=== PATIENT | male | born 1950 | race Caucasian/White ===

== ENCOUNTER 2023-06-13 09:32 | Outpatient (OUT) | payer MEDICARE, SELFPAY ==
[2023-06-13 10:07] LABS: Basophils Absolute Auto 0.1 10^3/uL (0.0-0.1); Basophils Percent Auto 0.8 % (0.2-2.0); Eosinophils Absolute Auto 0.3 10^3/uL (0.0-0.7); Eosinophils Percent Auto 5.4 % (0.9-7.0); Hematocrit 37.6 % (42.0-54.0); Hemoglobin 13.1 g/dL (14.0-18.0); Immature Granulocytes Abs Auto 0.05 10^3/uL (0.00-0.03); Immature Granulocytes Pct Auto 0.8 % (0.0-0.5); Lymphocytes Absolute Auto 1.6 10^3/uL (1.2-3.8); Lymphocytes Percent Auto 25.8 % (20.5-60.0); Mean Corpuscular HGB Conc 34.8 g/dL (29.9-35.2); Mean Corpuscular Volume 91.9 fL (80.0-94.0); Monocytes Absolute Auto 0.5 10^3/uL (0.3-0.8); Neutrophils Absolute Auto 3.7 10^3/uL (1.4-6.5); Neutrophils Percent Auto 59.2 % (43.0-75.0); Platelet Count 174 10^3/uL (150-450); Red Blood Count 4.09 10^6/uL (4.70-6.10); Red Cell Distribution Width 13.3 % (11.0-15.0); White Blood Count 6.3 10^3/uL (4.0-11.0)
[2023-06-13 10:17] LABS: Creatinine Urine Random 185.93 mg/dL (20.00-300.00); Microalbumin Urine Random <1.3 mg/dL (<=30.0)
[2023-06-13 12:00] LABS: Alanine Aminotransferase 17 U/L (16-63); Albumin Globulin Ratio 0.9; Albumin Level 3.5 g/dL (3.4-5.0); Alkaline Phosphatase 58 U/L (46-116); Anion Gap 14.2; Aspartate Amino Transferase 12 U/L (15-37); BUN Creatinine Ratio 19.3; Bilirubin Total 0.7 mg/dL (0.2-1.0); Calcium 9.1 mg/dL (8.5-10.1); Carbon Dioxide 26.9 mmol/L (21.0-32.0); Chloride 102 mmol/L (98-107); Estimated GFR (African America >60 (>=60); Estimated GFR (Non-African Ame >60 (>=60); Globulin 3.7 g/dL; Glucose 132 mg/dL (74-106); Potassium 4.1 mmol/L (3.5-5.1); Sodium 139 mmol/L (136-145); Thyroid Stimulating Hormone 2.354 uIU/mL (0.358-3.740); Total Protein 7.2 g/dL (6.4-8.2)
[2023-06-13 12:08] LABS: Estimated Average Glucose 117 mg/dL; Glycohemoglobin A1C 5.7 % (4.5-6.2)
== END 2023-06-13 09:33 | disposition home or self-care (01) ==
LOC: LAB 09:35
PROVIDERS: PCP Internal Medicine; Visit Provider Internal Medicine
DX: E11.9 Type 2 diabetes mellitus without complications (principal); R53.83 Other fatigue; G62.9 Polyneuropathy, unspecified; N40.0 Benign prostatic hyperplasia without lower urinary tract symptoms; Z12.5 Encounter for screening for malignant neoplasm of prostate
CPT/HCPCS: 36415; 80053; 82043; 82570; 82607; 83036; 84443; 85025; G0103

== ENCOUNTER 2023-07-04 10:37 | Outpatient (OUT) | payer MEDICARE, SELFPAY ==
[2023-07-04 12:03] LABS: Estimated Average Glucose 128 mg/dL; Glycohemoglobin A1C 6.1 % (4.5-6.2)
== END 2023-07-04 10:38 | disposition home or self-care (01) ==
LOC: LAB 10:37
PROVIDERS: PCP Internal Medicine; Visit Provider Internal Medicine
DX: E11.9 Type 2 diabetes mellitus without complications (principal)
CPT/HCPCS: 36415; 83036

== ENCOUNTER 2023-08-30 13:26 | Outpatient (OUT) | payer MEDICARE, SELFPAY | END 2023-08-30 13:27 | disposition home or self-care (01) | LOC: LAB 13:28 | PROVIDERS: PCP Internal Medicine; Visit Provider Nurse Practitioner Family | DX: H53.2 Diplopia (principal) | CPT/HCPCS: 36415; 83519 ==

== ENCOUNTER 2023-10-31 11:19 | Outpatient (OUT) | payer MEDICARE, SELFPAY ==
--- OUTSIDE RECORDS SUMMARY | 2023-10-31 11:24 | XMS_ITS | CCD ---
Author Name Unknown Address [address] [place] [address] Organization [facility] Care Team Providers Care Senior Accountant Cpa Name Role Phone CHAVEZ CELINE JONES Unavailable Unavaila ble CHODISETTY, SUBRAHMANYAM Unavailable Unavail able VIRGINIA, ANGUS Unavailable Unavailable VIRGINIA, ANGUS Unavailable Unavailable VIRGINIA, ANGUS Unavailable Unavailable Fawwad, Lala Unavailable Unavailable Unavailable Alcides Nowak Unavailable Kathie CRAWFORD, Dr. Keyon Bennett Referring Unavailable Kathie II, Dr. Keyon Bennett Attending Unavailable Lynnetteuinsally II, Dr. Keyon Bennett Attending Unavailable Debbien II, Dr. Keyon Bennett Referring Unavailable Vazquez Shaw Unavailable FAWWAD, LALA H Admitting Unavailable FAWWAD, LALA H Attending Unavailable FAWWAD, LALA H Consulting Unavailable FAWWAD, LALA H Primary Care Unavailable JUSTIN ., DR RAYMUNDO Chavez Consulting Unavailable JUSTIN ., DR RAYMUNDO Chavez Admitting Unavailable FAWWAD, LALA H Primary Care Unavailable JUSTIN ., DR RAYMUNDO Chavez Attending Unavailable CUMMINGS, CECILE Consulting Unavailable JUSTIN ., DR RAYMUNDO Chavez Admitting Unavailable FREDERICK DIAZ Consulting Unavailable FAWWAD, LALA H Primary Care Unavailable JUSTIN ., DR RAYMUNDO Chavez Attending Unavailable FAWWAD, LALA H Admitting Unavailable FAWWAD, LALA H Attending Unavailable FAWWAD, LALA H Consulting Unavailable FAWWAD, LALA H Primary Care Unavailable FAWWAD, LALA H Admitting Unavailable FAWWAD, LALA H Attending Unavailable FAWWAD, LALA H Consulting Unavailable SHAIKH Charlie HERNANDEZ Primary Care Unavailable DANIEL Schultz-FAIRING MAN-C Tonya Villanueva Attending Provider MD Dai Hernandez Primary Care Provider [phone] Shaikh Hernandez Primary Care Unavailable Tonya Schultz Attending Unavailable Tonya Schultz Admitting Unavailable Shaikh Hernandez MD Primary Care Provider [phone] ANA RAMOS Attending Unavailable SHAIKH HERNANDEZ Primary Care Unavailable Allergies Allergy Classification Reported Allergen(s) Allergy Type Date of Onset Reaction(s) Facility (7 sources) Iodinated Contrast Media; Translations: [Iodinated Contrast Media] Allergy to drug (finding) 1 Unknown Reaction [facility] (1 source) house dust allergenic extract Drug Allergy [facility] (3 sources) Latex; Translations: [LATEX] Drug allergy (disorder) 1 Unknown Reaction [facility] (1 source) Shellfish Drug allergy (disorder) [facility] (1 source) Latex Drug allergy (disorder) 1 [facility] (1 source) Iodinated Contrast Media Drug allergy (disorder) 1 [facility] (1 source) Latex Propensity to adverse reactions 3 [facility] Work Phone: (2 sources) Shellfish; Translations: [SHELLFISH DERIVED] Propensity to adverse reactions 3 [facility] Work Phone: (2 sources) Adhesive Tape-Silicones; Translations: [ADHESIVE TAPE-SILICONES] Propensity to adverse reactions 3 [facility] (1 source) Iodinated Contrast Media Drug Allergy 3 [facility] Medications Current Medications Medication Drug Class(es) Dates Sig (Normalized) Sig (Original) apixaban 5 mg oral tablet (6 sources) Factor Xa Inhibitor Start: 12-04-2021 take 1 tablet by mouth twice daily apixaban (Eliquis) 5 mg tablet Take 1 tablet (5 mg) by mouth 2 times a day. 0 12/04/2021 Active aspirin 81 mg delayed release oral tablet (6 sources) Platelet Aggregation Inhibitor, Nonsteroidal Anti-inflammatory Drug Start: 12-04-2021 take 1 tablet by mouth every week aspirin 81 mg EC tablet Take 1 tablet (81 mg) by mouth 1 (one) time per week. 0 12/04/2021 Active atorvastatin 20 mg oral tablet (7 sources) HMG-CoA Reductase Inhibitor Start: 12-01-2021 take 1 tablet by mouth once daily atorvastatin (Lipitor) 20 mg tablet Take 1 tablet (20 mg) by mouth once daily. 0 12/01/2021 Active Start: 09-25-2021 take 10 mg by mouth once daily Atorvastatin Active 10 MG PO Daily September 25, 2021 1:00am biotin 5 mg oral capsule (3 sources) take 1 capsule by mo [facility] once daily biotin 5 mg capsule Take 1 capsule (5 mg) by mouth once daily. 0 Active Biotin CAPS TAKE 1 CAPSULE Daily Quantity: 0 Refills: 0 Ordered: 14-Apr-2022 DO Active carbidopa 25 mg / levodopa 100 mg oral tablet (10 sources) Aromatic Amino Acid Decarboxylation Inhibitor, Aromatic Amino Acid take 1 tablet by mouth three times daily carbidopa-levodopa (Sinemet) 25-100 mg tablet Take 1 tablet by mouth 3 times a day. 0 Active take 1 tablet by gabriela three times daily Carbidopa-Levodopa 25-100 MG TAKE 1 TABL ET BY MOUTH THREE TIMES DAILY Oral for 30 Days Active carvedilol 25 mg oral tablet (15 sources) alpha-Adrenergic Stephanie, beta-Adrenergic Stephanie Start: 09-25-2021 take 25 mg by mouth once daily Carvedilol Active 25 MG PO Daily September 25, 2021 1:00am Start: 09-02-2021 take 1 tablet by gabriela twice daily carvedilol (Coreg) 25 mg tablet Take 1 tablet (25 mg) by mouth 2 times a day. 0 09/02/2021 Active Carvedilol Activ e cetirizine hydrochloride 10 mg oral tablet (3 sources) Histamine-1 Receptor Antagonist take 1 tablet by mouth every twenty-four hours as needed cetirizine (ZyrTEC) 10 mg tablet Take 1 tablet (10 mg) by mouth once daily as needed. 0 Active cholecalciferol 1.25 mg oral capsule (3 sources) Vitamin D take 1 capsule by mouth once daily cholecalciferol (Vitamin D-3) 50,000 unit capsule Take 1 capsule (50,000 Units) by mouth once daily. 0 Active 0.5 ml dulaglutide 1.5 mg/ml auto-injector (8 sources) GLP-1 Receptor Agonist Start: 022 dulaglutide (Trulicity) 0.75 mg/0.5 mL pen injector Inject under the skin. 0 01/07/2022 Active Start: 01-07-2022 Trulicity 0.75 MG/0.5ML Subcutaneous Solution Pen-injector INJECT 1 pen NEEDED SUBCUTANEOUSLY ONCE A WEEK Quantity: 2 Refills: 0 Ordered: 02-Feb-2022 DO Start : 07-Jan-2022 Active Trulicity Not-Calvin chicas Trulicity Active esomeprazole 40 mg delayed release oral capsule (6 sources) Proton Pump Inhibitor Start: 01-12-2023 take 1 capsule by mouth every twenty-four hours Esomeprazole Magnesium 40 MG 1 capsule Orally Once a day for 30 days Dec, Active Start: 05-12-2022 take 1 capsule by mo [facility] twice daily Esomeprazole Magnesium 40 MG 1 capsule Orally twice daily for 90 days Apr, Active finasteride 5 mg oral tablet (1 source) 5-alpha Reductase Inhibitor take 1 tablet by mouth once daily finasteride (Proscar) 5 mg tablet Take 1 tablet (5 mg) by mouth once daily. Do not crush, chew, or split. 0 Active glimepiride 4 mg oral tablet (14 sources) Sulfonylurea Start: take 0.5 tablet by mouth once daily before mealtime glimepiride (Amaryl) 4 mg tablet Take 0.5 tablets (2 mg) by mouth once daily in the morning. Take before meals. 0 12/01/2021 Active Start: 12-01-2021 take 1 tablet by gabriela once daily 30 minutes before mealtime Glimepiride 4 MG Oral Tablet TAKE 1 TABLET BY MOUTH DAILY 30 MINUTES before a meal Quantity: 30 Refills: 0 Ordered: 01-Dec-2021 DO Start : 01-Dec-2021 Active take 1 tablet by gabriela every twenty-four hours Glimepiride 2 MG 1 tab(s) Orally Once a day Active losartan potassium 50 mg oral tablet (14 sources) Angiotensin 2 Receptor Stephanie Start: 09-25-2021 take 1 tablet by mouth once daily losartan (Cozaar) 50 mg tablet Take 1 tablet (50 mg) by mouth once daily. 0 10/27/2021 Active magnesium oxide 400 mg oral tablet (3 sources) Start: 11-17-2021 take 1 tablet by mouth once daily at bedtime magnesium oxide (Mag-Ox) 400 mg (241.3 mg magnesium) tablet Take 1 tablet (400 mg) by mouth once daily at bedtime. 0 11/17/2021 Active Start: 11-17-2021 take 1 tablet by gabriela th at bedtime Magnesium Oxide 400 (240 Mg) MG Oral Tablet TAKE 1 TABLET BY MOUTH AT BEDTIME Quantity: 30 Refills: 0 Ordered: 17-Nov-2021 DO Start : 17-Nov-2021 Active meclizine hydrochloride 25 mg oral tablet (7 sources) Antiemetic Start: 11-17-2021 take 1 tablet by mouth twice daily as needed meclizine (Antivert) 25 mg tablet Take 1 tablet (25 mg) by mouth 2 times a day as needed. 0 11/17/2021 Active Start: 09-25-2021 take 25 mg by mouth once daily Meclizine Active 25 MG PO Daily September 25, 2021 1:00am metFORMIN hydrochloride 500 mg oral tablet (11 sources) Biguanide Start: 12-01-2021 take 1 tablet by mouth every twelve hours metFORMIN (Glucophage) 500 mg tablet Take 1 tablet (500 mg) by mouth every 12 hours. 0 12/01/2021 Active primidone 50 mg oral tablet (2 sources) Anti-epileptic Agent take 1 tablet by mouth once daily at bedtime primidone (Mysoline) 50 mg tablet Take 1 tablet (50 mg) by mouth once daily at bedtime. 0 Active SITagliptin 100 mg oral tablet (15 sources) Dipeptidyl Peptidase 4 Inhibitor Start: 09-25-2021 take 1 tablet by mouth once daily sitaGLIPtin phosphate (Januvia) 100 mg tablet Take 1 tablet (100 mg) by mouth once daily. 0 11/10/2021 Active Januvia Active tamsulosin hydrochloride 0.4 mg oral capsule (7 sources) alpha-Adrenergic Stephanie Start: 09-25-2021 take 1 capsule by mouth once daily tamsulosin (Flomax) 0.4 mg 24 hr capsule Take 1 capsule (0.4 mg) by mouth once daily. 0 11/30/2021 Active traZODone hydrochloride 50 mg oral tablet (1 source) Serotonin Reuptake Inhibitor take 1 tablet by mouth once daily at bedtime traZODone (Desyrel) 50 mg tablet Take 1 tablet (50 mg) by mouth once daily at bedtime. 0 Active Completed/Discontinued Medications Medication Drug Class(es) Dates Sig (Normalized) Sig (Original) baclofen 10 mg oral tablet (9 sources) gamma-Aminobuty alexia Acid-ergic Agonist Start: 11-17-2021 take 1 tablet by mouth at bedtime Baclofen 10 MG Oral Tablet TAKE 1 TABLET BY MOUTH AT BEDTIME Quantity: 30 Refills: 0 Ordered: 17-Nov-2021 DO Start : 17-Nov-2021 Active dexlansoprazole 30 mg delayed release oral capsule (7 sources) Proton Pump Inhibitor Start: 11-23-2021 End: 09-28-2023 take 1 capsule by mouth twice daily dexlansoprazole (Dexilant) [address] capsule Take 1 capsule (30 mg) by mouth 2 times a day. 0 11/23/2021 09/28/2023 Discontinued (Therapy completed) gabapentin 300 mg oral capsule (15 sources) Anti-epileptic Agent Start: 10-27-2021 take 1 capsule by mouth three times daily Gabapentin 300 MG Oral Capsule TAKE 1 CAPSULE BY MOUTH THREE TIMES DAILY Quantity: 90 Refills: 0 Ordered: 27-Oct-2021 DO Start : 27-Oct-2021 Active Start: 09-25-2021 take 300 mg by mouth once chris y Gabapentin Active 300 MG PO Daily September 25, 2021 1:00am take 1 capsule by mo [facility] twice daily gabapentin (Neurontin) 300 mg capsule Take 1 capsule (300 mg) by mouth 2 times a day. 0 Active Gabapentin Activ e lansoprazole 30 mg delayed release oral capsule (4 sources) Proton Pump Inhibitor Start: 05-14-2022 take 1 capsule by mouth every twelve hours Lansoprazole 30 MG 1 capsule before a meal Orally twice a day for 90 days Apr, Not-Taking Multi Vitamin Daily Oral Tablet (2 sources) take 1 tablet by mouth once daily Multi Vitamin Daily Oral Tablet TAKE 1 TABLET DAILY. Quantity: 0 Refills: 0 Ordered: 14-Apr-2022 DO Active multivitamin (Daily Multi-Vitamin) tablet (1 source) End: 09-28-2023 take 1 tablet by mouth once daily multivitamin (Daily Multi-Vitamin) tablet Take 1 tablet by mouth once daily. 0 09/28/2023 Discontinued (Therapy completed) omeprazole 40 mg delayed release oral capsule (10 sources) Proton Pump Inhibitor Start: 12-11-2021 End: 09-28-2023 omeprazole (PriLOSEC) [address] capsule Take by mouth. 0 12/11/2021 09/28/2023 Discontinued (Therapy completed) Start: 09-25-2021 take 40 mg by mouth once daily Omeprazole Active 40 MG PO Daily 84 84 September 25, 2021 1:00am Start: 09-25-2021 End: 09-25-2021 take 20 mg by mouth once daily Omeprazole Discontinued 20 MG PO Daily September 25, 2021 1:00am September 25, 2021 10:34am Prostate Control Oral Capsule (2 sources) take 1 capsule by mouth once daily Prostate Control Oral Capsule TAKE 1 CAPSULE Daily Quantity: 0 Refills: 0 Ordered: 14-Apr-2022 DO Active ron-Lc-yak-pumpk-beta- ly-Zn-Cu (Prostate Control) 27-79-09-100 mg capsule (1 source) End: 09-28-2023 take 1 capsule by mouth once daily muk-Lk-suk-ugiqv-jqky-jk-Z n-Cu (Prostate Control) 29-53-22-100 mg capsule Take 1 capsule by mouth once daily. 0 09/28/2023 Discontinued (Therapy completed) Problems Active Problems Problem Classification Problem Date Documented Date Episodic/Chronic Cardiac dysrhythmias (9 sources) Paroxysmal atrial fibrillation; Translations: [Atrial fibrillation] Onset: 09-27-2023 09-28-2023 Chronic Diabetes mellitus without complication (14 sources) Diabetes mellitus without complication; Translations: [Diabetes mellitus without mention of complication, type II or unspecified type, not stated as uncontrolled] Onset: 04-21-2022 Chronic Disorders of lipid metabolism (10 sources) Hyperlipidemia; Translations: [Other and unspecified hyperlipidemia] Onset: 11-17-2022 09-28-2023 Chronic Esophageal disorders (20 sources) Gastroesophageal reflux disease; Translations: [Gastro-esophageal reflux disease without esophagitis] Onset: 11-23-2021 Resolved: 05-12-2022 Chronic Essential hypertension (9 sources) Benign essential hypertension; Translations: [Benign essential hypertension] Onset: 09-27-2023 09-28-2023 Chronic Other aftercare (2 sources) Long-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 of 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; Translations: [penitentiary (current) use of 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s] Onset: 09-28-2023 09-28-2023 Episodic Other aftercare (2 sources) 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; Translations: [penitentiary (current) use of 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s] Onset: 09-28-2023 Episodic Other disorders of stomach and duodenum (8 sources) Indigestion; Translations: [Functional dyspepsia] Episodic Other disorders of stomach and duodenum (2 sources) Functional dyspepsia Onset: 11-23-2021 Resolved: 11-23-2021 Episodic Other nervous system disorders (1 source) Other chronic pain; Translations: [OTHER CHRONIC PAIN] Onset: 05-26-2022 Chronic Other nervous system disorders (1 source) Tremor, unspecified; Translations: [Tremor, unspecified] Onset: 07-22-2023 Episodic Other nutritional; endocrine; and metabolic disorders (2 sources) Obesity; Translations: [Obesity, unspecified] Chronic Other nutritional; endocrine; and metabolic disorders (5 sources) Overweight in adulthood with body mass index of 25 or more but less than 30; Translations: [Overweight] Onset: 09-28-2023 09-28-2023 Episodic Other nutritional; endocrine; and metabolic disorders (2 sources) Body mass index (BMI) 28.0-28.9, adult; Translations: [Body mass index (BMI) 28.0-28.9, adult] Onset: 09-28-2023 Episodic Parkinson`s disease (4 sources) Parkinson's disease; Translations: [Paralysis agitans] Onset: 05-26-2022 09-27-2023 Chronic Spondylosis; intervertebral disc disorders; other back problems (5 sources) Spondylosis without myelopathy or radiculopathy, lumbar region; Translations: [Other intervertebral disc degeneration, lumbar region] Onset: 05-20-2022 Chronic Unclassified (1 source) LOW BACK PAIN, UNSPECIFIED; Translations: [LOW BACK PAIN, UNSPECIFIED] Onset: 05-26-2022 Past or Other Problems Problem Classification Problem Date Documented Da te Episodic/Chronic Other connective tissue disease (2 sources) Unspecified symptoms and signs involving the nervous system; Translations: [Pain in unspecified limb] Onset: 04-25-2017 Episodic Other nervous system disorders (1 source) Paresthesia of skin; Translations: [Paresthesia of skin] Onset: 04-25-2017 Episodic Unclassified (5 sources) Never smoked tobacco; Translations: [Never a smoker] Unclassified (1 source) Onset: 09-28-2023 09-28-2023 Results Test Name Value Interpretation Reference Range Facility MR head/brain wo conon 07-22 MR head/brain wo con [facility] [place] [address] [place] [address] MRI Report Signed Patient: Jay Aguero MR#: [id number] 3 : 1950 Acct:[id number] Age/Sex: 73 / M ADM Date: 07/22/23 Loc: MR Room: Type: [facility] Attending Dr: Tonya MCGOWAN Copies to: JUAN M Gonzalez Ordering Provider: JUAN M Gonzalez Date of Service: 07/22/23 MR/MR head/brain wo con: R25.1 MR head/brain wo con 07/22/2023 6:38 AM SIGN AND SYMPTOMS: Diplopia, history of Parkinson's PROTOCOL: Multiplanar multisequence MR images of the brain were obtained without IV contrast COMPARISON: None. FINDINGS: Extra axial spaces: Age appropriate. Hemorrhage: None. Ventricular system: Within normal limits. Basal cisterns: Within normal limits and not effaced. Cerebral parenchyma: Periventricular and subcortical white matter T2 and FLAIR hyperintense signal is noted consistent with mild chronic microvascular ischemic change. Midline shift: None.. Cerebellum: Within normal limits. Brainstem: Within normal limits. OTHER: Calvarium: Normal marrow signal. Vascular system: Satisfactory flow voids within the anterior and posterior circulation. Visualized Paranasal sinuses: Mucosal thickening is noted in the ethmoid air cells. Visualized Orbits: Within normal limits. Visualized upper cervical spine: Within normal limits. Sella and skull base: Within normal limits. MR/MR head/brain wo con IMPRESSION: No acute intracranial pathology. Chronic age-related degenerative changes are noted, as above. Impression dictated by: Duc Wheeler M.D.07/22/2023 11:32 AM Dictation Location: [place] [address] Transcribed By: CLARISSA 07/22/23 113 Dictated By: Duc Wheeler II, MD 07/22/23 112 Signed By: 07/22/23 113 [facility] GLYCOHEMOGLOBIN A1Con 2022 ADA RECOMMENDATION SEE BELOW Normal [facility] Comment on above: Result Comment: ADA RECOMMENDED LIMIT 4.0 - 6.0 ADA THERAPEUTIC TARGET < 7.0 ACTION SUGGESTED > 7.0 Performed By: #### A 1C #### [facility] [address] [place] [address] Dr. Gallo Wade Glucose [Mass/Vol] 128 mg/dL Normal [facility] Comment on above: Performed By: #### A 1C #### [facility] [address] [place] [address] [address] Gallo Wade HbA1c (Bld) [Mass fraction] 6.1 % Normal 4.5-6.2 [facility] Comment on above: Performed By: #### A 1C #### [facility] [address] [place] [address] [address] Gallo Wade Office Visit (Cardiology)on 12-29-2022 Follow-up visit Diagnoses/Problems Assessed Class 1 obesity with body mass index (BMI) of 30.0 to 30.9 in adult (278.00,V85.30) (E66.9,Z68.30) Hyperlipidemia (272.4) (E78.5) Paroxysmal atrial fibrillation (427.31) (I48.0) Essential hypertension, benign (401.1) (I10) Diabetes mellitus with no complication (250.00) (E11.9) Parkinsons disease (332.0) (G20) Never a smoker Orders Class 1 obesity with body mass index (BMI) of 30.0 to 30.9 in adult Healthy Weight Tips; Status:Complete; Done: 29Dec2022 Some eating tips that can help you lose weight.; Status:Complete; Done: 29Dec2022 Essential hypertension, benign Renew: Losartan Potassium 50 MG Oral Tablet; TAKE 1 TABLET BY MOUTH DAILY Hyperlipidemia Renew: Atorvastatin Calcium 20 MG Oral Tablet; TAKE 1 TABLET BY MOUTH DAILY Paroxysmal atrial fibrillation Renew: Aspirin 81 MG Oral Tablet Delayed Release; TAKE 1 TABLET Weekly SocHx: Never a smoker Tobacco Use Screening; Status:Complete; Done: 29Dec2022 Patient Instructions Please bring all medicines, vitamins, and herbal supplements with you when you come to the office. Prescriptions will not be filled unless you are compliant with your follow up appointments or have a follow up appointment scheduled as per instruction of your physician. Refills should be requested at the time of your visit. Follow up in 9 months Chief Complaint JAY AGUERO is being seen for a 9 month follow-up of. History of Present Illness Patient returns in follow-up of problems as noted. In the interim he is done well. Control of his lipids and hypertension is reviewed and found to be adequate and appropriate. He has had no symptomatic paroxysms of atrial fibrillation based upon her review. He is not on antiarrhythmics but he is anticoagulated and hence the risk of stroke appears to be mitigated. His Parkinson's disease is nonproblematic and he denies any falling or other coordination issues. Increased body mass index is noted in the merits of diet exercise and weight loss and its favorable impact on lipids blood pressure and in particular his diabetes was emphasized and he understands our recommendation. Surgical History Problems History of Back surgery History of Carpal tunnel surgery History of Cholecystectomy History of Colonoscopy History of Lithotripsy History of Nasal septoplasty History of Neck surgery History of Tonsillectomy with adenoidectomy Current Meds Medication NameInstruction Allergy (Cetirizine) 10 MG Oral TabletTAKE 1 TABLET DAILY NEEDED. Aspirin 81 MG Oral Tablet Delayed ReleaseTAKE 1 TABLET Weekly Atorvastatin Calcium 20 MG Oral TabletTAKE 1 TABLET BY MOUTH DAILY Biotin CAPSTAKE 1 CAPSULE Daily Carbidopa-Levodopa 25-100 MG Oral TabletTAKE 1 TABLET 3 TIMES DAILY. Carvedilol 25 MG Oral TabletTAKE 1 TABLET BY MOUTH TWICE DAILY Dexilant 30 MG Oral Capsule Delayed ReleaseTAKE 1 CAPSULE BY MOUTH TWICE DAILY Eliquis 5 MG Oral TabletTake 1 tablet twice daily Gabapentin 300 MG Oral CapsuleTAKE 1 CAPSULE TWICE DAILY. Glimepiride 2 MG Oral TabletTAKE 1 TABLET DAILY WITH BREAKFAST. Januvia 100 MG Oral TabletTAKE 1 TABLET BY MOUTH DAILY Losartan Potassium 50 MG Oral TabletTAKE 1 TABLET BY MOUTH DAILY Magnesium Oxide 400 (240 Mg) MG Oral TabletTAKE 1 TABLET BY MOUTH AT BEDTIME Meclizine HCl - 25 MG Oral TabletTAKE 1 TABLET BY MOUTH TWICE DAILY NEEDED metFORMIN HCl - 500 MG Oral TabletTAKE 1 TABLET BY MOUTH EVERY 12 HOURS Multi Vitamin Daily Oral TabletTAKE 1 TABLET DAILY. Omeprazole 40 MG Oral Capsule Delayed ReleaseTAKE 1 CAPSULE BY MOUTH TWICE DAILY (30 MINUTES before morning meal AND 30 MINUTES before evening meal) Primidone 50 MG Oral TabletTAKE 1 TABLET AT BEDTIME. Prostate Control Oral CapsuleTAKE 1 CAPSULE Daily Tamsulosin HCl - 0.4 MG Oral CapsuleTAKE 1 CAPSULE BY MOUTH ONCE DAILY Trulicity 0.75 MG/0.5ML Subcutaneous Solution Pen-injectorINJECT 1 pen NEEDED SUBCUTANEOUSLY ONCE A WEEK Vitamin D3 1.25 MG (60753 UT) Oral CapsuleTAKE 1 CAPSULE Daily Allergies Medication Iodinated Contrast Media Recorded By: Shoaib Goff; 12/04/2021 2:37:37 PM Social History Problems Never a smoker No alcohol use No caffeine use No illicit drug use Review of Systems Constitutional: not feeling tired. Eyes: no eyesight problems. ENT: no hearing loss and no nosebleeds. Cardiovascular: no intermittent leg claudication and as noted in HPI. Respiratory: no chronic cough and no shortness of breath. Gastrointestinal: no change in bowel habits and no blood in stools. Genitourinary: no urinary frequency and no hematuria. Skin: no skin rashes. Neurological: no seizures and no frequent falls. Psychiatric: no depression and not suicidal. All other systems have been reviewed and are negative for complaint. Vitals Vital Signs Recorded: 29Dec2022 01:35PM Heart Rate74, R Radial [id number], LUE, Sitting [id number], LUE, Sitting Height5 ft 10 in [id number] lb BMI Rvirmzmzik15.28 (more content not included)... Normal [place] Tobacco Screening.on 023 Adult depression screening assessment No [facility] [facility] 250 DO Work Phone: Fall risk assessment a) No falls within the last year [facility] [facility] DO Work Phone: Tobacco use status CP b) No [facility] [facility] 250 DO Work Phone: CBC AUTO DIFFon 11-15-2022 BASO # 0.0 103/ul Normal 0.0-0.1 [facility] Comment on above: Performed By: #### C BC #### [facility] [address] [place] [address] Dr. Gallo Wade Basophils/100 WBC (Bld) 0.5 % Normal 0.2-2.0 [facility] Comment on above: Performed By: #### C BC #### [facility] [address] [place] [address] Dr. Gallo Wade EO # 0.2 103/ul Normal 0.0-0.7 [facility] Comment on above: Performed By: #### C BC #### [facility] Laboratory [address] [place] [address] Dr. Gallo Wade Eosinophils/100 WBC (Bld) 2.7 % Normal 0.9-7.0 [facility] Comment on above: Performed By: #### C BC #### [facility] [address] [place] [address] Dr. Gallo Wade Erythrocyte distribution width (RBC) [Ratio] 13.0 % Normal 11.0-15.0 [facility] Comment on above: Performed By: #### C BC #### [facility] [address] [place] [address] Dr. Gallo Wade Hematocrit (Bld) [Volume fraction] 37.6 % Critically low 42.0-54.0 [facility] Comment on above: Performed By: #### C BC #### [facility] [address] [place] [address] Dr. Gallo Wade Hemoglobin (Bld) [Mass/Vol] 13.7 g/dL Critically low 14.0-18.0 [facility] Comment on above: Performed By: #### C BC #### [facility] [address] [place] [address] Dr. Gallo Wade IG # 0.08 10e3/ul Critically high 0.00-0.03 [facility] Comment on above: Performed By: #### C BC #### [facility] [address] [place] [address] Dr. Galol Wade IG % 1.1 % Critically high 0.0-0.5 [facility] Comment on above: Performed By: #### C BC #### [facility] [address] [place] [address] Dr. Gallo Wade LYMPH # 1.6 103/ul Normal 1.2-3.8 [facility] Comment on above: Performed By: #### C BC #### [facility] [address] [place] [address] Dr. Gallo Wade Lymphocytes/100 WBC (Bld) 21.7 % Normal 20.5-60.0 [facility] Comment on above: Performed By: #### C BC #### [facility] [address] [place] [address] Dr. Gallo Wade MANUAL DIFF REQ NO Normal [facility] Comment on above: Performed By: #### C BC #### [facility] [address] [place] [address] Dr. Gallo Wade MCH (RBC) [Entitic mass] 32.2 pg Normal 25.9-34.0 [facility] Comment on above: Performed By: #### C BC #### [facility] [address] [place] [address] Dr. Gallo Wade MCHC (RBC) [Mass/Vol] 36.4 g/dL Critically high 29.9-35.2 [facility] Comment on above: Performed By: #### C BC #### [facility] [address] [place] [address] Dr. Gallo Wade MCV (RBC) [Entitic vol] 88.5 fL Normal 80.0-94.0 [facility] Comment on above: Performed By: #### C BC #### [facility] [address] [place] [address] Dr. Gallo Wade MONO # 0.5 103/ul Normal 0.3-0.8 [facility] Comment on above: Performed By: #### C BC #### [facility] [address] [place] [address] Dr. Gallo Wade Monocytes/100 WBC (Bld) 6.4 % Normal 1.7-12.0 [facility] Comment on above: Performed By: #### C BC #### [facility] [address] [place] [address] Dr. Gallo Wade NEUT # 5.0 103/ul Normal 1.4-6.5 [facility] Comment on above: Performed By: #### C BC #### [facility] [address] [place] [address] Dr. Gallo Wade Neutrophils/100 WBC (Bld) 67.6 % Normal 43.0-75.0 [facility] Comment on above: Performed By: #### C BC #### [facility] [address] [place] [address] Dr. Gallo Wade Platelet mean volume (Bld) [Entitic vol] 9.9 fL Normal 9.5-13.5 [facility] Comment on above: Performed By: #### C BC #### [facility] [address] [place] [address] Dr. Gallo Wade PLT 174 103/ul Normal 150-450 [facility] Comment on above: Performed By: #### C BC #### [facility] [address] [place] [address] Dr. Gallo Wade RBC 4.25 106/ul Critically low 4.70-6.10 [facility] Comment on above: Performed By: #### C BC #### [facility] [address] [place] [address] Dr. Gallo Wade WBC 7.4 103/ul Normal 4.0-11.0 [facility] Comment on above: Performed By: #### C BC #### [facility] [address] [place] [address] Dr. Gallo Wade GLYCOHEMOGLOBIN A1Con 2022 ADA RECOMMENDATION SEE BELOW Normal [facility] Comment on above: Result Comment: ADA RECOMMENDED LIMIT 4.0 - 6.0 ADA THERAPEUTIC TARGET < 7.0 ACTION SUGGESTED > 7.0 Performed By: #### A 1C #### [facility] [address] [place] [address] Dr. Gallo Wade Glucose [Mass/Vol] 169 mg/dL Normal [facility] Comment on above: Performed By: #### A 1C #### [facility] [address] [address] [address] Gallo Wade HbA1c (Bld) [Mass fraction] 7.5 % Critically high 4.5-6.2 [facility] Comment on above: Performed By: #### A 1C #### [facility] [address] [address] [address] Gallo Wade LIPID PROFILEon 11-15-2022 CHOL-HDL RATIO NORM SEE BELOW Normal [facility] Comment on above: Result Comment: 3.3 - 4.4 LOW RISK 4.4 - 7.1 AVERAGE RISK 7.1 - 11.0 MODERATE RISK >11.0 HIGH RISK Performed By: #### L IPID, CMP #### [facility] [address] [place] [address] Dr. Gallo Wade Cholesterol [Mass/Vol] 150 mg/dL Normal <=200 [facility] Comment on above: Performed By: #### L IPID, CMP #### [facility] [address] [address] [address] Gallo Wade Cholesterol in HDL [Mass/Vol] 45 mg/dL Normal 40-60 [facility] Comment on above: Performed By: #### L IPID, CMP #### [facility] [address] [address] [address] Gallo Wade Cholesterol in LDL [Mass/Vol] 53.6 mg/dL Normal [facility] Comment on above: Performed By: #### L IPID, CMP #### [facility] [address] [address] [address] Gallo Wade Cholesterol.total/Ch olesterol in HDL [Mass ratio] 3.3 {ratio} Normal [facility] Comment on above: Performed By: #### L IPID, CMP #### [facility] [address] [address] [address] Gallo Wade HDL NORMAL > or = 60 mg/dl - LO W CARDIOVASCULAR RISK <40 mg/dl - HIGH CARDIOVASCULAR RISK Normal [facility] Comment on above: Performed By: #### L IPID, CMP #### [facility] [address] [address] [address] Gallo Wade LDL CALC NORMAL SEE BELOW Normal [facility] Comment on above: Result Comment: <100 mg/dl OPTIMAL 100 - 129 mg/dl NEAR OR ABOVE OPTIMAL 130 - 159 mg/dl BORDERLINE HIGH 160 - 189 mg/dl HIGH >190 mg/dl VERY HIGH Performed By: #### L IPID, CMP #### [facility] [address] [address] [address] Gallo Wade Triglyceride [Mass/Vol] 257 mg/dL Critically high <=150 [facility] Comment on above: Performed By: #### L IPID, CMP #### [facility] [address] [address] [address] Gallo Wade VLDL CALC 51.4 mg/dL Normal [facility] Comment on above: Performed By: #### L IPID, CMP #### [facility] [address] [address] [address] Gallo Wade PROF 14(COMP METB)on 023 Albumin [Mass/Vol] 3.7 g/dL Normal 3.4-5.0 [facility] Comment on above: Performed By: #### L IPID, CMP #### [facility] [address] [place] [address] Dr. Gallo Wade Albumin/Globulin [Mass ratio] 1.1 {ratio} Normal [facility] Comment on above: Performed By: #### L IPID, CMP #### [facility] [address] [place] [address] Dr. Gallo Wade ALP [Catalytic activity/Vol] 77 U/L Normal 46-116 [facility] Comment on above: Performed By: #### L IPID, CMP #### [facility] [address] [place] [address] Dr. Gallo Wade ALT [Catalytic activity/Vol] 24 U/L Normal 16-63 [facility] Comment on above: Performed By: #### L IPID, CMP #### [facility] [address] [address] [address] Gallo Wade Anion gap [Moles/Vol] 13.2 mmol/L Normal [facility] Comment on above: Performed By: #### L IPID, CMP #### [facility] [address] [address] [address] Gallo Wade AST [Catalytic activity/Vol] 15 U/L Normal 15-37 [facility] Comment on above: Performed By: #### L IPID, CMP #### [facility] [address] [place] [address] Dr. Gallo Wade Bilirubin [Mass/Vol] 0.9 mg/dL Normal 0.2-1.0 [facility] Comment on above: Performed By: #### L IPID, CMP #### [facility] [address] [place] [address] Dr. Gallo Wade Calcium [Mass/Vol] 9.1 mg/dL Normal 8.5-10.1 [facility] Comment on above: Performed By: #### L IPID, CMP #### [facility] [address] [place] [address] Dr. Gallo Wade Chloride [Moles/Vol] 102 mmol/L Normal 98-107 [facility] Comment on above: Performed By: #### L IPID, CMP #### [facility] [address] [place] [address] Dr. Gallo Wade CO2 [Moles/Vol] 27.9 mmol/L Normal 21.0-32.0 [facility] Comment on above: Performed By: #### L IPID, CMP #### [facility] [address] [place] [address] Dr. Gallo Wade Creatinine [Mass/Vol] 0.82 mg/dL Normal 0.70-1.30 [facility] Comment on above: Performed By: #### L IPID, CMP #### [facility] [address] [place] [address] Dr. Gallo Wade EGFR-AF CITIZEN [place] >60 Normal >=60 [facility] Comment on above: Performed By: #### L IPID, CMP #### [facility] [address] [address] [address] Gallo Wade EGFR-NON AF CITIZEN OF [place] >60 Normal >=60 [facility] Comment on above: Performed By: #### L IPID, CMP #### [facility] [address] [address] [address] Gallo Wade Globulin (S) [Mass/Vol] 3.5 g/dL Normal [facility] Comment on above: Performed By: #### L IPID, CMP #### [facility] [address] [place] [address] Dr. Gallo Wade Glucose [Mass/Vol] 161 mg/dL Critically high 74-106 [facility] Comment on above: Performed By: #### L IPID, CMP #### [facility] [address] [place] [address] Dr. Gallo Wade Potassium [Moles/Vol] 4.1 mmol/L Normal 3.5-5.1 [facility] Comment on above: Performed By: #### L IPID, CMP #### [facility] [address] [place] [address] Dr. Gallo Wade Protein [Mass/Vol] 7.2 g/dL Normal 6.4-8.2 [facility] Comment on above: Performed By: #### L IPID, CMP #### [facility] [address] [place] [address] Dr. Gallo Wade Sodium [Moles/Vol] 139 mmol/L Normal 136-145 [facility] Comment on above: Performed By: #### L IPID, CMP #### [facility] [address] [place] [address] Dr. Gallo Wade Urea nitrogen [Mass/Vol] 14.0 mg/dL Normal 7.0-18.0 [facility] Comment on above: Performed By: #### L IPID, CMP #### [facility] [address] [place] [address] Dr. Gallo Wade Urea nitrogen/Creatinine [Mass ratio] 17.1 mg/mg Normal [facility] Comment on above: Performed By: #### L IPID, CMP #### [facility] [address] [address] [address] Gallo Wade GLYCOHEMOGLOBIN A1Con 2021 ADA RECOMMENDATION SEE BELOW Normal [facility] Comment on above: Result Comment: ADA RECOMMENDED LIMIT 4.0 - 6.0 ADA THERAPEUTIC TARGET < 7.0 ACTION SUGGESTED > 7.0 Performed By: #### A 1C #### [facility] [address] [address] [address] Gallo Wade Glucose [Mass/Vol] 134 mg/dL Normal [facility] Comment on above: Performed By: #### A 1C #### [facility] [address] [place] [address] Dr. Gallo Wade HbA1c (Bld) [Mass fraction] 6.3 % Critically high 4.5-6.2 [facility] Comment on above: Performed By: #### A 1C #### [facility] [address] [place] [address] Dr. Gallo Wade LIPID PROFILEon 05-14-2022 CHOL-HDL RATIO NORM SEE BELOW Normal [facility] Comment on above: Result Comment: 3.3 - 4.4 LOW RISK 4.4 - 7.1 AVERAGE RISK 7.1 - 11.0 MODERATE RISK >11.0 HIGH RISK Performed By: #### L IPID #### [facility] [address] [place] [address] Dr. Gallo Wade Cholesterol [Mass/Vol] 129 mg/dL Normal <=200 [facility] Comment on above: Performed By: #### L IPID #### [facility] [address] [place] [address] Dr. Gallo Wade Cholesterol in HDL [Mass/Vol] 36 mg/dL Critically low 40-60 [facility] Comment on above: Performed By: #### L IPID #### [facility] [address] [place] [address] Dr. Gallo Wade Cholesterol in LDL [Mass/Vol] 46.6 mg/dL Normal [facility] Comment on above: Performed By: #### L IPID #### [facility] [address] [place] [address] Dr. Gallo Wade Cholesterol.total/Ch olesterol in HDL [Mass ratio] 3.6 {ratio} Normal [facility] Comment on above: Performed By: #### L IPID #### [facility] [address] [address] [address] Gallo Wade HDL NORMAL > or = 60 mg/dl - LO W CARDIOVASCULAR RISK <40 mg/dl - HIGH CARDIOVASCULAR RISK Normal [facility] Comment on above: Performed By: #### L IPID #### [facility] [address] [address] [address] Gallo Wade LDL CALC NORMAL SEE BELOW Normal [facility] Comment on above: Result Comment: <100 mg/dl OPTIMAL 100 - 129 mg/dl NEAR OR ABOVE OPTIMAL 130 - 159 mg/dl BORDERLINE HIGH 160 - 189 mg/dl HIGH >190 mg/dl VERY HIGH Performed By: #### L IPID #### [facility] [address] [place] [address] Dr. Gallo Wade Triglyceride [Mass/Vol] 232 mg/dL Critically high <=150 [facility] Comment on above: Performed By: #### L IPID #### [facility] [address] [address] [address] Gallo Wade VLDL CALC 46.4 mg/dL Normal [facility] Comment on above: Performed By: #### L IPID #### [facility] [address] [place] [address] Dr. Gallo Wade POINT OF CARE GLUCOSEon 03-25 Glucose [Mass/Vol] 172 mg/dL Critically high 74-106 [facility] Comment on above: Performed By: #### P OCGLUC #### [facility] [address] [address] [address] Gallo Wade Office Visit (Cardiology)on 04-14-2022 Follow-up visit Diagnoses/Problems Assessed Paroxysmal atrial fibrillation (427.31) (I48.0) Hyperlipidemia (272.4) (E78.5) Essential hypertension, benign (401.1) (I10) Diabetes mellitus with no complication (250.00) (E11.9) Parkinsons disease (332.0) (G20) Class 1 obesity with body mass index (BMI) of 30.0 to 30.9 in adult (278.00,V85.30) (E66.9,Z68.30) Patient Instructions By signing my name below, I, Shoaib Goff RN ,Scribe, attest that this documentation has been prepared under the direction and in the presence of Dr. Keyon Vázquez MD. All medical record entries made by the Scribe were at my direction and personally dictated by me. I have reviewed the chart and agree that the record accurately reflects my personal performance of the history, physical exam, discussion and plan. Please bring all medicines, vitamins, and herbal supplements with you when you come to the office. Prescriptions will not be filled unless you are compliant with your follow up appointments or have a follow up appointment scheduled as per instruction of your physician. Refills should be requested at the time of your visit. Follow up in 9 months patient may hold eliquis for 3 days prior to procedure Chief Complaint JAY AGUERO is being seen for a 4 month follow-up of. History of Present Illness Patient returns in follow-up of problems as noted. He is done well. He cannot tell if or when he is out of rhythm because of this I recommend continued therapy as is with chronic 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 therapy. The reason and rationale for this was explained and he agrees. Management of other risk factors including diabetes hypertension and hyperlipidemia is reviewed and felt to be adequate and appropriate. Patient's biggest problem is Parkinson's disease and he expounded on it in great detail. We did encourage him to attempt a calorically restricted diet to facilitate some weight loss as well as modest exercise. Surgical History Problems History of Back surgery History of Carpal tunnel surgery History of Cholecystectomy History of Colonoscopy History of Lithotripsy History of Nasal septoplasty History of Neck surgery History of Tonsillectomy with adenoidectomy Current Meds Medication NameInstruction Allergy (Cetirizine) 10 MG Oral TabletTAKE 1 TABLET DAILY NEEDED. Aspirin 81 MG Oral Tablet Delayed ReleaseTAKE 1 TABLET Weekly Atorvastatin Calcium 20 MG Oral TabletTAKE 1 TABLET BY MOUTH DAILY Baclofen 10 MG Oral TabletTAKE 1 TABLET BY MOUTH AT BEDTIME Biotin CAPSTAKE 1 CAPSULE Daily Carbidopa-Levodopa 25-100 MG Oral TabletTAKE 1 TABLET 3 TIMES DAILY. Carvedilol 25 MG Oral TabletTAKE 1 TABLET BY MOUTH TWICE DAILY Dexilant 30 MG Oral Capsule Delayed ReleaseTAKE 1 CAPSULE BY MOUTH TWICE DAILY Eliquis 5 MG Oral TabletTake 1 tablet twice daily Gabapentin 300 MG Oral CapsuleTAKE 1 CAPSULE TWICE DAILY. Glimepiride 4 MG Oral TabletTAKE 1 TABLET BY MOUTH DAILY 30 MINUTES before a meal Januvia 100 MG Oral TabletTAKE 1 TABLET BY MOUTH DAILY Losartan Potassium 50 MG Oral TabletTAKE 1 TABLET BY MOUTH DAILY Magnesium Oxide 400 (240 Mg) MG Oral TabletTAKE 1 TABLET BY MOUTH AT BEDTIME Meclizine HCl - 25 MG Oral TabletTAKE 1 TABLET BY MOUTH TWICE DAILY NEEDED metFORMIN HCl - 500 MG Oral TabletTAKE 1 TABLET BY MOUTH EVERY 12 HOURS Multi Vitamin Daily Oral TabletTAKE 1 TABLET DAILY. Omeprazole 40 MG Oral Capsule Delayed ReleaseTAKE 1 CAPSULE BY MOUTH TWICE DAILY (30 MINUTES before morning meal AND 30 MINUTES before evening meal) Prostate Control Oral CapsuleTAKE 1 CAPSULE Daily Tamsulosin HCl - 0.4 MG Oral CapsuleTAKE 1 CAPSULE BY MOUTH ONCE DAILY Trulicity 0.75 MG/0.5ML Subcutaneous Solution Pen-injectorINJECT 1 pen NEEDED SUBCUTANEOUSLY ONCE A WEEK Vitamin D3 1.25 MG (15990 UT) Oral CapsuleTAKE 1 CAPSULE Daily Allergies Medication Iodinated Contrast Media Recorded By: Shoaib Goff; 12/04/2021 2:37:37 PM Social History Problems Never a smoker No alcohol use No caffeine use No illicit drug use Review of Systems Constitutional: not feeling tired. Eyes: no eyesight problems. ENT: no hearing loss and no nosebleeds. Cardiovascular: no intermittent leg claudication and as noted in HPI. Respiratory: no chronic cough and no shortness of breath. Gastrointestinal: no change in bowel habits and no blood in stools. Genitourinary: no urinary frequency and no hematuria. Skin: no skin rashes. Neurological: no seizures and no frequent falls. Psychiatric: no depression and not suicidal. All other systems have been reviewed and are negative for complaint. Vitals Vital Signs Recorded: 14Apr2022 03:51PM Heart Rate80, R Radial Ourybecs589, RUE, Sitting Tkhiodiqg49, RUE, Sitting Height5 ft 10 in Jouumy395 lb BMI Kdcvkprgvy95.28 kg/m2 BSA Calculated2.14 Tobacco Useb) No PHQ-2 #1. Over the last 2 weeks have you felt down, depressed or hopeless? (If yes, answer PHQ-9 below)No PHQ-2 #2. Over the last 2 weeks have (more content not included)... Normal [facility] Tobacco Screening.on 022 Adult depression screening assessment No [facility] jose cruz [facility] y 250 DO Work Phone: Fall risk assessment a) No falls within the last year [facility] Elizabeth y 250 DO Work Phone: Tobacco use status CP b) No [facility] Elizabeth y 250 DO Work Phone: Tobacco Screening.on 022 Adult depression screening assessment No [facility] jose cru[facility] y 250 DO Work Phone: Fall risk assessment a) No falls within the last year [facility] Elizabeth cates 250 DO Work Phone: Tobacco use status CP b) No [facility] Elizabeth cates 250 DO Work Phone: SURGICAL PATHOLOGYon 021 SURGICAL PATHOLOGY Specimen #: [id number] Submitting Physician: VIJI FALCON M.D. FINAL DIAGNOSIS [facility], [place], [place]; [id number] (09/25/2021) Esophagus, biopsy (A1-1, A1-2) - Inflamed gastric cardia-type mucosa with reactive epithelial changes. - Negative for intestinal metaplasia and dysplasia. COMMENT Thank you for allowing us the opportunity to review this case in consultation representing the esophagus biopsy from a 71-year-old man with a history of dyspepsia and gastroesophageal reflux disease. The esophagus demonstrates inflamed gastric cardia type mucosa with background chronic inflammation in the lamina propria. Focally, there are associated epithelial changes characterized by epithelial mucin loss, nuclear elongation and hyperchromasia. But these areas contain cells with preserved nuclear: cytoplasmic ratio, open chromatin and more importantly the cells are arranged predominantly in a single monolayer epithelium. Therefore, these findings fall with the spectrum of reactive changes. Intestinal metaplasia is not identified. Thank you for sending this case in consultation. Please do not hesitate to contact the GI consultation Service at [phone] with questions or if additional follow up information becomes available. This case was reviewed in conjunction with the GI pathology fellow, Tonya Fernández M.D. AEB/SSE 10/07/2021 Leela Parsons M.D. (Electronic Signature) SPECIMEN SUBMITTED A: 2 SLIDES [id number] CLINICAL DATA Dyspepsia, GERD. Date of Report: 10/07/2021 Date of Procedure: 10/06/2021 Date of Receipt: 10/06/2021 Submitted by: VIJI FALCON M.D. Location: Diagnostic interpretation performed at [facility], [address] [place] [address]. CLIA Number: [id number] Normal [facility] Comment on above: Performed By: #### S #### See report for performing lab information. Factor V Activityon 04-29-20 17 Factor V Activity 106 % Normal 50-150 [facility] Comment on above: Result Comment: [facility] [address] [place] [address] Performed By: #### H OCYS, FA5, LUPPRO, PROCAC, PROSAC ####[facility] [id number] [place] [id number] Lupus Anticoagulanton 2016 Dilute Blake Viper Negative Normal [facility] Comment on above: Result Comment: [facility] [address] [place] [address] Performed By: #### H OCYS, FA5, LUPPRO, PROCAC, PROSAC ####[address] [address] Protein C Activityon 017 Protein C Activity 130 % Normal >80 [facility] Comment on above: Result Comment: Tammy ents on oral 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s will have decreased functional protein C/S values. Oral 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 therapy should be discontinued for two weeks for accurate measurement of functional protein C/S levels.Artifactually elevated levels of functional protein C/S may be seen in patients receiving heparin, while decreased functionality may be seen in patients with abnormally elevated levels of Factor VIII.[address] [place] [address] Performed By: #### H OCYS, FA5, LUPPRO, PROCAC, PROSAC ####[facility] CenterUA Tech Dev FoundationBjjlrgviktaf[address] [place] [address] Protein S Activityon 017 Protein S Activity 120 % High 77-116 [facility] Comment on above: Result Comment: Tammy ents on oral 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s will have decreased functional protein C/S values. Oral 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 therapy should be discontinued for two weeks for accurate measurement of functional protein C/S levels.Artifactually elevated levels of functional protein C/S may be seen in patients receiving heparin, while decreased functionality may be seen in patients with abnormally elevated levels of Factor VIII.[address] [place] [address] Performed By: #### H OCYS, FA5, LUPPRO, PROCAC, PROSAC ####[facility] CenterUA Tech Dev FoundationWytwthrencgm[address] [place] [address] Lupus Anticoagulanton 2016 Antiphospholipid IgA 4.0 APU Normal <12 [facility] Comment on above: Result Comment: Refe rence Range:12 - 15 Equivocal>15 Positive Performed By: #### H OCYS, FA5, LUPPRO, PROCAC, PROSAC ####[facility] CenterActive Life Scientific [address]wgltcpj[address] [place] [address] Antiphospholipid IgG 5.3 GPU Normal <20 [facility] Comment on above: Result Comment: Refe rence Range:20.0 - 29.9 Low Dpadqlvp44.0 - 79.9 Moderate Positive >79.9 High Positive Performed By: #### H OCYS, FA5, LUPPRO, PROCAC, PROSAC ####[facility] [address] [place] [address] Antiphospholipid IgM 4.8 MPU Normal <20 [facility] Comment on above: Result Comment: Refe rence Range:20.0 - 29.9 Low Aglavrib88.0 - 79.9 Moderate Positive >79.9 High Positive Performed By: #### H OCYS, FA5, LUPPRO, PROCAC, PROSAC ####[address] [address] Cult,Urineon 04-27-2017 Cult,Urine Specimen Description .URINE Special Requests NOT REPORTED Culture NO GROWTH Report Status FINAL 04/27/2017 Normal [facility] Comment on above: Performed By: #### U RC ####[address] [address] CBCon 04-26-2017 Erythrocyte distribution width Auto Ratio (RBC) 13.6 % Normal 12.5-15.4 [facility] Comment on above: Performed By: #### C BC, LIPR ####[facility] [place] [address] Erythrocytes (RBC) 4.13 10*6/uL Low 4.5-5.9 [facility] Comment on above: Performed By: #### C BC, LIPR ####[facility] [address] [place] [address] Hematocrit (HCT) 37.7 % Low 41-53 [facility] Comment on above: Performed By: #### C BC, LIPR ####[facility] [address] [place] [address] Hemoglobin mass conc (Bld) 13.4 g/dL Low 13.5-17.5 [facility] Comment on above: Performed By: #### C BC, LIPR ####[facility] [place] [address] MCH 32.4 pg Normal 26-34 [facility] Comment on above: Performed By: #### C BC, LIPR ####[address] [address] MCHC mass conc (RBC) 35.5 g/dL Normal 31-37 [facility] Comment on above: Performed By: #### C MELISA, LIPR ####[address] [address] MCV 91.2 fL Normal 80-100 [facility] Comment on above: Performed By: #### C MELISA, LIPR ####[address] [address] Platelet mean volume (PMV) 8.6 fL Normal 6.0-12.0 [facility] Comment on above: Result Comment: [address] [place] [address] Performed By: #### C MELISA, LIPR ####[facility] [place] [address] Platelets 161 10*3/uL Normal 140-450 [facility] Comment on above: Performed By: #### C MELISA, LIPR ####[address] [address] WBC (Leukocytes) 5.0 10*3/uL Normal 3.5-11.0 [facility] Comment on above: Performed By: #### C MELISA, LIPR ####[address] [address] Discharge Summaryon 04-26-20 17 HIM IP Note OR 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0 [facility] Comment on above: Performed By: #### T ANNE, TSHX, GLYHGB ####[address] [address] History and Physicalon 04-26 HIM IP Note OR Police And Fire Dispatcher Normal [facility] Homocysteineon 04-26-2017 Homocysteine 9.5 umol/L Normal <15.0 [facility] Comment on above: Result Comment: [facility] [employer] [address] [place] [address] Performed By: #### H OCYS, FA5, LUPPRO, PROCAC, PROSAC ####[address] [address] Lipid Profileon 04-26-2017 Cholesterol 123 mg/dL Normal <200 [facility] Comment on above: Result Comment: Chol esterol Guidelines: <200 Desirable 200-240 Borderline >240 Undesirable Performed By: #### C BC, LIPR ####[address] [address] Cholesterol to HDL Ratio 2.5 {ratio} Normal <5 [facility] Comment on above: Performed By: #### C BC, LIPR ####[address] [address] HDL Cholesterol 49 mg/dL Normal >40 [facility] Comment on above: Result Comment: HDL Guidelines: <40 Undesirable 40-59 Borderline >59 Desirable Performed By: #### C BC, LIPR ####[address] [place] [address] LDL Cholesterol 45 mg/dL Normal 0-130 [facility] Comment on above: Result Comment: LDL Guidelines: <100 Desirable 100-129 Near to/above Desirable 130-159 Borderline >159 UndesirableDirect (measured) LDL and calculated LDL are not interchangeable tests. Performed By: #### C BC, LIPR ####[facility] CenterUA Tech Dev FoundationCcwxzgcwxach0[address] [place] [address] Triglyceride 143 mg/dL Normal <150 [facility] Comment on above: Result Comment: Trig lyceride Guidelines: <150 Desirable 150- 199 Borderline 200-499 High >499 Very high Based on AHA Guidelines for fasting triglyceride, July 2012.[employer] [facility] [place] [address] Performed By: #### C BC, LIPR ####[facility] CenterUA Tech Dev FoundationVlkgvwiituwx[address] [place] [address] Cholesterol in VLDL mass conc NOT REPORTED Normal 1-30 [facility] Comment on above: Performed By: #### C BC, LIPR ####[address] [place] [address] Lupus Anticoagulanton 2016 aPTT 22.5 s Normal 21.3-31.3 [facility] Comment on above: Performed By: #### H OCYS, FA5, LUPPRO, PROCAC, PROSAC ####[address] [place] [address] INR Coag RelTime (PPP) 1.0 {INR} Normal [facility] Comment on above: Result Comment: Ther apeutic Range: Moderate Anticoagulant Intensity: INR = 2.0-3.0 High Anticoagulant Intensity: INR = 2.5-3.5 Performed By: #### H OCYS, FA5, LUPPRO, PROCAC, PROSAC ####[address] [place], [place] [id number] Prothrombin time (PT) Coag time (PPP) 10.8 s Normal 9.4-12.6 [facility] Comment on above: Performed By: #### H OCYS, FA5, LUPPRO, PROCAC, PROSAC ####[address] [place], [place] [address] Lupus Anticoagulant NOT REPORTED Normal [facility] Comment on above: Performed By: #### H OCYS, FA5, LUPPRO, PROCAC, PROSAC ####Rad[address] [place], [place] [id number] MRA HEAD WO CONTRASTon 04-26 MRA HEAD WO CONTRAST EXAMINATION:MRA OF THE HEAD WITHOUT CONTRAST 04/25/2017 10:18 pmTECHNIQUE:MRA of the head was performed utilizing [id number]-[id number] imaging with [employer]. No intravenous contrast was administered.COMPARISON :CT headHISTORY:ORDERING SYSTEM PROVIDED HISTORY: strokeFINDINGS:ANTERIOR CIRCULATION: The internal carotid arteries are normal in course andcaliber without focal stenosis. The anterior cerebral and middle cerebralarteries demonstrate no focal stenosis.POSTERIOR CIRCULATION: The posterior cerebral arteries demonstrate no focalstenosis. The vertebral and basilar arteries appear unremarkable.ANEURYSM: No intracranial aneurysm is seen.IMPRESSION: No large vessel occlusion or large aneurysmInterpreted by:DELTA Hodgesigned by:Saran Mccauley MD04/25/17Final result Normal [facility] MRI BRAIN WO CONTRASTon MRI BRAIN WO CONTRAST EXAMINATION:MRI OF THE BRAIN WITHOUT CONTRAST 04/25/2017 10:20 pmTECHNIQUE:Multiplanar multisequence MRI of the brain was performed without theadministration of intravenous contrast.COMPARISON:MRA head from today and CT headHISTORY:ORDERING SYSTEM PROVIDED HISTORY: strokeFINDINGS:INTRACRA NIAL STRUCTURES/VENTRICLES: There is no acute infarct. No mass effector midline shift. No abnormal extra-axial fluid collection. The ventriclesand sulci are normal in size and configuration. The sellar/suprasellarregio ns appear unremarkable. The normal signal voids within the majorintracranial vessels appear maintained. There is a small remote lacunarinfarct in the subinsular region on the left.ORBITS: The visualized portion of the orbits demonstrate no acute abnormality.SINUSES: The visualized paranasal sinuses and mastoid air cells are wellaerated.BONES/SOFT TISSUES: The bone marrow signal intensity appears normal. Thecraniocervical junction is normal in appearance.IMPRESSION: No acute infarctInterpreted by:DELTA Hodgesigned by:Saran Mccauley MD04/25/17Final result Normal [facility] MRI CERVICAL SPINE WO CONTRA STon 04-26-2017 MRI CERVICAL SPINE WO CONTRAST EXAMINATION:MRI OF THE CERVICAL SPINE WITHOUT CONTRAST 04/25/2017 10:20 pmTECHNIQUE:Multiplanar multisequence MRI of the cervical spine was performed without theadministration of intravenous contrast.COMPARISON:Non e.HISTORY:ORDERING SYSTEM PROVIDED HISTORY: strokeFINDINGS:BONES/AL IGNMENT: There is normal alignment of the spine. The vertebral bodyheights are maintained. The bone marrow signal appears unremarkable.SPINAL CORD: No abnormal cord signal is seen.SOFT TISSUES: No paraspinal mass identified.C2-C3: There is no significant disc protrusion, spinal canal stenosis orneural foraminal narrowing.C3-C4: There is moderate narrowing of the neural foramina due to uncinatespondylosis bilaterally. The central canal is patent.C4-C5: There is moderate narrowing of the neural foramina due to uncinatespondylosis bilaterally. The central canal is patent.C5-C6: There is bony ankylosis of the vertebral bodies. There is moderatenarrowing of the neural foramina due to uncinate spondylosis bilaterally.The central canal is widely patent.C6-C7: There is moderate narrowing of the neural foramina bilaterally due touncinate spondylosis. 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 Bilateral neural foraminal narrowing as above.Interpreted by:DELTA Hodgesigned by:Saran Mccauley MD04/25/17Final result Normal [facility] Sedimentation Rateon 017 Sedimentation Rate 10 mm Normal 0-10 [facility] Comment on above: Result Comment: [facility] [address] [place] [address] Performed By: #### S ED ####[address] [address] TSH w/reflex to FT4on 2016 Thyroid stimulating hormone (TSH) 0.77 m[IU]/L Normal 0.30-5.00 [facility] Comment on above: Result Comment: [facility] [address] [place] [address] Performed By: #### T ANNE, TSHX, GLYHGB ####[facility] [address] [place] [address] Troponinon 04-26-2017 Troponin I.cardiac mass conc Normal [facility] Comment on above: Result Comment: Refe rence Range: <0.03 Within reference range. 0.03-0.09 Possible myocardial damage.Repeat at appropriate intervals to rule out chronic elevation. >= 0.10 Indicative of myocardial damage.[facility] [employer] [facility] [place] [address] Performed By: #### T ANNE ####[address] [address] Troponin T.cardiac mass conc ug/L Normal <0.03 [facility] Comment on above: Result Comment: Trop onin T results cannot be compared to Troponin-I results. Performed By: #### T ANNE ####[address] [address] Troponin I.cardiac mass conc Normal [facility] Comment on above: Result Comment: Refe rence Range: <0.03 Within reference range. 0.03-0.09 Possible myocardial damage.Repeat at appropriate intervals to rule out chronic elevation. >= 0.10 Indicative of myocardial damage.[address] [place] [address] Performed By: #### T JUSTYNA RODRÍGUEZ, GLYHGB ####[address] [address] Troponin T.cardiac mass conc ug/L Normal <0.03 [facility] Comment on above: Result Comment: Trop onin T results cannot be compared to Troponin-I results. Performed By: #### T JUSTYNA RODRÍGUEZ, GLYHGB ####[address] [address] Urinalysis, Routineon 2016 Acetaminophen mass conc Negative Normal NEG [facility] Comment on above: Performed By: #### U A ####[address] [address] Bilirubin (direct) Negative Normal NEG [facility] Comment on above: Performed By: #### U A ####[address] [address] Comment Microscopic exam not performed based on chemical results unless requested in Normal [facility] Comment on above: Result Comment: orig inal order.[address] [place] [address] Performed By: #### U A ####[address] [address] Hemoglobin mass conc (Bld) Negative Normal NEG [facility] Comment on above: Performed By: #### U A ####[address] [address] Nitrite,Ur Negative Normal NEG [facility] Comment on above: Performed By: #### U A ####[address] [address] Turbidity CLEAR Normal CLEAR [facility] Comment on above: Performed By: #### U A ####[address] [address] Urine, color YELLOW Normal YEL [facility] Comment on above: Performed By: #### U A ####[address] [address] Urine, glucose presence TRACE Abnormal NEG [facility] Comment on above: Performed By: #### U A ####[address] [address] Urine, leukocyte esterase presence Negative Normal NEG [facility] Comment on above: Performed By: #### U A ####[address] [address] Urine, pH 5.5 [pH] Normal 5.0-8.0 [facility] Comment on above: Performed By: #### U A ####[address] [address] Urine, protein presence Negative Normal NEG [facility] Comment on above: Performed By: #### U A ####[address] [address] Urine, specific gravity 1.034 High 1.005-1.030 [facility] Comment on above: Performed By: #### U A ####[address] [address] Urobilinogen,Ur Normal Normal NORM [facility] Comment on above: Performed By: #### U A ####[address] [address] APTTon 04-25-2017 aPTT 22.2 s Normal 21.3-31.3 [facility] Comment on above: Result Comment: [address] [address] Performed By: #### C DP, PT, PTT, BMP ####[address] [address] Basic Metabolic Profon 04-25 (cont.) Normal [facility] Comment on above: Result Comment: Aver age GFR for 60-69 years old: 85 mL/min/1.73sq mChronic Kidney Disease: <60 mL/min/1.73sq mKidney failure: <15 mL/min/1.73sq meGFR calculated using average adult body mass. Additional eGFR calculator available at:http://[email or web address]/multiple_crcl_2012.htm[address] [address] Performed By: #### C DP, PT, PTT, BMP ####[address] [address] Anion gap 16 mmol/L Normal 9-17 [facility] Comment on above: Performed By: #### C DP, PT, PTT, BMP ####[address] [address] Calcium 9.6 mg/dL Normal 8.6-10.4 [facility] Comment on above: Performed By: #### C DP, PT, PTT, BMP ####[address] [address] Chloride 103 mmol/L Normal 98-107 [facility] Comment on above: Performed By: #### C DP, PT, PTT, BMP ####[facility] CenterUA Tech Dev FoundationGojrmshxeqjj2659[address] [place] [address] CO2 19 mmol/L Low 20-31 [facility] Comment on above: Performed By: #### C DP, PT, PTT, BMP ####[facility] [address] [place] [address] Creatinine 0.77 mg/dL Normal 0.70-1.20 [facility] Comment on above: Performed By: #### C DP, PT, PTT, BMP ####[address] [address] eGFR (non-black) mL/min/{1.73_m2} Normal >60 [facility] Comment on above: Performed By: #### C DP, PT, PTT, BMP ####[address] [address] Glucose mass conc 129 mg/dL High 70-99 [facility] Comment on above: Performed By: #### C DP, PT, PTT, BMP ####[address] [address] Potassium molar conc 3.8 mmol/L Normal 3.7-5.3 [facility] Comment on above: Performed By: #### C DP, PT, PTT, BMP ####[address] [address] Sodium 138 mmol/L Normal 135-144 [facility] Comment on above: Performed By: #### C DP, PT, PTT, BMP ####[address] [address] Urea nitrogen 14 mg/dL Normal 8-23 [facility] Comment on above: Performed By: #### C DP, PT, PTT, BMP ####[address] [address] BUN/CRE Ratio NOT REPORTED Normal 9-20 [facility] Comment on above: Performed By: #### C DP, PT, PTT, BMP ####[address] [address] Staging: NOT REPORTED Normal [facility] Comment on above: Performed By: #### C DP, PT, PTT, BMP ####[address] [address] CBC with Diffon 04-25-2017 Abs. Basophil 0.00 k/uL Normal 0.0-0.2 [facility] Comment on above: Result Comment: [address] [address] Performed By: #### C DP, PT, PTT, BMP ####[address] [address] Abs.Neutrophil (Seg) 3.60 k/uL Normal 1.8-7.7 [facility] Comment on above: Performed By: #### C DP, PT, PTT, BMP ####[address] [address] Basophils/100 WBC Auto (Bld) 1 % Normal [facility] Comment on above: Performed By: #### C DP, PT, PTT, BMP ####[address] [address] Eosinophils 0.10 10*3/uL Normal 0.0-0.4 [facility] Comment on above: Performed By: #### C DP, PT, PTT, BMP ####[address] [address] Eosinophils/100 leukocytes 3 % Normal [facility] Comment on above: Performed By: #### C DP, PT, PTT, BMP ####[address] [address] Erythrocyte distribution width Auto Ratio (RBC) 13.5 % Normal 12.5-15.4 [facility] Comment on above: Performed By: #### C DP, PT, PTT, BMP ####[address] [address] Erythrocytes (RBC) 4.47 10*6/uL Low 4.5-5.9 [facility] Comment on above: Performed By: #### C DP, PT, PTT, BMP ####[address] [address] Hematocrit (HCT) 40.6 % Low 41-53 [facility] Comment on above: Performed By: #### C DP, PT, PTT, BMP ####[address] [address] Hemoglobin mass conc (Bld) 14.2 g/dL Normal 13.5-17.5 [facility] Comment on above: Performed By: #### C DP, PT, PTT, BMP ####[address] [address] Lymphocytes 1.50 10*3/uL Normal 1.0-4.8 [facility] Comment on above: Performed By: #### C DP, PT, PTT, BMP ####[address] [address] Lymphocytes/100 leukocytes 26 % Normal [facility] Comment on above: Performed By: #### C DP, PT, PTT, BMP ####[address] [address] MCH 31.8 pg Normal 26-34 [facility] Comment on above: Performed By: #### C DP, PT, PTT, BMP ####[address] [address] MCHC mass conc (RBC) 35.0 g/dL Normal 31-37 [facility] Comment on above: Performed By: #### C DP, PT, PTT, BMP ####[address] [address] MCV 90.9 fL Normal 80-100 [facility] Comment on above: Performed By: #### C DP, PT, PTT, BMP ####[address] [address] Monocytes 0.50 10*3/uL Normal 0.1-1.2 [facility] Comment on above: Performed By: #### C DP, PT, PTT, BMP ####[address] [address] Monocytes/100 leukocytes 8 % Normal [facility] Comment on above: Performed By: #### C DP, PT, PTT, BMP ####[address] [address] Neutrophil (Seg) 62 % Normal [facility] Comment on above: Performed By: #### C DP, PT, PTT, BMP ####[address] [address] Platelet mean volume (PMV) 8.8 fL Normal 6.0-12.0 [facility] Comment on above: Performed By: #### C DP, PT, PTT, BMP ####[address] [address] Platelets 194 10*3/uL Normal 140-450 [facility] Comment on above: Performed By: #### C DP, PT, PTT, BMP ####[address] [address] WBC (Leukocytes) 5.7 10*3/uL Normal 3.5-11.0 [facility] Comment on above: Performed By: #### C DP, PT, PTT, BMP ####[address] [address] Auto Diff Performed NOT REPORTED Normal [facility] Comment on above: Performed By: #### C DP, PT, PTT, BMP ####[address] [address] Erythrocyte morphology NOT REPORTED Normal [facility] Comment on above: Performed By: #### C DP, PT, PTT, BMP ####[address] [address] Platelets NOT REPORTED Normal [facility] Comment on above: Performed By: #### C DP, PT, PTT, BMP ####[address] [place], [place] [address] WBC Morphology NOT REPORTED Normal [facility] Comment on above: Performed By: #### C DP, PT, PTT, BMP ####Radha [address] [place], [place] [address]368[address] CT HEAD WO CONTRASTon 2016 CT HEAD WO CONTRAST EXAMINATION:CT OF TH E HEAD WITHOUT CONTRAST 04/25/2017 8:13 pmTECHNIQUE:CT of the head was performed without the administration of intravenouscontrast. Dose modulation, iterative reconstruction, and/or weight basedadjustment of the mA/kV was utilized to reduce the radiation dose to as lowas reasonably achievable.COMPARISON:N one.HISTORY:ORDERING SYSTEM PROVIDED HISTORY: strokeFINDINGS:BRAIN/VE NTRICLES: There is no acute intracranial hemorrhage, mass effect ormidline shift. No abnormal extra-axial fluid collection. The norton-whitedifferentiati on is maintained without evidence of an acute infarct. There isno evidence of hydrocephalus. There appears to be a small remote thesubinsular lacunar infarct on the left.ORBITS: The visualized portion of the orbits demonstrate no acute abnormality.SINUSES: The visualized paranasal sinuses and mastoid air cells demonstrateno acute abnormality.SOFT TISSUES/SKULL: No acute abnormality of the visualized skull or softtissues.IMPRESSION: No acute intracranial abnormality.Case discussed with Dr. Seals at 8:20 p.m..Interpreted by:DELTA Hodgesigned by:Saran Mccauley MD04/25/17Final result Normal [facility] ED Noteon 04-25-2017 HIM IP Note OR Police And Fire Dispatcher Normal [facility] HIM IP Note OR Police And Fire Dispatcher Normal [facility] HIM IP Note OR Police And Fire Dispatcher Normal [facility] HIM IP Note OR Police And Fire Dispatcher Normal [facility] ED Provider Noteon 7 HIM IP Note OR Police And Fire Dispatcher Normal [facility] PTon 04-25-2017 INR Coag RelTime (PPP) 1.0 {INR} Normal [facility] Comment on above: Result Comment: Ther apeutic Range: Moderate Anticoagulant Intensity: INR = 2.0-3.0 High Anticoagulant Intensity: INR = 2.5-3.5[facility] [address] [place] [address] Performed By: #### C DP, PT, PTT, BMP ####[address] [address] Prothrombin time (PT) Coag time (PPP) 10.6 s Normal 9.4-12.6 [facility] Comment on above: Performed By: #### C DP, PT, PTT, BMP ####[address] [place] [address] XR CHEST PORTABLEon 04-25-20 XR CHEST PORTABLE EXAMINATION:SINGLE V IEW OF THE CHEST04/25/2017 8:36 pmCOMPARISON:None.HISTO RY:ORDERING SYSTEM PROVIDED HISTORY: stroke-alterted mental statusTECHNOLOGIST PROVIDED HISTORY:Reason for exam:->stroke-alterted mental statusFINDINGS:The lungs are without acute focal process. There is no effusion orpneumothorax. The cardiomediastinal silhouette is without acute process. Theosseous structures are without acute process.IMPRESSION: No acute process.Interpreted by:DELTA Grubbsigned by:Ashvin Hanson MD04/25/17Final result Normal [facility] Vital Signs Date Time Vital Sign Value Performing Clinician Facility 09-28-2023 14:050 Body height 177.8 cm Ana Ramos APRN-WIND TURBINE ENGINEER Work Phone: [facility] 09-28-2023 14:050 Body mass index (BMI) [Ratio] 28.73 kg/m2 Ana Ramos APRN-WIND TURBINE ENGINEER Work Phone: [facility] 09-28-2023 14: Body weight 90.81 kg Ana Ramos APRN-WIND TURBINE ENGINEER Work Phone: [facility] 09-28-2023 14:26-0500 Diastolic blood pressure 64 mm[Hg] Ana Ramos FREIGHT ADJUSTER-WIND TURBINE ENGINEER Work Phone: [facility] 09-28-2023 14:26-0500 Heart rate 78 /min Ana Ramos FREIGHT ADJUSTER-WIND TURBINE ENGINEER Work Phone: [facility] 09-28-2023 14:26-0500 Systolic blood pressure 128 mm[Hg] Ana Ramos FREIGHT ADJUSTER-WIND TURBINE ENGINEER Work Phone: [facility] 02-16-2023 14:00-0400 Body height 179.07 cm Vazquez Colin Other [employer] Other 02-16-2023 14:00-0400 Body mass index (BMI) [Ratio] 29.14 kg/m2 Vazquez Scovanner Other [employer] Other 02-16-2023 14:00-0400 Body weight 93.44 kg Vazquez Scovanner Other [employer] Other 02-16-2023 14:00-0400 Diastolic blood pressure 64 mm[Hg] Vazquez Scovanner Other [employer] Other 02-16-2023 14:00-0400 Systolic blood pressure 120 mm[Hg] Vazquez Scovanner Other [employer] Other 12-29-2022 13:35-0500 Body height 177.8 cm Shaikh Mary Work Phone: [facility] 250 DO Work Phone: 12-29-2022 13:35-0500 Body mass index (BMI) [Ratio] 30.28 kg/m2 Shaikh Mary Work Phone: [facility] [place] 250 DO Work Phone: 12-29-2022 13:35-0500 Body surface area Derived from formula 2.14 m2 Shaikh Michaelwad Work Phone: [facility] 250 DO Work Phone: 12-29-2022 13:35-0500 Body weight 95.71 kg Shaikh Michaelwad Work Phone: [facility] [place] 250 DO Work Phone: 12-29-2022 13:35-0500 Diastolic blood pressure 70 mm[Hg] Shaikh Michaelwad Work Phone: [facility] 250 DO Work Phone: 12-29-2022 13:35-0500 Heart rate 74 /min Shaikh Jefferyd Work Phone: [facility] 250 DO Work Phone: 12-29-2022 13:35-0500 Systolic blood pressure 128 mm[Hg] Shaikh Jefferyd Work Phone: [facility] 250 DO Work Phone: 11-11-2022 16:30-0500 Body height 179.07 cm Alcides Nowak Other [employer] [facility] [employer] Other 11-11-2022 16:30-0500 Body mass index (BMI) [Ratio] 28.29 kg/m2 Alcides Nowak Other [employer] Other 11-11-2022 16:30-0500 Body weight 90.72 kg Alcides Nowak Other [employer] Other 11-11-2022 16:30-0500 Diastolic blood pressure 68 mm[Hg] Alcides Nowak Other [employer] Other 11-11-2022 16:30-0500 Systolic blood pressure 117 mm[Hg] Alcides Goodwiny Other [employer] Other 05-12-2022 16:45-0400 Body height 179.07 cm Alcides Goodwiny Other [employer] Other 05-12-2022 16:45-0400 Body mass index (BMI) [Ratio] 30.41 kg/m2 Alcides Victortty Other [employer] Other 05-12-2022 16:45-0400 Body weight 97.52 kg Alcides Goodwiny Other [employer] Other 05-12-2022 16:45-0400 Diastolic blood pressure 80 mm[Hg] Alcides Kayleightty Other [employer] Other 05-12-2022 16:45-0400 Systolic blood pressure 149 mm[Hg] Alcides Ditty Other [employer] Other 04-14-2022 15:51-0400 Body height 177.8 cm Shaikh Michaelradha Work Phone: [facility] [employer] [employer] 250 DO Work Phone: 04-14-2022 15:51-0400 Body mass index (BMI) [Ratio] 30.28 kg/m2 Shaikh Michaelradha Work Phone: [facility] [employer] [place] [employer] 250 DO Work Phone: 04-14-2022 15:51-0400 Body surface area Derived from formula 2.14 m2 Lala Michaelradha Work Phone: [facility] 250 DO Work Phone: 04-14-2022 15:51-0400 Body weight 95.71 kg Shaikh Michaelwad Work Phone: [facility] 250 DO Work Phone: 04-14-2022 15:51-0400 Diastolic blood pressure 68 mm[Hg] Shaikh Annitawwad Work Phone: [facility] 250 DO Work Phone: 04-14-2022 15:51-0400 Heart rate 80 /min Shaikh Michaelwad Work Phone: [facility] 250 DO Work Phone: 04-14-2022 15:51-0400 Systolic blood pressure 118 mm[Hg] Shaikh Michaelwad Work Phone: [facility] 250 DO Work Phone: 12-04-2021 14:45-0500 Diastolic blood pressure 60 mm[Hg] Lala Fawwad Work Phone: [facility] [place] 250 DO Work Phone: 12-04-2021 14:45-0500 Systolic blood pressure 111 mm[Hg] Shaikh Annitawwad Work Phone: [facility] 250 DO Work Phone: 12-04-2021 14:38-0500 Body height 177.8 cm Shaikh Annitawwad Work Phone: [facility] 250 DO Work Phone: 12-04-2021 14:38-0500 Body mass index (BMI) [Ratio] 29.99 kg/m2 Lala Annitawwad Work Phone: [facility] 250 DO Work Phone: 12-04-2021 14:38-0500 Body surface area Derived from formula 2.13 m2 Shaikh Mary Work Phone: [facility] 250 DO Work Phone: 12-04-2021 14:38-0500 Body weight 94.8 kg Shaikh Jefferyd Work Phone: [facility] 250 DO Work Phone: 12-04-2021 14:38-0500 Diastolic blood pressure 67 mm[Hg] Shaikh Mary Work Phone: [facility] 250 DO Work Phone: 12-04-2021 14:38-0500 Heart rate 79 /min Shaikh Mayr Work Phone: [facility] 250 DO Work Phone: 12-04-2021 14:38-0500 Systolic blood pressure 120 mm[Hg] Shaikh Mary Work Phone: [facility] [place] 250 DO Work Phone: 11-23-2021 14:00-0500 Body weight 93.9 kg Alcides Nowak Other [employer] Other Encounters Encounter Date Encounter Type Care Provider Facility Start: 09-28-2023 End: 09-28-2023 ambulatory ANA RAMOS [facility] Ambulatory Start: 09-28-2023 End: 09-28-2023 Office outpatient visit 15 minutes Ana Ramos FREIGHT ADJUSTER-WIND TURBINE ENGINEER Work Phone: [facility] Comment on above: 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 us e of 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 therapy (Primary Dx); Paroxysmal atrial fibrillation (CMS/HCC); Essential hypertension, benign; Mixed hyperlipidemia; Diabetes mellitus with no complication (CMS/HCC); BMI 28.0-28.9,adult Start: 07-22-2023 End: 07-22-2023 ambulatory Shaikh Mary Facility:[facility] Start: 07-22-2023 End: 07-22-2023 ambulatory MD Shaikh Hernandez Work Phone: [facility] Work Phone: Start: 07-22-2023 End: 07-22-2023 Patient encounter procedure MD Shaikh Hernandez Work Phone: [facility] [place] Work Phone: Start: 07-12-2023 End: 07-12-2023 ambulatory Vazquez Shaw Other [employer] Other Start: 07-12-2023 Telephone encounter Vazquez Fuentes [facility] Start: 02-17-2023 End: 02-18-2023 ambulatory LALA Charlie MARY Facility:[facility] Start: 02-16-2023 End: 02-16-2023 ambulatory Vazquez Shaw Other [employer] Other Start: 02-16-2023 Office outpatient vi sit 15 minutes Vazquez Shaw [facility] Start: 12-29-2022 Office outpatient vi sit 25 minutes Shaikh Mary Work Phone: [facility] [place] 250 DO Work Phone: Start: 12-29-[address] Keyon Vázquez II Facility: Start: 11-23-2022 End: 11-23-2022 ambulatory Alcides Nowak Other [employer] Other Start: 11-23-2022 Telephone encounter Alcides REBOLLEDO [facility] Start: 11-15-2022 End: 11-16-2022 ambulatory Charlie MARY Facility:[facility] Start: 11-11-2022 End: 11-11-2022 ambulatory Alcides Nowak Other [employer] Other Start: 11-11-2022 Patient encounter procedure Alcides Kayleighsavannah [facility] Start: 05-20-2022 End: 05-21-[address] RAYMUNDO ANDERSON . Facility:[facility] Start: 05-17-2022 End: 05-17-2022 ambulatory Alcides Disavannah Other [employer] Other Start: 05-17-2022 Telephone encounter Alcides REBOLLEDO [facility] Start: 05-14-2022 End: 05-15-2022 ambulatory Charlie MARY Facility:[facility] Start: 05-13-2022 End: 05-13-2022 ambulatory Alcides Kayleighsavannah Other [employer] Other Start: 05-13-2022 Telephone encounter Alcides REBOLLEDO [facility] Start: 05-12-2022 End: 05-12-2022 ambulatory Alcides Kayleighsavannah Other [employer] Other Start: 05-12-2022 Patient encounter procedure Alcides Kayleighsavannah [facility] Start: 04-20-2022 End: 04-20-[address] RAYMUNDO ANDERSON . Facility:[facility] Start: 04-14-2022 Office outpatient vi sit 25 minutes Lala Fawwad Work Phone: [facility] [place] 250 DO Work Phone: Start: 04-14-[address] Keyon Vázquez II Facility: Start: 12-04-2021 Office outpatient ne w 45 minutes Lala Fawwad Work Phone: [facility] 250 DO Work Phone: Start: 12-04-2021 Patient encounter procedure Lala Fawwad Work Phone: [facility] 250 DO Work Phone: Start: 11-23-2021 End: 11-23-2021 ambulatory Alcides Nowak Other [facility] [employer] Other Start: 11-23-2021 Patient encounter procedure Alcides Nowak [facility] Start: 04-25-2017 End: 04-26-2017 Evaluation and management of inpatient CELINE KAREN BYRNE [facility] Procedures Date Procedure Procedure Detail Performing Clinician Start: 07-22-2023 MRI of head MD Shaikh Hernandez Work Phone: Start: 04-26-2017 PULSE OXIMETRY, CONTINUOUS HUANI CHAVEZ Start: 04-26-2017 DISCHARGE PATIENT MARTHADIGNA BYRNE Start: 04-26-2017 PREVIOUS SPECIMEN HUAN BYRNE Start: 04-26-2017 SEDIMENTATION RATE BRAD BYRNE Start: 04-26-2017 POC GLUCOSE FINGERSTICK CELINE BYRNE Start: 04-26-2017 POCT GLUCOSE CELINE GARCÍA Start: 04-26-2017 PULSE OXIMETRY, CONTINUOUS THURAI KUMARAN Start: 04-26-2017 TELEMETRY MONITORING TH GREG BYRNE Start: 04-26-2017 FACTOR 5 ASSAY CELINE SMITH Start: 04-26-2017 HOMOCYSTEINE, SERUM GERMÁN ERICA BYRNE Start: 04-26-2017 LUPUS ANTICOAGULANT GERMÁN ERICA BYRNE Start: 04-26-2017 PROTEIN C FUNCTIONAL TH URAI CHAVEZ Start: 04-26-2017 PROTEIN S FUNCTIONAL TH URAI CHAVEZ Start: 04-26-2017 Urinalysis CELINE GARCÍA Start: 04-26-2017 URINE CULTURE CELINE ZHENG Start: 04-26-2017 POC GLUCOSE FINGERSTICK CELINE BYRNE Start: 04-26-2017 DIET CARDIAC HUANI MARISSA KINGSLEYN Start: 04-26-2017 POCT GLUCOSE HUANI MARISSA GARCÍA Start: 04-26-2017 OXYGEN THERAPY CELINE SMITH Start: 04-26-2017 PULSE OXIMETRY, CONTINUOUS THURAI KUMARAN Start: 04-26-2017 CBC CELINE GARCÍA Start: 04-26-2017 Lipid panel CELINE GARCÍA Start: 04-26-2017 PULSE OXIMETRY, CONTINUOUS THURAI KUMARAN Start: 04-26-2017 TROPONIN CELINE GARCÍA Start: 04-26-2017 DAILY WEIGHTS CELINE ZHENG Start: 04-26-2017 HEMOGLOBIN A1C CELINE SMITH Start: 04-26-2017 TROPONIN CELINE GARCÍA Start: 04-26-2017 TSH WITH REFLEX CELINE BYRNE Start: 04-26-2017 POC GLUCOSE FINGERSTICK CELINE BYRNE Start: 04-26-2017 Echo tthrc r-t 2d w/ wom-mode compl spec&colr d CELINE BYRNE Start: 04-26-2017 INTAKE AND OUTPUT HUAN BYRNE Start: 04-26-2017 OXYGEN THERAPY CELINE SMITH Start: 04-26-2017 PULSE OXIMETRY, CONTINUOUS CELINE BYRNE Start: 04-26-2017 CARDIAC MONITORING BRAD BYRNE Start: 04-26-2017 Continuous pulse oximetry CELINE BYRNE Start: 04-26-2017 ELEVATE HOB CELINE GARCÍA Start: 04-26-2017 FULL CODE CELINE GARCÍA Start: 04-26-2017 IP CONSULT TO NEUROLOGY CELINE BYRNE Start: 04-26-2017 IP CONSULT TO SOCIAL WORK CELINE BYRNE Start: 04-26-2017 NEURO CHECKS CELINE GARCÍA Start: 04-26-2017 NOTIFY PHYSICIAN (SPECIFY) CELINE BYRNE Start: 04-26-2017 NURSING SWALLOW ASSESSMENT CELINE BYRNE Start: 04-26-2017 OT EVAL AND TREAT HUAN BYRNE Start: 04-26-2017 PROVIDE PATIENT EDUC ATION MATERIALS CELINE BYRNE Start: 04-26-2017 PT EVAL AND TREAT HUAN BYRNE Start: 04-26-2017 REASON FOR NO MECHAN ICAL VTE PROPHYLAXIS CELINE BYRNE Start: 04-26-2017 TOBACCO CESSATION EDUCATION CELINE BYRNE Start: 04-26-2017 VITAL SIGNS CELINE GACRÍA Start: 04-26-2017 VITAL SIGNS - NOTIFY MD CELINE BYRNE Start: 04-26-2017 POCT TROPONIN CELINE ZHENG Start: 04-26-2017 Mri spinal canal cer vical w/o contrast matrl CELINE BYRNE Start: 04-26-2017 Mri brain brain stem w/o contrast material CELINE BYRNE Start: 04-26-2017 Mra head w/o contrst material CELINE BYRNE Start: 04-25-2017 PATIENT STATUS (FROM ED OR OR/PROCEDURAL) CELINE JUSTINBRADY Start: 04-25-2017 Chest x-ray 1 view frontal CELINE JUSTINBRADY Start: 04-25-2017 IP CONSULT TO NUT AND BOLT ASSEMBLER AL MEDICINE CEILNE JUSTINBRADY Start: 04-25-2017 Ct head/brain w/o co ntrast material CELINE JUSTINBRADY Start: 04-25-2017 APTT MARTHAGREG MARISSA RICKY Start: 04-25-2017 BASIC METABOLIC PANEL T JER CHAVEZ Start: 04-25-2017 CBC WITH AUTO DIFFERENTIAL MARTHADIGNARae CHAVEZ Start: 04-25-2017 PROTIME-INR CELINE ANN RICKY Start: 04-25-2017 EKG 12-LEAD HUANRae GARCÍA Start: 04-25-2017 Creatinine other source MARTHADIGNARae JUSTINBRADY Start: 04-25-2017 ANION GAP (CALC) POC MARTHA GARZA JUSTINBRADY Start: 04-25-2017 CALCIUM, IONIC (POC) MARTHA HERMILOJANNETH JUSTINBRADY Start: 04-25-2017 CHLORIDE (POC) CELINE SMITH Start: 04-25-2017 CREATININE W/GFR POI NT OF CARE CELINE JUSTINBRADY Start: 04-25-2017 HGB/HCT CELINE ANN RICKY Start: 04-25-2017 LACTIC ACID,POINT OF CARE MARTHADIGNARae CHAVEZ Start: 04-25-2017 POCT GLUCOSE CELINE ANN RICKY Start: 04-25-2017 POTASSIUM (POC) CELINE JUSTINBRADY Start: 04-25-2017 SODIUM (POC) CELINE ANN RICKY Start: 04-25-2017 VENOUS BLOOD GAS, PO INT OF CARE MARTHADIGNARae CHAVEZ Start: 04-25-2017 Continuous pulse oximetry MARTHADIGNARae JUSTINBRADY Start: 04-25-2017 NURSING COMMUNICATION T JER CHAVEZ Start: 04-25-2017 CARDIAC MONITORING BRAD BYRNE Start: 04-25-2017 ELEVATE HOB CELINE ANN RICKY Start: 04-25-2017 OXYGEN THERAPY CELINE SMITH Start: 04-25-2017 POCT TROPONIN CELINE ZHENG Start: 04-25-2017 IP CONSULT TO STROKE TEAM CELINE BYRNE Cholecystectomy Shaikh Jeffery lewis Work Phone: Colonoscopy Shaikh Mary Work Phone: Decompression of med saida nerve Shaikh Mary Work Phone: Lithotripsy Shaikh Mary Work Phone: Nasal septoplasty Shaikh Michael garcia Work Phone: Procedure on back Shaikh Michael garcia Work Phone: Procedure on neck Shaikh Michael garcia Work Phone: Tonsillectomy and adenoidectomy Shaikh Mary Work Phone: Plan of Treatment Date Care Activity Detail Author Start: 07-11-2024 End: 07-11-2024 Patient encounter procedure 07/11/2024 2:10 PM EDT Office Visit [facility] [address] [id number] Keyon Vázquez MD 703 [facility] [address], [address] [address] [facility] Start: 10-16-2023 COVID-19 Vaccine (5 - Moderna series) COVID-19 Vaccine (5 - Moderna series) [facility] Start: 09-23-2023 FUV, Provider: Keyon Vázquez, Status: Pen, Time: 2:00 PM FUV, Provider: Keyon Vázquez, Status: Pen, Time: 2:00 PM [facility] 250 DO Work Phone: Start: 12-29-2022 FUV, Provider: Keyon Vázquez, Status: Pen, Time: 1:40 PM FUV, Provider: Keyon Vázquez, Status: Pen, Time: 1:40 PM [facility] Work Phone: Start: 04-14-2022 FUV, Provider: Keyon Vázquez, Status: Pen, Time: 3:40 PM FUV, Provider: Keyon Vázquez, Status: Pen, Time: 3:40 PM [facility] 250 DO Work Phone: Start: 08-11-2015 Zoster Vaccines (2 o f 3) Zoster Vaccines (2 of 3) [facility] Start: 1973 DTaP/Tdap/Td Vaccine s (1 - Tdap) DTaP/Tdap/Td Vaccines (1 - Tdap) [facility] Start: 1970 Urine screening for protein Diabetes: Urine Protein Screening [facility] Start: 1969 Hepatitis C screening Hepatitis C Sc reening [facility] Start: 1961 Diabetic foot examination Diabetes: Foot Exam [facility] Start: 1961 Glaucoma screening Diabetes: R etinopathy Screening [facility] Start: 1950 Hemoglobin A1c measurement Diabetes: Hemoglobin A1C [facility] Start: 1950 Lipid panel Lipid Panel [facility] Start: 1950 Medicare Annual Wellness Visit Medicare Annual Wellness Visit (AWV) [facility] Start: 1950 Screening for malign ant neoplasm of colon [facility] Immunizations Immunization Date Immunization Notes Care Provider Fa cili 08-19-2022 Fluzone High-Dose Quadrivalent 0.7 ML Intramuscular Suspension Prefilled Syringe Shaikh Mary Work Phone: [facility] 250 DO Work Phone: 08-19-2022 Prevnar 20 0.5 ML Intramuscular Suspension Prefilled Syringe Shaikh Mary Work Phone: [facility] 250 DO Work Phone: 08-13-2022 Moderna COVID-19 Biv al Booster 50 MCG/0.5ML Intramuscular Suspension Lala [employer]CausePlayradha Work Phone: [facility] DO Work Phone: 02-20-2022 Moderna COVID-19 Vac cine 100 MCG/0.5ML Intramuscular Suspension Shaikh Mary Work Phone: [facility] DO Work Phone: 08-17-2021 Moderna COVID-19 Vac cine 100 MCG/0.5ML Intramuscular Suspension Shaikh Mary Work Phone: [facility] Comment on above: Series: 07-06-2021 Fluzone High-Dose Quadrivalent 0.7 ML Intramuscular Suspension Prefilled Syringe [facility]ikh [facility] Work Phone: 01-31-2021 Moderna COVID-19 Vac cine 100 MCG/0.5ML Intramuscular Suspension Shaikh Mary Work Phone: [facility] Comment on above: Series: 12-31-2020 Moderna COVID-19 Vac cine 100 MCG/0.5ML Intramuscular Suspension Shaikh Mary Work Phone: [facility] Comment on above: Series: 08-12-2016 influenza, seasonal, injectable, preservative free Shaikh [facility] Work Phone: 06-16-2015 zoster vaccine, live Shaikh Mary Work Phone: [facility] DO Work Phone: 09-05-2013 pneumococcal polysaccharide vaccine, 23 valent Shaikh Mary Work Phone: [facility] DO Work Phone: Payers Date Payer Category Payer Self-pay [id number] 2021 Medicare ANTH MEDICARE ANTH MEDICARE ADVANTAGE [id number] 2021-Present [address] [place] [address] [id number] 2014 Medicare [id number] 1958 Medicare [id number] 1951 Unknown [id number] 1951 Unknown [id number] 1951 Unknown [id number] 1951 Unknown [id number] 1951 Unknown [id number] 1951 Unknown [id number] 1951 Unknown [id number] 1951 Unknown [id number] 4 Unknown ANTHEM MEDICARE ADV Unknown [id number] Social History Date Type Detail Facility Start: 09-28-2023 No alcohol use No alcohol use [facility] [employer] Other Start: 09-28-2023 Sex Assigned At N [facility] [employer] Other Start: 09-25-2021 End: 09-27-2023 Tobacco smoking status NHIS Never smoked tobacco (finding) [facility] Start: 1950 Sex Assigned At Male F [facility] Start: 09-27-2023 Tobacco use and exposure Smokeless tobacco non-user [facility] Work Phone: Start: 09-28-2023 Alcohol intake Lifetime non-d kisha (finding) [facility] Work Phone: Start: 1950 Sex Assigned At Not on file [facility] Work Phone: Start: 09-18-2023 End: 09-28-2023 Exposure to SARS-CoV-2 (event) Not sure [facility] Clinical Notes 12-05-2014 to 09-28-2023 Assessment & Plan Note - AVELINO Acosta - 09/28/2023 4:34 PM ESTAssessment & Plan Note - AVELINO Acosta - 09/28/2023 4:34 PM ESTPatient Instructions Note Date & Type Note Facility 09-28-2023 Evaluation + Plan note Associated Problem(s): BMI 28.0-28.9,adult Reviewed the merits of healthy lifestyle choices on overall cardiovascular health. [facility] Work Phone: 09-28-2023 Evaluation + Plan note Associated Problem(s): Diabetes mellitus with no complication (CMS/HCC) Maintained on ARB/statin Reports most recent hemoglobin A1c good [facility] Work Phone: 09-28-2023 Evaluation + Plan note Associated Problem(s): penitentiary current use of 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 therapy CHADS VASc 5 (prior TIA) anticoagulated full dose Eliquis with age 73, weight 200. Denies bleeding diatheses [facility] Work Phone: 09-28-2023 Miscellaneous Notes Associated Problem(s): BMI 28.0-28.9,adult Reviewed the merits of healthy lifestyle choices on overall cardiovascular health. 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 Denies bleeding diatheses Associated Problem(s): Paroxysmal atrial fibrillation (CMS/HCC) Denies any recurrent palpitations No prior antiarrhythmic Ausculatory rate regular on exam Associated Problem(s): Hyperlipidemia Low intensity statin Reports annual wellness labs through PCP Associated Problem(s): Essential hypertension, benign Optimal in office Associated Problem(s): Cardiac and Vasculature November 2021 presented as a self-referral for new patient consult with Dr. Tinoco. Reports in 2019 at PCP office in [place] had initial onset of atrial fibrillation with spontaneous conversion to normal sinus rhythm. Follow-up testing included unremarkable stress test and echocardiogram. He has been maintained on anticoagulation and beta-stephanie since that time. documented in this encounter [facility] Work Phone: 09-28-2023 Evaluation + Plan note Associated Problem(s): Paroxysmal atrial fibrillation (CMS/HCC) Denies any recurrent palpitations No prior antiarrhythmic Ausculatory rate regular on exam [facility] Work Phone: 09-28-2023 Evaluation + Plan note Associated Problem(s): Hyperlipidemia Low intensity statin Reports annual wellness labs through PCP [facility] Work Phone: 09-28-2023 Evaluation + Plan note Associated Problem(s): Essential hypertension, benign Optimal in office [facility] Work Phone: 09-28-2023 Evaluation + Plan note Associated Problem(s): Cardiac and Vasculature November 2021 presented as a self-referral for new patient consult with Dr. Tinoco. Reports in 2019 at PCP office in [place] had initial onset of atrial fibrillation with spontaneous conversion to normal sinus rhythm. Follow-up testing included unremarkable stress test and echocardiogram. He has been maintained on anticoagulation and beta-stephanie since that time. [facility] Work Phone: 09-28-2023 History of Presen t illness Narrative Chief Complaint Not too bad Reason for Visit 9-month follow-up Patialexi in t presents to the office today for outpatient follow-up for PAF, primary prevention. Last evaluated in clinic by Dr. Tinoco December 2022 Presents today ambulatory with steady gait. Accompanied by spouse Patient denies any hospitalizations or significant changes to interval medical history since last office follow-up. History of Present Illness Patient is an extremely pleasant 71-year-old gentleman with Parkinson's disease. He reports his activity level is mostly limited due to Parkinson's, he does have some orthostatic complaints but utilizes compression stockings and verbalizes nonpharmacologic avoidance techniques. He did have 1 fall over the weekend, is really unclear of the events - he had been standing in the kitchen for quite a while and down I went . Reports a prodrome greater than 5 seconds of feeling woozy , no ev syncope. His heard him fall, she helped him get up. She believes he had shaking in his hands and something fell out of hands and may have led to the fall. No sustained injury. Nonetheless, they have been educated to notify the office of any recurrent episodes. No orthostatic complaints in the office today. He continues to deny any type of recurrent palpitations. Tolerating current medical regimen without side effects. Patient reports that overall has no complaint(s) of chest pain, claudication, dyspnea, exertional chest pressure/discomfort, fatigue, irregular heart beat, orthopnea, and palpitations Reports prior negative stress test in 2019. Current daily activity less than 4 METS due to Parkinson's disease without any type of concerning symptoms. Primary prevention appears to be optimal. Overall patient is pleased with current state of cardiovascular health. At this time there are no indications for additional cardiovascular testing or need for medication changes. Review of Systems Cardiovascular: Negative for chest pain, dyspnea on exertion, irregular heartbeat, leg swelling, near-syncope, orthopnea, palpitations, paroxysmal nocturnal dyspnea and syncope. Visit Vitals BP 128/64 (BP Location: Left arm, Patient Position: Sitting) Pulse 78 Ht 1.778 m (5' 10 ) Wt 90.8 kg (200 lb 3.2 oz) BMI 28.73 kg/m Smoking Status Never BSA 2.12 m Physical Exam Vitals and nursing note reviewed. Constitutional: Appearance: Normal appearance. Cardiovascular: Rate and Rhythm: Normal rate and regular rhythm. Heart sounds: Normal heart sounds. Pulmonary: Effort: Pulmonary effort is normal. Breath sounds: Normal breath sounds. Musculoskeletal: Cervical back: Full passive range of motion without pain. Right lower leg: No edema. Left lower leg: No edema. Skin: General: Skin is cool. Neurological: Mental Status: He is alert and oriented to person, place, and time. Psychiatric: Attention and Perception: Attention normal. Mood and Affect: Mood normal. Behavior: Behavior is cooperative. Allergies Allergen Reactions Latex Hives Shellfish Derived Anaphylaxis Iodinated Contrast Media Unknown Adhesive Tape-Silicones Rash Current Outpatient Medications Medication Instructions apixaban (Eliquis) 5 mg tablet 1 tablet, oral, 2 times daily aspirin 81 mg, oral, Weekly atorvastatin (Lipitor) 20 mg tablet 1 tablet, oral, Daily biotin 5 mg capsule 1 capsule, oral, Daily carbidopa-levodopa (Sinemet) 25-100 mg tablet 1 tablet, oral, 3 times daily carvedilol (Coreg) 25 mg tablet 1 tablet, oral, 2 times daily cetirizine (ZyrTEC) 10 mg tablet 1 tablet, oral, Daily PRN cholecalciferol (Vitamin D-3) 50,000 unit capsule 1 capsule, oral, Daily dulaglutide (Trulicity) 0.75 mg/0.5 mL pen injector subcutaneous esomeprazole (NEXIUM) 40 mg, oral, Daily before breakfast, Do not open capsule. finasteride (PROSCAR) 5 mg, oral, Daily, Do not crush, chew, or split. gabapentin (Neurontin) 300 mg capsule 1 capsule, oral, 2 times daily glimepiride (AMARYL) 2 mg, oral, Daily before breakfast losartan (Cozaar) 50 mg tablet 1 tablet, oral, Daily magnesium oxide (Mag-Ox) 400 mg (241.3 mg magnesium) tablet 1 tablet, oral, Nightly meclizine (Antivert) 25 mg tablet 1 tablet, oral, 2 times daily PRN metFORMIN (Glucophage) 500 mg tablet 1 tablet, oral, Every 12 hours primidone (MYSOLINE) 50 mg, oral, Nightly sitaGLIPtin phosphate (Januvia) 100 mg tablet 1 tablet, oral, Daily tamsulosin (Flomax) 0.4 mg 24 hr capsule 1 capsule, oral, Daily traZODone (DESYREL) 50 mg, oral, Nightly Assessment: Cardiac and Vasculature November 2021 presented as a self-referral for new patient consult with Dr. Tinoco. Reports in 2019 at PCP office in [place] had initial onset of atrial fibrillation with spontaneous conversion to normal sinus rhythm. Follow-up testing included unremarkable stress test and echocardiogram. He has been maintained on anticoagulation and beta-stephanie since that time. Essential hypertension, benign Optimal in office Hyperlipidemia Low intensity statin Reports annual wellness labs through PCP Paroxysmal atrial fibrillation (CMS/HCC) Denies any recurrent palpitations No prior antiarrhythmic Ausculatory rate regular on exam penitentiary current use of 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 therapy CHADS VASc 5 (prior TIA) anticoagulated full dose Eliquis with age 73, weight 200. Denies bleeding diatheses Diabetes mellitus with no complication (CMS/HCC) Maintained on ARB/statin Reports most recent hemoglobin A1c good BMI 28.0-28.9,adult Reviewed the merits of healthy lifestyle choices on overall cardiovascular health. Plan: Through informed decision making process incorporating patients unique circumstances, the following treatment plan will be initiated: 1. Prescription drug management of cardiovascular medication for efficacy, adherence to treatment, side effect assessment and polypharmacy. Current treatment clinically warranted and to continue without modifications. 2. Return for follow-up; in the interim, contact the office if new symptoms arise. Dr. Vázquez 9 months Ana Ramos MSN, FREIGHT ADJUSTER-WIND TURBINE ENGINEER, PMHNP-[facility] Please excuse any errors in grammar or translation related to this dictation. Voice recognition software was utilized to prepare this document. documented in this encounter [facility] Work Phone: 09-28-2023 Instructions AVELINO Acosta - 09/28/2023 2:30 PM EST Please bring all medicines, vitamins, and herbal supplements with you when you come to the office. Prescriptions will not be filled unless you are compliant with your follow up appointments or have a follow up appointment scheduled as per instruction of your physician. Refills should be requested at the time of your visit. PLAN: Through informed decision making process incorporating patients unique circumstances, the following treatment plan will be initiated: 1. Prescription drug management of cardiovascular medication for efficacy, adherence to treatment, side effect assessment and polypharmacy. Current treatment clinically warranted and to continue without modifications. 2. Return for follow-up; in the interim, contact the office if new symptoms arise. Dr. Vázquez 9 months documented in this encounter [facility] Work Phone: 02-16-2023 Evaluation note Encounter Date Diagnosis Assessment Notes Jan, Dyspepsia (ICD-10 - K30) Jan, GERD (gastroesoph ageal reflux disease) (ICD-10 - K21.9) Patient currently doing well on current esomeprazole regimen patient denies dyspeptic complaints and is doing well overall from a GI standpoint. Recommendation to continue esomeprazole and return to office in 1 year [facility] Other 01-19-2023 Evaluation note* Encounter Date Diagnosis Assessment Notes Treatment Notes Treatment Clinical Notes Oct, GERD (gastroesophageal reflux disease) (ICD-10 - K21.9) Continue Omeprazole without change Pt to call if symptoms worsen or return Follow up in 1 year [facility] Other 07-28-2022 NoteCONSULTATION CONSULTATION DATE: 05/20/2022 HISTORY OF PRESENT ILLNESS: This is a 72-year-old male, returning to the clinic, status post bilateral lumbar RFA of L2, L3 and L4, L5 which was completed on 04/20/2022 that afforded him 90% relief. The patient does ambulate with a cane, but feels that his posture is more upright. He can go further distances and the pain is greatly mitigated. He does have a history of Parkinson's in his family and was just recently diagnosed by [facility] with Parkinson's. He did have the Parkinsonian bilateral hand tremors that were noticed by his PCP. He has just been placed on carbidopa/levodopa and is doing quite well. Other medications include baclofen 10 mg q.h.s, gabapentin 300 mg t.i.d. and Eliquis. Patient's REVIEW OF SYSTEMS / PAST MEDICAL HISTORY / ALLERGIES and IMAGES have been reviewed and they are noted on the chart. PHYSICAL EXAM: VITAL SIGNS: Blood pressure is 135/76. Heart rate is 56. Temperature is 97.7. He is 5'10 and weighs 95.8 kg. GENERAL APPEARANCE: Pleasant, appropriate, in no acute distress. is present. FOCUSED EXAM - BACK: Range of motion is functional in lateral rotation and flexion/extension. Paravertebral muscles are non-spasmodic. No reproduction of spinal axial pain indicative of successful RFA. Sosa's point non-tender bilaterally. MUSCULOSKELETAL: Motor is intact, 3-4/5 bilaterally. Does ambulate slow but steadily with a cane. Diffuse muscle atrophy noted. NEUROLOGICAL: Bilateral hand weakness secondary to Parkinson's. IMPRESSION: Lumbar spondylosis, lumbar degenerative disc disease and chronic lower back pain and Parkinson's. PLAN: Overall, the patient is doing great. He is to continue with the baclofen, heat rub and exercises as discussed. Vitamin importance was discussed as well. Patient is to follow up in the clinic in six months' time, unless otherwise indicated. Patient is in agreement to this.[id number] Evaluation note* Encounter Date Diagnosis Assessment Notes Treatment Notes Treatment Clinical Notes Apr, GERD (gastroesophageal reflux disease) (ICD-10 - K21.9) Stop Omeprazole Start Esomeprazole 40mg bid [facility] Other 01-31-2022 Evaluation note* Encounter Date Diagnosis Assessment Notes Treatment Notes Treatment Clinical Notes Oct, Gastroesophageal ref lux disease, unspecified whether esophagitis present (ICD-10 - K21.9) Patient is taking the medication twice a day. Patient reassured that he needs to take this 30 mins prior to eating to ensure medication will get absorbed. will stop Omeprazole and start dexilant at this time. Oct, Dyspepsia (ICD-10 - K30) [facility] Other 02-14-2015 History of Present illness Narrative* She has self-referred for atrial fibrillation. He is an individual apparently has had atrial fibrillation for quite some time. He was hospitalized several years ago and found to be in atrial fibrillation and treated with 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 therapy ever since. He is changing doctors and now wishes cardiology management. * He denies any cardiac symptomatology, per se, he has had no neurologic symptoms nor does he have dyspnea orthopnea PND anginal pain syncope or near syncope. * Nonetheless we advised him that antithrombotic therapy is appropriate in view of his CHADS2 score and he agrees. We did also suggest aspirin once a week because of his underlying diabetes mellitus. His blood pressure and cholesterol appear to be adequately managed for the time being because this will make no change in this regard. We did advocate diet and weight loss. -[facility] DO Work Phone: [phone]) 516-279202-12-2015 History of Present illness Narrative* She has self-referred for atrial fibrillation. He is an individual apparently has had atrial fibrillation for quite some time. He was hospitalized several years ago and found to be in atrial fibrillation and treated with 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 therapy ever since. He is changing doctors and now wishes cardiology management. * He denies any cardiac symptomatology, per se, he has had no neurologic symptoms nor does he have dyspnea orthopnea PND anginal pain syncope or near syncope. * Nonetheless we advised him that antithrombotic therapy is appropriate in view of his CHADS2 score and he agrees. We did also suggest aspirin once a week because of his underlying diabetes mellitus. His blood pressure and cholesterol appear to be adequately managed for the time being because this will make no change in this regard. We did advocate diet and weight loss. 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- Primary Paroxysmal atrial fibrillation (CMS/HCC) Atrial fibrillation Essential hypertension, benign Mixed hyperlipidemia Diabetes mellitus with no complication (CMS/HCC) Type II or unspecified type diabetes mellitus without mention of complication, not stated as uncontrolled BMI 28.0-28.9,adult documented in this encounter [facility] Work Phone: Hismngf general Narrative - Reported* Type Description Date Surgical History gallbladder [facility] Other Hisiljc general Narrative - Reported* Type Description Date Medical History parkinsons disease Medical History TYPE 2 DIABETES Surgical History gallbladder Surgical History CARPAL TUNEL Surgical History NECK & BACK SURGERY Surgical History TONSILLECTOMY Hospitalization History NONE IN THE LAST YEAR [facility] Other History of Present illness NarrativePatient returns in follow-up of problems as noted. He is done well. He cannot tell if or when he isout of rhythm because of this I recommend continued therapy as is with chronic 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 therapy. The reason and rationale for this was explained and he agrees. Management of other risk factors including diabetes hypertension and hyperlipidemia is reviewed and felt to be adequate and appropriate. Patient's biggest problem is Parkinson's disease and he expounded on it in great detail. We did encourage him to attempt a calorically restricted diet to facilitate some weight loss as well as modest exercise.-[facility] DO Work Phone: History of Present illness NarrativePatient returns in follow-up of problems as noted. In the interim he is done well. Control of his lipids and hypertension is reviewed and found to be adequate and appropriate. He has had no symptomatic paroxysms of atrial fibrillation based upon her review. He is not on antiarrhythmics but he is anticoagulated and hence the risk of stroke appears to be mitigated. His Parkinson's disease is nonproblematic and he denies any falling or other coordination issues. Increased body mass index is noted in the merits of diet exercise and weight loss and its favorable impact on lipids blood pressure andin particular his diabetes was emphasized and he understands our recommendation.[facility] [employer] DO Work Phone: Reason for referral (narrative)* Consultation (Routine) - Authorized Specialty Diagnoses / Procedures Referred By Augustina t Referred To Contact Cardiology Diagnoses Paroxysmal atrial fibrillation (CMS/HCC) Procedures Follow Up In Cardiology Ana Ramos APRN-CNP [facility] [address] [address] Keyon Vázquez MD [facility] [address], [address] [address] Referral ID Status Reason Start Date Expiration Date V isits Requested Visits Authorized [id number] Authorized 09/28/2023 09/27/2024 1 1 [facility] Work Phone: Summary Purpose Family History No Family History Records FoundUnknown Family Member Name Dates Details No pertinent family history: Mother, Father(V49.89, Z78.9) Status:Active Unknown Family Member Name Dates Details No pertinent family history: Mother, Father(V49.89, Z78.9) Status:Active Unknown Family Member Name Dates Details No pertinent family history: Mother, Father(V49.89, Z78.9) Status:Active Unknown Family Member Name Dates Details No pertinent family history: Mother, Father(V49.89, Z78.9) Status:Active Relationship Condition Age at Onset Recorded Date/T oscar Not Specified Unknown family medical history Unknown Advance Directives No Advanced Directives Records Found Advance Directive Response Recorded Date/ Time Advance Directives No June 10:21am Chief Complaint JAY AGUERO is being seen for a 4 month follow-up of.JAY AGUERO is being seen for a 9 month follow-up of. Chief Complaint and Reason for Visit Chief Complaint r25.1 Additional Source Comments (unrecognized sect ion and content) No Status Records FoundNo Status Records FoundNo Status Records FoundNo Status Records FoundNo Status Records FoundNo Status Records FoundNo Status Records Found INFORMATION SOURCE (unrecogn ized section and content) DATE CREATED AUTHOR 04/19/[address] [facility] DATE CREATED AUTHOR AUTHOR'S ORGANIZ ATION 10/08/2021 [facility] DATE CREATED AUTHOR AUTHOR'S ORGANIZ ATION 12/31/2022 [facility] DATE CREATED AUTHOR AUTHOR'S ORGANIZ ATION 12/31/2022 [employer] DATE CREATED AUTHOR AUTHOR'S ORGANIZ ATION 02/20/2023 [facility] DATE CREATED AUTHOR AUTHOR'S ORGANIZ ATION 07/29/2023 [facility] DATE CREATED AUTHOR AUTHOR'S ORGANIZ ATION 10/02/2023 [facility] REASON FOR VISIT (unrecogniz ed section and content) Reason Comments Follow-up 9 month Care Teams (unrecognized sec tion and content) Team Status: Active Member Role Status Dates Shaikh Mary MD Primary Care Provider Active Team Status: Inactive Member Role Status Dates Tonya Schultz , FREIGHT ADJUSTER-FAIRING MAN-C Attending Provider Active Shaikh Mary MD Primary Care Provider Active Senior Accountant Cpa Relationship Specialty Start Date End Date Shaikh Hernandez MD [address] [place] [address] PCP - General 10/24/19 Goals (unrecognized section and content) Goals may be documented in a n alternate section FOR RECORDS PERTAINING TO PATIENTS WHO ARE OR HAVE BEEN ENROLLED IN A CHEMICAL DEPENDENCY/SUBSTANCEABUSE PROGRAM, SOME INFORMATION MAY BE OMITTED. This clinical summary was aggregated from multiple sources. Caution should be exercised in using it in the provision of clinical care. This summary normalizes information from multiple sources, and as a consequence, information in this document may materially change the coding, format and clinical context of patient data. In addition, data may be omitted in some cases. CLINICAL DECISIONS SHOULD BE BASED ON THE PRIMARY CLINICAL RECORDS. [facility] [employer] [facility]. provides no warranty or guarantee of the accuracy or completeness of information in this document.
[2023-10-31 14:15] LABS: Estimated Average Glucose 163 mg/dL; Glycohemoglobin A1C 7.3 % (4.5-6.2)
== END 2023-10-31 11:20 | disposition home or self-care (01) ==
LOC: LAB 11:21
PROVIDERS: PCP Internal Medicine; Visit Provider Internal Medicine
DX: E11.42 Type 2 diabetes mellitus with diabetic polyneuropathy (principal)
CPT/HCPCS: 36415; 83036

== ENCOUNTER 2023-11-17 13:18 | Outpatient (OUT) | payer MEDICARE, SELFPAY ==
--- OUTSIDE RECORDS SUMMARY | 2023-11-17 13:20 | XMS_ITS | CCD ---
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 Keyon Bennett Referring Unavailable Lynnetteuinsally II, Dr. Keyon Bennett Attending Unavailable Lynnetteuinn II, Dr. Keyon Bennett Attending Unavailable Lynnetteuinn II, Dr. Keyon Bennett Referring Unavailable Vazquez Shaw Unavailable FAWWAD, LALA H Admitting Unavailable FAWWAD, LALA H Attending Unavailable FAWWAD, LALA H Consulting Unavailable FAWWAD, LALA H Primary Care Unavailable JUSTIN ., DR RAYMUNDO Chavez Consulting Unavailable JUSTIN ., DR RAYMUNDO Chavez Admitting Unavailable FAWWAD, LALA H Primary Care Unavailable JUSTIN ., DR RAYMUNDO Chavez Attending Unavailable EMILIANO CECILE Consulting Unavailable JUSTIN ., DR RAYMUNDO [...] SHAIKH Charlie HERNANDEZ Primary Care Unavailable DANIEL Schultz-FINANCIAL INSTITUTION MANAGER-C Tonya Villanueva Attending Provider MD Dai Hernandez Primary Care Provider [phone] Shaikh Hernandez Primary Care Unavailable Tonya Schultz Attending Unavailable Tonya Schultz Admitting Unavailable Shaikh Hernandez MD Primary Care Provider [phone] ANA RAMOS Attending Unavailable SHAIKH HERNANDEZ Primary Care Unavailable ROSAURA JETT Attending Unavailable JOSR ANTOINE Attending Unavailable SHAIKH HERNANDEZ Attending Unavailable SHAIKH HERNANDEZ Attending Unavailable Allergies Allergy Classification Reported Allergen(s) Allergy Type Date of Onset Reaction(s) Facility (7 sources) Iodinated Contrast Media; Translations: [Iodinated Contrast Media] Allergy to drug (finding) 1 Unknown Reaction [facility] (1 source) house dust allergenic extract Drug Allergy [facility] Repository (3 sources) Latex; Translations: [LATEX] Drug allergy (disorder) 1 Unknown Reaction [facility] Repository (1 source) Shellfish Drug allergy (disorder) [facility] (1 source) Latex Drug allergy (disorder) 1 [facility] Repository (1 source) Iodinated Contrast Media Drug allergy (disorder) 1 [facility] Repository (1 source) Latex Propensity to adverse reactions 3 Hives [facility] Work Phone: (2 sources) Shellfish; Translations: [SHELLFISH DERIVED] Propensity to adverse reactions 3 Anaphylaxis [facility] Work Phone: (2 sources) Adhesive Tape-Silicones; Translations: [ADHESIVE TAPE-SILICONES] Propensity to adverse reactions 3 Rash [facility] (1 source) Iodinated Contrast Media Drug Allergy 3 Unknown [facility] Medications Current Medications Medication Drug Class(es) Dates [...] (3 sources) take 1 capsule by mo [facility] once daily biotin 5 mg capsule Take [...] Start: 09-02-2021 take 1 tablet by gabriela th twice daily carvedilol (Coreg) 25 mg tablet [...] 02-Feb-2022 DO Start : 07-Jan-2022 Active Trulicity Veda-Calvin chicas Trulicity Active esomeprazole 40 mg delayed release oral capsule (6 sources) Proton Pump Inhibitor Start: 01-12-2023 take 1 capsule by mouth every twenty-four hours Esomeprazole Magnesium 40 MG 1 capsule Orally Once a day for 30 days Dec, Active Start: 05-12-2022 take 1 capsule by mo [facility] twice daily Esomeprazole Magnesium 40 MG 1 [...] 01-Dec-2021 Active take 1 tablet by gabriela th every twenty-four hours Glimepiride 2 MG 1 [...] 2021 1:00am take 1 capsule by mo ut twice daily gabapentin (Neurontin) 300 mg capsule [...] 0 Refills: 0 Ordered: 14-Apr-2022 DO Active xbc-Op-wnk-pumpk-beta- ly-Zn-Cu (Prostate Control) 89-63-43-100 mg capsule (1 source) End: 09-28-2023 take 1 capsule by mouth once daily wbl-Ej-rec-vndgi-ghzl-yu-Z n-Cu (Prostate Control) 96-09-90-100 mg capsule Take 1 capsule by mouth [...] sources) Long-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 of 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; Translations: [[facility] (current) use of 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s] Onset: 09-28-2023 09-28-2023 Episodic Other aftercare (2 sources) [facility] (current) use of 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s; 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] Onset: 09-28-2023 Episodic [...] wo conon 07-22 MR head/brain wo con [facility] [address] MRI Report Signed Patient: Jay Aguero MR#: [id number] 3 : 1950 Acct:[id number] Age/Sex: 73 / M ADM Date: 07/22/23 Loc: MR Room: Type: [facility] Attending Dr: Tonya MCGOWAN Copies to: JUAN [...] Duc Wheeler M.D.07/22/2023 11:32 AM Dictation Location: [place] [address] Transcribed By: CLARISSA 07/22/23 1132 Dictated By: Duc Wheeler II, MD 07/22/23 1122 Signed By: 07/22/23 1132 Normal [facility] GLYCOHEMOGLOBIN A1Con 2022 ADA RECOMMENDATION SEE BELOW Normal [facility] Comment on above: Result Comment: ADA RECOMMENDED LIMIT 4.0 - 6.0 ADA THERAPEUTIC TARGET < 7.0 ACTION SUGGESTED > 7.0 Performed By: #### A 1C #### [facility] [address] [place] [address] [address] Gallo Wade Glucose [Mass/Vol] 128 mg/dL Normal [facility] Comment on above: Performed By: #### A 1C #### [facility] [address] [place] [address] [address] Gallo Wade HbA1c (Bld) [Mass fraction] 6.1 % Normal 4.5-6.2 [facility] Comment on above: Performed By: #### A 1C #### [facility] [address] [address] [address] Gallo Wade Office Visit (Cardiology)on 12-29-2022 [...] ONCE A WEEK Vitamin D3 1.25 MG (81363 UT) Oral CapsuleTAKE 1 CAPSULE Daily Allergies [...] Recorded: 29Dec2022 01:35PM Heart Rate74, R Radial Hztbovah263, LUE, Sitting Ftdozlytw22, LUE, Sitting Height5 ft 10 in Qwsxeo710 lb BMI Qaqknjwgtp59.28 (more content not included)... Normal [employer] Tobacco Screening.on 023 Adult depression screening assessment No [facility] [facility] [address] DO Work Phone: Fall risk assessment a) No falls within the last year [facility] [facility] 250 DO Work Phone: Tobacco use status [facility] b) No -[facility] [facility] 250 DO Work Phone: CBC AUTO DIFFon 11-15-2022 BASO # 0.0 103/ul Normal 0.0-0.1 [facility] Comment on above: Performed By: #### C BC #### [facility] [address] [address] [address] Gallo Wade Basophils/100 WBC (Bld) 0.5 % Normal 0.2-2.0 [facility] Comment on above: Performed By: #### C BC #### [facility] [address] [address] [address] Gallo Wade EO # 0.2 103/ul Normal 0.0-0.7 [facility] Comment on above: Performed By: #### C BC #### [facility] [address] [address] [address] Gallo Wade Eosinophils/100 WBC (Bld) 2.7 % Normal 0.9-7.0 [facility] Comment on above: Performed By: #### C BC #### [facility] [address] [address] [address] Gallo Wade Erythrocyte distribution width (RBC) [Ratio] 13.0 % Normal 11.0-15.0 [facility] Comment on above: Performed By: #### C BC #### [facility] [address] [place] [address] [address] Gallo Wade Hematocrit (Bld) [Volume fraction] 37.6 % Critically low 42.0-54.0 [facility] Comment on above: Performed By: #### C BC #### [facility] [address] [address] [address] Gallo Wade Hemoglobin (Bld) [Mass/Vol] 13.7 g/dL Critically low 14.0-18.0 [facility] Comment on above: Performed By: #### C BC #### [facility] [address] [address] [address] Gallo Wade IG # 0.08 10e3/ul Critically high 0.00-0.03 [facility] Comment on above: Performed By: #### C BC #### [facility] [address] [place] [address] Dr. Gallo Wade IG % 1.1 % Critically high 0.0-0.5 [facility] Comment on above: Performed By: #### C BC #### [facility] [address] [place] [address] Dr. Gallo Wade LYMPH # 1.6 103/ul Normal 1.2-3.8 [facility] Comment on above: Performed By: #### C BC #### [facility] [address] [place] [address] Dr. Gallo Wade Lymphocytes/100 WBC (Bld) 21.7 % Normal 20.5-60.0 [facility] Comment on above: Performed By: #### C BC #### [facility] [address] [place] [address] Dr. Gallo Wade MANUAL DIFF REQ NO Normal [facility] Comment on above: Performed By: #### C BC #### [facility] [address] [place] [address] Dr. Gallo Wade MCH (RBC) [Entitic mass] 32.2 pg Normal 25.9-34.0 [facility] Comment on above: Performed By: #### C BC #### [facility] [address] [place] [address] Dr. Gallo Wade MCHC (RBC) [Mass/Vol] 36.4 g/dL Critically high 29.9-35.2 [facility] Comment on above: Performed By: #### C BC #### [facility] [address] [place] [address] Dr. Gallo Wade MCV (RBC) [Entitic vol] 88.5 fL Normal 80.0-94.0 [facility] Comment on above: Performed By: #### C BC #### [facility] [address] [place] [address] Dr. Gallo Wade MONO # 0.5 103/ul Normal 0.3-0.8 [facility] Comment on above: Performed By: #### C BC #### [facility] [address] [address] [address] Galol Wade Monocytes/100 WBC (Bld) 6.4 % Normal 1.7-12.0 [facility] Comment on above: Performed By: #### C BC #### [facility] [address] [address] [address] Gallo Wade NEUT # 5.0 103/ul Normal 1.4-6.5 [facility] Comment on above: Performed By: #### C BC #### [facility] [address] [address] [address] Gallo Wade Neutrophils/100 WBC (Bld) 67.6 % Normal 43.0-75.0 [facility] Comment on above: Performed By: #### C BC #### [facility] [address] [place] [address] Dr. Gallo Wade Platelet mean volume (Bld) [Entitic vol] 9.9 fL Normal 9.5-13.5 [facility] Comment on above: Performed By: #### C BC #### [facility] [address] [place] [address] Dr. Gallo Wade PLT 174 103/ul Normal 150-450 [facility] Comment on above: Performed By: #### C BC #### [facility] [address] [place] [address] Dr. Gallo Wade RBC 4.25 106/ul Critically low 4.70-6.10 [facility] Comment on above: Performed By: #### C BC #### [facility] [address] [place] [address] Dr. Gallo Wade WBC 7.4 103/ul Normal 4.0-11.0 [facility] Comment on above: Performed By: #### C BC #### [facility] [address] [place] [address] Dr. Gallo Wade GLYCOHEMOGLOBIN A1Con 2022 ADA RECOMMENDATION SEE BELOW Normal [facility] Comment on above: Result Comment: ADA RECOMMENDED LIMIT 4.0 - 6.0 ADA THERAPEUTIC TARGET < 7.0 ACTION SUGGESTED > 7.0 Performed By: #### A 1C #### [facility] [address] [address] [address] Gallo Wade Glucose [Mass/Vol] 169 mg/dL Normal [facility] Comment on above: Performed By: #### A 1C #### [facility] [address] [address] [address] Gallo Wade HbA1c (Bld) [Mass fraction] 7.5 % Critically high 4.5-6.2 [facility] Comment on above: Performed By: #### A 1C #### [facility] [address] [place] [address] Dr. Gallo Wade LIPID PROFILEon 11-15-2022 CHOL-HDL RATIO NORM SEE BELOW Normal [facility] Comment on above: Result Comment: 3.3 - 4.4 LOW RISK 4.4 - 7.1 AVERAGE RISK 7.1 - 11.0 MODERATE RISK >11.0 HIGH RISK Performed By: #### L IPID, CMP #### [facility] [address] [place] [address] Dr. Gallo Wade Cholesterol [Mass/Vol] 150 mg/dL Normal <=200 [facility] Comment on above: Performed By: #### L IPID, CMP #### [facility] [address] [place] [address] Dr. Gallo Wade Cholesterol in HDL [Mass/Vol] 45 mg/dL Normal 40-60 [facility] Comment on above: Performed By: #### L IPID, CMP #### [facility] [address] [address] [address] Gallo Wade Cholesterol in LDL [Mass/Vol] 53.6 mg/dL Normal [facility] Comment on above: Performed By: #### L IPID, CMP #### [facility] [address] [place] [address] Dr. Gallo Wade Cholesterol.total/Ch olesterol in HDL [Mass ratio] 3.3 {ratio} Normal [facility] Comment on above: Performed By: #### L IPID, CMP #### [facility] [address] [place] [address] Dr. Gallo Wade HDL NORMAL > or = 60 mg/dl - LO W CARDIOVASCULAR RISK <40 mg/dl - HIGH CARDIOVASCULAR RISK Normal [facility] Comment on above: Performed By: #### L IPID, CMP #### [facility] [address] [address] [address] Gallo Wade LDL CALC NORMAL SEE BELOW Normal [facility] Comment on above: Result Comment: <100 mg/dl OPTIMAL 100 - 129 mg/dl NEAR OR ABOVE OPTIMAL 130 - 159 mg/dl BORDERLINE HIGH 160 - 189 mg/dl HIGH >190 mg/dl VERY HIGH Performed By: #### L IPID, CMP #### [facility] [address] [address] [address] Gallo Wade Triglyceride [Mass/Vol] 257 mg/dL Critically high <=150 [facility] Comment on above: Performed By: #### L IPID, CMP #### [facility] [address] [place] [address] Dr. Gallo Wade VLDL CALC 51.4 mg/dL Normal [facility] Comment on above: Performed By: #### L IPID, CMP #### [facility] [address] [address] [address] Gallo Wade PROF 14(COMP METB)on 023 Albumin [Mass/Vol] 3.7 g/dL Normal 3.4-5.0 [facility] Comment on above: Performed By: #### L IPID, CMP #### [facility] [address] [place] [address] Dr. Gallo Wade Albumin/Globulin [Mass ratio] 1.1 {ratio} Normal [facility] Comment on above: Performed By: #### L IPID, CMP #### [facility] [address] [place] [address] Dr. Gallo Wade ALP [Catalytic activity/Vol] 77 U/L Normal 46-116 [facility] Comment on above: Performed By: #### L IPID, CMP #### [facility] [address] [address] [address] Gallo Wade ALT [Catalytic activity/Vol] 24 U/L Normal 16-63 [facility] Comment on above: Performed By: #### L IPID, CMP #### [facility] [address] [place] [address] Dr. Gallo Wade Anion gap [Moles/Vol] 13.2 mmol/L Normal [facility] Comment on above: Performed By: #### L IPID, CMP #### [facility] [address] [place] [address] Dr. Gallo Wade AST [Catalytic activity/Vol] 15 U/L Normal 15-37 [facility] Comment on above: Performed By: #### L IPID, CMP #### [facility] [address] [place] [address] Dr. Gallo Wade Bilirubin [Mass/Vol] 0.9 mg/dL Normal 0.2-1.0 [facility] Comment on above: Performed By: #### L IPID, CMP #### [facility] [address] [place] [address] Dr. Gallo Wade Calcium [Mass/Vol] 9.1 mg/dL Normal 8.5-10.1 [facility] Comment on above: Performed By: #### L IPID, CMP #### [facility] [address] [place] [address] Dr. Gallo Wade Chloride [Moles/Vol] 102 mmol/L Normal 98-107 [facility] Comment on above: Performed By: #### L IPID, CMP #### [facility] [address] [place] [address] Dr. Gallo Wade CO2 [Moles/Vol] 27.9 mmol/L Normal 21.0-32.0 [facility] Comment on above: Performed By: #### L IPID, CMP #### [facility] [address] [place] [address] Dr. Gallo Wade Creatinine [Mass/Vol] 0.82 mg/dL Normal 0.70-1.30 [facility] Comment on above: Performed By: #### L IPID, CMP #### [facility] [address] [place] [address] Dr. Gallo Wade EGFR-AF GIBRALTARIAN >60 Normal >=60 [facility] Comment on above: Performed By: #### L IPID, CMP #### [facility] [address] [place] [address] Dr. Gallo Wade EGFR-NON AF GIBRALTARIAN >60 Normal >=60 [facility] Comment on above: Performed By: #### L IPID, CMP #### [facility] [address] [place] [address] Dr. Gallo Wade Globulin (S) [Mass/Vol] 3.5 g/dL Normal [facility] Comment on above: Performed By: #### L IPID, CMP #### [facility] [address] [place] [address] Dr. Gallo Wade Glucose [Mass/Vol] 161 mg/dL Critically high 74-106 [facility] Comment on above: Performed By: #### L IPID, CMP #### [facility] [address] [place] [address] Dr. Gallo Wade Potassium [Moles/Vol] 4.1 mmol/L Normal 3.5-5.1 [facility] Comment on above: Performed By: #### L IPID, CMP #### [facility] [address] [place] [address] Dr. Gallo Wade Protein [Mass/Vol] 7.2 g/dL Normal 6.4-8.2 [facility] Comment on above: Performed By: #### L IPID, CMP #### [facility] [address] [place] [address] Dr. Gallo Wade Sodium [Moles/Vol] 139 mmol/L Normal 136-145 [facility] Comment on above: Performed By: #### L IPID, CMP #### [facility] [address] [place] [address] Dr. Gallo Wade Urea nitrogen [Mass/Vol] 14.0 mg/dL Normal 7.0-18.0 [facility] Comment on above: Performed By: #### L IPID, CMP #### [facility] [address] [place] [address] Dr. Gallo Wade Urea nitrogen/Creatinine [Mass ratio] 17.1 mg/mg Normal [facility] Comment on above: Performed By: #### L IPID, CMP #### [facility] [address] [address] [address] Gallo Wade GLYCOHEMOGLOBIN A1Con 2021 ADA RECOMMENDATION SEE BELOW Normal [facility] Comment on above: Result Comment: ADA RECOMMENDED LIMIT 4.0 - 6.0 ADA THERAPEUTIC TARGET < 7.0 ACTION SUGGESTED > 7.0 Performed By: #### A 1C #### [facility] [address] [address] [address] Gallo Wade Glucose [Mass/Vol] 134 mg/dL Normal [facility] Comment on above: Performed By: #### A 1C #### [facility] [address] [place] [address] Dr. Gallo Wade HbA1c (Bld) [Mass fraction] 6.3 % Critically high 4.5-6.2 [facility] Comment on above: Performed By: #### A 1C #### [facility] [address] [address] [address] Gallo Wade LIPID PROFILEon 05-14-2022 CHOL-HDL RATIO NORM SEE BELOW Normal [facility] Comment on above: Result Comment: 3.3 - 4.4 LOW RISK 4.4 - 7.1 AVERAGE RISK 7.1 - 11.0 MODERATE RISK >11.0 HIGH RISK Performed By: #### L IPID #### [facility] [address] [address] [address] Gallo Wade Cholesterol [Mass/Vol] 129 mg/dL Normal <=200 [facility] Comment on above: Performed By: #### L IPID #### [facility] [address] [address] [address] Gallo Wade Cholesterol in HDL [Mass/Vol] 36 mg/dL Critically low 40-60 [facility] Comment on above: Performed By: #### L IPID #### [facility] [address] [address] [address] Gallo Wade Cholesterol in LDL [Mass/Vol] 46.6 mg/dL Normal [facility] Comment on above: Performed By: #### L IPID #### [facility] [address] [address] [address] Gallo Wade Cholesterol.total/Ch olesterol in HDL [Mass ratio] 3.6 {ratio} Normal [facility] Comment on above: Performed By: #### L IPID #### [facility] [address] [id number] Gallo Wade HDL NORMAL > or = 60 mg/dl - LO W CARDIOVASCULAR RISK <40 mg/dl - HIGH CARDIOVASCULAR RISK Normal [facility] Comment on above: Performed By: #### L IPID #### [facility] [address] [address] [address] Gallo Wade LDL CALC NORMAL SEE BELOW Normal [facility] Comment on above: Result Comment: <100 mg/dl OPTIMAL 100 - 129 mg/dl NEAR OR ABOVE OPTIMAL 130 - 159 mg/dl BORDERLINE HIGH 160 - 189 mg/dl HIGH >190 mg/dl VERY HIGH Performed By: #### L IPID #### [facility] [address] [place] [address] Dr. Gallo Wade Triglyceride [Mass/Vol] 232 mg/dL Critically high <=150 [facility] Comment on above: Performed By: #### L IPID #### [facility] [address] [address] [address] Gallo Wade VLDL CALC 46.4 mg/dL Normal [facility] Comment on above: Performed By: #### L IPID #### [facility] [address] [address] [address] Gallo Wade POINT OF CARE GLUCOSEon 03-25 Glucose [Mass/Vol] 172 mg/dL Critically high 74-106 T [facility] Comment on above: Performed By: #### P OCGLUC #### [facility] [address] [place] [address] Dr. Gallo Wade Office Visit (Cardiology)on 04-14-2022 [...] ONCE A WEEK Vitamin D3 1.25 MG (81101 UT) Oral CapsuleTAKE 1 CAPSULE Daily Allergies [...] Recorded: 14Apr2022 03:51PM Heart Rate80, R Radial Gschgprr863, RUE, Sitting Svoowlqke62, RUE, Sitting Height5 ft 10 in Zilgdp809 lb BMI Uduwvfuian65.28 kg/m2 BSA Calculated2.14 Tobacco Useb) No PHQ-2 #1. Over the last 2 weeks have you felt down, depressed or hopeless? (If yes, answer PHQ-9 below)No PHQ-2 #2. Over the last 2 weeks have (more content not included)... Normal [facility] Tobacco Screening.on 022 Adult depression screening assessment No [facility] jose cruz [facility] y 250 DO Work Phone: Fall risk assessment a) [facility] the [facility] Work Phone: Tobacco use status CPHS b) No [facility] 250 DO Work Phone: Tobacco Screening.on 022 Adult depression screening assessment No [facility] 250 DO Work Phone: Fall risk assessment a) No falls within the last [facility] 250 DO Work Phone: Tobacco use status CPHS b) No [facility] y 250 DO Work Phone: SURGICAL PATHOLOGYon 021 SURGICAL PATHOLOGY Specimen #: [id number] Submitting Physician: VIJI FALCON M.D. FINAL DIAGNOSIS [facility], [place], [place]; [id number] (09/25/2021) Esophagus, biopsy (A1-1, A1-2) - Inflamed [...] to contact the GI consultation Service at [phone] with questions or if additional follow up information becomes available. This case was reviewed in conjunction with the GI pathology fellow, Tonya Fernández M.D. AEB/SSE 10/07/2021 Leela Parsons M.D. (Electronic Signature) SPECIMEN SUBMITTED A: 2 SLIDES [id number] CLINICAL DATA Dyspepsia, GERD. Date of Report: 10/07/2021 Date of Procedure: 10/06/2021 Date of Receipt: 10/06/2021 Submitted by: VIJI FALCON M.D. Location: Diagnostic interpretation performed at [facility], [address] [place] [address]. CLIA Number: [id number] Normal [facility] Comment on above: Performed By: #### S #### See report for performing lab information. Factor V Activityon 04-29-20 17 Factor V Activity 106 % Normal 50-150 [facility] Comment on above: Result Comment: [facility] [address] [place] [address] Performed By: #### H OCYS, FA5, LUPPRO, PROCAC, PROSAC ####[facility] [address] [place] [address] Lupus Anticoagulanton 2016 Dilute Blake Viper Negative Normal NLUP [facility] Comment on above: Result Comment: [employer] [address] [place] [address] Performed By: #### H OCYS, FA5, LUPPRO, PROCAC, PROSAC ####[facility] [place] [address] Protein C Activityon 017 Protein C Activity 130 % Normal >80 [facility] Comment on above: Result Comment: Tammy ents on oral 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s will have decreased functional protein C/S values. Oral 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 therapy should be discontinued for two weeks for accurate measurement of functional protein C/S levels.Artifactually elevated levels of functional protein C/S may be seen in patients receiving heparin, while decreased functionality may be seen in patients with abnormally elevated levels of Factor VIII.[employer] [facility] [address] [place] [address] Performed By: #### H OCYS, FA5, LUPPRO, PROCAC, PROSAC ####[address] [address] Protein S Activityon 017 Protein S Activity 120 % High 77-116 [facility] Comment on above: Result Comment: Tammy ents on oral 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s will have decreased functional protein C/S values. Oral 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 therapy should be discontinued for two weeks for accurate measurement of functional protein C/S levels.Artifactually elevated levels of functional protein C/S may be seen in patients receiving heparin, while decreased functionality may be seen in patients with abnormally elevated levels of Factor VIII.[facility] [address] [place] [address] Performed By: #### H OCYS, FA5, LUPPRO, PROCAC, PROSAC ####[facility] [address] [place] [address] Lupus Anticoagulanton 2016 Antiphospholipid IgA 4.0 APU Normal <12 [facility] Comment on above: Result Comment: Refe rence Range:12 - 15 Equivocal>15 Positive Performed By: #### H OCYS, FA5, LUPPRO, PROCAC, PROSAC ####[address] [place] [address] Antiphospholipid IgG 5.3 GPU Normal <20 [facility] Comment on above: Result Comment: Refe rence Range:20.0 - 29.9 Low Ygncsinp29.0 - 79.9 Moderate Positive >79.9 High Positive Performed By: #### H OCYS, FA5, LUPPRO, PROCAC, PROSAC ####[address] [address] Antiphospholipid IgM 4.8 MPU Normal <20 [facility] Comment on above: Result Comment: Refe rence Range:20.0 - 29.9 Low Zezpcckt80.0 - 79.9 Moderate Positive >79.9 High Positive Performed By: #### H OCYS, FA5, LUPPRO, PROCAC, PROSAC ####[address] [address] Cult,Urineon 04-27-2017 Cult,Urine Specimen Description .URINE Special Requests NOT REPORTED Culture NO GROWTH Report Status FINAL 04/27/2017 Normal [facility] Comment on above: Performed By: #### U RC ####[address] [address] CBCon 04-26-2017 Erythrocyte distribution width Auto Ratio (RBC) 13.6 % Normal 12.5-15.4 [facility] Comment on above: Performed By: #### C BC, LIPR ####[address] [address] Erythrocytes (RBC) 4.13 10*6/uL Low 4.5-5.9 [facility] Comment on above: Performed By: #### C BC, LIPR ####[address] [address] Hematocrit (HCT) 37.7 % Low 41-53 [facility] Comment on above: Performed By: #### C BC, LIPR ####[address] [address] Hemoglobin mass conc (Bld) 13.4 g/dL Low 13.5-17.5 [facility] Comment on above: Performed By: #### C BC, LIPR ####[address] [address] MCH 32.4 pg Normal 26-34 [facility] Comment on above: Performed By: #### C BC, LIPR ####[address] [address] MCHC mass conc (RBC) 35.5 g/dL Normal 31-37 [facility] Comment on above: Performed By: #### C MELISA, LIPR ####[address] [address] MCV 91.2 fL Normal 80-100 [facility] Comment on above: Performed By: #### C MELISA, LIPR ####[address] [address] Platelet mean volume (PMV) 8.6 fL Normal 6.0-12.0 [facility] Comment on above: Result Comment: [address] [place] [address] Performed By: #### C BC, LIPR ####[address] [address] Platelets 161 10*3/uL Normal 140-450 [facility] Comment on above: Performed By: #### C BC, LIPR ####[address] [address] WBC (Leukocytes) 5.0 10*3/uL Normal 3.5-11.0 [facility] Comment on above: Performed By: #### C BC, LIPR ####[address] [address] Discharge Summaryon 04-26-20 17 HIM IP Note OR Customer Solutions Coordinator Normal [facility] ED Noteon 04-26-2017 HIM IP Note OR Customer Solutions Coordinator Normal [facility] Hemoglobin A1Con 04-26-2017 Glucose mass conc 131 mg/dL Normal [facility] Comment on above: Result Comment: The ADA and AACC recommend providing the estimated average glucose result to permit better patient understanding of their HBA1c result.[facility] [address] [place] [address] Performed By: #### T JUSTYNA RODRÍGUEZ, GLYHGB ####[facility] [address] [place] [address] Hemoglobin A1c/Hemoglobin.total mass fraction (Bld) 6.2 % High 4.0-6.0 [facility] Comment on above: Performed By: #### T JUSTYNA RODRÍGUEZ, GLYHGB ####[address] [address] History and Physicalon 04-26 HIM IP Note OR Customer Solutions Coordinator Normal [facility] Homocysteineon 04-26-2017 Homocysteine 9.5 umol/L Normal <15.0 [facility] Comment on above: Result Comment: [facility] [place] [address] Performed By: #### H OCYS, FA5, LUPPRO, PROCAC, PROSAC ####[address] [address] Lipid Profileon 04-26-2017 Cholesterol 123 mg/dL Normal <200 [facility] Comment on above: Result Comment: Chol esterol Guidelines: <200 Desirable 200-240 Borderline >240 Undesirable Performed By: #### C BC, LIPR ####[address] [address] Cholesterol to HDL Ratio 2.5 {ratio} Normal <5 [facility] Comment on above: Performed By: #### C BC, LIPR ####[address] [place] [address] HDL Cholesterol 49 mg/dL Normal >40 [facility] Comment on above: Result Comment: HDL Guidelines: <40 Undesirable 40-59 Borderline >59 Desirable Performed By: #### C BC, LIPR ####[address] [address] LDL Cholesterol 45 mg/dL Normal 0-130 [facility] Comment on above: Result Comment: LDL Guidelines: <100 Desirable 100-129 Near to/above Desirable 130-159 Borderline >159 UndesirableDirect (measured) LDL and calculated LDL are not interchangeable tests. Performed By: #### C MELISA, LIPR ####[address] [address] Triglyceride 143 mg/dL Normal <150 [facility] Comment on above: Result Comment: Trig lyceride Guidelines: <150 Desirable 150- 199 Borderline 200-499 High >499 Very high Based on AHA Guidelines for fasting triglyceride, July 2012.[address] [address] Performed By: #### C MELISA, LIPR ####[address] [address] Cholesterol in VLDL mass conc NOT REPORTED Normal 1-30 [facility] Comment on above: Performed By: #### Jim VINCENT, LIPR ####[address] [address] Lupus Anticoagulanton 2016 aPTT 22.5 s Normal 21.3-31.3 [facility] Comment on above: Performed By: #### H OCYS, FA5, LUPPRO, PROCAC, PROSAC ####[address] [address] INR Coag RelTime (PPP) 1.0 {INR} Normal [facility] Comment on above: Result Comment: Ther apeutic Range: Moderate Anticoagulant Intensity: INR = 2.0-3.0 High Anticoagulant Intensity: INR = 2.5-3.5 Performed By: #### H OCYS, FA5, LUPPRO, PROCAC, PROSAC ####[facility] [address] [place], [place] [id number] Prothrombin time (PT) Coag time (PPP) 10.8 s Normal 9.4-12.6 [facility] Comment on above: Performed By: #### H OCYS, FA5, LUPPRO, PROCAC, PROSAC ####[employer] [address] [place], [place] [id number] Lupus Anticoagulant NOT REPORTED Normal [facility] Comment on above: Performed By: #### H OCYS, FA5, LUPPRO, PROCAC, PROSAC ####[facility] [address] [place], [place] [id number] MRA HEAD WO CONTRASTon 04-26 MRA HEAD WO CONTRAST EXAMINATION:MRA OF THE HEAD WITHOUT CONTRAST 04/25/2017 10:18 pmTECHNIQUE:MRA of the head was performed utilizing [id number] imaging with [employer]. No intravenous contrast was [...] by:DELTA Hodgesigned by:Saran Mccauley MD04/25/17Final result Normal [facility] MRI BRAIN WO CONTRASTon MRI BRAIN WO [...] by:DELTA Hodgesigned by:Saran Mccauley MD04/25/17Final result Normal [facility] MRI CERVICAL SPINE WO CONTRA STon 04-26-2017 [...] by:DELTA Hodgesigned by:Saran Mccauley MD04/25/17Final result Normal [facility] Sedimentation Rateon 017 Sedimentation Rate 10 mm Normal 0-10 [facility] Comment on above: Result Comment: [facility] [address] [place] [address] Performed By: #### S ED ####[address] [address] TSH w/reflex to FT4on 2016 Thyroid stimulating hormone (TSH) 0.77 m[IU]/L Normal 0.30-5.00 [facility] Comment on above: Result Comment: [facility] [address] [place] [address] Performed By: #### T ANNE, TSHX, GLYHGB ####[address] [address] Troponinon 04-26-2017 Troponin I.cardiac mass conc Normal [facility] Comment on above: Result Comment: Refe rence Range: <0.03 Within reference range. 0.03-0.09 Possible myocardial damage.Repeat at appropriate intervals to rule out chronic elevation. >= 0.10 Indicative of myocardial damage.[address] [address] Performed By: #### T ANNE ####[address] [address] Troponin T.cardiac mass conc ug/L Normal <0.03 [facility] Comment on above: Result Comment: Trop onin T results cannot be compared to Troponin-I results. Performed By: #### T OKSANAI ####[address] [address] Troponin I.cardiac mass conc Normal [facility] Comment on above: Result Comment: Refe rence Range: <0.03 Within reference range. 0.03-0.09 Possible myocardial damage.Repeat at appropriate intervals to rule out chronic elevation. >= 0.10 Indicative of myocardial damage.[facility] [place] [address] Performed By: #### T JUSTYNA RODRÍGUEZ GLYHGB ####[address] [place] [address] Troponin T.cardiac mass conc ug/L Normal <0.03 [facility] Comment on above: Result Comment: Trop onin T results cannot be compared to Troponin-I results. Performed By: #### T JUSTYNA RODRÍGUEZ GLYHGB ####[address] [address] Urinalysis, Routineon 2016 Acetaminophen mass conc Negative Normal NEG [facility] Comment on above: Performed By: #### U A ####[address] [address] Bilirubin (direct) Negative Normal NEG [facility] Comment on above: Performed By: #### U A ####[address] [address] Comment Microscopic exam not performed based on chemical results unless requested in Normal [facility] Comment on above: Result Comment: orig inal order.[facility] [address] [place] [address] Performed By: #### U A ####[address] [address] Hemoglobin mass conc (Bld) Negative Normal NEG [facility] Comment on above: Performed By: #### U A ####[address] [address] Nitrite,Ur Negative Normal NEG [facility] Comment on above: Performed By: #### U A ####[address] [address] Turbidity CLEAR Normal CLEAR [facility] Comment on above: Performed By: #### U A ####[address] [place] [address] Urine, color YELLOW Normal YEL [facility] Comment on above: Performed By: #### U A ####[address] [place] [address] Urine, glucose presence TRACE Abnormal NEG [facility] Comment on above: Performed By: #### U A ####[address] [address] Urine, leukocyte esterase presence Negative Normal NEG [facility] Comment on above: Performed By: #### U A ####[address] [address] Urine, pH 5.5 [pH] Normal 5.0-8.0 [facility] Comment on above: Performed By: #### U A ####[address] [address] Urine, protein presence Negative Normal NEG [facility] Comment on above: Performed By: #### U A ####[address] [address] Urine, specific gravity 1.034 High 1.005-1.030 [facility] Comment on above: Performed By: #### U A ####[address] [place] [address] Urobilinogen,Ur Normal Normal NORM [facility] Comment on above: Performed By: #### U A ####[address] [address] APTTon 04-25-2017 aPTT 22.2 s Normal 21.3-31.3 [facility] Comment on above: Result Comment: [address] [place] [address] Performed By: #### C DP, PT, PTT, BMP ####[address] [address] Basic Metabolic Profon 04-25 (cont.) Normal [facility] Comment on above: Result Comment: Aver age GFR for 60-69 years old: 85 mL/min/1.73sq mChronic Kidney Disease: <60 mL/min/1.73sq mKidney failure: <15 mL/min/1.73sq meGFR calculated using average adult body mass. Additional eGFR calculator available at:http://www.[employer]/multiple_crcl_2011.htm[address] [address] Performed By: #### C DP, PT, PTT, BMP ####[address] [address] Anion gap 16 mmol/L Normal 9-17 [facility] Comment on above: Performed By: #### C DP, PT, PTT, BMP ####[facility] [place] [address] Calcium 9.6 mg/dL Normal 8.6-10.4 [facility] Comment on above: Performed By: #### C DP, PT, PTT, BMP ####[address] [address] Chloride 103 mmol/L Normal 98-107 [facility] Comment on above: Performed By: #### C DP, PT, PTT, BMP ####[facility] [place] [address] CO2 19 mmol/L Low 20-31 [facility] Comment on above: Performed By: #### C DP, PT, PTT, BMP ####[facility] [address] [place] [address] Creatinine 0.77 mg/dL Normal 0.70-1.20 [facility] Comment on above: Performed By: #### C DP, PT, PTT, BMP ####[address] [address] eGFR (non-black) mL/min/{1.73_m2} Normal >60 [facility] Comment on above: Performed By: #### C DP, PT, PTT, BMP ####[address] [address] Glucose mass conc 129 mg/dL High 70-99 [facility] Comment on above: Performed By: #### C DP, PT, PTT, BMP ####[address] [address] Potassium molar conc 3.8 mmol/L Normal 3.7-5.3 [facility] Comment on above: Performed By: #### C DP, PT, PTT, BMP ####[facility] [address] [place] [address] Sodium 138 mmol/L Normal 135-144 [facility] Comment on above: Performed By: #### C DP, PT, PTT, BMP ####[address] [place] [address] Urea nitrogen 14 mg/dL Normal 8-23 [facility] Comment on above: Performed By: #### C DP, PT, PTT, BMP ####[facility] [address] [place] [address] BUN/CRE Ratio NOT REPORTED Normal 9-20 [facility] Comment on above: Performed By: #### C DP, PT, PTT, BMP ####[address] [place] [address] Staging: NOT REPORTED Normal [facility] Comment on above: Performed By: #### C DP, PT, PTT, BMP ####[address] [address] CBC with Diffon 04-25-2017 Abs. Basophil 0.00 k/uL Normal 0.0-0.2 [facility] Comment on above: Result Comment: [address] [address] Performed By: #### C DP, PT, PTT, BMP ####[address] [address] Abs.Neutrophil (Seg) 3.60 k/uL Normal 1.8-7.7 [facility] Comment on above: Performed By: #### C DP, PT, PTT, BMP ####[address] [address] Basophils/100 WBC Auto (Bld) 1 % Normal [facility] Comment on above: Performed By: #### C DP, PT, PTT, BMP ####[address] [address] Eosinophils 0.10 10*3/uL Normal 0.0-0.4 [facility] Comment on above: Performed By: #### C DP, PT, PTT, BMP ####[address] [address] Eosinophils/100 leukocytes 3 % Normal [facility] Comment on above: Performed By: #### C DP, PT, PTT, BMP ####[address] [address] Erythrocyte distribution width Auto Ratio (RBC) 13.5 % Normal 12.5-15.4 [facility] Comment on above: Performed By: #### C DP, PT, PTT, BMP ####[address] [address] Erythrocytes (RBC) 4.47 10*6/uL Low 4.5-5.9 [facility] Comment on above: Performed By: #### C DP, PT, PTT, BMP ####[address] [address] Hematocrit (HCT) 40.6 % Low 41-53 [facility] Comment on above: Performed By: #### C DP, PT, PTT, BMP ####[address] [address] Hemoglobin mass conc (Bld) 14.2 g/dL Normal 13.5-17.5 [facility] Comment on above: Performed By: #### C DP, PT, PTT, BMP ####[address] [address] Lymphocytes 1.50 10*3/uL Normal 1.0-4.8 [facility] Comment on above: Performed By: #### C DP, PT, PTT, BMP ####[address] [address] Lymphocytes/100 leukocytes 26 % Normal [facility] Comment on above: Performed By: #### C DP, PT, PTT, BMP ####[address] [address] MCH 31.8 pg Normal 26-34 [facility] Comment on above: Performed By: #### C DP, PT, PTT, BMP ####[address] [address] MCHC mass conc (RBC) 35.0 g/dL Normal 31-37 [facility] Comment on above: Performed By: #### C DP, PT, PTT, BMP ####[address] [address] MCV 90.9 fL Normal 80-100 [facility] Comment on above: Performed By: #### C DP, PT, PTT, BMP ####[address] [address] Monocytes 0.50 10*3/uL Normal 0.1-1.2 [facility] Comment on above: Performed By: #### C DP, PT, PTT, BMP ####[address] [address] Monocytes/100 leukocytes 8 % Normal [facility] Comment on above: Performed By: #### C DP, PT, PTT, BMP ####[address] [address] Neutrophil (Seg) 62 % Normal [facility] Comment on above: Performed By: #### C DP, PT, PTT, BMP ####[address] [address] Platelet mean volume (PMV) 8.8 fL Normal 6.0-12.0 [facility] Comment on above: Performed By: #### C DP, PT, PTT, BMP ####[address] [address] Platelets 194 10*3/uL Normal 140-450 [facility] Comment on above: Performed By: #### C DP, PT, PTT, BMP ####[address] [address] WBC (Leukocytes) 5.7 10*3/uL Normal 3.5-11.0 [facility] Comment on above: Performed By: #### C DP, PT, PTT, BMP ####[address] [address] Auto Diff Performed NOT REPORTED Normal [facility] Comment on above: Performed By: #### C DP, PT, PTT, BMP ####[address] [address] Erythrocyte morphology NOT REPORTED Normal [facility] Comment on above: Performed By: #### C DP, PT, PTT, BMP ####[facility] [address] [place] [address] Platelets NOT REPORTED Normal [facility] Comment on above: Performed By: #### C DP, PT, PTT, BMP ####[facility] [address] [place] [address] WBC Morphology NOT REPORTED Normal [facility] Comment on above: Performed By: #### C DP, PT, PTT, BMP ####[facility] [address] [place], [place] [id number] CT HEAD WO CONTRASTon 2016 CT HEAD [...] by:DELTA Hodgesigned by:Saran Mccauley MD04/25/17Final result Normal [facility] ED Noteon 04-25-2017 HIM IP Note OR Customer Solutions Coordinator Normal [facility] HIM IP Note OR Customer Solutions Coordinator Normal [facility] HIM IP Note OR Customer Solutions Coordinator Normal [facility] HIM IP Note OR Customer Solutions Coordinator Normal [facility] ED Provider Noteon 7 HIM IP Note OR Customer Solutions Coordinator Normal [facility] PTon 04-25-2017 INR Coag RelTime (PPP) 1.0 {INR} Normal [facility] Comment on above: Result Comment: Ther apeutic Range: Moderate Anticoagulant Intensity: INR = 2.0-3.0 High Anticoagulant Intensity: INR = 2.5-3.5[facility] [address] [place] [address] Performed By: #### C DP, PT, PTT, BMP ####[facility] [address] [place] [address] Prothrombin time (PT) Coag time (PPP) 10.6 s Normal 9.4-12.6 [facility] Comment on above: Performed By: #### C DP, PT, PTT, BMP ####[facility] [address] [place] [address] XR CHEST PORTABLEon 04-25-20 XR CHEST PORTABLE EXAMINATION:SINGLE V IEW OF THE CHEST04/25/2017 8:36 pmCOMPARISON:None.HISTO RY:ORDERING SYSTEM PROVIDED HISTORY: stroke-alterted mental statusTECHNOLOGIST PROVIDED HISTORY:Reason for exam:->stroke-alterted mental statusFINDINGS:The lungs are without acute focal process. There is no effusion orpneumothorax. The cardiomediastinal silhouette is without acute process. Theosseous structures are without acute process.IMPRESSION: No acute process.Interpreted by:DELTA Grubbsigned by:Ashvin Hanson MD04/25/17Final result Normal [facility] Vital Signs Date Time Vital Sign Value Performing Clinician Facility 09-28-2023 14:26-0500 Body height 177.8 cm Ana YOU Work Phone: [facility] 09-28-2023 14:26-0500 Body mass index (BMI) [Ratio] 28.73 kg/m2 Ana YOU Work Phone: [facility] 09-28-2023 14:26-0500 Body weight 90.81 kg Ana Ramos [employer]OURER OFF[employer]OTARY ADJUSTER Work Phone: [facility] 09-28-2023 14:26-0500 Diastolic blood pressure 64 mm[Hg] Ana Ramos POURER OFF[employer]ROTARY ADJUSTER Work Phone: [facility] 09-28-2023 14:26-0500 Heart rate 78 /min Ana Ramos POURER OFF[employer]ROTARY ADJUSTER Work Phone: [facility] 09-28-2023 14:26-0500 Systolic blood pressure 128 mm[Hg] Ana Ramos POURER OFF[employer]ROTARY ADJUSTER Work Phone: [facility] 02-16-2023 14:00-0400 Body height 179.07 cm Vazquez Shaw Other [facility] Other 02-16-2023 14:00-0400 Body mass index (BMI) [Ratio] 29.14 kg/m2 Vazquez Shaw Other [facility] Other 02-16-2023 14:00-0400 Body weight 93.44 kg Vazquez Shaw Other [facility] Other 02-16-2023 14:00-0400 Diastolic blood pressure 64 mm[Hg] Vazquez Shaw Other [facility] Other 02-16-2023 14:00-0400 Systolic blood pressure 120 mm[Hg] Vazquez Shaw Other [facility] Other 12-29-2022 13:35-0500 Body height 177.8 cm Shaikh Mary Work Phone: [facility] 250 DO Work Phone: 12-29-2022 13:35-0500 Body mass index (BMI) [Ratio] 30.28 kg/m2 Shaikh Michaelwad Work Phone: [facility] 250 DO Work Phone: 12-29-2022 13:35-0500 Body surface area Derived from formula 2.14 m2 Shaikh Jefferyd Work Phone: [facility] [place] 250 DO Work Phone: 12-29-2022 13:35-0500 Body weight 95.71 kg Shaikh Jefferyd Work Phone: [facility] 250 DO Work Phone: 12-29-2022 13:35-0500 Diastolic blood pressure 70 mm[Hg] Shaikh Jefferyd Work Phone: [facility] [place] 250 DO Work Phone: 12-29-2022 13:35-0500 Heart rate 74 /min Shaikh Mary Work Phone: [facility] 250 DO Work Phone: 12-29-2022 13:35-0500 Systolic blood pressure 128 mm[Hg] Shaikh Jefferyd Work Phone: [facility] 250 DO Work Phone: 11-11-2022 16:30-0500 Body height 179.07 cm Alcides Nowak Other [facility] Other 11-11-2022 16:30-0500 Body mass index (BMI) [Ratio] 28.29 kg/m2 Alcides Nowak Other [facility] Other 11-11-2022 16:30-0500 Body weight 90.72 kg Alcides Nowak Other [facility] Other 11-11-2022 16:30-0500 Diastolic blood pressure 68 mm[Hg] Alcides Diberenicey Other [facility] Other 11-11-2022 16:30-0500 Systolic blood pressure 117 mm[Hg] Alcides Ditty Other [facility] Other 05-12-2022 16:45-0400 Body height 179.07 cm Alcides Nowak Other [facility] Other 05-12-2022 16:45-0400 Body mass index (BMI) [Ratio] 30.41 kg/m2 Alcides Goodwiny Other [facility] Other 05-12-2022 16:45-0400 Body weight 97.52 kg Alcides Nowak Other [facility] Other 05-12-2022 16:45-0400 Diastolic blood pressure 80 mm[Hg] Alcides Goodwiny Other [facility] Other 05-12-2022 16:45-0400 Systolic blood pressure 149 mm[Hg] Alcides Diberenicey Other [facility] Other 04-14-2022 15:51-0400 Body height 177.8 cm Shaikh Mary Work Phone: [employer] 250 DO Work Phone: 04-14-2022 15:51-0400 Body mass index (BMI) [Ratio] 30.28 kg/m2 Shaikh Mary Work Phone: [facility] 250 DO Work Phone: 04-14-2022 15:51-0400 Body surface area Derived from formula 2.14 m2 Shaikh Annitawwad Work Phone: [facility] 250 DO Work Phone: 04-14-2022 15:51-0400 Body weight 95.71 kg Lala Fawwad Work Phone: [facility] 250 DO Work Phone: 04-14-2022 15:51-0400 Diastolic blood pressure 68 mm[Hg] Lala Fawwad Work Phone: [facility] [place] 250 DO Work Phone: 04-14-2022 15:51-0400 Heart rate 80 /min Shaikh Annitawwad Work Phone: [facility] 250 DO Work Phone: 04-14-2022 15:51-0400 Systolic blood pressure 118 mm[Hg] Shaikh Annitawwad Work Phone: [facility] 250 DO Work Phone: 12-04-2021 14:45-0500 Diastolic blood pressure 60 mm[Hg] Lala Fawwad Work Phone: [facility] 250 DO Work Phone: 12-04-2021 14:45-0500 Systolic blood pressure 111 mm[Hg] Lala Fawwad Work Phone: [facility] 250 DO Work Phone: 12-04-2021 14:38-0500 Body height 177.8 cm Lala Fawwad Work Phone: [facility] 250 DO Work Phone: 12-04-2021 14:38-0500 Body mass index (BMI) [Ratio] 29.99 kg/m2 Shaikh Jefferyd Work Phone: [facility] [place] 250 DO Work Phone: 12-04-2021 14:38-0500 Body surface area Derived from formula 2.13 m2 Shaikh Jefferyd Work Phone: [facility] 250 DO Work Phone: 12-04-2021 14:38-0500 Body weight 94.8 kg Shaikh Michaelwad Work Phone: [facility] 250 DO Work Phone: 12-04-2021 14:38-0500 Diastolic blood pressure 67 mm[Hg] Shaikh Jefferyd Work Phone: [facility] 250 DO Work Phone: 12-04-2021 14:38-0500 Heart rate 79 /min Shaikh Jefferyd Work Phone: [facility] 250 DO Work Phone: 12-04-2021 14:38-0500 Systolic blood pressure 120 mm[Hg] Shaikh Jefferyd Work Phone: [facility] 250 DO Work Phone: 11-23-2021 14:00-0500 Body weight 93.9 kg Alcides Nowak Other [facility] Other Encounters Encounter Date Encounter Type Care Provider Facility Start: 11-14-2023 End: 11-14-2023 ambulatory MARY Not Available Start: 11-09-2023 End: 11-09-2023 ambulatory JOSR ANTOINE Not Available Start: 11-07-2023 End: 11-07-2023 ambulatory ROSAURA JETT Not Available Start: 10-10-2023 End: 10-10-2023 ambulatory SHAIKH MARY Not Available Start: 09-28-2023 End: 09-28-2023 ambulatory ANA Margo [facility] Start: 09-28-2023 End: 09-28-2023 Office outpatient visit 15 minutes Ana Aragon Ramos POURER OFF-ROTARY ADJUSTER Work Phone: [facility] Comment on above: [facility] current us e of 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 therapy (Primary Dx); Paroxysmal atrial fibrillation (CMS/HCC); Essential hypertension, benign; Mixed hyperlipidemia; Diabetes mellitus with no complication (CMS/HCC); BMI 28.0-28.9,adult Start: 07-22-2023 End: 07-22-2023 ambulatory Shaikh Mary Facility:[facility] Start: 07-22-2023 End: 07-22-2023 ambulatory MD Shaikh Hernandez Work Phone: [facility] Work Phone: Start: 07-22-2023 End: 07-22-2023 Patient encounter procedure MD Shaikh Hernandez Work Phone: [facility] [place] Work Phone: Start: 07-12-2023 End: 07-12-2023 ambulatory Vazquez Shaw Other [facility] Other Start: 07-12-2023 Telephone encounter Vazquez Fuentes [facility] Start: 02-17-2023 End: 02-18-2023 ambulatory SHAIKH Charlie HERNANDEZ Facility: Start: 02-16-2023 End: 02-16-2023 ambulatory Vazquez Shaw Other [facility] Other Start: 02-16-2023 Office outpatient vi sit 15 minutes Vazquez Shaw [facility] Start: 12-29-2022 Office outpatient vi sit 25 minutes Shaikh Mary Work Phone: [facility] 250 DO Work Phone: Start: 12-29-[address] [facility] Facility: Start: 11-23-2022 End: 11-23-2022 ambulatory Alcides Kayleighsavannah Other [employer] Other Start: 11-23-2022 Telephone encounter Alcides Kayleighsavannah [facility] Start: 11-15-2022 End: 11-16-2022 ambulatory SHAIKH Charlie HERNANDEZ Facility:[facility] Start: 11-11-2022 End: 11-11-2022 ambulatory Alcides Nowak Other [facility] Other Start: 11-11-2022 Patient encounter procedure Alcides Nowak [facility] Start: 05-20-2022 End: 05-21-[address] RAYMUNDO ANDERSON . Facility:[facility] Start: 05-17-2022 End: 05-17-2022 ambulatory Alcides Nowak Other [facility] Other Start: 05-17-2022 Telephone encounter Alcides Kayleighs[place] [facility] Start: 05-14-2022 End: 05-15-2022 ambulatory SHAIKH Charlie HERNANDEZ Facility:[facility] Start: 05-13-2022 End: 05-13-2022 ambulatory Alcides Kayleighsavannah Other [employer] Other Start: 05-13-2022 Telephone encounter Alcides Kayle[place] [facility] Start: 05-12-2022 End: 05-12-2022 ambulatory Alcides Kayleighsavannah Other [facility] Other Start: 05-12-2022 Patient encounter procedure Alcides Kayleighsavannah [facility] Start: 04-20-2022 End: 04-20-[address] RAYMUNDO ANDERSON . Facility:[facility] Start: 04-14-2022 Office outpatient vi sit 25 minutes Shaikh Mary Work Phone: [facility] 250 DO Work Phone: Start: 04-14-[address] Keyon Vázquez II Facility: Start: 12-04-2021 Office outpatient ne w 45 minutes Shaikh Mary Work Phone: [facility] 250 DO Work Phone: Start: 12-04-2021 Patient encounter procedure Shaikh Mary Work Phone: -[facility] 250 DO Work Phone: Start: 11-23-2021 End: 11-23-2021 ambulatory Alcides Eliu Other [facility] Other Start: 11-23-2021 Patient encounter procedure Alcides Nowak [facility] Start: 04-25-2017 End: 04-26-2017 Evaluation and management of inpatient CELINE BYRNE [facility] Procedures Date Procedure Procedure Detail Performing Clinician Start: 07-22-2023 MRI of head MD Shaikh Hernandez Work Phone: Start: 04-26-2017 PULSE OXIMETRY, CONTINUOUS CELINE BYRNE Start: 04-26-2017 DISCHARGE PATIENT HUAN BYRNE Start: 04-26-2017 PREVIOUS SPECIMEN HUAN BYRNE Start: 04-26-2017 SEDIMENTATION RATE BRAD BYRNE Start: 04-26-2017 POC GLUCOSE FINGERSTICK CELINE BYRNE Start: 04-26-2017 POCT GLUCOSE CELINE GARCÍA Start: 04-26-2017 PULSE OXIMETRY, CONTINUOUS CELINE BYRNE Start: 04-26-2017 TELEMETRY MONITORING MARTHA BYRNE Start: 04-26-2017 FACTOR 5 ASSAY CELINE SMITH Start: 04-26-2017 HOMOCYSTEINE, SERUM GERMÁN ERICA BYRNE Start: 04-26-2017 LUPUS ANTICOAGULANT GERMÁN ERICA BYRNE Start: 04-26-2017 PROTEIN C FUNCTIONAL MARTHA BYRNE Start: 04-26-2017 PROTEIN S FUNCTIONAL MARTHA BYRNE Start: 04-26-2017 Urinalysis CELINE GARCÍA Start: 04-26-2017 URINE CULTURE CELINE ZHENG Start: 04-26-2017 POC GLUCOSE FINGERSTICK MARTHAGREG ANDERSONBRADY Start: 04-26-2017 DIET CARDIAC CELINE GARCÍA Start: 04-26-2017 POCT GLUCOSE CELINE GARCÍA Start: 04-26-2017 OXYGEN THERAPY CELINE SMITH Start: 04-26-2017 PULSE OXIMETRY, CONTINUOUS CELINE BYRNE Start: 04-26-2017 CBC CELINE GARCÍA Start: 04-26-2017 Lipid panel CELINE GARCÍA Start: 04-26-2017 PULSE OXIMETRY, CONTINUOUS CELINE BYRNE Start: 04-26-2017 TROPONIN CELINE GARCÍA Start: 04-26-2017 DAILY WEIGHTS CELINE ZHENG Start: 04-26-2017 HEMOGLOBIN A1C CELINE SMITH Start: 04-26-2017 TROPONIN CELINE GARCÍA Start: 04-26-2017 TSH WITH REFLEX CELINE BYRNE Start: 04-26-2017 POC GLUCOSE FINGERSTICK CELINE BYRNE Start: 04-26-2017 Echo tthrc r-t 2d w/ wom-mode compl spec&colr d CELINE BYRNE Start: 04-26-2017 INTAKE AND OUTPUT HUAN BYRNE Start: 04-26-2017 OXYGEN THERAPY CELINE Aragon WINSTONRICKY Start: 04-26-2017 PULSE OXIMETRY, CONTINUOUS CELINE BYRNE [...] REASON FOR NO MECHAN ICAL VTE PROPHYLAXIS MARTHAGREG BYRNE Start: 04-26-2017 TOBACCO CESSATION EDUCATION MARTHAGREG BYRNE Start: 04-26-2017 VITAL SIGNS CELINE GARCÍA Start: 04-26-2017 VITAL SIGNS - NOTIFY MARTHAGREG BYRNE Start: 04-26-2017 POCT TROPONIN MARTHAGREG ZHENG Start: 04-26-2017 Mri spinal canal cer vical w/o contrast matrl CELINE BYRNE Start: 04-26-2017 Mri brain brain stem w/o contrast material MARTHAGREG BYRNE Start: 04-26-2017 Mra head w/o contrst material CELINE BYRNE Start: 04-25-2017 PATIENT STATUS (FROM ED OR OR/PROCEDURAL) CELINE BYRNE Start: 04-25-2017 Chest x-ray 1 view frontal CELINE BYRNE Start: 04-25-2017 IP CONSULT TO MUSIC JOURNALIST AL MEDICINE CELINE BYRNE Start: 04-25-2017 Ct head/brain w/o co ntrast material CELINE BYRNE Start: 04-25-2017 APTT CELINE GARCÍA Start: 04-25-2017 BASIC METABOLIC PANEL T JER BYRNE Start: 04-25-2017 CBC WITH AUTO DIFFERENTIAL CELINE BYRNE Start: 04-25-2017 PROTIME-INR CELINE GARCÍA Start: 04-25-2017 EKG 12-LEAD CELINE GARCÍA Start: 04-25-2017 Creatinine other source CELINE BYRNE Start: 04-25-2017 ANION GAP (CALC) POC MARTHA BYRNE Start: 04-25-2017 CALCIUM, IONIC (POC) MARTHA BYRNE Start: 04-25-2017 CHLORIDE (POC) CELINE SMITH Start: 04-25-2017 CREATININE W/GFR POI NT OF CARE CELINE BYRNE Start: 04-25-2017 HGB/HCT CELINE GARCÍA Start: 04-25-2017 LACTIC ACID,POINT OF CARE CELINE BYRNE Start: 04-25-2017 POCT GLUCOSE CELINE GARCÍA Start: 04-25-2017 POTASSIUM (POC) CELINE BYRNE Start: 04-25-2017 SODIUM (POC) CELINE GARCÍA Start: 04-25-2017 VENOUS BLOOD GAS, PO INT OF CARE CELINE BYRNE Start: 04-25-2017 Continuous pulse oximetry CELINE BYRNE Start: 04-25-2017 NURSING COMMUNICATION Mesha JER CHAVEZ Start: 04-25-2017 CARDIAC MONITORING BRAD BYRNE Start: 04-25-2017 ELEVATE HOB CELINE GARCÍA Start: 04-25-2017 OXYGEN THERAPY CELINE SMITH Start: 04-25-2017 POCT TROPONIN MARTHADIGNARae ZHENG Start: 04-25-2017 IP CONSULT TO STROKE TEAM CELINE BYRNE Cholecystectomy Lala Fawwa d Work Phone: Colonoscopy Lala Fawwad Work Phone: Decompression of med saida nerve Lala Fawwad Work Phone: Lithotripsy Lala Fawwad Work Phone: Nasal septoplasty [employer] Work Phone: Procedure on back Lala Faw wad Work Phone: Procedure on neck Lala Faw wad Work Phone: Tonsillectomy and adenoidectomy [employer] Work Phone: Plan of Treatment Date Care Activity Detail Author Start: 07-11-2024 End: 07-11-2024 Patient encounter procedure 07/11/2024 2:10 PM EDT Office Visit [facility] [address] [id number] Keyon Vázquez MD [address] [facility] [place] [address] [facility] Start: 10-16-2023 COVID-19 Vaccine (5 - Moderna series) COVID-19 Vaccine (5 - Moderna series) [facility] Start: 09-23-2023 FUV, Provider: Keyon Vázquez, Status: Pen, Time: 2:00 PM FUV, Provider: Keyon Vázquez, Status: Pen, Time: 2:00 PM [place] [address] DO Work Phone: Start: 12-29-2022 FUV, Provider: Keyon Vázquez, Status: Pen, Time: 1:40 PM FUV, Provider: Keyon Vázquez, Status: Pen, Time: 1:40 PM [facility] 250 DO Work Phone: Start: 04-14-2022 FUV, Provider: Keyon Vázquez, Status: Pen, Time: 3:40 PM FUV, Provider: Keyon Vázquez, Status: Pen, Time: 3:40 PM [facility] 250 DO Work Phone: Start: 08-11-2015 Zoster Vaccines (2 o f 3) Zoster Vaccines (2 of 3) [facility] Start: 1973 DTaP/Tdap/Td Vaccine s (1 - Tdap) DTaP/Tdap/Td Vaccines (1 - Tdap) [facility] Start: 1970 Urine screening for protein Diabetes: Urine Protein Screening [facility] Start: 1969 Hepatitis C screening Hepatitis C Sc reening [facility] Start: 1961 Diabetic foot examination Diabetes: Foot Exam [facility] Start: 1961 Glaucoma screening Diabetes: R etinopathy Screening [facility] Start: 1950 Hemoglobin A1c measurement Diabetes: Hemoglobin A1C [facility] Start: 1950 Lipid panel Lipid Panel [facility] Start: 1950 Medicare Annual Wellness Visit Medicare Annual Wellness Visit (AWV) [facility] Start: 1950 Screening for malign ant neoplasm of colon [facility] Immunizations Immunization Date Immunization Notes Care Provider Fa mayela 08-19-2022 Fluzone High-Dose Quadrivalent 0.7 ML Intramuscular Suspension Prefilled Syringe Shaikh Mary Work Phone: [facility] 250 DO Work Phone: 08-19-2022 Prevnar 20 0.5 ML Intramuscular Suspension Prefilled Syringe Shaikh Mary Work Phone: [facility] 250 DO Work Phone: 08-13-2022 Moderna COVID-19 Biv al Booster 50 MCG/0.5ML Intramuscular Suspension Shaikh Michaelwad Work Phone: [facility] 250 DO Work Phone: 02-20-2022 Moderna COVID-19 Vac cine 100 MCG/0.5ML Intramuscular Suspension Shaikh Michaelwad Work Phone: [facility] 250 DO Work Phone: 08-17-2021 Moderna COVID-19 Vac cine 100 MCG/0.5ML Intramuscular Suspension Shaikh Michaelwad Work Phone: [facility] Comment on above: Series: 07-06-2021 Fluzone High-Dose Quadrivalent 0.7 ML Intramuscular Suspension Prefilled Syringe Shaikh Michaelradha Work Phone: [facility] 250 DO Work Phone: 01-31-2021 Moderna COVID-19 Vac cine 100 MCG/0.5ML Intramuscular Suspension Shaikh Michaelwad Work Phone: [facility] Comment on above: Series: 12-31-2020 Moderna COVID-19 Vac cine 100 MCG/0.5ML Intramuscular Suspension Shaikh Michaelwad Work Phone: [facility] Comment on above: Series: 08-12-2016 influenza, seasonal, injectable, preservative free Shaikh Michaelwadebbie Work Phone: [facility] 250 DO Work Phone: 06-16-2015 zoster vaccine, live Mary Work Phone: [facility] 250 DO Work Phone: 09-05-2013 pneumococcal polysaccharide vaccine, 23 valent Lalamarifer Gild Work Phone: -[facility] 250 DO Work Phone: Payers Date Payer Category Payer Self-pay [id number] 2021 Medicare ANTHEM MEDICARE [facility] MEDIC[facility] [id number] 2021-Present [address] [place] [address] [id number] 2014 Medicare [id number] 1959 Medicare [id number] 1951 Unknown [id number] 1951 Unknown [id number] 1951 Unknown [id number] 1951 Unknown [id number] 1951 Unknown [id number] 1951 Unknown [id number] [id number] 1951 Unknown [id number] 1951 Unknown [id number] 4 1951 Unknown [id number] 9 1951 Unknown [id number] 9 1951 Unknown [id number] 9 1951 Unknown [id number] 9 Unknown ANTHEM MEDICARE ADV Unknown [id number] Social History Date Type Detail Facility Start: 09-28-2023 No alcohol use No alcohol use [facility] Other Start: 09-28-2023 Sex Assigned At N [facility] Other Start: 09-25-2021 End: 09-27-2023 Tobacco smoking status NHIS Never smoked tobacco (finding) [facility] Start: 1950 Sex Assigned At Male F [facility] Start: 09-27-2023 Tobacco use and exposure Smokeless tobacco non-user [facility] Work Phone: Start: 09-28-2023 Alcohol intake Lifetime non-d kisha (finding) [facility] Work Phone: Start: 1950 Sex Assigned At Not on file [facility] Work Phone: Start: 09-18-2023 End: 09-28-2023 Exposure to SARS-CoV-2 (event) Not sure [facility] Clinical Notes 12-05-2014 to 09-28-2023 Assessment & Plan Note - AVELINO Acosta - 09/28/2023 4:34 PM ESTAssessment & Plan Note - AVELINO Acosta - 09/28/2023 4:34 PM ESTPatient Instructions Note Date & Type Note Facility 09-28-2023 Evaluation + Plan note Associated Problem(s): BMI 28.0-28.9,adult Reviewed the merits of healthy lifestyle choices on overall cardiovascular health. 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 Denies bleeding diatheses [facility] Work Phone: 09-28-2023 Miscellaneous Notes Associated Problem(s): BMI 28.0-28.9,adult Reviewed the merits of healthy lifestyle choices on overall cardiovascular health. 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 Follow-up testing included unremarkable stress test and echocardiogram. He has been maintained on anticoagulation and beta-stephanie since that time. documented in this encounter [facility] Work Phone: 09-28-2023 Evaluation + Plan note Associated Problem(s): Paroxysmal atrial fibrillation (CMS/HCC) Denies any recurrent palpitations No prior antiarrhythmic Ausculatory rate regular on exam [facility] Work Phone: 09-28-2023 Evaluation + Plan note Associated Problem(s): Hyperlipidemia Low intensity statin Reports annual wellness labs through PCP [facility] Work Phone: 09-28-2023 Evaluation + Plan note Associated Problem(s): Essential hypertension, benign Optimal in office [facility] Work Phone: 09-28-2023 Evaluation + Plan note Associated Problem(s): Cardiac and Vasculature November 2021 presented as a self-referral for new patient consult with Dr. Tinoco. Reports in 2019 at PCP office in [place] had initial onset of atrial fibrillation with spontaneous conversion to normal sinus rhythm. Follow-up testing included unremarkable stress test and echocardiogram. He has been maintained on anticoagulation and beta-stephanie since that time. 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 Vázquez 9 months Ana Ramos MSN, POURER OFF-ROTARY ADJUSTER, PMHNP-[facility] Please excuse any errors in grammar or translation related to this dictation. Voice recognition software was utilized to prepare this document. documented in this encounter [facility] Work Phone: 09-28-2023 Instructions AVELINO Acosta - [...] Vázquez 9 months documented in this encounter [facility] Work Phone: 02-16-2023 Evaluation note Encounter Date Diagnosis Assessment Notes Jan, Dyspepsia (ICD-10 - K30) Jan, GERD (gastroesoph ageal reflux disease) (ICD-10 - K21.9) Patient currently doing well on current esomeprazole regimen patient denies dyspeptic complaints and is doing well overall from a GI standpoint. Recommendation to continue esomeprazole and return to office in 1 year [facility] Other 01-19-2023 Evaluation note* Encounter Date Diagnosis Assessment Notes Treatment Notes Treatment Clinical Notes Oct, GERD (gastroesophageal reflux disease) (ICD-10 - K21.9) Continue Omeprazole without change Pt to call if symptoms worsen or return Follow up in 1 year [facility] Other 07-28-2022 NoteCONSULTATION CONSULTATION DATE: 05/20/2022 HISTORY [...] indicated. Patient is in agreement to this.[facility] Evaluation note* Encounter Date Diagnosis Assessment Notes Treatment Notes Treatment Clinical Notes Apr, GERD (gastroesophageal reflux disease) (ICD-10 - K21.9) Stop Omeprazole Start Esomeprazole 40mg bid [facility] Other 01-31-2022 Evaluation note* Encounter Date Diagnosis [...] this time. Oct, Dyspepsia (ICD-10 - K30) [employer] Other 02-14-2015 History of Present illness Narrative* [...] We did advocate diet and weight loss. [facility] [employer] DO Work Phone: [phone]) 327-987402-12-2015 History of Present illness Narrative* She has [...] We did advocate diet and weight loss. 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- Primary Paroxysmal atrial fibrillation (CMS/HCC) Atrial fibrillation Essential hypertension, benign Mixed hyperlipidemia Diabetes mellitus with no complication (CMS/HCC) Type II or unspecified type diabetes mellitus without mention of complication, not stated as uncontrolled BMI 28.0-28.9,adult documented in this encounter [facility] Work Phone: [facility] general Narrative - Reported* Type Description Date Surgical History gallbladder [facility] Other [facility] general Narrative - Reported* Type Description Date Medical History parkinsons disease Medical History TYPE 2 DIABETES Surgical History gallbladder Surgical History CARPAL TUNEL Surgical History NECK & BACK SURGERY Surgical History TONSILLECTOMY Hospitalization History NONE IN THE LAST YEAR [facility] Other History of Present illness NarrativePatient returns [...] some weight loss as well as modest exercise.-[facility] [employer] Work Phone: History of Present illness NarrativePatient [...] diabetes was emphasized and he understands our recommendation.-[employer] [employer] DO Work Phone: Reason for referral (narrative)* Consultation (Routine) - Authorized Specialty Diagnoses / Procedures Referred By Contac t Referred To Contact Cardiology Diagnoses Paroxysmal atrial fibrillation (CMS/HCC) Procedures Follow Up In Cardiology Ana Ramos APRN-ROTARY ADJUSTER [address] [facility] [address], [address] [address] Keyon Vázquez MD [address] [facility] [address] [place] [address] Referral ID Status Reason Start Date Expiration Date V isits Requested Visits Authorized [id number] Authorized 09/28/2023 09/27/2024 1 1 [facility] Work Phone: Summary Purpose Family History No [...] Directives No June 10:21am Chief Complaint JAY AGUEOR is being seen for a 4 month [...] section and content) DATE CREATED AUTHOR 04/19/2018 [facility] DATE CREATED AUTHOR AUTHOR'S ORGANIZ ATION 10/08/2021 [facility] DATE CREATED AUTHOR AUTHOR'S ORGANIZ ATION 12/31/2022 [facility] DATE CREATED AUTHOR AUTHOR'S ORGANIZ ATION 12/31/2022 [facility] DATE CREATED AUTHOR AUTHOR'S ORGANIZ ATION 02/20/2023 [facility] DATE CREATED AUTHOR AUTHOR'S ORGANIZ ATION 07/29/2023 [facility] DATE CREATED AUTHOR AUTHOR'S ORGANIZ ATION 10/02/2023 [facility] DATE CREATED AUTHOR AUTHOR'S ORGANIZ ATION 11/15/2023 [facility] dical Specialists EPIC REASON FOR VISIT (unrecogniz ed section and content) Reason Comments Follow-up 9 month Care Teams (unrecognized sec tion and content) Team Status: Active Member Role Status Dates Shaikh Mary MD Primary Care Provider Active Team Status: Inactive Member Role Status Dates Tonya Schultz APRN-FINANCIAL INSTITUTION MANAGER-C Attending Provider Active Shaikh Mary MD Primary Care Provider Active 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 [employer] provides no warranty or guarantee of the accuracy or completeness of information in this document.
--- NOTE | 2023-11-17 13:21 | MR_ITS ---
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 FINDINGS: The cerebral sulci as well as ventricular system are appropriate for age. There is no restricted diffusion. There is no intracranial mass, mass effect, midline shift, intra or extra-axial fluid collection or large hemorrhage. No definite lesion within the cochlea vestibular nerve is noted. The semicircular canals are unremarkable. Normal flow-void in the intracranial vessels is noted. The visualized portions of orbits, mastoid air cells as well as paranasal sinuses are unremarkable. There is status post bilateral lens replacement. MR/MR head/brain wo con IMPRESSION: No acute intracranial process is noted. No definite radiological finding to explain patient's symptoms. Electronically authenticated by: MAURIZIO BRASHER Date: 11/17/2023 15:01
== END 2023-11-17 13:19 | disposition home or self-care (01) ==
LOC: MRI 13:18
PROVIDERS: PCP Internal Medicine; Visit Provider Otolaryngology
DX: H90.3 Sensorineural hearing loss, bilateral (principal)
CPT/HCPCS: 70551

== ENCOUNTER 2024-02-09 19:13 | Emergency (ER) | payer MEDICARE, SELFPAY ==
[2024-02-09 19:21] VITALS: BP 141/63; PULSE 80; TEMP 36.8; O2SAT 98; BMI 28.7
--- OUTSIDE RECORDS SUMMARY | 2024-02-09 19:24 | XMS_ITS | CCD ---
Author Organization [facility] Care Team Providers Care Phonograph Needle Tip Maker Name Role Phone JUSTINBRADY CELINE JONES Unavailable Unavaila ble CHODISETTY, SUBRAHMANYAM Unavailable Unavail able VIRGINIA, ANGUS Unavailable Unavailable VIRGINIA, ANGUS Unavailable Unavailable [place]IR[place], ANGUS Unavailable Unavailable Fawwad, Lala Unavailable Unavailable Unavailable Alcides Nowak Unavailable Kathie CRAWFORD, Dr. Keyon Bennett Referring Unavailable Lynnetteuinn II, Dr. Keyon Bennett Attending [...] Unavailable FAWWAD, LALA H Primary Care Unavailable DANIEL Schultz-BINDER CHAINSTITCH-C Tonya Villanueva Attending Provider MD Dai Hernandez Primary Care Provider Shaikh Hernandez Primary Care Unavailable Tonya Schultz Attending Unavailable Tonya Schultz Admitting Unavailable Shaikh Hernandez MD Primary Care Provider Shaikh Hernandez MD Primary Care Provider Shaikh Hernandez MD Primary Care Provider ANA RAMOS Attending Unavailable SHAIKH HERNANDEZ Primary Care Unavailable ROSAURA JETT Attending Unavailable JOSR ANTOINE Attending Unavailable SHAIKH HERNANDEZ Attending Unavailable JOSR ANTOINE Attending Unavailable SHAIKH HERNANDEZ Attending Unavailable Allergies Allergy Classification Reported Allergen(s) Allergy Type Date of Onset Reaction(s) Facility (7 sources) Iodinated Contrast Media; Translations: [Iodinated Contrast Media] Allergy to drug (finding) 1 Unknown Reaction [facility] (1 source) house dust allergenic extract Drug Allergy [facility] (3 sources) Latex; Translations: [LATEX] Drug allergy (disorder) 1 Unknown Reaction [facility] (1 source) Shellfish Drug allergy (disorder) [facility] (1 source) Latex Drug allergy (disorder) 1 [facility] (1 source) Iodinated Contrast Media Drug allergy (disorder) 1 [facility] (1 source) Latex Propensity to adverse reactions 3 Hives [facility] Work Phone: (2 sources) Shellfish; Translations: [SHELLFISH DERIVED] Propensity to adverse reactions 3 [facility] Work Phone: (2 sources) Adhesive Tape-Silicones; Translations: [ADHESIVE TAPE-SILICONES] Propensity to adverse reactions 3 [facility] (1 source) Iodinated Contrast Media Drug Allergy 3 [facility] (3 sources) Iodine Drug Allergy 7 Anaphylaxis [facility] Work Phone: (3 sources) Latex Propensity to adverse reactions 7 Rash [facility] (3 sources) Shellfish-Deriv ed Products Drug Allergy 3 Rash [facility] (3 sources) Wound Dressing Adhesive Drug Intolerance 6 Rash [facility] Medications Current Medications Medication Drug Class(es) Dates Sig (Normalized) Sig (Original) apixaban 5 mg oral tablet (6 sources) Factor Xa Inhibitor Start: 12-04-2021 take 1 tablet by mouth twice daily apixaban (Eliquis) 5 mg tablet Take 1 tablet (5 mg) by mouth 2 times a day. 0 12/04/2021 Active aspirin 81 mg delayed release oral tablet (9 sources) Platelet Aggregation Inhibitor, Nonsteroidal Anti-inflammatory Drug Start: 12-04-2021 take 1 tablet by mouth every week aspirin 81 mg EC tablet Take 1 tablet (81 mg) by mouth 1 (one) time per week. 0 12/04/2021 Active atorvastatin 20 mg oral tablet (10 sources) HMG-CoA Reductase Inhibitor Start: 10-11-2023 End: 04-08-2024 take 1 tablet by mouth in the morning atorvastatin (Lipitor) 20 MG tablet Indications: Hyperlipidemia, unspecified hyperlipidemia type (CMS/HCC) Take 1 tablet (20 mg) by mouth in the morning. 90 tablet 1 10/11/2023 04/08/2024 Active Start: 12-01-2021 take 1 tablet by gabriela th once daily atorvastatin (Lipitor) 20 mg tablet Take 1 tablet (20 mg) by mouth once daily. 0 12/01/2021 Active Start: 09-25-2021 take 10 mg by mouth once daily Atorvastatin Active 10 MG PO Daily September 25, 2021 1:00am biotin 10 mg oral tablet (6 sources) take 1 tablet by gabriela th in the morning biotin 75512 MCG tablet Take 1 tablet by mouth in the morning. 0 Active take 1 capsule by mouth once rocky ly biotin 5 mg capsule Take 1 capsule (5 mg) by mouth once daily. 0 Active Biotin CAPS TAKE 1 CAPSULE Daily Quantity: 0 Refills: 0 Ordered: 14-Apr-2022 DO Active carbidopa 25 mg / levodopa 100 mg oral tablet (13 sources) Aromatic Amino Acid Decarboxylation Inhibitor, Aromatic Amino Acid Start: 03-15-2023 take 1 tablet by mouth in the morning, then take 1 tablet by mouth in the evening, then take 1 tablet by mouth at bedtime carbidopa-levodopa (Sinemet) 25-100 MG tablet Take 1 tablet by mouth in the morning and 1 tablet in the evening and 1 tablet before bedtime. 0 03/15/2023 Active take 1 tablet by gabriela th three times daily carbidopa-levodopa (Sinemet) 25-100 mg t ablet Take 1 tablet by mouth 3 times a day. 0 Active take 1 tablet by gabriela th three times daily Carbidopa-Levodopa 25-100 MG TAKE 1 TABL ET BY MOUTH THREE TIMES DAILY Oral for 30 Days Active carvedilol 25 mg oral tablet (18 sources) alpha-Adrenergic Stephanie, beta-Adrenergic Stephanie Start: 11-14-2023 End: 05-12-2024 take 0.5 tablet by mouth in the morning carvedilol (Coreg) 25 MG tablet Indications: Primary hypertension (CMS/HCC) Take 0.5 tablets (12.5 mg) by mouth in the morning and 0.5 tablets (12.5 mg) before bedtime. 90 tablet 1 11/14/2023 05/12/2024 Active Start: 09-25-2021 take 25 mg by [...] Units) by mouth once daily. 0 Active Continuous Blood Gluc Sensor (SeratisStyle Jocelyne 2 Sensor) [facility] ([facility]) Start: 2022 Continuous Blood Gluc Sensor (FreeStyle Jocelyne 2 Sensor) misc 1 Device by Other route in the morning and 1 Device at noon and 1 Device in the evening and 1 Device before bedtime. 0 07/07/2023 Active 0.5 ml dulaglutide 1.5 mg/ml auto-injector (13 sources) GLP-1 Receptor Agonist Start: 2023 End: 2023 inject 0.75 mg by subcutaneous injection every week dulaglutide (Trulicity) 0.75 MG/0.5ML solution pen-injector Indications: Type 2 diabetes mellitus with diabetic polyneuropathy, without long-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 of insulin ([facility]) Inject 0.75 mg under the skin 1 (one) time per week 4 each 0 11/30/2023 12/30/2023 Active Start: 02-15-2023 End: 11-30-2023 inject 1.5 mg by subcutaneous injection every week Trulicity 1.5 MG/0.5ML solution pen-injector Inject 1.5 mg under the skin 1 (one) time per week. 0 02/15/2023 11/30/2023 Discontinued (Dose adjustment) Start: 01-07-2022 dulaglutide (T rulicity) 0.75 mg/0.5 mL pen injector Inject under the skin. 0 01/07/2022 Active Trulicity Veda-Calvin Martinez Active esomeprazole 40 mg delayed release oral capsule (9 sources) Proton Pump Inhibitor Start: 01-12-2023 take 1 capsule by mouth in the morning esomeprazole (NexIUM) [address] capsule Take 40 mg by mouth in the morning. 0 03/15/2023 Active Start: 05-12-2022 take 1 capsule by [place] twice daily Esomeprazole Magnesium 40 MG 1 capsule Orally twice daily for 90 days Apr, Active finasteride 5 mg oral tablet (4 sources) 5-alpha Reductase Inhibitor Start: 07-18-2023 take 1 tablet by mouth in the morning finasteride (Proscar) 5 MG tablet Take 1 tablet by mouth in the morning. 0 07/18/2023 Active gabapentin 400 mg oral capsule (18 sources) Anti-epileptic Agent Start: 11-21-2023 End: 05-19-2024 take 1 capsule by mouth in the morning, then take 1 capsule by mouth in the evening, then take 1 capsule by mouth at bedtime gabapentin (Neurontin) 400 MG capsule Indications: Polyneuropathy, unspecified Take 1 capsule (400 mg) by mouth in the morning and 1 capsule (400 mg) in the evening and 1 capsule (400 mg) before bedtime. 270 capsule 1 11/21/2023 05/19/2024 Active Start: 10-27-2021 take 1 capsule by mo uth three times daily Gabapentin 300 MG Oral Capsule TAKE 1 CAPSULE BY MOUTH THREE TIMES DAILY Quantity: 90 Refills: 0 Ordered: 27-Oct-2021 DO Start : 27-Oct-2021 Active Start: 09-25-2021 take 300 mg by mouth once chris y Gabapentin Active 300 MG PO Daily September 25, 2021 1:00am take 1 capsule by mo uth twice daily gabapentin (Neurontin) 300 mg capsule Take 1 capsule (300 mg) by mouth 2 times a day. 0 Active Gabapentin Activ e glimepiride 4 mg oral tablet (14 sources) Sulfonylurea Start: 12-01-2021 take 0.5 tablet by mouth once daily before mealtime glimepiride (Amaryl) 4 mg tablet Take 0.5 tablets (2 mg) by mouth once daily in the morning. Take before meals. 0 12/01/2021 Active Start: 12-01-2021 take 1 tablet by gabriela th once daily 30 minutes before mealtime Glimepiride 4 MG Oral Tablet TAKE 1 TABLET BY MOUTH DAILY 30 MINUTES before a meal Quantity: 30 Refills: 0 Ordered: 01-Dec-2021 DO Start : 01-Dec-2021 Active take 1 tablet by gabriela th every twenty-four hours Glimepiride 2 MG 1 tab(s) Orally Once a day Active loratadine 10 mg oral tablet (3 sources) take 1 tablet by mouth in the morning loratadine (Allergy Relief) 10 MG tablet Take 10 mg by mouth in the morning. 0 Active losartan potassium 50 mg oral tablet (14 sources) Angiotensin 2 Receptor Stephanie Start: 1 take 1 tablet by mouth once daily losartan (Cozaar) 50 mg tablet Take 1 tablet (50 mg) by mouth once daily. 0 10/27/2021 Active magnesium oxide 400 mg oral tablet (3 sources) Start: 2 take 1 tablet by mouth once daily [...] Active meclizine hydrochloride 25 mg oral tablet (13 sources) Antiemetic Start: 11-21-2023 take 1 tablet by mouth twice daily as needed meclizine (Antivert) 25 MG tablet Indications: Dizziness and giddiness TAKE 1 TABLET BY MOUTH TWICE DAILY NEEDED 180 tablet 1 11/21/2023 Active Start: 11-17-2021 take 1 tablet by gabriela th twice daily as needed meclizine (Antivert) 25 mg tablet Take 1 tablet (25 mg) by mouth 2 times a day as needed. 0 11/17/2021 Active Start: 09-25-2021 take 25 mg by mouth once daily Meclizine Active 25 MG PO Daily September 25, 2021 1:00am Meclizine HCl 25 MG chewable tablet Chew 25 mg in the morning and 25 mg in the evening. 0 Active metFORMIN hydrochloride 500 mg oral tablet (14 sources) Biguanide Start: 08-10-2023 take 1 tablet by mouth every twelve hours metFORMIN (Glucophage) 500 MG tablet Take 1 tablet by mouth every 12 (twelve) hours 0 08/10/2023 Active Start: 12-01-2021 take 1 tablet by gabriela th every twelve hours metFORMIN (Glucophage) 500 mg tablet Take 1 tablet (500 mg) by mouth every 12 hours. 0 12/01/2021 Active primidone 50 mg oral tablet (5 sources) Anti-epileptic Agent Start: 09-05-2023 take 1 tablet by mouth at bedtime primidone (Mysoline) 50 MG tablet Take 50 mg by mouth at bedtime 0 09/05/2023 Active SITagliptin 100 mg oral tablet (18 sources) Dipeptidyl Peptidase 4 Inhibitor Start: 11-21-2023 End: 05-19-2024 take 1 tablet by mouth in the morning SITagliptin (Januvia) 100 MG tablet Indications: Type 2 diabetes mellitus without complications (CMS/HCC) Take 1 tablet (100 mg) by mouth in the morning. 90 tablet 1 11/21/2023 05/19/2024 Active Start: 09-25-2021 take 1 tablet by gabriela th once daily sitaGLIPtin phosphate (Januvia) 100 mg tablet Take 1 tablet (100 mg) by mouth once daily. 0 11/10/2021 Active Januvia Active tamsulosin hydrochloride 0.4 mg oral capsule (10 sources) alpha-Adrenergic Stephanie Start: 10-24-2023 End: 04-21-2024 take 1 capsule by mouth every twenty-four hours in the morning tamsulosin (Flomax) 0.4 MG 24 hr capsule Indications: Benign prostatic hyperplasia without lower urinary tract symptoms Take 1 capsule (0.4 mg) by mouth in the morning. 90 capsule 1 10/24/2023 04/21/2024 Active Start: 09-25-2021 take 1 capsule by mo uth once daily tamsulosin (Flomax) 0.4 mg 24 hr capsule Take 1 capsule (0.4 mg) by mouth once daily. 0 11/30/2021 Active traZODone hydrochloride 50 mg oral tablet (4 sources) Serotonin Reuptake Inhibitor Start: 07-13-2023 take 1 tablet by mouth at bedtime for sleep traZODone (Desyrel) 50 MG tablet Take 1 tablet by mouth at bedtime For sleep 0 07/13/2023 Active vitamin B12 (3 sources) Vitamin B12 take 2 tablets by mouth in the morning Cyanocobalamin (VITAMIN B12 PO) Take 2 tablets by mouth in the morning. 0 Active Completed/Discontinued Medications Medication Drug Class(es) Dates Sig (Normalized) Sig (Original) baclofen 10 mg oral tablet (9 sources) gamma-Aminobuty alexia Acid-ergic Agonist Start: 11-17-2021 take 1 tablet by mouth at bedtime Baclofen 10 MG Oral Tablet TAKE 1 TABLET BY MOUTH AT BEDTIME Quantity: 30 Refills: 0 Ordered: 17-Nov-2021 DO Start : 17-Nov-2021 Active dexlansoprazole 30 mg delayed release oral capsule (10 sources) Proton Pump Inhibitor Start: 11-23-2021 End: 09-28-2023 take 1 capsule by mouth twice daily dexlansoprazole (Dexilant) [address] capsule Take 1 capsule (30 mg) by mouth 2 times a day. 0 11/23/2021 09/28/2023 Discontinued (Therapy completed) lansoprazole 30 mg delayed release oral capsule [...] 0 Refills: 0 Ordered: 14-Apr-2022 DO Active euj-Vi-jyw-pumpk-beta- ly-Zn-Cu (Prostate Control) 29-90-79-100 mg capsule (1 source) End: 09-28-2023 take 1 capsule by mouth once daily ccy-Pp-rnq-tizvq-fzxa-nz-Z n-Cu (Prostate Control) 12-61-64-100 mg capsule Take 1 capsule by mouth once daily. 0 09/28/2023 Discontinued (Therapy completed) Problems Active Problems Problem Classification Problem Date Documented Date Episodic/Chronic Cardiac dysrhythmias (12 sources) Paroxysmal atrial fibrillation; Translations: [Atrial fibrillation] Onset: 09-27-2023 09-28-2023 Chronic Diabetes mellitus with complications (5 sources) Type 2 diabetes mellitus; Translations: [Type 2 diabetes mellitus with diabetic polyneuropathy] Onset: 10-10-2023 10-11-2023 Chronic Diabetes mellitus without complication (14 sources) Diabetes mellitus without complication; Translations: [Diabetes mellitus without mention of complication, type II or unspecified type, not stated as uncontrolled] Onset: 04-21-2022 Chronic Disorders of lipid metabolism (13 sources) Hyperlipidemia; Translations: [Other and unspecified hyperlipidemia] Onset: 11-17-2022 09-28-2023 Chronic Esophageal disorders (20 sources) Gastroesophageal reflux disease; Translations: [Gastro-esophageal reflux disease without esophagitis] Onset: 11-23-2021 Resolved: 05-12-2022 Chronic Essential hypertension (15 sources) Benign essential hypertension; Translations: [Benign essential hypertension] Onset: 09-27-2023 09-28-2023 Chronic Other aftercare (2 sources) Long-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 of 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; Translations: [detention (current) use of 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s] Onset: 09-28-2023 09-28-2023 Episodic Other disorders of stomach and [...] Translations: [Overweight] Onset: 09-28-2023 09-28-2023 Episodic Other upper respiratory infections (3 sources) Acute upper respiratory infection; Translations: [Acute upper respiratory infection, unspecified] Onset: 10-10-2023 10-10-2023 Episodic Parkinson`s disease (7 sources) Parkinson's disease; Translations: [Paralysis agitans] Onset: 05-26-2022 09-27-2023 Chronic Spondylosis; intervertebral disc disorders; other back problems (5 sources) Spondylosis without myelopathy or radiculopathy, lumbar region; Translations: [Other intervertebral disc degeneration, lumbar region] Onset: 05-20-2022 Chronic Unclassified (1 source) LOW BACK PAIN, UNSPECIFIED; Translations: [LOW BACK PAIN, UNSPECIFIED] Onset: 05-26-2022 Past or Other Problems Problem Classification Problem Date Documented Da te Episodic/Chronic Other aftercare (2 sources) detention (current) use of 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s; Translations: [detention (current) use of 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s] Onset: 09-28-2023 Episodic Other connective tissue disease (2 sources) Unspecified symptoms and signs involving the nervous system; Translations: [Pain in unspecified limb] Onset: 04-25-2017 Episodic Other nervous system disorders (1 source) Paresthesia of skin; Translations: [Paresthesia of skin] Onset: 04-25-2017 Episodic Other nutritional; endocrine; and metabolic disorders (2 sources) Body mass index (BMI) 28.0-28.9, adult; Translations: [Body mass index (BMI) 28.0-28.9, adult] Onset: 09-28-2023 Episodic Unclassified (5 sources) Never smoked tobacco; Translations: [Never a smoker] Unclassified (1 source) Onset: 09-28-2023 09-28-2023 Results Test Name Value Interpretation Reference Range Facility MR head/brain wo [facility] 07-22 MR head/brain wo [facility] [place] [address] MRI Report Signed Patient: Jay Aguero MR#: [id number] 3 : 1950 Acct:[id number] Age/Sex: 73 / M ADM Date: 07/22/23 Loc: MR Room: Type: [facility] Attending Dr: Tonya MCGOWAN Copies to: JUAN [...] Duc Wheeler M.D.07/22/2023 11:32 AM Dictation Location: [place] [address] Transcribed By: [facility] 07/22/23 1132 Dictated By: Duc Wheeler II, MD 07/22/23 1122 Signed By: 07/22/23 1132 [facility] GLYCOHEMOGLOBIN A1Con 2022 ADA RECOMMENDATION SEE BELOW Normal [facility] Comment on above: Result Comment: ADA RECOMMENDED LIMIT 4.0 - 6.0 ADA THERAPEUTIC TARGET < 7.0 ACTION SUGGESTED > 7.0 Performed By: #### A 1C #### [facility] [address] [place] [address] Dr. Gallo Wade Glucose [Mass/Vol] 128 mg/dL Normal [facility] Comment on above: Performed By: #### A 1C #### [facility] [address] [place] [address] [address] Galol Wade HbA1c (Bld) [Mass fraction] 6.1 % Normal 4.5-6.2 [facility] Comment on above: Performed By: #### A 1C #### [facility] [address] [place], [place] [address] Dr. Gallo Wade Office Visit (Cardiology)on 12-29-2022 [...] ONCE A WEEK Vitamin D3 1.25 MG (81281 UT) Oral CapsuleTAKE 1 CAPSULE Daily Allergies [...] Recorded: 29Dec2022 01:35PM Heart Rate74, R Radial Sqapfxfx588, LUE, Sitting Lkctfrxic08, LUE, Sitting Height5 ft 10 in Ouwjgh842 lb BMI [id number] (more content not included)... Normal [facility] Tobacco Screening.on 023 Adult depression screening assessment No [facility] 250 DO Work Phone: Fall risk assessment a) No falls within the last year [facility] 250 DO Work Phone: Tobacco use status [facility] b) No [facility] 250 DO Work Phone: CBC AUTO DIFFon 11-15-2022 BASO # 0.0 103/ul Normal 0.0-0.1 [facility] Comment on above: Performed By: #### C BC #### [facility] [address] [place] [address] Dr. Gallo Wade Basophils/100 WBC (Bld) 0.5 % Normal 0.2-2.0 [facility] Comment on above: Performed By: #### C BC #### [facility] [address] [place] [address] Dr. Gallo Wade EO # 0.2 103/ul Normal 0.0-0.7 [facility] Comment on above: Performed By: #### C BC #### [facility] [address] [place] [address] Dr. Gallo Wade Eosinophils/100 WBC (Bld) 2.7 % Normal 0.9-7.0 [facility] Comment on above: Performed By: #### C BC #### [facility] [address] [place] [address] Dr. Gallo Wade Erythrocyte distribution width (RBC) [Ratio] 13.0 % Normal 11.0-15.0 [facility] Comment on above: Performed By: #### C BC #### [facility] [address] [place] [address] [address] Gallo Wade Hematocrit (Bld) [Volume fraction] 37.6 % Critically low 42.0-54.0 [facility] Comment on above: Performed By: #### C BC #### [facility] [address] [place] [address] Dr. Gallo Wade Hemoglobin (Bld) [Mass/Vol] 13.7 g/dL Critically low 14.0-18.0 [facility] Comment on above: Performed By: #### C BC #### [facility] [address] [place] [address] Dr. Gallo Wade IG # 0.08 10e3/ul Critically high 0.00-0.03 [facility] Comment on above: Performed By: #### C BC #### [facility] [address] [place] [address] Dr. Gallo Waed IG % 1.1 % Critically high 0.0-0.5 [facility] Comment on above: Performed By: #### C BC #### [facility] [address] [place] [address] Dr. Gallo Wade LYMPH # 1.6 103/ul Normal 1.2-3.8 [facility] Comment on above: Performed By: #### C BC #### [facility] [address] [place] [address] Dr. Gallo Wade Lymphocytes/100 WBC (Bld) 21.7 % Normal 20.5-60.0 [facility] Comment on above: Performed By: #### C BC #### [facility] [address] [place] [address] Dr. Gallo Wade MANUAL DIFF REQ NO Normal [facility] Comment on above: Performed By: #### C BC #### [facility] [address] [place] [address] Dr. Gallo Wade MCH (RBC) [Entitic mass] 32.2 pg Normal 25.9-34.0 [facility] Comment on above: Performed By: #### C BC #### [facility] [address] [place] [address] Dr. Gallo Wade MCHC (RBC) [Mass/Vol] 36.4 g/dL Critically high 29.9-35.2 [facility] Comment on above: Performed By: #### C BC #### [facility] [address] [place] [address] Dr. Gallo Wade MCV (RBC) [Entitic vol] 88.5 fL Normal 80.0-94.0 [facility] Comment on above: Performed By: #### C BC #### [facility] [address] [place] [address] Dr. Gallo Wade MONO # 0.5 103/ul Normal 0.3-0.8 [facility] Comment on above: Performed By: #### C BC #### [facility] [address] [place] [address] Dr. Gallo Wade Monocytes/100 WBC (Bld) 6.4 % Normal 1.7-12.0 [facility] Comment on above: Performed By: #### C BC #### [facility] [address] [place] [address] Dr. Gallo Wade NEUT # 5.0 103/ul Normal 1.4-6.5 [facility] Comment on above: Performed By: #### C BC #### [facility] [address] [place] [address] Dr. Gallo Wade Neutrophils/100 WBC (Bld) 67.6 % Normal 43.0-75.0 [facility] Comment on above: Performed By: #### C BC #### [facility] [address] [place] [address] Dr. Gallo Wade Platelet mean volume (Bld) [Entitic vol] 9.9 fL Normal 9.5-13.5 [facility] Comment on above: Performed By: #### C BC #### [facility] [address] [place] [address] Dr. Gallo Wade PLT 174 103/ul Normal 150-450 [facility] Comment on above: Performed By: #### C BC #### [facility] [address] [place] [address] Dr. Gallo Wade RBC 4.25 106/ul Critically low 4.70-6.10 [facility] Comment on above: Performed By: #### C BC #### [facility] [address] [place] [address] Dr. Gallo Wade WBC 7.4 103/ul Normal 4.0-11.0 [facility] Comment on above: Performed By: #### C BC #### [facility] [address] [place] [address] Dr. Gallo Wade GLYCOHEMOGLOBIN A1Con 2022 ADA RECOMMENDATION SEE BELOW Normal [facility] Comment on above: Result Comment: ADA RECOMMENDED LIMIT 4.0 - 6.0 ADA THERAPEUTIC TARGET < 7.0 ACTION SUGGESTED > 7.0 Performed By: #### A 1C #### [facility] [address] [place] [address] Dr. Gallo Wade Glucose [Mass/Vol] 169 mg/dL Normal [facility] Comment on above: Performed By: #### A 1C #### [facility] [address] [place] [address] Dr. Gallo Wade HbA1c (Bld) [Mass fraction] 7.5 % Critically high 4.5-6.2 [facility] Comment on above: Performed By: #### A 1C #### [facility] [address] [place] [address] Dr. Gallo Wade LIPID PROFILEon 11-15-2022 CHOL-HDL RATIO NORM SEE BELOW Normal [facility] Comment on above: Result Comment: 3.3 - 4.4 LOW RISK 4.4 - 7.1 AVERAGE RISK 7.1 - 11.0 MODERATE RISK >11.0 HIGH RISK Performed By: #### L IPID, CMP #### [facility] [facility] [address] [place] [address] Dr. Gallo Wade Cholesterol [Mass/Vol] 150 mg/dL Normal <=200 [facility] Comment on above: Performed By: #### L IPID, CMP #### [facility] [address] [place] [address] Dr. Gallo Wade Cholesterol in HDL [Mass/Vol] 45 mg/dL Normal 40-60 [facility] Comment on above: Performed By: #### L IPID, CMP #### [facility] [address] [address] [address] Gallo Wade Cholesterol in LDL [Mass/Vol] 53.6 mg/dL Normal [facility] Comment on above: Performed By: #### L IPID, CMP #### [facility] [address] [address] [address] Gallo Wade Cholesterol.total/Ch olesterol in HDL [Mass ratio] 3.3 {ratio} Normal [facility] Comment on above: Performed By: #### L IPID, CMP #### [facility] [address] [place] [address] Dr. Gallo Wade HDL NORMAL > or = 60 mg/dl - LO W CARDIOVASCULAR RISK <40 mg/dl - HIGH CARDIOVASCULAR RISK Normal [facility] Comment on above: Performed By: #### L IPID, CMP #### [facility] [address] [address] [address] Gallo Wade LDL CALC NORMAL SEE BELOW Normal [facility] Comment on above: Result Comment: <100 mg/dl OPTIMAL 100 - 129 mg/dl NEAR OR ABOVE OPTIMAL 130 - 159 mg/dl BORDERLINE HIGH 160 - 189 mg/dl HIGH >190 mg/dl VERY HIGH Performed By: #### L IPID, CMP #### [facility] [address] [place] [address] Dr. Gallo Wade Triglyceride [Mass/Vol] 257 mg/dL Critically high <=150 [facility] Comment on above: Performed By: #### L IPID, CMP #### [facility] [address] [place] [address] Dr. Gallo Wade VLDL CALC 51.4 mg/dL Normal [facility] Comment on above: Performed By: #### L IPID, CMP #### [facility] [address] [place] [address] Dr. Gallo Wade PROF 14(COMP METB)on 023 Albumin [Mass/Vol] 3.7 g/dL Normal 3.4-5.0 [facility] Comment on above: Performed By: #### L IPID, CMP #### [facility] [address] [address] [address] Gallo Wade Albumin/Globulin [Mass ratio] 1.1 {ratio} Normal [facility] Comment on above: Performed By: #### L IPID, CMP #### [facility] [address] [address] [address] Gallo Wade ALP [Catalytic activity/Vol] 77 U/L Normal 46-116 [facility] Comment on above: Performed By: #### L IPID, CMP #### [facility] [address] [address] [address] Gallo Wade ALT [Catalytic activity/Vol] 24 U/L Normal 16-63 [facility] Comment on above: Performed By: #### L IPID, CMP #### [facility] [address] [address] [address] Gallo Wade Anion gap [Moles/Vol] 13.2 mmol/L Normal [facility] Comment on above: Performed By: #### L IPID, CMP #### [facility] [address] [address] [address] Gallo Wade AST [Catalytic activity/Vol] 15 U/L Normal 15-37 [facility] Comment on above: Performed By: #### L IPID, CMP #### [facility] [address] [address] [address] Gallo Wade Bilirubin [Mass/Vol] 0.9 mg/dL Normal 0.2-1.0 [facility] Comment on above: Performed By: #### L IPID, CMP #### [facility] [address] [address] [address] Gallo Wade Calcium [Mass/Vol] 9.1 mg/dL Normal 8.5-10.1 [facility] Comment on above: Performed By: #### L IPID, CMP #### [facility] [address] [address] [address] Gallo Wade Chloride [Moles/Vol] 102 mmol/L Normal 98-107 [facility] Comment on above: Performed By: #### L IPID, CMP #### [facility] [address] [address] [address] Gallo Wade CO2 [Moles/Vol] 27.9 mmol/L Normal 21.0-32.0 [facility] Comment on above: Performed By: #### L IPID, CMP #### [facility] [address] [address] [address] Gallo Wade Creatinine [Mass/Vol] 0.82 mg/dL Normal 0.70-1.30 [facility] Comment on above: Performed By: #### L IPID, CMP #### [facility] [address] [address] [address] Gallo Wade EGFR-AF MAURITANIAN >60 Normal >=60 [facility] Comment on above: Performed By: #### L IPID, CMP #### [facility] [address] [address] [address] Gallo Wade EGFR-NON AF MAURITANIAN >60 Normal >=60 [facility] Comment on above: Performed By: #### L IPID, CMP #### [facility] [address] [address] [address] Gallo Wade Globulin (S) [Mass/Vol] 3.5 g/dL Normal [facility] Comment on above: Performed By: #### L IPID, CMP #### [facility] [address] [address] [address] Gallo Wade Glucose [Mass/Vol] 161 mg/dL Critically high 74-106 T [facility] Comment on above: Performed By: #### L IPID, CMP #### [facility] [address] [address] [address] Gallo Wade Potassium [Moles/Vol] 4.1 mmol/L Normal 3.5-5.1 [facility] Comment on above: Performed By: #### L IPID, CMP #### [facility] [address] [address] [address] Gallo Wade Protein [Mass/Vol] 7.2 g/dL Normal 6.4-8.2 [facility] Comment on above: Performed By: #### L IPID, CMP #### [facility] [address] [address] [address] Gallo Wade Sodium [Moles/Vol] 139 mmol/L Normal 136-145 [facility] Comment on above: Performed By: #### L IPID, CMP #### [facility] [address] [address] [address] Gallo Wade Urea nitrogen [Mass/Vol] 14.0 mg/dL Normal 7.0-18.0 [facility] Comment on above: Performed By: #### L IPID, CMP #### [facility] [address] [address] [address] Gallo Wade Urea nitrogen/Creatinine [Mass ratio] 17.1 mg/mg Normal [facility] Comment on above: Performed By: #### L IPID, CMP #### [facility] [address] [place] [address] Dr. Gallo Wade GLYCOHEMOGLOBIN A1Con 2021 ADA RECOMMENDATION SEE BELOW Normal [facility] Comment on above: Result Comment: ADA RECOMMENDED LIMIT 4.0 - 6.0 ADA THERAPEUTIC TARGET < 7.0 ACTION SUGGESTED > 7.0 Performed By: #### A 1C #### [facility] [address] [place] [address] Dr. Gallo Wade Glucose [Mass/Vol] 134 mg/dL Normal [facility] Comment on above: Performed By: #### A 1C #### [facility] [address] [place] [address] Dr. Gallo Wade HbA1c (Bld) [Mass fraction] 6.3 % Critically high 4.5-6.2 [facility] Comment on above: Performed By: #### A 1C #### [facility] [address] [place] [address] Dr. Gallo Wade LIPID PROFILEon 05-14-2022 CHOL-HDL RATIO NORM SEE BELOW Normal [facility] Comment on above: Result Comment: 3.3 - 4.4 LOW RISK 4.4 - 7.1 AVERAGE RISK 7.1 - 11.0 MODERATE RISK >11.0 HIGH RISK Performed By: #### L IPID #### [facility] [address] [address] [address] Gallo Wade Cholesterol [Mass/Vol] 129 mg/dL Normal <=200 [facility] Comment on above: Performed By: #### L IPID #### [facility] [address] [address] [address] Gallo Wade Cholesterol in HDL [Mass/Vol] 36 mg/dL Critically low 40-60 [facility] Comment on above: Performed By: #### L IPID #### [facility] [address] [address] [address] Gallo Wade Cholesterol in LDL [Mass/Vol] 46.6 mg/dL Normal [facility] Comment on above: Performed By: #### L IPID #### [facility] [address] [place] [address] Dr. Gallo Wade Cholesterol.total/Ch olesterol in HDL [Mass ratio] 3.6 {ratio} Normal [facility] Comment on above: Performed By: #### L IPID #### [facility] [address] [address] [address] Gallo Wade HDL NORMAL > or = 60 mg/dl - LO W CARDIOVASCULAR RISK <40 mg/dl - HIGH CARDIOVASCULAR RISK Normal [facility] Comment on above: Performed By: #### L IPID #### [facility] [address] [address] [address] Gallo Wade LDL CALC NORMAL SEE BELOW Normal [facility] Comment on above: Result Comment: <100 mg/dl OPTIMAL 100 - 129 mg/dl NEAR OR ABOVE OPTIMAL 130 - 159 mg/dl BORDERLINE HIGH 160 - 189 mg/dl HIGH >190 mg/dl VERY HIGH Performed By: #### L IPID #### [facility] [address] [address] [address] Gallo Wade Triglyceride [Mass/Vol] 232 mg/dL Critically high <=150 [facility] Comment on above: Performed By: #### L IPID #### [facility] [address] [address] [address] Gallo Wade VLDL CALC 46.4 mg/dL Normal [facility] Comment on above: Performed By: #### L IPID #### [facility] [address] [place], [place] [address] Dr. Gallo Wade POINT OF CARE GLUCOSEon 03-25 Glucose [Mass/Vol] 172 mg/dL Critically high 74-106 T [facility] Comment on above: Performed By: #### P OCGLUC #### [facility] [address] [place], [place] [address] Dr. Gallo Wade Office Visit (Cardiology)on 04-14-2022 [...] ONCE A WEEK Vitamin D3 1.25 MG (09868 UT) Oral CapsuleTAKE 1 CAPSULE Daily Allergies [...] Recorded: 14Apr2022 03:51PM Heart Rate80, R Radial Bberydwd308, RUE, Sitting Furcdkjvr67, RUE, Sitting Height5 ft 10 in Salqmk596 lb BMI Icxvtfrypf11.28 kg/m2 BSA Calculated2.14 Tobacco Useb) No PHQ-2 #1. Over the last 2 weeks have you felt down, depressed or hopeless? (If yes, answer PHQ-9 below)No PHQ-2 #2. Over the last 2 weeks have (more content not included)... Normal [facility] Tobacco Screening.on 022 Adult depression screening assessment No [facility] 250 DO Work Phone: Fall risk assessment a) No falls within the last year [facility] 250 DO Work Phone: Tobacco use status CP b) No [facility] 250 DO Work Phone: Tobacco Screening.on 022 Adult depression screening assessment No [facility] 250 DO Work Phone: Fall risk assessment a) No falls within the last year [facility] 250 DO Work Phone: Tobacco use status CPHS b) No [facility] 250 DO Work Phone: SURGICAL PATHOLOGYon 021 SURGICAL PATHOLOGY Specimen #: [id number] Submitting Physician: VIJI FALCON M.D. FINAL DIAGNOSIS [facility], [place], [place]; [id number] (09/25/2021) Esophagus, biopsy (A1-1, A1-2) - Inflamed [...] to contact the GI consultation Service at [phone] with questions or if additional follow up information becomes available. This case was reviewed in conjunction with the GI pathology fellow, Tonya Fernández M.D. AEB/OCTAVIA 10/07/2021 Leela Parsons M.D. (Electronic Signature) SPECIMEN SUBMITTED A: 2 SLIDES [id number] CLINICAL DATA Dyspepsia, GERD. Date of Report: 10/07/2021 Date of Procedure: 10/06/2021 Date of Receipt: 10/06/2021 Submitted by: VIJI FALCON M.D. Location: Diagnostic interpretation performed at [facility], [address] [place], [place] [id number]. CLIA Number: [id number] Normal [facility] Comment on above: Performed By: #### S #### See report for performing lab information. Factor V Activityon 04-29-20 17 Factor V Activity 106 % Normal 50-150 [facility] Comment on above: Result Comment: [facility] [address] [place] [address] Performed By: #### H OCYS, FA5, LUPPRO, PROCAC, PROSAC ####[address] [place] [address] Lupus Anticoagulanton 2016 Dilute Blake Viper Negative Normal NLUP [facility] Comment on above: Result Comment: [facility] [address] [place] [address] Performed By: #### H OCYS, FA5, LUPPRO, PROCAC, PROSAC ####[address] [address] Protein C Activityon 017 Protein C Activity 130 % Normal >80 [facility] Comment on above: Result Comment: Tammy ents on oral 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s will have decreased functional protein C/S values. Oral 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 therapy should be discontinued for two weeks for accurate measurement of functional protein C/S levels.Artifactually elevated levels of functional protein C/S may be seen in patients receiving heparin, while decreased functionality may be seen in patients with abnormally elevated levels of Factor VIII.[facility] [employer] [address] [place] [address] Performed By: #### H OCYS, FA5, LUPPRO, PROCAC, PROSAC ####[address] [address] Protein S Activityon 017 Protein S Activity 120 % High 77-116 [facility] Comment on above: Result Comment: Tammy ents on oral 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s will have decreased functional protein C/S values. Oral 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 therapy should be discontinued for two weeks for accurate measurement of functional protein C/S levels.Artifactually elevated levels of functional protein C/S may be seen in patients receiving heparin, while decreased functionality may be seen in patients with abnormally elevated levels of Factor VIII.[address] [address] Performed By: #### H OCYS, FA5, LUPPRO, PROCAC, PROSAC ####[address] [place] [address] Lupus Anticoagulanton 2016 Antiphospholipid IgA 4.0 APU Normal <12 [facility] Comment on above: Result Comment: Refe rence Range:12 - 15 Equivocal>15 Positive Performed By: #### H OCYS, FA5, LUPPRO, PROCAC, PROSAC ####[address] [address] Antiphospholipid IgG 5.3 GPU Normal <20 [facility] Comment on above: Result Comment: Refe rence Range:20.0 - 29.9 Low Ugjjgrad10.0 - 79.9 Moderate Positive >79.9 High Positive Performed By: #### H OCYS, FA5, LUPPRO, PROCAC, PROSAC ####[address] [address] Antiphospholipid IgM 4.8 MPU Normal <20 [facility] Comment on above: Result Comment: Refe rence Range:20.0 - 29.9 Low Sguobhjm51.0 - 79.9 Moderate Positive >79.9 High Positive Performed By: #### H OCYS, FA5, LUPPRO, PROCAC, PROSAC ####[address] [address] Cult,Urineon 04-27-2017 Cult,Urine Specimen Description .URINE Special Requests NOT REPORTED Culture NO GROWTH Report Status FINAL 04/27/2017 Normal [facility] Comment on above: Performed By: #### U RC ####[address] [address] CBCon 04-26-2017 Erythrocyte distribution width Auto Ratio (RBC) 13.6 % Normal 12.5-15.4 [facility] Comment on above: Performed By: #### C BC, LIPR ####[address] [address] Erythrocytes (RBC) 4.13 10*6/uL Low 4.5-5.9 [facility] Comment on above: Performed By: #### C BC, LIPR ####[address] [address] Hematocrit (HCT) 37.7 % Low 41-53 [facility] Comment on above: Performed By: #### C BC, LIPR ####[address] [address] Hemoglobin mass conc (Bld) 13.4 g/dL Low 13.5-17.5 [facility] Comment on above: Performed By: #### C BC, LIPR ####[address] [address] MCH 32.4 pg Normal 26-34 [facility] Comment on above: Performed By: #### C BC, LIPR ####[address] [address] MCHC mass conc (RBC) 35.5 g/dL Normal 31-37 [facility] Comment on above: Performed By: #### C BC, LIPR ####[address] [address] MCV 91.2 fL Normal 80-100 [facility] Comment on above: Performed By: #### C BC, LIPR ####[address] [address] Platelet mean volume (PMV) 8.6 fL Normal 6.0-12.0 [facility] Comment on above: Result Comment: [address] [address] Performed By: #### C BC, LIPR ####[address] [place] [address] Platelets 161 10*3/uL Normal 140-450 [facility] Comment on above: Performed By: #### C BC, LIPR ####[facility] Calderon[address] [place] [address] WBC (Leukocytes) 5.0 10*3/uL Normal 3.5-11.0 [facility] Comment on above: Performed By: #### C BC, LIPR ####[facility] CalderonZ[address]ha[address] [place] [address] Discharge Summaryon 04-26-20 17 HIM IP Note OR Dry Box Operator Normal [facility] ED Noteon 04-26-2017 HIM IP Note OR Dry Box Operator Normal [facility] Hemoglobin A1Con 04-26-2017 Glucose mass conc 131 mg/dL Normal [facility] Comment on above: Result Comment: The ADA and AACC recommend providing the estimated average glucose result to permit better patient understanding of their HBA1c result.[employer] [address] [place] [address] Performed By: #### T JUSTYNA RODRÍGUEZ, GLYHGB ####[address] [place] [address] Hemoglobin A1c/Hemoglobin.total mass fraction (Bld) 6.2 % High 4.0-6.0 [facility] Comment on above: Performed By: #### T ANNE TSHX, GLYHGB ####[facility] [address] [place] [address] History and Physicalon 04-26 HIM IP Note OR Dry Box Operator Normal [facility] Homocysteineon 04-26-2017 Homocysteine 9.5 umol/L Normal <15.0 [facility] Comment on above: Result Comment: [facility] [place] [address] Performed By: #### H OCYS, FA5, LUPPRO, PROCAC, PROSAC ####[facility] [place] [address] Lipid Profileon 04-26-2017 Cholesterol 123 mg/dL Normal <200 [facility] Comment on above: Result Comment: Chol esterol Guidelines: <200 Desirable 200-240 Borderline >240 Undesirable Performed By: #### C BC, LIPR ####[address] [address] Cholesterol to HDL Ratio 2.5 {ratio} Normal <5 [facility] Comment on above: Performed By: #### C BC, LIPR ####[address] [address] HDL Cholesterol 49 mg/dL Normal >40 [facility] Comment on above: Result Comment: HDL Guidelines: <40 Undesirable 40-59 Borderline >59 Desirable Performed By: #### C BC, LIPR ####[address] [address] LDL Cholesterol 45 mg/dL Normal 0-130 [facility] Comment on above: Result Comment: LDL Guidelines: <100 Desirable 100-129 Near to/above Desirable 130-159 Borderline >159 UndesirableDirect (measured) LDL and calculated LDL are not interchangeable tests. Performed By: #### C BC, LIPR ####[address] [address] Triglyceride 143 mg/dL Normal <150 [facility] Comment on above: Result Comment: Trig lyceride Guidelines: <150 Desirable 150- 199 Borderline 200-499 High >499 Very high Based on AHA Guidelines for fasting triglyceride, July 2012.[address] [place] [address] Performed By: #### C BC, LIPR ####[facility] [place] [address] Cholesterol in VLDL mass conc NOT REPORTED Normal 1-30 [facility] Comment on above: Performed By: #### C BC, LIPR ####[facility] [address] [place] [address] Lupus Anticoagulanton 2016 aPTT 22.5 s Normal 21.3-31.3 [facility] Comment on above: Performed By: #### H OCYS, FA5, LUPPRO, PROCAC, PROSAC ####[facility] [address] [place] [address] INR Coag RelTime (PPP) 1.0 {INR} Normal [facility] Comment on above: Result Comment: Ther apeutic Range: Moderate Anticoagulant Intensity: INR = 2.0-3.0 High Anticoagulant Intensity: INR = 2.5-3.5 Performed By: #### H OCYS, FA5, LUPPRO, PROCAC, PROSAC ####[facility] [address] [place] [address] Prothrombin time (PT) Coag time (PPP) 10.8 s Normal 9.4-12.6 [facility] Comment on above: Performed By: #### H OCYS, FA5, LUPPRO, PROCAC, PROSAC ####[facility] [address] [place] [address] Lupus Anticoagulant NOT REPORTED Normal [facility] Comment on above: Performed By: #### H OCYS, FA5, LUPPRO, PROCAC, PROSAC ####[facility] [address] [place] [address] MRA HEAD WO CONTRASTon 04-26 MRA HEAD WO CONTRAST EXAMINATION:MRA OF THE HEAD WITHOUT CONTRAST 04/25/2017 10:18 pmTECHNIQUE:MRA of the head was performed utilizing aogr-zj-olzpoq imaging with [employer]. No intravenous contrast was [...] by:DELTA Hodgesigned by:Saran Mccauley MD04/25/17Final result Normal [facility] MRI BRAIN WO CONTRASTon -0 MRI BRAIN WO CONTRAST EXAMINATION:MRI OF THE [...] by:DELTA Hodgesigned by:Saran Mccauley MD04/25/17Final result Normal [facility] MRI CERVICAL SPINE WO CONTRA STon 04-26-2017 [...] by:DELTA Hodgesigned by:Saran Mccauley MD04/25/17Final result Normal [facility] Sedimentation Rateon 017 Sedimentation Rate 10 mm Normal 0-10 [facility] Comment on above: Result Comment: [facility] [address] [place] [address] Performed By: #### S ED ####[address] [address] TSH w/reflex to FT4on 2016 Thyroid stimulating hormone (TSH) 0.77 m[IU]/L Normal 0.30-5.00 [facility] Comment on above: Result Comment: [facility] [address] [place] [address] Performed By: #### T ROPI, TSHX, GLYHGB ####[facility] [address] [place] [address] Troponinon 04-26-2017 Troponin I.cardiac mass conc Normal [facility] Comment on above: Result Comment: Refe rence Range: <0.03 Within reference range. 0.03-0.09 Possible myocardial damage.Repeat at appropriate intervals to rule out chronic elevation. >= 0.10 Indicative of myocardial damage.[employer] [address] [place] [address] Performed By: #### T ANNE ####[address] [place] [address] Troponin T.cardiac mass conc ug/L Normal <0.03 [facility] Comment on above: Result Comment: Trop onin T results cannot be compared to Troponin-I results. Performed By: #### T ANNE ####[address] [address] Troponin I.cardiac mass conc Normal [facility] Comment on above: Result Comment: Refe rence Range: <0.03 Within reference range. 0.03-0.09 Possible myocardial damage.Repeat at appropriate intervals to rule out chronic elevation. >= 0.10 Indicative of myocardial damage.[address] [address] Performed By: #### T JUSTYNA RODRÍGUEZ GLYLUZ ####[address] [address] Troponin T.cardiac mass conc ug/L Normal <0.03 [facility] Comment on above: Result Comment: Trop onin T results cannot be compared to Troponin-I results. Performed By: #### JUSTYNA RODRIGUEZ, GLYPURVIB ####[address] [address] Urinalysis, Routineon 2016 Acetaminophen mass conc Negative Normal NEG [facility] Comment on above: Performed By: #### U A ####[address] [address] Bilirubin (direct) Negative Normal NEG [facility] Comment on above: Performed By: #### U A ####[address] [address] Comment Microscopic exam not performed based on chemical results unless requested in Normal [facility] Comment on above: Result Comment: orig inal order.[address] [address] Performed By: #### U A ####[address] [address] Hemoglobin mass conc (Bld) Negative Normal NEG [facility] Comment on above: Performed By: #### U A ####[address] [address] Nitrite,Ur Negative Normal NEG [facility] Comment on above: Performed By: #### U A ####[address] [address] Turbidity CLEAR Normal CLEAR [facility] Comment on above: Performed By: #### U A ####[address] [address] Urine, color YELLOW Normal YEL [facility] Comment on above: Performed By: #### U A ####[address] [address] Urine, glucose presence TRACE Abnormal NEG [facility] Comment on above: Performed By: #### U A ####[address] [address] Urine, leukocyte esterase presence Negative Normal NEG [facility] Comment on above: Performed By: #### U A ####[address] [address] Urine, pH 5.5 [pH] Normal 5.0-8.0 [facility] Comment on above: Performed By: #### U A ####[address] [address] Urine, protein presence Negative Normal NEG [facility] Comment on above: Performed By: #### U A ####[address] [address] Urine, specific gravity 1.034 High 1.005-1.030 [facility] Comment on above: Performed By: #### U A ####[address] [address] Urobilinogen,Ur Normal Normal NORM [facility] Comment on above: Performed By: #### U A ####[address] [address] APTTon 04-25-2017 aPTT 22.2 s Normal 21.3-31.3 [facility] Comment on above: Result Comment: [address] [address] Performed By: #### C DP, PT, PTT, BMP ####[address] [address] Basic Metabolic Profon 04-25 (cont.) Normal [facility] Comment on above: Result Comment: Aver age GFR for 60-69 years old: 85 mL/min/1.73sq mChronic Kidney Disease: <60 mL/min/1.73sq mKidney failure: <15 mL/min/1.73sq meGFR calculated using average adult body mass. Additional eGFR calculator available at:http://[email or web address] [email or web address]_[email or web address] [address] Performed By: #### C DP, PT, PTT, BMP ####[address] [address] Anion gap 16 mmol/L Normal 9-17 [facility] Comment on above: Performed By: #### C DP, PT, PTT, BMP ####[address] [address] Calcium 9.6 mg/dL Normal 8.6-10.4 [facility] Comment on above: Performed By: #### C DP, PT, PTT, BMP ####[address] [place] [address] Chloride 103 mmol/L Normal 98-107 [facility] Comment on above: Performed By: #### C DP, PT, PTT, BMP ####[address] [address] CO2 19 mmol/L Low 20-31 [facility] Comment on above: Performed By: #### C DP, PT, PTT, BMP ####[address] [address] Creatinine 0.77 mg/dL Normal 0.70-1.20 [facility] Comment on above: Performed By: #### C DP, PT, PTT, BMP ####[address] [address] eGFR (non-black) mL/min/{1.73_m2} Normal >60 [facility] Comment on above: Performed By: #### C DP, PT, PTT, BMP ####[address] [address] Glucose mass conc 129 mg/dL High 70-99 [facility] Comment on above: Performed By: #### C DP, PT, PTT, BMP ####[address] [address] Potassium molar conc 3.8 mmol/L Normal 3.7-5.3 [facility] Comment on above: Performed By: #### C DP, PT, PTT, BMP ####[address] [address] Sodium 138 mmol/L Normal 135-144 [facility] Comment on above: Performed By: #### C DP, PT, PTT, BMP ####[address] [address] Urea nitrogen 14 mg/dL Normal 8-23 [facility] Comment on above: Performed By: #### C DP, PT, PTT, BMP ####[address] [address] BUN/CRE Ratio NOT REPORTED Normal 9-20 [facility] Comment on above: Performed By: #### C DP, PT, PTT, BMP ####[place] [address] Staging: NOT REPORTED Normal [facility] Comment on above: Performed By: #### C DP, PT, PTT, BMP ####[place] [address] CBC with Diffon 04-25-2017 Abs. Basophil 0.00 k/uL Normal 0.0-0.2 [facility] Comment on above: Result Comment: [address] [address] Performed By: #### C DP, PT, PTT, BMP ####[address] [address] Abs.Neutrophil (Seg) 3.60 k/uL Normal 1.8-7.7 [facility] Comment on above: Performed By: #### C DP, PT, PTT, BMP ####[address] [address] Basophils/100 WBC Auto (Bld) 1 % Normal [facility] Comment on above: Performed By: #### C DP, PT, PTT, BMP ####[place] [address] Eosinophils 0.10 10*3/uL Normal 0.0-0.4 [facility] Comment on above: Performed By: #### C DP, PT, PTT, BMP ####[address] [address] Eosinophils/100 leukocytes 3 % Normal [facility] Comment on above: Performed By: #### C DP, PT, PTT, BMP ####[address] [address] Erythrocyte distribution width Auto Ratio (RBC) 13.5 % Normal 12.5-15.4 [facility] Comment on above: Performed By: #### C DP, PT, PTT, BMP ####[address] [address] Erythrocytes (RBC) 4.47 10*6/uL Low 4.5-5.9 [facility] Comment on above: Performed By: #### C DP, PT, PTT, BMP ####[address] [address] Hematocrit (HCT) 40.6 % Low 41-53 [facility] Comment on above: Performed By: #### C DP, PT, PTT, BMP ####[address] [address] Hemoglobin mass conc (Bld) 14.2 g/dL Normal 13.5-17.5 [facility] Comment on above: Performed By: #### C DP, PT, PTT, BMP ####[address] [address] Lymphocytes 1.50 10*3/uL Normal 1.0-4.8 [facility] Comment on above: Performed By: #### C DP, PT, PTT, BMP ####[address] [address] Lymphocytes/100 leukocytes 26 % Normal [facility] Comment on above: Performed By: #### C DP, PT, PTT, BMP ####[address] [address] MCH 31.8 pg Normal 26-34 [facility] Comment on above: Performed By: #### C DP, PT, PTT, BMP ####[address] [address] MCHC mass conc (RBC) 35.0 g/dL Normal 31-37 [facility] Comment on above: Performed By: #### C DP, PT, PTT, BMP ####[address] [address] MCV 90.9 fL Normal 80-100 [facility] Comment on above: Performed By: #### C DP, PT, PTT, BMP ####[address] [address] Monocytes 0.50 10*3/uL Normal 0.1-1.2 [facility] Comment on above: Performed By: #### C DP, PT, PTT, BMP ####[address] [address] Monocytes/100 leukocytes 8 % Normal [facility] Comment on above: Performed By: #### C DP, PT, PTT, BMP ####[address] [address] Neutrophil (Seg) 62 % Normal [facility] Comment on above: Performed By: #### C DP, PT, PTT, BMP ####[address] [address] Platelet mean volume (PMV) 8.8 fL Normal 6.0-12.0 [facility] Comment on above: Performed By: #### C DP, PT, PTT, BMP ####[address] [address] Platelets 194 10*3/uL Normal 140-450 [facility] Comment on above: Performed By: #### C DP, PT, PTT, BMP ####[address] [place] [address] WBC (Leukocytes) 5.7 10*3/uL Normal 3.5-11.0 [facility] Comment on above: Performed By: #### C DP, PT, PTT, BMP ####[facility] [address] [place] [address] Auto Diff Performed NOT REPORTED Normal [facility] Comment on above: Performed By: #### C DP, PT, PTT, BMP ####[facility] Calder[address] [place] [address] Erythrocyte morphology NOT REPORTED Normal [facility] Comment on above: Performed By: #### C DP, PT, PTT, BMP ####[facility] [address] [place] [address] Platelets NOT REPORTED Normal [facility] Comment on above: Performed By: #### C DP, PT, PTT, BMP ####[facility] Calder[address] [place] [address] WBC Morphology NOT REPORTED Normal [facility] Comment on above: Performed By: #### C DP, PT, PTT, BMP ####[facility] [address] [place] [address] HEAD WO CONTRASTon 2016 CT HEAD [...] by:DELTA Hodgesigned by:Saran Mccauley MD04/25/17Final result Normal [facility] ED Noteon 04-25-2017 HIM IP Note OR Dry Box Operator Normal [facility] HIM IP Note OR Dry Box Operator Normal [facility] HIM IP Note OR Dry Box Operator Normal [facility] HIM IP Note OR Dry Box Operator Normal [facility] ED Provider Noteon 7 HIM IP Note OR Dry Box Operator Normal [facility] PTon 04-25-2017 INR Coag RelTime (PPP) 1.0 {INR} Normal [facility] Comment on above: Result Comment: Ther apeutic Range: Moderate Anticoagulant Intensity: INR = 2.0-3.0 High Anticoagulant Intensity: INR = 2.5-3.5[email or web address] [address] [place] [address] Performed By: #### C DP, PT, PTT, BMP ####[employer] [place] [address] Prothrombin time (PT) Coag time (PPP) 10.6 s Normal 9.4-12.6 [facility] Comment on above: Performed By: #### C DP, PT, PTT, BMP ####[facility] [address] [place] [address] XR CHEST PORTABLEon 04-25-20 17 XR CHEST PORTABLE EXAMINATION:SINGLE V IEW OF THE CHEST04/25/2017 8:36 pmCOMPARISON:None.HISTO RY:ORDERING SYSTEM PROVIDED HISTORY: stroke-alterted mental statusTECHNOLOGIST PROVIDED HISTORY:Reason for exam:->stroke-alterted mental statusFINDINGS:The lungs are without acute focal process. There is no effusion orpneumothorax. The cardiomediastinal silhouette is without acute process. Theosseous structures are without acute process.IMPRESSION: No acute process.Interpreted by:DELTA Grubbsigned by:Ashvin Hanson MD04/25/17Final result Normal [facility] Vital Signs Date Time Vital Sign Value Performing Clinician Facility 09-28-2023 14:26-0500 Body height 177.8 cm Ana Ramos MACHINE GUNNER-COMMERCIAL CORRESPONDENT Work Phone: [facility] 09-28-2023 14:26-0500 Body mass index (BMI) [Ratio] 28.73 kg/m2 Ana Ramos MACHINE GUNNER-COMMERCIAL CORRESPONDENT Work Phone: [facility] 09-28-2023 14:26-0500 Body weight 90.81 kg Ana Ramos MACHINE GUNNER-COMMERCIAL CORRESPONDENT Work Phone: [facility] 09-28-2023 14:26-0500 Diastolic blood pressure 64 mm[Hg] Ana Ramos MACHINE GUNNER-COMMERCIAL CORRESPONDENT Work Phone: [facility] 09-28-2023 14:26-0500 Heart rate 78 /min Ana Ramos MACHINE GUNNER-COMMERCIAL CORRESPONDENT Work Phone: [facility] 09-28-2023 14:26-0500 Systolic blood pressure 128 mm[Hg] Ana Ramos MACHINE GUNNER-COMMERCIAL CORRESPONDENT Work Phone: [facility] 02-16-2023 14:00-0400 Body height 179.07 cm Vazquez Shaw Other [facility] Other 02-16-2023 14:00-0400 Body mass index (BMI) [Ratio] 29.14 kg/m2 Vazquez Shaw Other [facility] Other 02-16-2023 14:00-0400 Body weight 93.44 kg Vazquez Shaw Other [facility] Other 02-16-2023 14:00-0400 Diastolic blood pressure 64 mm[Hg] Vazquez Mcgovernner Other [facility] [employer] Other 02-16-2023 14:00-0400 Systolic blood pressure 120 mm[Hg] Vazquez Mateoovanner Other [facility] [employer] Other 12-29-2022 13:35-0500 Body height 177.8 cm Shaikh Jefferyd Work Phone: [facility] DO Work Phone: 12-29-2022 13:35-0500 Body mass index (BMI) [Ratio] 30.28 kg/m2 Shaikh Jefferyd Work Phone: [facility] DO Work Phone: 12-29-2022 13:35-0500 Body surface area Derived from formula 2.14 m2 Shaikh Michaelwad Work Phone: [facility] DO Work Phone: 12-29-2022 13:35-0500 Body weight 95.71 kg Shaikh Jefferyd Work Phone: [facility] DO Work Phone: 12-29-2022 13:35-0500 Diastolic blood pressure 70 mm[Hg] Shaikh Michaelwad Work Phone: [facility] DO Work Phone: 12-29-2022 13:35-0500 Heart rate 74 /min Shaikh Michaelwad Work Phone: [facility] DO Work Phone: 12-29-2022 13:35-0500 Systolic blood pressure 128 mm[Hg] Shaikh Michaelwad Work Phone: [facility] 250 DO Work Phone: 11-11-2022 16:30-0500 Body height 179.07 cm Alcides Goodwindarryn Other [facility] [employer] Other 11-11-2022 16:30-0500 Body mass index (BMI) [Ratio] 28.29 kg/m2 Alcides Victorberenicey Other [facility] [employer] Other 11-11-2022 16:30-0500 Body weight 90.72 kg Alcides Christay Other [facility] [employer] Other 11-11-2022 16:30-0500 Diastolic blood pressure 68 mm[Hg] Alcides Ditty Other [facility] [employer] Other 11-11-2022 16:30-0500 Systolic blood pressure 117 mm[Hg] Alcides Ditty Other [facility] [employer] Other 05-12-2022 16:45-0400 Body height 179.07 cm Alcides Goodwiny Other [employer] Other 05-12-2022 16:45-0400 Body mass index (BMI) [Ratio] 30.41 kg/m2 Alcides Goodwiny Other [employer] Other 05-12-2022 16:45-0400 Body weight 97.52 kg Alcides Ditty Other [employer] Other 05-12-2022 16:45-0400 Diastolic blood pressure 80 mm[Hg] Alcides Ditty Other [employer] Other 05-12-2022 16:45-0400 Systolic blood pressure 149 mm[Hg] Alcides Nowak Other [facility] [employer] Other 04-14-2022 15:51-0400 Body height 177.8 cm Shaikh Jefferyd Work Phone: [facility] 250 DO Work Phone: 04-14-2022 15:51-0400 Body mass index (BMI) [Ratio] 30.28 kg/m2 Shaikh Jefferyd Work Phone: [facility] 250 DO Work Phone: 04-14-2022 15:51-0400 Body surface area Derived from formula 2.14 m2 Shaikh Jefferyd Work Phone: [facility] 250 DO Work Phone: 04-14-2022 15:51-0400 Body weight 95.71 kg Shaikh Jefferyd Work Phone: [facility] 250 DO Work Phone: 04-14-2022 15:51-0400 Diastolic blood pressure 68 mm[Hg] Shaikh Michaelwad Work Phone: [facility] 250 DO Work Phone: 04-14-2022 15:51-0400 Heart rate 80 /min Shaikh Michaelwad Work Phone: [facility] 250 DO Work Phone: 04-14-2022 15:51-0400 Systolic blood pressure 118 mm[Hg] Shaikh Annitawwad Work Phone: [facility] 250 DO Work Phone: 12-04-2021 14:45-0500 Diastolic blood pressure 60 mm[Hg] Lala Fawwad Work Phone: [facility] 250 DO Work Phone: 12-04-2021 14:45-0500 Systolic blood pressure 111 mm[Hg] Shaikh Michaelwad Work Phone: [facility] 250 DO Work Phone: 12-04-2021 14:38-0500 Body height 177.8 cm Shaikh Jefferyd Work Phone: [facility] 250 DO Work Phone: 12-04-2021 14:38-0500 Body mass index (BMI) [Ratio] 29.99 kg/m2 Shaikh Michaelwad Work Phone: [facility] 250 DO Work Phone: 12-04-2021 14:38-0500 Body surface area Derived from formula 2.13 m2 Shaikh Michaelwad Work Phone: [facility] 250 DO Work Phone: 12-04-2021 14:38-0500 Body weight 94.8 kg Shaikh Jefferyd Work Phone: [facility] 250 DO Work Phone: 12-04-2021 14:38-0500 Diastolic blood pressure 67 mm[Hg] Shaikh Michaelwad Work Phone: [facility] 250 DO Work Phone: 12-04-2021 14:38-0500 Heart rate 79 /min Shaikh Michaelwad Work Phone: [facility] 250 DO Work Phone: 12-04-2021 14:38-0500 Systolic blood pressure 120 mm[Hg] Shaikh Annitawwad Work Phone: [facility] 250 DO Work Phone: 11-23-2021 14:00-0500 Body weight 93.9 kg Alcides Nowak Other [facility] [employer] Other Encounters Encounter Date Encounter Type Care Provider Facility Start: 01-25-2024 End: 01-25-2024 ambulatory ROSAURA JETT Not Available Start: 11-30-2023 Orders Only Shaikh Mary CURRAN Work Phone: [facility] Comment on above: Type 2 diabetes alexandre itus with diabetic polyneuropathy, without long-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 of insulin (CMS/HCC) (Primary Dx) Type 2 diabetes alexandre itus with diabetic polyneuropathy, without long-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 of insulin (CMS/HCC) Start: 11-28-2023 End: 11-28-2023 ambulatory JOSR ANTOINE Not Available Start: 11-28-2023 Chart abstracting Josr gonzales MD Work Phone: [facility] Start: 11-14-2023 End: 11-14-2023 ambulatory SHAIKH MARY Not Available Start: 11-09-2023 End: 11-09-2023 ambulatory JOSR ANTOINE Not Available Start: 11-07-2023 End: 11-07-2023 ambulatory ROSAURA JETT Not Available Start: 10-10-2023 End: 10-10-2023 ambulatory SHAIKH MARY Not Available Start: 10-10-2023 Patient encounter procedure Josr Antoine MD Work Phone: [facility] Start: 09-28-2023 End: 09-28-2023 ambulatory ANA Aragon [facility] Start: 09-28-2023 End: 09-28-2023 Office outpatient visit 15 minutes Ana Aragon Ramos MACHINE GUNNER-COMMERCIAL CORRESPONDENT Work Phone: [facility] Comment on above: detention current us e of 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 therapy (Primary Dx); Paroxysmal atrial fibrillation (CMS/HCC); Essential hypertension, benign; Mixed hyperlipidemia; Diabetes mellitus with no complication (CMS/HCC); BMI 28.0-28.9,adult Start: 07-22-2023 End: 07-22-2023 ambulatory Shaikh Mary Facility:[facility] Start: 07-22-2023 End: 07-22-2023 ambulatory MD Shaikh Hernandez Work Phone: [facility] Work Phone: Start: 07-22-2023 End: 07-22-2023 Patient encounter procedure MD Shaikh Hernandez Work Phone: [facility] Work Phone: Start: 07-12-2023 End: 07-12-2023 ambulatory Vazquez Shaw Other [facility] Other Start: 07-12-2023 Telephone encounter Vazquez Fuentes [facility] Start: 02-17-2023 End: 02-18-2023 ambulatory SHAIKH Charlie HERNANDEZ Facility:[facility] Start: 02-16-2023 End: 02-16-2023 ambulatory Vazquez Shaw Other [facility] Other Start: 02-16-2023 Office outpatient vi sit 15 minutes Vazquez Shaw [facility] Start: 12-29-2022 Office outpatient vi sit 25 minutes Shaikh Mary Work Phone: [facility] 250 DO Work Phone: Start: 12-29-[address] Keyon Vázquez II Facility: Start: 11-23-2022 End: 11-23-2022 ambulatory Alcides Nowak Other [facility] Other Start: 11-23-2022 Telephone encounter Alcides REBOLLEDO [facility] Start: 11-15-2022 End: 11-16-2022 ambulatory Charlie MARY Facility:[facility] Start: 11-11-2022 End: 11-11-2022 ambulatory Alcides Goodwindarryn Other [facility] Other Start: 11-11-2022 Patient encounter procedure Alcides Kayleighsavannah [facility] Start: 05-20-2022 End: 05-21-[address] RAYMUNDO ANDERSON . Facility:[facility] Start: 05-17-2022 End: 05-17-2022 ambulatory Alcides Diberenicedarryn Other [facility] Other Start: 05-17-2022 Telephone encounter Alcides Kayleighsavannah [facility] Start: 05-14-2022 End: 05-15-2022 ambulatory SHAIKH Charlie HERNANDEZ Facility:[facility] Start: 05-13-2022 End: 05-13-2022 ambulatory Alcides Kayleighberenicedarryn Other [facility] Other Start: 05-13-2022 Telephone encounter Alcides [place]le[place] [facility] Start: 05-12-2022 End: 05-12-2022 ambulatory Alcides Victorberenicedarryn Other [facility] Other Start: 05-12-2022 Patient encounter procedure Alcides Victorberenicedarryn [facility] Start: 04-20-2022 End: 04-20-[address] RAYMUNDO ANDERSON . Facility:[facility] Start: 04-14-2022 Office outpatient vi sit 25 minutes Shaikh Mary Work Phone: [facility] 250 DO Work Phone: Start: 04-14-[address] Keyon Vázquez II Facility: Start: 12-04-2021 Office outpatient ne w 45 minutes Shaikh Mary Work Phone: [facility] 250 DO Work Phone: Start: 12-04-2021 Patient encounter procedure Shaikh Mary Work Phone: [facility] 250 DO Work Phone: Start: 11-23-2021 End: 11-23-2021 ambulatory Alcides Nowak Other [facility] [employer] Other Start: 11-23-2021 Patient encounter procedure Alcides Nowak [facility] Start: 04-25-2017 End: 04-26-2017 Evaluation and management of inpatient CELINE KAREN BYRNE [facility] Procedures Date Procedure Procedure Detail Performing Clinician [...] CELINE SMITH Start: 04-26-2017 HOMOCYSTEINE, SERUM GERMÁN BYRNE Start: 04-26-2017 LUPUS ANTICOAGULANT GERMÁN ERICA BYRNE Start: 04-26-2017 PROTEIN C FUNCTIONAL TH GREG BYRNE Start: 04-26-2017 PROTEIN S FUNCTIONAL TH GREG BYRNE Start: 04-26-2017 Urinalysis CELINE GARCÍA Start: 04-26-2017 URINE CULTURE CELINE ZHENG Start: 04-26-2017 POC GLUCOSE FINGERSTICK CELINE BYRNE Start: 04-26-2017 DIET CARDIAC CELINE GARCÍA Start: 04-26-2017 POCT GLUCOSE CELINE GARCÍA Start: 04-26-2017 OXYGEN THERAPY CELINE SMITH Start: 04-26-2017 PULSE OXIMETRY, CONTINUOUS CELINE BYRNE Start: 04-26-2017 CBC CELINE GARCÍA Start: 04-26-2017 Lipid panel CELINE GARCÍA Start: 04-26-2017 PULSE OXIMETRY, CONTINUOUS CELINE BYRNE Start: 04-26-2017 TROPONIN CELINE ANN RICKY Start: 04-26-2017 DAILY WEIGHTS CELINE ZHENG Start: 04-26-2017 HEMOGLOBIN A1C CELINE SMITH Start: 04-26-2017 TROPONIN CELINE ANN RICKY Start: 04-26-2017 TSH WITH REFLEX CELINE BYRNE [...] CELINE BYRNE Start: 04-26-2017 ELEVATE HOB CELINE ANN RICKY Start: 04-26-2017 FULL CODE HUANRae MARISSA GARCÍA Start: 04-26-2017 IP CONSULT TO NEUROLOGY CELINE BYRNE Start: 04-26-2017 IP CONSULT TO SOCIAL WORK CELINE BYRNE Start: 04-26-2017 NEURO CHECKS CELINE ANN RICKY Start: 04-26-2017 NOTIFY PHYSICIAN (SPECIFY) CELINE BYRNE Start: 04-26-2017 NURSING SWALLOW ASSESSMENT CELINE BYRNE Start: 04-26-2017 OT EVAL AND TREAT HUAN BYRNE Start: 04-26-2017 PROVIDE PATIENT EDUC ATION MATERIALS CELINE BYRNE Start: 04-26-2017 PT EVAL AND TREAT HUAN BYRNE Start: 04-26-2017 REASON FOR NO MECHAN ICAL VTE PROPHYLAXIS CELINE BYRNE Start: 04-26-2017 TOBACCO CESSATION EDUCATION CELINE BYRNE Start: 04-26-2017 VITAL SIGNS CELINE GARCÍA Start: 04-26-2017 VITAL SIGNS - NOTIFY MD CELINE BYRNE Start: 04-26-2017 POCT TROPONIN CELINE ZHENG Start: 04-26-2017 Mri spinal canal cer vical w/o contrast matrl CELINE BYRNE Start: 04-26-2017 Mri brain brain stem w/o contrast material CELINE ANDERSONAN Start: 04-26-2017 Mra head w/o contrst material MARTHADIGNARae CHAVEZ Start: 04-25-2017 PATIENT STATUS (FROM ED OR OR/PROCEDURAL) MARTHAGREG BYRNE Start: 04-25-2017 Chest x-ray 1 view frontal MARTHAGREG BYRNE Start: 04-25-2017 IP CONSULT TO MID LEVEL JAVA DEVELOPER AL MEDICINE CELINE BYRNE Start: 04-25-2017 Ct head/brain w/o co ntrast material MARTHAGREG BYRNE Start: 04-25-2017 APTT CELINE GARCÍA Start: 04-25-2017 BASIC METABOLIC PANEL T JER BYRNE Start: 04-25-2017 CBC WITH AUTO DIFFERENTIAL CELINE BYRNE Start: 04-25-2017 PROTIME-INR CELINE GARCÍA Start: 04-25-2017 EKG 12-LEAD CELINE GARCÍA Start: 04-25-2017 Creatinine other source CELINE BRYNE Start: 04-25-2017 ANION GAP (CALC) POC MARTHA [...] VENOUS BLOOD GAS, PO INT OF CARE MARTHAGREG BYRNE Start: 04-25-2017 Continuous pulse oximetry CELINE BYRNE Start: 04-25-2017 NURSING COMMUNICATION T JER BYRNE Start: 04-25-2017 CARDIAC MONITORING BRAD BYRNE Start: 04-25-2017 ELEVATE HOB MARTHAGREG GARCÍA Start: 04-25-2017 OXYGEN THERAPY CELINE SMITH Start: 04-25-2017 POCT TROPONIN CELINE ZHENG Start: 04-25-2017 IP CONSULT TO STROKE TEAM CELINE lewis Work Phone: Colonoscopy Shaikh Mary Work Phone: Decompression of med saida nerve Shaikh Michaeldebbie Work Phone: Lithotripsy Shaikh Michaeld Work Phone: Nasal septoplasty Shaikh Michael fieldsd Work Phone: Procedure on back Shaikh Michael garcia Work Phone: Procedure on neck Shaikh Michael garcia Work Phone: Tonsillectomy and adenoidectomy Shaikh Michaeldebbie Work Phone: Plan of Treatment Date Care Activity Detail Author Start: 08-24-2025 Glaucoma screening Diabetes: Retinopathy Screening [facility] Start: 10-10-2024 Medicare Annual Wellness (AWV) Medicare Annual Wellness (AWV) [facility] Start: 07-11-2024 End: 07-11-2024 Patient encounter procedure 07/11/2024 2:10 PM EDT Office Visit [facility] [address] [facility] [address] [place] [id number] Keyon Vázquez MD [address] [facility] [address] [place] [address] [facility] Start: 04-23-2024 Urine screening for protein Diabetes: Urine Protein Screening [facility] Start: 02-16-2024 End: 02-16-2024 Patient encounter procedure 02/16/2024 1:45 PM EDT Office Visit [facility] [address] [place] [id number] Shaikh Hernandez MD [address] [place] [id number] [facility] Start: 01-30-2024 Hemoglobin A1c measurement Diabetes: Hemoglobin A1C [facility] Start: 01-04-2024 End: 01-04-2024 Patient encounter procedure 01/04/2024 1:30 PM EDT Office Visit [facility] [address] [facility] [place] [phone] [facility] Start: 11-28-2023 End: 11-28-2023 Patient encounter procedure 11/28/2023 1:30 PM EST Office Visit [facility] [address] [facility] [address] [place] [id number] Josr Antoine MD [address] [facility] [address] [place] [address] [facility] Start: 10-16-2023 COVID-19 Vaccine (5 - Moderna series) COVID-19 Vaccine (5 - Moderna series) [facility] Start: 09-23-2023 FUV, Provider: Keyon Vázquez, Status: Pen, Time: 2:00 PM FUV, Provider: Keyon Vázquez, Status: Pen, Time: 2:00 PM [facility] DO Work Phone: Start: 12-29-2022 FUV, Provider: Keyon Vázquez, Status: Pen, Time: 1:40 PM FUV, Provider: Keyon Vázquez, Status: Pen, Time: 1:40 PM [facility] 250 DO Work Phone: Start: 04-14-2022 FUV, Provider: Keyon Vázquez, Status: Pen, Time: 3:40 PM FUV, Provider: Keyon Vázquez, Status: Pen, Time: 3:40 PM [facility] DO Work Phone: Start: 08-11-2015 Zoster Vaccines (2 of 3) Zoster Vaccines (2 of 3) [facility] Start: 1973 DTaP/Tdap/Td Vaccines (1 - Tdap) DTaP/Tdap/Td Vaccines (1 - Tdap) [facility] Start: 1970 Urine screening for protein Diabetes: Urine Protein Screening [facility] Start: 1969 Hepatitis C screening Hepatitis C Screening [facility] Start: 1961 Diabetic foot examination Diabetes: Foot Exam [facility] Start: 1961 Glaucoma screening Diabetes: Retinopathy Screening [facility] Start: 1950 Hemoglobin A1c measurement Diabetes: Hemoglobin A1C [facility] Start: 1951 Lipid panel Lipid Panel [facility] Start: 1950 Medicare Annual Wellness Visit Medicare Annual Wellness Visit (AWV) [facility] Start: 1950 Screening for malignant neoplasm of colon [facility] Immunizations Immunization Date Immunization Notes Care Provider [facility] 08-21-2023 Influenza, High-dose Seasonal, Quadrivalent, Preservative Free Josr Antoine MD Work Phone: [facility] 08-19-2022 Fluzone High-Dose Quadrivalent 0.7 ML Intramuscular Suspension Prefilled Syringe Shaikh Mary Work Phone: [facility] 250 DO Work Phone: 08-19-2022 Prevnar 20 0.5 ML Intramuscular Suspension Prefilled Syringe Lala Mary Work Phone: [facility] 250 DO Work Phone: 08-13-2022 Moderna COVID-19 Biv al Booster 50 MCG/0.5ML Intramuscular Suspension Lalacharlie Hernandez Work Phone: [facility] 250 DO Work Phone: 02-20-2022 Moderna COVID-19 Vac cine 100 MCG/0.5ML Intramuscular Suspension Shaikh Annitaluís Work Phone: [facility] 250 DO Work Phone: 08-17-2021 Moderna COVID-19 Vac cine 100 MCG/0.5ML Intramuscular Suspension Shaikh Annitaramseywadebbie Work Phone: [facility] Comment on above: Series: 07-06-2021 Fluzone High-Dose Quadrivalent 0.7 ML Intramuscular Suspension Prefilled Syringe Shaikh Mary Work Phone: [facility] 250 DO Work Phone: 01-31-2021 Moderna COVID-19 Vac cine 100 MCG/0.5ML Intramuscular Suspension Shaikh Jefferyd Work Phone: [facility] Comment on above: Series: 12-31-2020 Moderna COVID-19 Vac cine 100 MCG/0.5ML Intramuscular Suspension Shaikh Mary Work Phone: [facility] Comment on above: Series: 08-12-2016 influenza, seasonal, injectable, preservative free Shaikh Mary Work Phone: [facility] 250 DO Work Phone: 06-16-2015 zoster vaccine, live Shaikh Mary Work Phone: [facility] 250 DO Work Phone: 09-05-2013 pneumococcal polysaccharide vaccine, 23 valent Shaikh Mary Work Phone: [facility] 250 DO Work Phone: Payers Date Payer Category Payer Self-pay [id number] 2021 Medicare [id number] 2014 Medicare [id number] 1958 Medicare [id number] 2. [id number] 1950 Unknown [id number] 2.16. [id number] 1951 Unknown [id number] 2.16. 840.1.413413.3.579.2.356 1950 Unknown [id number] 2.16.84 0.1.557921.3.579.2.593 1950 Unknown [id number] 2.16.84 0.1.753955.3.579.2.593 1951 Unknown [id number] 2.16.84 0.1.210583.3.579.2.593 1951 Unknown [id number] 2.16.84 0.1.289244.3.579.2.593 1951 Unknown [id number] 2.16.84 0.1.948834.3.579.2.593 1951 Unknown [id number] 2.16.8 40.1.582387.3.579.2.1244 1951 Unknown [id number] 2.16.84 0.1.785788.3.579.2.1259 1951 Unknown [id number] 2.16.84 0.1.685279.3.579.2.1259 1951 Unknown [id number] 2.16.84 0.1.071683.3.579.2.1259 1951 Unknown [id number] 2.16.84 0.1.836370.3.579.2.1259 1951 Unknown [id number] 2.16.84 0.1.395007.3.579.2.1259 1950 Unknown [id number] 2.16.840 .1.302065.3.579.2.1259 Unknown ANTHEM MEDICARE ADV Unknown [id number] 2.16.8 [id number] Social History Date Type Detail Facility Start: 09-28-2023 End: 10-10-2023 No alcohol use No alcohol use [facility] Start: 09-28-2023 End: 10-10-2023 Sex Assigned At [facility] Start: 09-25-2021 End: 04-14-2023 Tobacco smoking status NHIS Never smoked tobacco (finding) [facility] Start: 1950 Sex Assigned At Male F [facility] Start: 04-14-2023 End: 09-27-2023 Tobacco use and exposure Smokeless tobacco non-user [facility] Work Phone: Start: 09-28-2023 End: 11-28-2023 Alcohol intake Lifetime non-drinker (finding) [facility] Work Phone: Start: 1950 [facility] Start: 09-18-2023 End: 09-28-2023 Exposure to SARS-CoV-2 (event) Not sure [facility] Within the last year , have you been afraid of your partner or ex-partner? No [facility] Are you now , , , , never or living with a partner? [facility] Frequency of Alcohol Consumption Not on file [facility] How often do you hav e 6 or more drinks on 1 occasion? Never [facility] Do you feel stress - tense, restless, nervous, or anxious, or unable to sleep at night because your mind is troubled all the time - these days [OSQ] Not at all [facility] (I/We) worried wheth er (my/our) food would run out before (I/we) got money to buy more. Never true [facility] NEGATED: Highlighted rowStart: NINF History of tobacco use Passive smoker [facility] Clinical Notes 12-05-2014 to 11-30-2023 Shaikh Mary MD - 11/30/2023 4:14 PM ESTAssessment & Plan Note - AVELINO Acosta - 09/28/2023 4:34 PM ESTAssessment & Plan Note - AVELINO Acosta - 09/28/2023 4:34 PM EST Note Date & Type Note Facility 11-30-2023 History of Presen t illness Narrative Patient unable to get Trulicity refilled due to drug shortage. Pharmacy has 0.75 mg dose available - will call in new prescription for a month so that he can use trulicity and then he can go back to his usual dose of 1/5 mg/week documented in this encounter [facility] 09-28-2023 Evaluation + Plan note Associated Problem(s): BMI 28.0-28.9,adult Reviewed the merits of healthy lifestyle choices on overall cardiovascular health. 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 Denies bleeding diatheses [facility] Work Phone: 09-28-2023 Miscellaneous Notes Associated Problem(s): BMI 28.0-28.9,adult Reviewed the merits of healthy lifestyle choices on overall cardiovascular health. Associated Problem(s): Diabetes mellitus with no complication (CMS/HCC) Maintained on ARB/statin Reports most recent hemoglobin A1c good Associated Problem(s): detention current use of 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 therapy CHADS VASc [...] Reports in 2019 at PCP office in [place] had initial onset of atrial fibrillation with spontaneous conversion to normal sinus rhythm. Follow-up testing included unremarkable stress test and echocardiogram. He has been maintained on anticoagulation and beta-stephanie since that time. documented in this encounter [facility] Work Phone: 09-28-2023 Evaluation + Plan note Associated Problem(s): Paroxysmal atrial fibrillation (CMS/HCC) Denies any recurrent palpitations No prior antiarrhythmic Ausculatory rate regular on exam [facility] Work Phone: 09-28-2023 Evaluation + Plan note Associated Problem(s): Hyperlipidemia Low intensity statin Reports annual wellness labs through PCP [facility] Work Phone: 09-28-2023 Evaluation + Plan note Associated Problem(s): Essential hypertension, benign Optimal in office [facility] Work Phone: 09-28-2023 Evaluation + Plan note Associated Problem(s): Cardiac and Vasculature November 2021 presented as a self-referral for new patient consult with Dr. Tinoco. Reports in 2019 at PCP office in [place] had initial onset of atrial fibrillation with spontaneous conversion to normal sinus rhythm. Follow-up testing included unremarkable stress test and echocardiogram. He has been maintained on anticoagulation and beta-stephanie since that time. 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 Vázquez 9 months Ana Ramos MSN, MACHINE GUNNER-COMMERCIAL CORRESPONDENT, PMHNP-[facility] Please excuse any errors in grammar or translation related to this dictation. Voice recognition software was utilized to prepare this document. documented in this encounter [facility] Work Phone: 09-28-2023 Instructions AVELINO Acosta - [...] Vázquez 9 months documented in this encounter [facility] Work Phone: 02-16-2023 Evaluation note Encounter Date Diagnosis Assessment Notes Jan, Dyspepsia (ICD-10 - K30) Jan, GERD (gastroesoph ageal reflux disease) (ICD-10 - K21.9) Patient currently doing well on current esomeprazole regimen patient denies dyspeptic complaints and is doing well overall from a GI standpoint. Recommendation to continue esomeprazole and return to office in 1 year [facility] 01-19-2023 Evaluation note* Encounter Date Diagnosis Assessment Notes Treatment Notes Treatment Clinical Notes Oct, GERD (gastroesophageal reflux disease) (ICD-10 - K21.9) Continue Omeprazole without change Pt to call if symptoms worsen or return Follow up in 1 year [facility] 07-28-2022 NoteCONSULTATION CONSULTATION DATE: 05/20/2022 HISTORY [...] indicated. Patient is in agreement to this.[id number] Evaluation note* Encounter Date Diagnosis Assessment Notes Treatment Notes Treatment Clinical Notes Apr, GERD (gastroesophageal reflux disease) (ICD-10 - K21.9) Stop Omeprazole Start Esomeprazole 40mg bid [facility] 01-31-2022 Evaluation note* Encounter Date Diagnosis [...] this time. Oct, Dyspepsia (ICD-10 - K30) [facility] 02-14-2015 History of Present illness Narrative* [...] We did advocate diet and weight loss. [facility] 250 DO Work Phone: [phone]) 933-541302-12-2015 History of Present illness Narrative* She has [...] We did advocate diet and weight loss. -[facility] 250 DO Work Phone: Evaluation noteNo InformationNort [employer] Other Evaluation noteNo assessment information available [facility] Work Phone: Evaluation note* Diagnosis detention current use of 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 therapy- Primary Paroxysmal atrial fibrillation (CMS/HCC) Atrial fibrillation Essential hypertension, benign Mixed hyperlipidemia Diabetes mellitus with no complication (CMS/HCC) Type II or unspecified type diabetes mellitus without mention of complication, not stated as uncontrolled BMI 28.0-28.9,adult documented in this encounter [facility] Work Phone: Evaluation note* Diagnosis Type 2 diabetes mellitus with diabetic polyneuropathy, without long-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 of insulin (CMS/HCC)- Primary documented in this encounter [facility] HealthcareEvaluation note* Diagnosis Type 2 diabetes mellitus with diabetic polyneuropathy, without long-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 of insulin ([facility]/HCC) documented in this encounter [facility] HealthcareHistory general Narrative - Reported* Type Description Date Surgical History gallbladder [facility] History general Narrative - Reported* Type Description Date Medical History parkinsons disease Medical History TYPE 2 DIABETES Surgical History gallbladder Surgical History CARPAL TUNEL Surgical History NECK & BACK SURGERY Surgical History TONSILLECTOMY Hospitalization History NONE IN THE LAST YEAR [facility] History of Present illness NarrativePatient returns [...] some weight loss as well as modest exercise.-[facility] DO Work Phone: History of Present illness [...] diabetes was emphasized and he understands our recommendation.-[facility] DO Work Phone: Reason for referral (narrative)* Consultation (Routine) - Authorized Specialty Diagnoses / Procedures Referred By Augustina giordano Referred To Contact Cardiology Diagnoses Paroxysmal atrial fibrillation (CMS/HCC) Procedures Follow Up In Cardiology Ana Ramos APRN-CNP [address] [address] Keyon Vázquez MD 703 [facility] 2, [address] [address] Referral ID Status Reason Start Date Expiration Date V isits Requested Visits Authorized [id number] Authorized 09/28/2023 09/27/2024 1 1 [facility] Work Phone: Summary Purpose Family History [...] section and content) DATE CREATED AUTHOR 04/19/2018 [facility] DATE CREATED AUTHOR AUTHOR'S ORGANIZ ATION 10/08/[address] [facility] DATE CREATED AUTHOR AUTHOR'S ORGANIZ ATION 12/31/2022 [facility] DATE CREATED AUTHOR AUTHOR'S ORGANIZ ATION 12/31/2022 [facility] DATE CREATED AUTHOR AUTHOR'S ORGANIZ ATION 02/20/2023 [facility] DATE CREATED AUTHOR AUTHOR'S ORGANIZ ATION 07/29/2023 [facility] DATE CREATED AUTHOR AUTHOR'S ORGANIZ ATION 01/20/2024 [facility] DATE CREATED AUTHOR AUTHOR'S ORGANIZ ATION 01/26/2024 [facility] EPIC REASON FOR VISIT (unrecogniz ed section and content) Reason Comments Follow-up 9 month Care Teams (unrecognized sec tion and content) Team Status: Active Member Role Status Dates Shaikh Mary MD Primary Care Provider Active Team Status: Inactive Member Role Status Dates Tonya Schultz APRN-ALEX Attending Provider Active Shaikh Mary MD Primary Care Provider Active Phonograph Needle Tip Maker Relationship Specialty Start Date End Date Shaikh Hernandez MD [address] [place] [address] PCP - General 10/24/19 Phonograph Needle Tip Maker Relationship Specialty Start Date End Date Shaikh Hernandez MD PCP - General Internal Medicine 04/14/23 Phonograph Needle Tip Maker Relationship Specialty Start Date End Date Shaikh Hernandez MD [address] [facility] [place] [address] PCP - General Internal Medicine 11/28/23 Goals (unrecognized section and content) Goals may [...] BE BASED ON THE PRIMARY CLINICAL RECORDS. [facility]. provides no warranty or guarantee of the accuracy or completeness of information in this document.
--- NOTE | 2024-02-09 19:30 | CT_ITS ---
The [address] [address] Patient Name: JUSTIN AGUERO MRN: [id number] date: 1950 Sex: M Assigned Patient Location: ER Current Patient Location: Accession/Order Number: [id number] Exam Date: 02/09/2024 20:08 Report Date: 02/09/2024 21:04 At the request of: SHAYY KNAPP Procedure: CT chest wo con EXAM: CT chest wo con HISTORY: fall COMPARISON: None. TECHNIQUE: Unenhanced CT imaging of the chest. This CT exam was performed using one or more of the following dose reduction techniques: Automated exposure control, adjustment of the mA and/or KV according to patient size, or use of iterative reconstruction technique. Unless otherwise stated, incidental findings do not require dedicated follow-up imaging. FINDINGS: The central airway is midline and patent. The lungs are well expanded. There is mild bilateral dependent and bibasilar atelectasis. There is no pleural effusion or pneumothorax. The heart size is normal. There is a trace pericardial effusion. There is atherosclerosis of the thoracic aorta and of the coronary arteries. There is a moderate-sized hiatal hernia. Limited imaging through the upper abdomen reveals no acute abnormality. There is degenerative disc disease of the thoracic spine. CT/CT chest wo con IMPRESSION: No acute abnormality. Electronically authenticated by: TEJINDER YATES Date: 02/09/2024 21:04
--- NOTE | 2024-02-09 19:30 | XR_ITS ---
The [address] [address] Patient Name: JUSTIN AGUERO MRN: [id number] date: 1950 Sex: M Assigned Patient Location: ER Current Patient Location: ER Accession/Order Number: [id number] Exam Date: 02/09/2024 20:20 Report Date: 02/09/2024 21:09 At the request of: SHAYY KNAPP Procedure: XR wrist LT min 3V XR wrist LT min 3V, 02/09/2024 7:20 PM CDT: History: fall. . Comparison: None. Technique: 3 views left wrist Findings/Impression: There is no fracture or malalignment. The soft tissues are normal. There is mild degenerative change. Electronically authenticated by: TEJINDER YATES Date: 02/09/2024 21:09
--- NOTE | 2024-02-09 19:30 | XR_ITS ---
The [place] [id number] Patient Name: JUSTIN AGUERO MRN: [id number] date: 1950 Sex: M Assigned Patient Location: ER Current Patient Location: Accession/Order Number: [id number] Exam Date: 02/09/2024 20:20 Report Date: 02/09/2024 21:12 At the request of: SHAYY KNAPP Procedure: XR hand LT min 3V EXAM: XR hand LT min 3V TECHNIQUE: AP, lateral and oblique views left hand HISTORY: fall COMPARISON: None. FINDINGS: No acute fracture or dislocation. Mild degenerative changes of the interphalangeal joints. Soft tissues are unremarkable. XR/XR hand LT min 3V IMPRESSION: No acute fracture or dislocation. Electronically authenticated by: KIMBERLY MONROE Date: 02/09/2024 21:12
--- NOTE | 2024-02-09 19:30 | CT_ITS ---
The [address] [address] Patient Name: JUSTIN AGUERO MRN: [id number] date: 1950 Sex: M Assigned Patient Location: ER Current Patient Location: ER Accession/Order Number: [id number] Exam Date: 02/09/2024 20:03 Report Date: 02/09/2024 20:35 At the request of: SHAYY KNAPP Procedure: CT head/brain wo con EXAM: CT head/brain wo con CLINICAL INDICATION: fall TECHNIQUE: Unenhanced computerized tomography of the head was performed. Automated dose reduction technique was employed. COMPARISON: None. FINDINGS: The ventricles are normal in size, configuration, and position for age. There is no intra- or extra-axial mass, hemorrhage, or fluid collection. No areas of abnormal mass effect or attenuation are noted. There is mild subcortical, deep, and periventricular white matter low-attenuation, compatible with changes of chronic small vessel ischemic disease. Visualized paranasal sinuses are free of mucosal disease. No depressed calvarial fracture. CT/CT head/brain wo con IMPRESSION: No acute intracranial abnormality noted. Electronically authenticated by: GABBIE DOAN Date: 02/09/2024 20:35
--- NOTE | 2024-02-09 19:30 | CT_ITS ---
The [address] [address] Patient Name: JUSTIN AGUERO MRN: [id number] date: 1950 Sex: M Assigned Patient Location: ER Current Patient Location: ER Accession/Order Number: [id number] Exam Date: 02/09/2024 20:08 Report Date: 02/09/2024 20:30 At the request of: SHAYY KNAPP Procedure: CT cervical spine wo con EXAM: CT cervical spine wo con CLINICAL INDICATION: fall COMPARISON: None. TECHNIQUE: CT scanning of the cervical spine was performed in the axial plane. Coronal and sagittal reconstructed images were performed and viewed. FINDINGS: No acute fracture. The spine is in anatomic alignment. Moderate multilevel degenerative disc and facet disease. The prevertebral soft tissues are unremarkable. Additional soft tissues of the neck and upper thorax are unremarkable. CT/CT cervical spine wo con IMPRESSION: No acute fracture. Electronically authenticated by: GABBIE DOAN Date: 02/09/2024 20:30
--- NOTE | 2024-02-09 19:31 | ED.GENADUL1 ---
HPI HPI - General Adult General Chief complaint: Fall Stated complaint: FALL, ARM/RIBS, FACE INJURY Time Seen by Provider: 02/09/24 19:25 Source: patient Mode of arrival: walk-in Limitations: no limitations History of Present Illness HPI narrative: Patient is a 73-year-old male who is anticoagulated with Eliquis Who presents to the ER for injuries after a fall approximately 4 hours ago. Patient states that he missed the curb at the grocery store and fell forward hitting his left forehead, left chest wall and braced himself with his left hand and wrist. He sustained abrasions to the left orbit, left hand and wrist. He states he had increasing pain to the hand and wrist which prompted him to come to the ER. Unknown last tetanus. He is right-hand dominant. He is able to ambulate and denies any pain to the neck, back, hips or lower extremities. Related Data Home Medications ?Medication ?Instructions ?Recorded ?Confirmed apixaban 5 mg tablet (Eliquis) 5 mg PO Q12H 02/09/24 02/09/24 atorvastatin 20 mg tablet 20 mg PO DAILY 02/09/24 02/09/24 carbidopa 25 mg-levodopa 100 mg 1 tab PO TID 02/09/24 02/09/24 tablet carvedilol 12.5 mg tablet 12.5 mg PO BID 02/09/24 02/09/24 dulaglutide 0.75 mg/0.5 mL 0.75 mg subcut DAILY 02/09/24 02/09/24 [facility] esomeprazole magnesium 40 mg 40 mg PO Q24H 02/09/24 02/09/24 capsule,delayed release famotidine 40 mg tablet 40 mg PO DAILY 02/09/24 02/09/24 finasteride 5 mg tablet 5 mg PO DAILY 02/09/24 02/09/24 gabapentin 400 mg capsule 400 mg PO TID 02/09/24 02/09/24 meclizine 25 mg tablet 25 mg PO BID PRN dizziness 02/09/24 02/09/24 metformin 500 mg tablet 500 mg PO BID 02/09/24 02/09/24 primidone 50 mg tablet 50 mg PO BEDTIME 02/09/24 02/09/24 sitagliptin phosphate 100 mg 100 mg PO DAILY 02/09/24 02/09/24 tablet (Januvia) tamsulosin 0.4 mg capsule 0.4 mg PO Q24H 02/09/24 02/09/24 trazodone 50 mg tablet 50 mg PO BEDTIME PRN sleep 02/09/24 02/09/24 Previous Rx's ?Medication ?Instructions ?Recorded hydrocodone 5 mg-acetaminophen 325 1 tab PO Q6H PRN pain 3 days #12 02/09/24 mg tablet tabs Allergies Allergy/AdvReac Type Severity Reaction Status Date / Time Iodinated Contrast Media Allergy Severe Verified 02/09/24 19:26 latex Allergy Unknown Verified 02/09/24 19:25 shellfish derived Allergy Unknown Verified 02/09/24 19:25 Opioid HPI Opioid Management Most Recent Opioid Data: Last Pain Scale 8 02/09/24 19:36 Last MAR Pain Assessment 02/09/24 19:36 Review of Systems ROS Constitutional Denies: fever or chills Ears, nose, mouth, and throat Denies: throat pain or nasal congestion Respiratory Denies: shortness of breath or cough Gastrointestinal Denies: abdominal pain, nausea or vomiting Musculoskeletal Reports: extremity pain, extremity swelling, joint pain and limited range of motion; Denies: back pain or neck pain Integumentary/Breast Denies: rash Neurological Denies: headache, numbness in extremities or weakness in extremities Endocrine Denies: excessive urination Hematologic/Lymphatic Reports: easy bruising and easy bleeding Exam Narrative Exam Narrative: Gen.: Awake, alert, in no distress Head: Normocephalic, atraumatic ENT: Moist mucous membranes, No periorbital edema or ecchymosis. No dental injury. Patient with a 0.5 cm abrasion to the left orbit with no deep laceration or active bleeding. Normal extraocular muscle motion. C-spine nontender. Respiratory: No respiratory distress, lungs clear bilaterally, Mild tenderness of the left chest wall into the left axilla with no ecchymosis, crepitance or flail chest Cardio: Regular rate and rhythm Back: No bony tenderness of the T-spine, L-spine or flanks. Gastrointestinal: Abdomen is soft, nondistended and nontender to palpation Extremities: Moderate tenderness and swelling of the left wrist diffusely and left hand. Multiple abrasions noted with no obvious deformity. Normal sign manufacturer strength in the left hand. Psych: Normal mood and affect Neuro: No focal neuro deficit Skin: Warm, dry, intact Constitutional Vital Signs, click to edit/add: Last Vital Signs Temp 98.3 F 02/09/24 19:21 Pulse 80 02/09/24 19:21 Resp 18 02/09/24 19:21 BP 141/63 02/09/24 19:21 Pulse Ox 98 02/09/24 19:21 O2 Del Method Room Air 02/09/24 19:21 Course Vital Signs Vital signs: Vital Signs Temperature 98.3 F 02/09/24 19:21 Pulse Rate 80 02/09/24 19:21 Respiratory Rate 18 02/09/24 19:21 Blood Pressure 141/63 02/09/24 19:21 Pulse Oximetry 98 02/09/24 19:21 Oxygen Delivery Method Room Air 02/09/24 19:21 Temperature 98.3 F 02/09/24 19:21 Pulse Rate 80 02/09/24 19:21 Respiratory Rate 18 02/09/24 19:21 Blood Pressure 141/63 02/09/24 19:21 Pulse Oximetry 98 02/09/24 19:21 Oxygen Delivery Method Room Air 02/09/24 19:21 Medical Decision Making MDM Narrative Medical decision making narrative: Patient drove himself to the emergency department and could only be given Tylenol for pain control in the ER. He was sent to imaging for CT of the head, C-spine and chest which show no evidence of acute process. X-rays of the left hand and wrist are also negative. Patient was treated with a tetanus update, Tylenol and bacitracin applied to multiple abrasions. No areas requiring suture repair. Patient placed in a metal forearm splint with Dominguez wrap and remains neurovascularly intact. He was given pain medication to take home once he drives himself back to his residence. He was given a prescription for a short course of [place] as needed. Rest, ice, elevate. Follow-up with PCP and return to the ER if symptoms change or worsen Medical Records Medical records reviewed: Yes I reviewed the patient's medical records Imaging Data CT scan - head: Attestation: I have reviewed the pertinent imaging results. Radiologist's impression: ITS Impressions Cervical Spine CT 02/09/24 19:30 IMPRESSION: No acute fracture. Electronically authenticated by: GABBIE DOAN Date: 02/09/2024 20:[address] 02/09/24 19:30 IMPRESSION: No acute abnormality. Electronically authenticated by: TEJINDER YATES Date: 02/09/2024 21:04 Hand X-Ray 02/09/24 19:30 IMPRESSION: No acute fracture or dislocation. Electronically authenticated by: KIMBERLY MONROE Date: 02/09/2024 21:[address] 02/09/24 19:30 IMPRESSION: No acute intracranial abnormality noted. Electronically authenticated by: GABBIE DOAN Date: 02/09/2024 20:35 Discharge Plan Discharge Stand Alone Forms: Portal Instructions Chief Complaint: Fall Clinical Impression: Closed head injury, Abrasions of multiple sites, Fall, Contusion of left wrist Patient Disposition: Home, Self-Care Time of Disposition Decision: 21:21 Condition: Good Prescriptions / Home Meds: New hydrocodone-acetaminophen 5-325 mg tablet 1 tab PO Q6H PRN (Reason: pain) 3 Days Qty: 12 0RF Rx Instructions: DX: M25.532 No Action metformin 500 mg tablet 500 mg PO BID primidone 50 mg tablet 50 mg PO BEDTIME atorvastatin 20 mg tablet 20 mg PO DAILY carvedilol 12.5 mg tablet 12.5 mg PO BID trazodone 50 mg tablet 50 mg PO BEDTIME PRN (Reason: sleep) famotidine 40 mg tablet 40 mg PO DAILY gabapentin 400 mg capsule 400 mg PO TID tamsulosin 0.4 mg capsule 0.4 mg PO Q24H meclizine 25 mg tablet 25 mg PO BID PRN (Reason: dizziness) esomeprazole magnesium 40 mg capsule,delayed release(DR/EC) 40 mg PO Q24H carbidopa-levodopa 25-100 mg tablet 1 tab PO TID finasteride 5 mg tablet 5 mg PO DAILY Januvia 100 mg tablet 100 mg PO DAILY Eliquis 5 mg tablet 5 mg PO Q12H Trulicity 0.75 mg/0.5 mL pen injector 0.75 mg SUBCUT DAILY Print Language: Yi Instructions: Head Injury (ED), Contusion in Adults (ED) Referrals: Shaikh Hernandez MD [Primary Care Provider] - 1 week
[2024-02-09] MEDS: ACETAMINOPHEN 500 MG TABLET 1000 MG PO (19:36)
[2024-02-09] MEDS: BACITRACIN 0.9 GM PACKET 1 PACKET TOPICAL (19:37)
[2024-02-09] MEDS: ADACEL DIPH,PERTUSS(ACELL),TET VAC/PF 0.5 ML ADULT SYRINGE IM (19:38)
[2024-02-09] MEDS: HYDROCODONE/ACET 5-325 MG TABLET 2 TAB PO (21:42)
[2024-02-09 21:44] VITALS: BP 168/90; PULSE 87; O2SAT 98
== END 2024-02-09 21:45 | disposition home or self-care (01) ==
PROVIDERS: Emergency Provider Emergency Medicine; PCP Internal Medicine
DX: S60.212A Contusion of left wrist, initial encounter (principal); T14.8XXA Other injury of unspecified body region, initial encounter; S09.8XXA Other specified injuries of head, initial encounter; W10.1XXA Fall (on)(from) sidewalk curb, initial encounter; Z23 Encounter for immunization; Z79.01 Long term (current) use of 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s; Z79.899 Other long term (current) drug therapy; Z79.85 Long-term (current) use of injectable non-insulin antidiabetic drugs; Z79.84 Long term (current) use of oral hypoglycemic drugs
CPT/HCPCS: 70450; 71250; 72125; 73110; 73130; 90471; 90715; 99285

== ENCOUNTER 2024-02-24 09:25 | Outpatient (OUT) | payer MEDICARE, SELFPAY ==
--- NOTE | 2024-02-24 09:47 | XR_ITS ---
The [address] [address] Patient Name: JUSTIN AGUERO MRN: [id number] date: 1950 Sex: M Assigned Patient Location: [facility] Current Patient Location: [facility] Accession/Order Number: [id number] Exam Date: 02/24/2024 09:40 Report Date: 02/24/2024 09:56 At the request of: SHAIKH TRICE Procedure: XR hand LT min 3V PROCEDURE: XR hand LT min 3V COMPARISON: None. HISTORY: Left Hand Pain M79.642 FINDINGS: BONES:No acute fracture or dislocation. Stable degenerative changes with joint space narrowing marginal osteophyte formation most significant along the medial carpus and first metacarpal phalangeal joint SOFT TISSUES:Negative. No visible soft tissue swelling. EFFUSION:None visible. OTHER: Negative. XR/XR hand LT min 3V IMPRESSION: Stable degenerative changes, no acute fracture Electronically authenticated by: MAIDA LLAMAS Date: 02/24/2024 09:56
== END 2024-02-24 09:26 | disposition home or self-care (01) ==
LOC: LAB 09:27 → RAD 09:38
PROVIDERS: PCP Internal Medicine; Visit Provider Internal Medicine
DX: M79.642 Pain in left hand (principal)
CPT/HCPCS: 73130

== ENCOUNTER 2024-05-24 10:35 | Outpatient (OUT) | payer MEDICARE, SELFPAY ==
--- NOTE | 2024-05-24 10:50 | XR_ITS ---
The [address] [address] Patient Name: JUSTIN AGUERO MRN: [id number] date: 1950 Sex: M Assigned Patient Location: [facility] Current Patient Location: Accession/Order Number: [id number] Exam Date: 05/24/2024 10:58 Report Date: 05/25/2024 04:48 At the request of: SHAIKH TRICE Procedure: XR foot RT min 3V PROCEDURE: XR foot RT min 3V HISTORY: Right Foot Pain M79.671 ; pain for one month; no known injury COMPARISON: None. FINDINGS: BONES:Metallic marker projects along the plantar lateral margin of 5th metatarsal head. No fracture, dislocation, bone lesion. Multifocal mild degenerative joint disease, greatest involving the first metatarsophalangeal joint. SOFT TISSUES:No visible soft tissue swelling. EFFUSION:None visible. OTHER: Negative. XR/XR foot RT min 3V IMPRESSION: 1. No acute bone abnormality with specific attention to the 5th metatarsal head. 2. Multifocal mild degenerative joint disease. Electronically authenticated by: JORI YOUSIF Date: 05/25/2024 04:48
[2024-05-24 10:51] LABS: Basophils Absolute Auto 0.1 10^3/uL (0.0-0.1); Basophils Percent Auto 0.9 % (0.2-2.0); Eosinophils Absolute Auto 0.3 10^3/uL (0.0-0.7); Eosinophils Percent Auto 4.7 % (0.9-7.0); Hematocrit 40.1 % (42.0-54.0); Hemoglobin 13.9 g/dL (14.0-18.0); Immature Granulocytes Abs Auto 0.03 10^3/uL (0.00-0.03); Immature Granulocytes Pct Auto 0.4 % (0.0-0.5); Lymphocytes Absolute Auto 1.9 10^3/uL (1.2-3.8); Lymphocytes Percent Auto 26.9 % (20.5-60.0); Mean Corpuscular HGB Conc 34.7 g/dL (29.9-35.2); Mean Corpuscular Hemoglobin 32.4 pg (25.9-34.0); Mean Corpuscular Volume 93.5 fL (80.0-94.0); Mean Platelet Volume 9.9 fL (9.5-13.5); Monocytes Absolute Auto 0.5 10^3/uL (0.3-0.8); Monocytes Percent Auto 7.5 % (1.7-12.0); Neutrophils Absolute Auto 4.2 10^3/uL (1.4-6.5); Neutrophils Percent Auto 59.6 % (43.0-75.0); Platelet Count 164 10^3/uL (150-450); Red Blood Count 4.29 10^6/uL (4.70-6.10); Red Cell Distribution Width 12.7 % (11.0-15.0)
[2024-05-24 11:04] LABS: Creatinine Urine Random 259.28 mg/dL (20.00-300.00); Microalbumin Urine Random <1.3 mg/dL (<=30.0)
[2024-05-24 11:14] LABS: Estimated Average Glucose 157 mg/dL; Glycohemoglobin A1C 7.1 % (4.5-6.2)
[2024-05-24 11:23] LABS: Alanine Aminotransferase 19 U/L (16-63); Albumin Level 3.5 g/dL (3.4-5.0); Alkaline Phosphatase 71 U/L (46-116); Anion Gap 13.1; Aspartate Amino Transferase 16 U/L (15-37); BUN Creatinine Ratio 15.7; Bilirubin Total 1.2 mg/dL (0.2-1.0); Calcium 8.9 mg/dL (8.5-10.1); Carbon Dioxide 25.1 mmol/L (21.0-32.0); Chloride 103 mmol/L (98-107); Chol HDL Ratio 2.7; Cholesterol 156 mg/dL (<=200); Estimated GFR (African America >60 (>=60); Estimated GFR (Non-African Ame >60 (>=60); Globulin 3.4 g/dL; Glucose 171 mg/dL (74-106); HDL Cholesterol 57 mg/dL (40-60); Potassium 4.2 mmol/L (3.5-5.1); Sodium 137 mmol/L (136-145); Total Protein 6.9 g/dL (6.4-8.2); Triglycerides 224 mg/dL (<=150); VLDL CHOLESTEROL 44.8 mg/dL
== END 2024-05-24 10:36 | disposition home or self-care (01) ==
LOC: RAD 10:36
PROVIDERS: PCP Internal Medicine; Visit Provider Internal Medicine
DX: M79.671 Pain in right foot (principal); E11.42 Type 2 diabetes mellitus with diabetic polyneuropathy; I10 Essential (primary) hypertension; E78.5 Hyperlipidemia, unspecified
CPT/HCPCS: 36415; 73630; 80053; 80061; 82043; 82570; 83036; 85025

== ENCOUNTER 2024-08-08 19:03 | Emergency (ER) | payer MEDICARE, SELFPAY ==
[2024-08-08] VITALS (18 sets, daily range): BP systolic 136–154; BP diastolic 54–78; PULSE 86–92; TEMP 36.8; O2SAT 93–97; BMI 26.5
--- NOTE | 2024-08-08 19:28 | PC.NURSE ---
abscess right buttock onset maybe 2 or 3 weeks, pain 5/10 sharp and throbbing. this patient voices no other complaints and this patient shows no signs of distress
--- NOTE | 2024-08-08 19:30 | ED.SKABFB1 ---
HPI - Skin/Abscess/Foreign Bdy General Chief complaint: Skin/Abscess/Foreign Body Stated complaint: Rectal Bleeding Time Seen by Provider: 08/08/24 19:24 Source: patient Mode of arrival: walk-in Limitations: no limitations History of Present Illness HPI narrative: patient presents complaining of pain right buttocks for the past month. [place] it was hemorrhoids. Increasing pain past 2-3 days. Tonight he wiped and there was blood. He later had diarrhea. No fever or abdominal pain. no nausea. Not able to sit now because of his pain. Related Data Home Medications ?Medication ?Instructions ?Recorded ?Confirmed apixaban 5 mg tablet (Eliquis) 5 mg PO Q12H 02/09/24 02/09/24 atorvastatin 20 mg tablet 20 mg PO DAILY 02/09/24 02/09/24 carbidopa 25 mg-levodopa 100 mg 1 tab PO TID 02/09/24 02/09/24 tablet carvedilol 12.5 mg tablet 12.5 mg PO BID 02/09/24 02/09/24 dulaglutide 0.75 mg/0.5 mL 0.75 mg subcut DAILY 02/09/24 02/09/24 [facility] esomeprazole magnesium 40 mg 40 mg PO Q24H 02/09/24 02/09/24 capsule,delayed release famotidine 40 mg tablet 40 mg PO DAILY 02/09/24 02/09/24 finasteride 5 mg tablet 5 mg PO DAILY 02/09/24 02/09/24 gabapentin 400 mg capsule 400 mg PO TID 02/09/24 02/09/24 meclizine 25 mg tablet 25 mg PO BID PRN dizziness 02/09/24 02/09/24 metformin 500 mg tablet 500 mg PO BID 02/09/24 02/09/24 primidone 50 mg tablet 50 mg PO BEDTIME 02/09/24 02/09/24 sitagliptin phosphate 100 mg 100 mg PO DAILY 02/09/24 02/09/24 tablet (Januvia) tamsulosin 0.4 mg capsule 0.4 mg PO Q24H 02/09/24 02/09/24 trazodone 50 mg tablet 50 mg PO BEDTIME PRN sleep 02/09/24 02/09/24 Previous Rx's ?Medication ?Instructions ?Recorded hydrocodone 5 mg-acetaminophen 325 1 tab PO Q6H PRN pain 3 days #12 02/09/24 mg tablet tabs Allergies Allergy/AdvReac Type Severity Reaction Status Date / Time Iodinated Contrast Media Allergy Severe Anaphylaxis Verified 08/08/24 19:17 latex Allergy Unknown Rash Verified 08/08/24 19:17 shellfish derived Allergy Unknown Anaphylaxis Verified 08/08/24 19:17 Review of Systems ROS Status of ROS 10 or more systems reviewed and unremarkable except as noted in history and below PFSH PFS Social History Little interest or pleasure in doing things: not at all Feeling down, depressed, or hopeless: not at all Exam Constitutional Vital Signs, click to edit/add: Last Vital Signs Temp 98.2 F 08/08/24 19:17 Pulse 86 08/08/24 20:30 Resp 17 08/08/24 20:30 BP 147/69 H 08/08/24 21:30 Pulse Ox 96 08/08/24 22:00 O2 Del Method Room Air 08/08/24 19:17 Common normals: average body habitus, oriented x3, no limitations, healthy appearing, alert and well nourished General appearance: in distress (mild. patient avoiding lying on his right side) HENMT Common normals: normocephalic and head/scalp atraumatic Eye Common normals: PERRL and EOMs intact bilaterally Respiratory Common normals: normal respiratory effort, no retractions and no use of accessory muscles Cardio Common normals: regular rate, regular rhythm, S1 normal heart sound and S2 normal heart sound GI Other: mild LLQ tenderness. No guarding Other: right buttocks abscess Extremity Common normals: normal to inspection and full ROM Neuro Common normals: oriented x3, CN's II-XII intact bilaterally, moves all extremities and no focal motor deficits Psych Appearance: grossly normal Course Vital Signs Vital signs: Vital Signs Blood Pressure 154/78 H 08/08/24 19:14 Pulse Oximetry 95 08/08/24 19:14 Temperature 98.2 F 08/08/24 19:17 Pulse Rate 86 08/08/24 20:30 Respiratory Rate 17 08/08/24 20:30 Blood Pressure 147/69 H 08/08/24 21:30 Pulse Oximetry 96 08/08/24 22:00 Oxygen Delivery Method Room Air 08/08/24 19:17 MDM - Skin/Abscess/Foreign Bdy MDM Narrative Medical decision making narrative: patient presents with right buttocks abscess. On exam also mild LLQ tenderness. CT ordered and only finding was the abscess. abscess incised and drained . Irrigated and then packed with gauze. Patient tolerated the procedure well Lab Data Labs: Lab Results 08/08/24 Range/Units 19:50 WBC 10.8 (4.0-11.0) 10^3/uL RBC 3.91 L (4.70-6.10) 10^6/uL Hgb 12.6 L (14.0-18.0) g/dL Hct 36.0 L (42.0-54.0) % MCV 92.1 (80.0-94.0) fL MCH 32.2 (25.9-34.0) pg MCHC 35.0 (29.9-35.2) g/dL RDW 12.7 (11.0-15.0) % Plt Count 161 (150-450) 10^3/uL MPV 10.2 (9.5-13.5) fL Neut % (Auto) 73.2 (43.0-75.0) % Lymph % (Auto) 13.7 L (20.5-60.0) % Saline % (Auto) 9.2 (1.7-12.0) % Eos % (Auto) 1.7 (0.9-7.0) % Baso % (Auto) 0.5 (0.2-2.0) % Neut # (Auto) 7.9 H (1.4-6.5) 10^3/uL Lymph # (Auto) 1.5 (1.2-3.8) 10^3/uL Saline # (Auto) 1.0 H (0.3-0.8) 10^3/uL Eos # (Auto) 0.2 (0.0-0.7) 10^3/uL Baso # (Auto) 0.1 (0.0-0.1) 10^3/uL Abs Immat Gran (auto) 0.18 H (0.00-0.03) 10^3/uL Imm/Tot Granulo (auto) 1.7 H (0.0-0.5) % Sodium 136 (136-145) mmol/L Potassium 3.7 (3.5-5.1) mmol/L Chloride 102 (98-107) mmol/L Carbon Dioxide 24.7 (21.0-32.0) mmol/L Anion Gap 13.0 BUN 17.0 (7.0-18.0) mg/dL Creatinine 1.11 (0.70-1.30) mg/dL Est GFR ( Amer) >60 (>=60 mL/min/1.73m^2) Est GFR (Non-Af Amer) >60 (>=60 mL/min/1.73m^2) BUN/Creatinine Ratio 15.3 Glucose 191 H (74-106) mg/dL Lactate 1.0 (0.4-2.0) mmol/L Calcium 8.9 (8.5-10.1) mg/dL Discharge Plan Discharge Chief Complaint: Skin/Abscess/Foreign Body Clinical Impression: Abscess of buttock, right Patient Disposition: Home, Self-Care Prescriptions / Home Meds: No Action metformin 500 mg tablet 500 mg PO BID primidone 50 mg tablet 50 mg PO BEDTIME atorvastatin 20 mg tablet 20 mg PO DAILY carvedilol 12.5 mg tablet 12.5 mg PO BID trazodone 50 mg tablet 50 mg PO BEDTIME PRN (Reason: sleep) famotidine 40 mg tablet 40 mg PO DAILY gabapentin 400 mg capsule 400 mg PO TID tamsulosin 0.4 mg capsule 0.4 mg PO Q24H meclizine 25 mg tablet 25 mg PO BID PRN (Reason: dizziness) esomeprazole magnesium 40 mg capsule,delayed release(DR/EC) 40 mg PO Q24H carbidopa-levodopa 25-100 mg tablet 1 tab PO TID finasteride 5 mg tablet 5 mg PO DAILY Januvia 100 mg tablet 100 mg PO DAILY Eliquis 5 mg tablet 5 mg PO Q12H Trulicity 0.75 mg/0.5 mL pen injector 0.75 mg SUBCUT DAILY hydrocodone-acetaminophen 5-325 mg tablet 1 tab PO Q6H PRN (Reason: pain) 3 Days Qty: 12 0RF Rx Instructions: DX: M25.532 Print Language: Lithuanian Instructions: Abscess (ED) Additional Instructions: follow up with your doctor in 1-2 days or return to ER to have packing changed Referrals: Physician,Non-Staff, [Primary Care Provider] - 1 week Procedures ED Procedure Instructions Procedures Procedures: 3cm right superficial buttocks abscess. 1% lidocaine as local. # 11 blade used to make 1.5cm incision and large amount of dark brown exudate expressed. Would irrigated with normal saline and then packed with gauze tolerated well
[2024-08-08] MEDS: LIDOCAINE HCL 1% 100 MG/10 ML MDV 20 ML INJ (19:55)
--- NOTE | 2024-08-08 19:59 | CT_ITS ---
[address] [address] Patient Name: JUSTIN AGUERO MRN: [id number] date: 1950 Sex: M Assigned Patient Location: ER Current Patient Location: ER Accession/Order Number: [id number] Exam Date: 08/08/2024 20:10 Report Date: 08/08/2024 20:52 At the request of: RENAN NOWAK Procedure: CT abdomen pelvis wo con EXAM: CT abdomen pelvis wo con HISTORY: abdominal pain and right buttocks abscess COMPARISON: None. TECHNIQUE: Unenhanced helical acquisition obtained through the abdomen and the pelvis. FINDINGS: Moderate-large sized sliding-type hiatal hernia. The visualized lung bases and the pleural spaces are clear. Prior cholecystectomy. No significant biliary ductal dilatation. A 1.1 cm low-attenuation focus within hepatic segment 6 which is not optimally assessed on this unenhanced study, likely underlying cyst or hemangioma. A 1.1 cm low-attenuation focus within the posterior-inferior aspect of the spleen, likely cyst versus hemangioma. Allowing for the lack of intravenous contrast, the pancreas and the adrenal glands are unremarkable. Parapelvic renal sinus cysts bilaterally. A 2.1 cm cyst within the posterior right renal cortex. 3 mm nonobstructing right renal calculus. No ureteral calculi. Moderate-severe diffuse atherosclerotic vascular calcifications. No enlarged lymph nodes within the abdomen or the pelvis. Posterior to the anus there is a 3 x 3.2 x 2 cm soft tissue abscess with surrounding inflammation within the adjacent subcutaneous fat. Normal appendix. Diverticulosis without radiographic evidence of diverticulitis. CT/CT abdomen pelvis wo con IMPRESSION: 1. A 3 x 3.2 x 2 cm soft tissue abscess posterior to the anus with surrounding subcutaneous inflammation. 2. Diverticulosis without radiographic evidence of diverticulitis. 3. Bilateral renal cysts. Subcentimeter nonobstructing right renal calculus. 4. Low-attenuation foci within the liver and spleen which are not optimally assessed on this unenhanced study, likely underlying cysts and/or hemangiomas. 5. Moderate-large sized sliding-type hiatal hernia. Electronically authenticated by: LEE ALICIA Date: 08/08/2024 20:52
[2024-08-08 20:05] LABS: Basophils Absolute Auto 0.1 10^3/uL (0.0-0.1); Basophils Percent Auto 0.5 % (0.2-2.0); Eosinophils Absolute Auto 0.2 10^3/uL (0.0-0.7); Eosinophils Percent Auto 1.7 % (0.9-7.0); Hemoglobin 12.6 g/dL (14.0-18.0); Immature Granulocytes Abs Auto 0.18 10^3/uL (0.00-0.03); Immature Granulocytes Pct Auto 1.7 % (0.0-0.5); Lymphocytes Absolute Auto 1.5 10^3/uL (1.2-3.8); Lymphocytes Percent Auto 13.7 % (20.5-60.0); Mean Corpuscular Hemoglobin 32.2 pg (25.9-34.0); Mean Corpuscular Volume 92.1 fL (80.0-94.0); Mean Platelet Volume 10.2 fL (9.5-13.5); Monocytes Percent Auto 9.2 % (1.7-12.0); Neutrophils Absolute Auto 7.9 10^3/uL (1.4-6.5); Neutrophils Percent Auto 73.2 % (43.0-75.0); Platelet Count 161 10^3/uL (150-450); Red Blood Count 3.91 10^6/uL (4.70-6.10); Red Cell Distribution Width 12.7 % (11.0-15.0); White Blood Count 10.8 10^3/uL (4.0-11.0)
[2024-08-08 20:10] LABS: BUN Creatinine Ratio 15.3; Calcium 8.9 mg/dL (8.5-10.1); Carbon Dioxide 24.7 mmol/L (21.0-32.0); Chloride 102 mmol/L (98-107); Estimated GFR (African America >60 (>=60 mL/min/1.73m^2); Estimated GFR (Non-African Ame >60 (>=60 mL/min/1.73m^2); Glucose 191 mg/dL (74-106); Potassium 3.7 mmol/L (3.5-5.1); Sodium 136 mmol/L (136-145)
[2024-08-08] MEDS: CLINDAMYCIN PHOSPHATE/D5W 900 MG/50 ML PREMIX 100 MG IV (21:32)
[2024-08-08] MEDS: CLINDAMYCIN HCL 150 MG CAPSULE 300 MG PO (22:23)
== END 2024-08-08 23:05 | disposition home or self-care (01) ==
PROVIDERS: Emergency Provider Internal Medicine
DX: L02.31 Cutaneous abscess of buttock (principal)
CPT/HCPCS: 10060; 36415; 74176; 80048; 83605; 85025; 96365; 99285; J0736

== ENCOUNTER 2024-08-10 13:39 | Emergency (ER) | payer MEDICARE, SELFPAY ==
[2024-08-10 13:42] VITALS: BP 126/61; PULSE 81; TEMP 36.4; O2SAT 95; BMI 27.8
--- OUTSIDE RECORDS SUMMARY | 2024-08-10 13:48 | XMS_ITS | CCD ---
Author Organization [facility] Care Team Providers Care Momd Teacher Name Role Phone CELINE BYRNE Unavailable Unavaila ble CHODISETTY, SUBRAHMANYAM Unavailable Unavail able VIRGINIA, ANGUS Unavailable Unavailable VIRGINIA, ANGUS Unavailable Unavailable VIRGINIA, ANGUS Unavailable Unavailable Fawwad, Lala Unavailable Unavailable Unavailable Alcides Nowak Unavailable Kathie CRAWFORD, Dr. Keyon Bennett Referring Unavailable Lynnetteuinn II, Dr. Keyon Bennett Attending Unavailable Lynnetteuinn II, Dr. Keyon Bennett Attending Unavailable Debbien [...] Unavailable FAWWAD, LALA H Primary Care Unavailable Antoine CNC TECHNICIAN-UNIFORM MAKER-C Tonya Villanueva Attending Provider MD Dai Hernandez Primary Care Provider Shaikh Hernandez Primary Care Unavailable Tonya Schultz Attending Unavailable Tonya Schultz Admitting Unavailable Shaikh Hernandez MD Primary Care Provider Shaikh Hernandez MD Primary Care Provider Shaikh Hernandez MD Primary Care Provider ANA RAMOS Attending Unavailable SHAIKH HERNANDEZ Primary Care Unavailable ROSAURA JETT Attending Unavailable JOSR ANTOINE Attending Unavailable MARY, Attending Unavailable JOSR ANTOINE Attending Unavailable SHAIKH HERNANDEZ Attending Unavailable DAWNA BOSE Attending Unavailable SHAIKH HERNANDEZ Attending Unavailable CRISTHIAN MATTHEWS Attending Unavailable SHAIKH HERNANDEZ Referring Unavailable CRISTHIAN MATTHEWS Attending Unavailable DAWNA BOSE Attending Unavailable SHAIKH HERNANDEZ Attending Unavailable Shaik Hernandez MDh Primary Care Provider Allergies Allergy Classification Reported Allergen(s) Allergy Type Date of Onset Reaction(s) Facility (7 sources) Iodinated Contrast Media; Translations: [Iodinated Contrast Media] Allergy to drug (finding) 1 Unknown Reaction [facility] (1 source) house dust allergenic extract Drug Allergy [facility] Rep[facility] (3 sources) Latex; Translations: [LATEX] Drug allergy (disorder) 1 Unknown Reaction [facility] (1 source) Shellfish Drug allergy (disorder) [facility] (1 source) Latex Drug allergy (disorder) [address] [facility] Repository (1 source) Iodinated Contrast Media Drug allergy (disorder) [address] [facility] Repository (1 source) Latex Propensity to adverse reactions 3 [facility] Work Phone: (2 sources) Shellfish; Translations: [SHELLFISH DERIVED] Propensity to adverse reactions 3 Anaphylaxis [facility] Work Phone: (2 sources) Adhesive Tape-Silicones; Translations: [ADHESIVE TAPE-SILICONES] Propensity to adverse reactions 3 Rash [facility] (1 source) Iodinated Contrast Media Drug Allergy 3 Unknown [facility] (5 sources) Iodine Drug Allergy 7 Anaphylaxis [facility] Work Phone: (5 sources) Latex Propensity to adverse reactions 7 Rash [facility] (5 sources) Shellfish-Deriv ed Products Drug Allergy 3 [facility] (5 sources) Wound Dressing Adhesive Drug Intolerance 6 [facility] (2 sources) Gadolinium Derivatives Propensity to adverse reactions 4 [facility] Medications Current Medications Medication Drug Class(es) Dates Sig (Normalized) Sig (Original) apixaban 5 mg oral tablet (8 sources) Factor Xa Inhibitor Start: 03-19-2024 take 1 tablet by mouth in the morning Eliquis 5 MG tablet Take 5 mg by mouth in the morning and 5 mg before bedtime. 03/19/2024 Active Start: 12-04-2021 take 1 tablet by gabriela th twice daily apixaban (Eliquis) 5 mg tablet Take 1 tablet (5 mg) by mouth 2 times a day. 0 12/04/2021 Active aspirin 81 mg delayed release oral tablet (11 sources) Platelet Aggregation Inhibitor, Nonsteroidal Anti-inflammatory Drug Start: 12-04-2021 take 1 tablet by mouth every week aspirin 81 mg EC tablet Take 1 tablet (81 mg) by mouth 1 (one) time per week. 0 12/04/2021 Active atorvastatin 20 mg oral tablet (12 sources) HMG-CoA Reductase Inhibitor Start: 04-10-2024 End: 10-27-2024 take 1 tablet by mouth in the morning atorvastatin (Lipitor) 20 MG tablet Indications: Hyperlipidemia, unspecified hyperlipidemia type (CMS/HCC) Take 1 tablet (20 mg) by mouth in the morning. 100 tablet 1 04/10/2024 10/27/2024 Active Start: 10-11-2023 End: 04-08-2024 take 1 tablet [...] 2021 1:00am biotin 10 mg oral tablet (8 sources) take 1 tablet by gabriela th in the morning biotin 38644 MCG tablet Take 1 tablet by mouth in the morning. Active take 1 capsule by mouth once rocky ly biotin 5 mg capsule Take 1 capsule (5 mg) by mouth once daily. 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 (CMS/HCC) Take one tablet by mouth four times per day (9am, 1pm, 5pm, and 9pm) 120 tablet 3 05/15/2024 Active Start: 03-15-2023 take 1 tablet by gabriela th in the morning, then take 1 tablet [...] times daily Carbidopa-Levodopa 25-100 MG TAKE 1 TABLET BY MOUTH THREE TIMES DAILY Oral for 30 Days Active carvedilol 12.5 mg oral tablet (20 sources) alpha-Adrenergic Stephanie, beta-Adrenergic Stephanie Start: 07-16-2024 End: 01-12-2025 take 1 tablet by mouth in the morning carvedilol (Coreg) 12.5 MG tablet Indications: Essential hypertension, benign (CMS/HCC) Take 1 tablet (12.5 mg) by mouth in the morning and 1 tablet (12.5 mg) in the evening. Take with meals. 180 tablet 1 07/16/2024 01/12/2025 Active Start: 11-14-2023 End: 05-12-2024 take 0.5 tablet [...] daily. 0 Active Continuous Blood Gluc Sensor (FreeStyle Jocelyne 2 Sensor) misc (5 sources) Start: 023 Continuous Blood Gluc Sensor (FreeStyle Jocelyne 2 Sensor) misc 1 Device by Other route in the morning and 1 Device at noon and 1 Device in the evening and 1 Device before bedtime. 07/07/2023 Active Start: 07-07-2023 Continuous Blo od Gluc Sensor (FreeStyle Jocelyne 2 Sensor) misc 1 Device by Other route in the morning and 1 Device at noon and 1 Device in the evening and 1 Device before bedtime. 0 07/07/2023 Active 0.5 ml dulaglutide 3 mg/ml auto-injector (15 sources) GLP-1 Receptor Agonist Start: 05-22-2024 End: 11-06-2024 inject 1.5 mg by subcutaneous injection every week dulaglutide (Trulicity) 1.5 MG/0.5ML solution pen-injector Indications: Type 2 diabetes mellitus with diabetic polyneuropathy, without long-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 of insulin (CMS/HCC) Inject 1.5 mg under the skin 1 (one) time per week 12 pen 1 05/22/2024 11/06/2024 Active Start: 11-30-2023 End: 12-30-2023 inject 0.75 mg by subcutaneous injection every week dulaglutide (Trulicity) 0.75 MG/0.5ML solution pen-injector Indications: Type 2 diabetes mellitus with diabetic polyneuropathy, without long-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 of insulin (CMS/HCC) Inject 0.75 mg under the skin 1 [...] under the skin. 0 01/07/2022 Active Trulicity Herb Martinez Active esomeprazole 40 mg delayed release oral capsule (11 sources) Proton Pump Inhibitor Start: 01-12-2023 take 1 capsule by mouth in the morning esomeprazole (NexIUM) [address] capsule Take 40 mg by mouth in the morning. 03/15/2023 Active Start: 05-12-2022 take 1 capsule by [facility] twice daily Esomeprazole Magnesium 40 MG 1 capsule Orally twice daily for 90 days Apr, Active famotidine 40 mg oral tablet (2 sources) Histamine-2 Receptor Antagonist take 1 tablet by mouth in the morning famotidine (Pepcid) 40 MG tablet Take 40 mg by mouth in the morning and 40 mg before bedtime. PRN. Active finasteride 5 mg oral tablet (7 sources) 5-alpha Reductase Inhibitor Start: take 1 tablet by mouth once daily finasteride (Proscar) 5 MG tablet Indications: Benign prostatic hyperplasia without lower urinary tract symptoms Take 1 tablet (5 mg) by mouth Daily 30 tablet 2 07/30/2024 Active Start: 02-07-2024 End: 07-30-2024 take 1 tablet by mouth once daily finasteride (Proscar) 5 MG tablet Indications: Benign prostatic hyperplasia without lower urinary tract symptoms TAKE 1 TABLET BY MOUTH DAILY 90 tablet 1 02/07/2024 07/30/2024 Discontinued (Reorder) Start: 07-18-2023 take 1 tablet by gabriela th in the morning finasteride (Proscar) 5 MG tablet Take 1 tablet by mouth in the morning. 0 07/18/2023 Active gabapentin 400 mg oral capsule (20 sources) Anti-epileptic Agent Start: 05-30-2024 take 1 capsule by mouth three times daily at bedtime gabapentin (Neurontin) 400 MG capsule Indications: Polyneuropathy, unspecified TAKE 1 CAPSULE BY MOUTH THREE TIMES DAILY (IN THE MORNING, IN THE EVENING, and BEFORE bedtime) 270 capsule 1 05/30/2024 Active Start: 11-21-2023 End: 05-19-2024 take 1 capsule [...] 09-25-2021 take 300 mg by mouth once daily Gabapentin Active 300 MG PO Daily September [...] day Active loratadine 10 mg oral tablet (5 sources) take 1 tablet by mouth in the morning loratadine (Allergy Relief) 10 MG tablet Take 10 mg by mouth in the morning. Active losartan potassium 50 mg oral tablet [...] Active meclizine hydrochloride 25 mg oral tablet (15 sources) Antiemetic Start: 05-31-2024 take 1 tablet by mouth twice daily as needed for dizziness meclizine (Antivert) 25 MG tablet Indications: Dizziness and giddiness Take 1 tablet (25 mg) by mouth 2 (two) times a day as needed for dizziness 180 tablet 1 05/31/2024 Active Start: 01-29-2024 take 1 tablet by gabriela th twice [...] Active metFORMIN hydrochloride 500 mg oral tablet (17 sources) Biguanide Start: 08-06-2024 take 1 tablet by mouth once metFORMIN (Glucophage) 500 MG tablet Indications: Type 2 diabetes mellitus without complications (CMS/HCC) Take 1 tablet (500 mg) by mouth every 12 (twelve) hours 180 tablet 1 08/06/2024 Active Start: 02-07-2024 End: 08-06-2024 take 1 tablet by mouth every twelve hours metFORMIN (Glucophage) 500 MG tablet Indications: Type 2 diabetes mellitus without complications (CMS/HCC) TAKE 1 TABLET BY MOUTH EVERY 12 HOURS 180 tablet 1 02/07/2024 08/06/2024 Discontinued (Reorder) Start: 08-10-2023 take 1 tablet by gabriela th every twelve hours metFORMIN (Glucophage) 500 MG tablet Take 1 tablet by mouth every 12 (twelve) hours 0 08/10/2023 Active Start: 12-01-2021 take 1 tablet by gabriela th every twelve hours metFORMIN (Glucophage) 500 mg tablet Take 1 tablet (500 mg) by mouth every 12 hours. 0 12/01/2021 Active primidone 50 mg oral tablet (9 sources) Anti-epileptic Agent Start: 06-26-2024 End: 10-21-2024 take 1 tablet by mouth at bedtime primidone (Mysoline) 50 MG tablet Indications: Essential tremor Take 1 tablet (50 mg) by mouth at bedtime 90 tablet 07/23/2024 10/21/2024 Active Start: 09-05-2023 take 1 tablet by gabriela th at bedtime primidone (Mysoline) 50 MG tablet Take 50 mg by mouth at bedtime 0 09/05/2023 Active SITagliptin 100 mg oral tablet (20 sources) Dipeptidyl Peptidase 4 Inhibitor Start: 11-21-2023 End: 05-19-2024 take 1 tablet by mouth in the morning Januvia 100 MG tablet Indications: Type 2 diabetes mellitus without complications (CMS/HCC) TAKE 1 TABLET BY MOUTH IN THE MORNING 90 tablet 1 05/15/2024 Active Start: 09-25-2021 take 1 tablet by gabriela th once daily sitaGLIPtin phosphate (Januvia) 100 mg tablet Take 1 tablet (100 mg) by mouth once daily. 0 11/10/2021 Active Januvia Active tamsulosin hydrochloride 0.4 mg oral capsule (12 sources) alpha-Adrenergic Stephanie Start: 02-16-2024 End: 08-14-2024 take 1 capsule by mouth every hour tamsulosin (Flomax) 0.4 MG 24 hr capsule Indications: Benign prostatic hyperplasia without lower urinary tract symptoms Take 1 capsule (0.4 mg) by mouth every 12 (twelve) hours 180 capsule 1 02/16/2024 08/14/2024 Active Start: 10-24-2023 End: 04-21-2024 take 1 capsule by mouth every twenty-four hours in the morning tamsulosin (Flomax) 0.4 MG 24 hr capsule Indications: Benign prostatic hyperplasia without lower urinary tract symptoms Take 1 capsule (0.4 mg) by mouth in the morning. 90 capsule 1 10/24/2023 04/21/2024 Active Start: 09-25-2021 take 1 capsule by mo ut once daily tamsulosin (Flomax) 0.4 mg 24 hr capsule Take 1 capsule (0.4 mg) by mouth once daily. 0 11/30/2021 Active traZODone hydrochloride 50 mg oral tablet (6 sources) Serotonin Reuptake Inhibitor Start: 02-07-2024 take 1 tablet by mouth once daily as needed for sleep traZODone (Desyrel) 50 MG tablet Indications: Insomnia, unspecified TAKE 1 TABLET BY MOUTH DAILY NEEDED for sleep 90 tablet 1 02/07/2024 Active Start: 07-13-2023 take 1 tablet by gabriela th at bedtime for sleep traZODone (Desyrel) 50 MG tablet Take 1 tablet by mouth at bedtime For sleep 0 07/13/2023 Active vitamin B12 (5 sources) Vitamin B12 take 2 tablets by mo uth in the morning Cyanocobalamin (VITAMIN B12 PO) Take 2 tablets by mouth in the morning. Active take 2 tablets by mouth in the m orning Cyanocobalamin (VITAMIN B12 PO) Take 2 tablets [...] dexlansoprazole 30 mg delayed release oral capsule (12 sources) Proton Pump Inhibitor Start: 11-23-2021 End: [...] 0 Refills: 0 Ordered: 14-Apr-2022 DO Active fye-Yx-tiw-pumpk-beta- ly-Zn-Cu (Prostate Control) 46-00-05-100 mg capsule (1 source) End: 09-28-2023 take 1 capsule by mouth once daily wzu-Kl-rkk-ppmot-qufv-mj-Z n-Cu (Prostate Control) 85-06-70-100 mg capsule Take 1 capsule by mouth once daily. 0 09/28/2023 Discontinued (Therapy completed) Problems Active Problems Problem Classification Problem Date Documented Date Episodic/Chronic Cardiac dysrhythmias (14 sources) Paroxysmal atrial fibrillation; Translations: [Atrial fibrillation] Onset: 09-27-2023 09-28-2023 Chronic Diabetes mellitus with complications (7 sources) Type 2 diabetes mellitus; Translations: [Type 2 diabetes mellitus with diabetic polyneuropathy] Onset: 10-10-2023 10-11-2023 Chronic Diabetes mellitus without complication (15 sources) Diabetes mellitus without complication; Translations: [Diabetes mellitus without mention of complication, type II or unspecified type, not stated as uncontrolled] Onset: 04-21-2022 Chronic Disorders of lipid metabolism (15 sources) Hyperlipidemia; Translations: [Other and unspecified hyperlipidemia] Onset: 11-17-2022 09-28-2023 Chronic Esophageal disorders (20 sources) Gastroesophageal reflux disease; Translations: [Gastro-esophageal reflux disease without esophagitis] Onset: 11-23-2021 Resolved: 05-12-2022 Chronic Essential hypertension (19 sources) Benign essential hypertension; Translations: [Benign essential hypertension] Onset: 09-27-2023 09-28-2023 Chronic Hyperplasia of prostate (3 sources) Benign prostatic hyperplasia; Translations: [Benign prostatic hyperplasia without lower urinary tract symptoms] Onset: 02-16-2024 07-30-2024 Chronic Osteoarthritis (2 sources) Arthritis of right hip; Translations: [Unilateral primary osteoarthritis, right hip] Onset: 02-16-2024 4 Chronic Other connective tissue disease (2 sources) Pain in right foot; Translations: [Pain in right foot] Onset: 05-22-2024 05-22-2024 Episodic Other disorders of stomach and duodenum (8 sources) Indigestion; Translations: [Functional dyspepsia] Episodic Other disorders of stomach and duodenum (2 sources) Functional dyspepsia Onset: 11-23-2021 Resolved: 11-23-2021 Episodic Other hereditary and degenerative nervous system conditions (2 sources) Essential tremor; Translations: [Essential tremor] Onset: 07-09-2024 07-09-2024 Chronic Other nervous system disorders (1 source) Other chronic pain; Translations: [OTHER CHRONIC PAIN] Onset: 05-26-2022 Chronic Other nervous system disorders (1 source) Tremor, unspecified; Translations: [Tremor, unspecified] Onset: 07-22-2023 Episodic Other nervous system disorders (2 sources) Paresthesia; Translations: [Paresthesia of skin] Onset: 07-09-2024 07-09-2024 Episodic Other nutritional; endocrine; and metabolic disorders (2 sources) Obesity; Translations: [Obesity, unspecified] Chronic Other nutritional; endocrine; and metabolic disorders (5 sources) Overweight in adulthood with body mass index of 25 or more but less than 30; Translations: [Overweight] Onset: 09-28-2023 09-28-2023 Episodic Parkinson`s disease (9 sources) Parkinson's disease; Translations: [Paralysis agitans] Onset: 05-26-2022 09-27-2023 Chronic Spondylosis; intervertebral disc disorders; other back problems (7 sources) Spondylosis without myelopathy or radiculopathy, lumbar region; Translations: [Other intervertebral disc degeneration, lumbar region] Onset: 05-20-2022 Chronic Unclassified (1 source) LOW BACK PAIN, UNSPECIFIED; Translations: [LOW BACK PAIN, UNSPECIFIED] Onset: 05-26-2022 Past or Other Problems Problem Classification Problem Date Documented Da te Episodic/Chronic Other aftercare (4 sources) Long-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 of 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; 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] Onset: 09-28-2023 09-28-2023 Episodic Other aftercare (2 sources) [facility] (current) use of 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s; 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] Onset: 09-28-2023 Episodic Other connective tissue disease (2 sources) Unspecified symptoms and signs involving the nervous system; Translations: [Pain in unspecified limb] Onset: 04-25-2017 Episodic Other connective tissue disease (2 sources) Pain of left hand; Translations: [Pain in left hand] Onset: 02-16-2024 02-16-2024 Episodic Other nervous system disorders (1 source) Paresthesia of skin; Translations: [Paresthesia of skin] Onset: 04-25-2017 Episodic Other nutritional; endocrine; and metabolic disorders (2 sources) Body mass index (BMI) 28.0-28.9, adult; Translations: [Body mass index (BMI) 28.0-28.9, adult] Onset: 09-28-2023 Episodic Other upper respiratory infections (5 sources) Acute upper respiratory infection; Translations: [Acute upper respiratory infection, unspecified] Onset: 10-10-2023 10-10-2023 Episodic Unclassified (5 sources) Never smoked tobacco; Translations: [Never a smoker] Unclassified (1 source) Onset: 09-28-2023 09-28-2023 Results Test Name Value Interpretation Reference Range Facility MR head/brain wo conon 07-22 MR head/brain wo con [facility] [place] [address] MRI Report Signed Patient: Jay Aguero MR#: [id number] 3 : 1950 Acct:[id number] Age/Sex: 73 / M ADM Date: 07/22/23 Loc: MR Room: Type: [facility] Attending Dr: Tonya MCGOWAN Copies to: JUAN [...] Duc Wheeler M.D.07/22/2023 11:32 AM Dictation Location: [place] [address] Transcribed By: [facility] 07/22/23 1132 Dictated By: Duc Wheeler II, MD 07/22/23 1122 Signed By: 07/22/23 1132 [facility] GLYCOHEMOGLOBIN A1Con 2022 ADA RECOMMENDATION SEE BELOW Normal [facility] Comment on above: Result Comment: ADA RECOMMENDED LIMIT 4.0 - 6.0 ADA THERAPEUTIC TARGET < 7.0 ACTION SUGGESTED > 7.0 Performed By: #### A 1C #### [facility] [address] [place] [address] Dr. Gallo Wade Glucose [Mass/Vol] 128 mg/dL Normal [facility] Comment on above: Performed By: #### A 1C #### [facility] [address] [place] [address] [address] Gallo Wade HbA1c (Bld) [Mass fraction] 6.1 % Normal 4.5-6.2 [facility] Comment on above: Performed By: #### A 1C #### [facility] [address] [place] [address] Dr. Gallo Wade Office Visit (Cardiology)on 12-29-2022 [...] ONCE A WEEK Vitamin D3 1.25 MG (71276 UT) Oral CapsuleTAKE 1 CAPSULE Daily Allergies [...] Recorded: 29Dec2022 01:35PM Heart Rate74, R Radial [id number], LUE, Sitting Nmarzvmrf97, LUE, Sitting Height5 ft 10 in Pmfopv861 lb BMI Ntmgnnrpsr72.28 (more content not included)... Normal [facility] Tobacco Screening.on 023 Adult depression screening assessment No [facility] y 250 DO Work Phone: Fall risk assessment a) No falls within the last year [facility] y 250 DO Work Phone: Tobacco use status [facility] b) No [facility] 250 DO Work Phone: CBC AUTO DIFFon 11-15-2022 BASO # 0.0 103/ul Normal 0.0-0.1 [facility] Comment on above: Performed By: #### C BC #### [facility] [address] [place] [address] Dr. Gallo Wade Basophils/100 WBC (Bld) 0.5 % Normal 0.2-2.0 [facility] Comment on above: Performed By: #### C BC #### [facility] [address] [place] [address] Dr. Gallo Wade EO # 0.2 103/ul Normal 0.0-0.7 [facility] Comment on above: Performed By: #### C BC #### [facility] [address] [place] [address] Dr. Gallo Wade Eosinophils/100 WBC (Bld) 2.7 % Normal 0.9-7.0 [facility] Comment on above: Performed By: #### C BC #### [facility] [address] [place] [address] Dr. Gallo Wade Erythrocyte distribution width (RBC) [Ratio] 13.0 % Normal 11.0-15.0 [facility] Comment on above: Performed By: #### C BC #### [facility] [address] [place] [address] Dr. Gallo Wade Hematocrit (Bld) [Volume fraction] 37.6 % Critically low 42.0-54.0 [facility] Comment on above: Performed By: #### C BC #### [facility] [address] [address] [address] Gallo Wade Hemoglobin (Bld) [Mass/Vol] 13.7 g/dL Critically low 14.0-18.0 [facility] Comment on above: Performed By: #### C BC #### [facility] [address] [place] [address] [address] Gallo Wade IG # 0.08 10e3/ul Critically high 0.00-0.03 [facility] Comment on above: Performed By: #### C BC #### [facility] [address] [place] [address] [address] Gallo Wade IG % 1.1 % Critically high 0.0-0.5 [facility] Comment on above: Performed By: #### C BC #### [facility] [address] [place] [address] Dr. Gallo Wade LYMPH # 1.6 103/ul Normal 1.2-3.8 [facility] Comment on above: Performed By: #### C BC #### [facility] [address] [place] [address] [address] Gallo Wade Lymphocytes/100 WBC (Bld) 21.7 % Normal 20.5-60.0 [facility] Comment on above: Performed By: #### C BC #### [facility] [address] [place] [address] Dr. Gallo Wade MANUAL DIFF REQ NO Normal [facility] Comment on above: Performed By: #### C BC #### [facility] [address] [place] [address] [address] Gallo Wade MCH (RBC) [Entitic mass] 32.2 pg Normal 25.9-34.0 [facility] Comment on above: Performed By: #### C BC #### [facility] [address] [place] [address] [address] Gallo Wade MCHC (RBC) [Mass/Vol] 36.4 g/dL Critically high 29.9-35.2 [facility] Comment on above: Performed By: #### C BC #### [facility] [address] [place] [address] [address] Gallo Wade MCV (RBC) [Entitic vol] 88.5 fL Normal 80.0-94.0 [facility] Comment on above: Performed By: #### C BC #### [facility] [address] [place] [address] Dr. Gallo Wade MONO # 0.5 103/ul Normal 0.3-0.8 [facility] Comment on above: Performed By: #### C BC #### [facility] [address] [place] [address] Dr. Gallo Wade Monocytes/100 WBC (Bld) 6.4 % Normal 1.7-12.0 [facility] Comment on above: Performed By: #### C BC #### [facility] [address] [place] [address] Dr. Gallo Wade NEUT # 5.0 103/ul Normal 1.4-6.5 [facility] Comment on above: Performed By: #### C BC #### [facility] [facility] [address] [place] [address] Dr. Gallo Wade Neutrophils/100 WBC (Bld) 67.6 % Normal 43.0-75.0 [facility] Comment on above: Performed By: #### C BC #### [facility] [address] [place] [address] Dr. Gallo Wade Platelet mean volume (Bld) [Entitic vol] 9.9 fL Normal 9.5-13.5 [facility] Comment on above: Performed By: #### C BC #### [facility] [address] [place] [address] Dr. Gallo Wade PLT 174 103/ul Normal 150-450 [facility] Comment on above: Performed By: #### C BC #### [facility] [address] [place], [place] [id number] Dr. Gallo Wade RBC 4.25 106/ul Critically low 4.70-6.10 [facility] Comment on above: Performed By: #### C BC #### [facility] [address] [place] [address] Dr. Gallo Wade WBC 7.4 103/ul Normal 4.0-11.0 [facility] Comment on above: Performed By: #### C BC #### [facility] [address] [address] [address] Gallo Wade GLYCOHEMOGLOBIN A1Con 2022 ADA RECOMMENDATION SEE BELOW Normal [facility] Comment on above: Result Comment: ADA RECOMMENDED LIMIT 4.0 - 6.0 ADA THERAPEUTIC TARGET < 7.0 ACTION SUGGESTED > 7.0 Performed By: #### A 1C #### [facility] [address] [address] [address] Gallo Wade Glucose [Mass/Vol] 169 mg/dL Normal [facility] Comment on above: Performed By: #### A 1C #### [facility] [address] [place] [address] Dr. Gallo Wade HbA1c (Bld) [Mass fraction] 7.5 % Critically high 4.5-6.2 [facility] Comment on above: Performed By: #### A 1C #### [facility] [address] [place] [address] Dr. Gallo Wade LIPID PROFILEon 11-15-2022 CHOL-HDL RATIO NORM SEE BELOW Normal [facility] Comment on above: Result Comment: 3.3 - 4.4 LOW RISK 4.4 - 7.1 AVERAGE RISK 7.1 - 11.0 MODERATE RISK >11.0 HIGH RISK Performed By: #### L IPID, CMP #### [facility] [address] [place] [address] Dr. Gallo Wade Cholesterol [Mass/Vol] 150 mg/dL Normal <=200 [facility] Comment on above: Performed By: #### L IPID, CMP #### [facility] [address] [address] [address] Gallo Wade Cholesterol in HDL [Mass/Vol] 45 mg/dL Normal 40-60 [facility] Comment on above: Performed By: #### L IPID, CMP #### [facility] [address] [address] [address] Gallo Wade Cholesterol in LDL [Mass/Vol] 53.6 mg/dL Normal [facility] Comment on above: Performed By: #### L IPID, CMP #### [facility] [address] [address] [address] Gallo Wade Cholesterol.total/Ch olesterol in HDL [Mass ratio] 3.3 {ratio} Normal [facility] Comment on above: Performed By: #### L IPID, CMP #### [facility] [address] [address] [address] Gallo Wade HDL NORMAL > or = 60 mg/dl - LO W CARDIOVASCULAR RISK <40 mg/dl - HIGH CARDIOVASCULAR RISK Normal [facility] Comment on above: Performed By: #### L IPID, CMP #### [facility] [address] [address] [address] Gallo Wade LDL CALC NORMAL SEE BELOW Normal [facility] Comment on above: Result Comment: <100 mg/dl OPTIMAL 100 - 129 mg/dl NEAR OR ABOVE OPTIMAL 130 - 159 mg/dl BORDERLINE HIGH 160 - 189 mg/dl HIGH >190 mg/dl VERY HIGH Performed By: #### L IPID, CMP #### [facility] [address] [address] [address] Gallo Wade Triglyceride [Mass/Vol] 257 mg/dL Critically high <=150 [facility] Comment on above: Performed By: #### L IPID, CMP #### [facility] [address] [place] [address] Dr. Gallo Wade VLDL CALC 51.4 mg/dL Normal [facility] Comment on above: Performed By: #### L IPID, CMP #### [facility] [address] [address] [address] Gallo Wade PROF 14(COMP METB)on 023 Albumin [Mass/Vol] 3.7 g/dL Normal 3.4-5.0 [facility] Comment on above: Performed By: #### L IPID, CMP #### [facility] [address] [place] [address] Dr. Gallo Wade Albumin/Globulin [Mass ratio] 1.1 {ratio} Normal [facility] Comment on above: Performed By: #### L IPID, CMP #### [facility] [address] [address] [address] Gallo Wade ALP [Catalytic activity/Vol] 77 U/L Normal 46-116 [facility] Comment on above: Performed By: #### L IPID, CMP #### [facility] [address] [address] [address] Gallo Wade ALT [Catalytic activity/Vol] 24 U/L Normal 16-63 [facility] Comment on above: Performed By: #### L IPID, CMP #### [facility] [address] [address] [address] Gallo Wade Anion gap [Moles/Vol] 13.2 mmol/L Normal [facility] Comment on above: Performed By: #### L IPID, CMP #### [facility] [address] [address] [address] Gallo Wade AST [Catalytic activity/Vol] 15 U/L Normal 15-37 [facility] Comment on above: Performed By: #### L IPID, CMP #### [facility] [address] [address] [address] Gallo Wade Bilirubin [Mass/Vol] 0.9 mg/dL Normal 0.2-1.0 [facility] Comment on above: Performed By: #### L IPID, CMP #### [facility] [address] [address] [address] Gallo Wade Calcium [Mass/Vol] 9.1 mg/dL Normal 8.5-10.1 [facility] Comment on above: Performed By: #### L IPID, CMP #### [facility] [address] [address] [address] Gallo Wade Chloride [Moles/Vol] 102 mmol/L Normal 98-107 [facility] Comment on above: Performed By: #### L IPID, CMP #### [facility] [address] [address] [address] Gallo Wade CO2 [Moles/Vol] 27.9 mmol/L Normal 21.0-32.0 [facility] Comment on above: Performed By: #### L IPID, CMP #### [facility] [address] [address] [address] Gallo Wade Creatinine [Mass/Vol] 0.82 mg/dL Normal 0.70-1.30 [facility] Comment on above: Performed By: #### L IPID, CMP #### [facility] [address] [address] [address] Gallo Wade EGFR-AF IRISH >60 Normal >=60 [facility] Comment on above: Performed By: #### L IPID, CMP #### [facility] [address] [address] [address] Gallo Wade EGFR-NON AF IRISH >60 Normal >=60 [facility] Comment on above: Performed By: #### L IPID, CMP #### [facility] [address] [address] [address] Gallo Wade Globulin (S) [Mass/Vol] 3.5 g/dL Normal [facility] Comment on above: Performed By: #### L IPID, CMP #### [facility] [address] [address] [address] Gallo Wade Glucose [Mass/Vol] 161 mg/dL Critically high 74-106 [facility] [place] Comment on above: Performed By: #### L IPID, CMP #### [facility] [address] [address] [address] Gallo Wade Potassium [Moles/Vol] 4.1 mmol/L Normal 3.5-5.1 [facility] Comment on above: Performed By: #### L IPID, CMP #### [facility] [address] [address] [address] Gallo Wade Protein [Mass/Vol] 7.2 g/dL Normal 6.4-8.2 [facility] Comment on above: Performed By: #### L IPID, CMP #### [facility] [address] [address] [address] Gallo Wade Sodium [Moles/Vol] 139 mmol/L Normal 136-145 [facility] Comment on above: Performed By: #### L IPID, CMP #### [facility] [address] [address] [address] Gallo Wade Urea nitrogen [Mass/Vol] 14.0 mg/dL Normal 7.0-18.0 [facility] Comment on above: Performed By: #### L IPID, CMP #### [facility] [address] [address] [address] Gallo Wade Urea nitrogen/Creatinine [Mass ratio] 17.1 mg/mg Normal [facility] Comment on above: Performed By: #### L IPID, CMP #### [facility] [address] [address] [address] Gallo Wade GLYCOHEMOGLOBIN A1Con 2021 ADA RECOMMENDATION SEE BELOW Normal [facility] Comment on above: Result Comment: ADA RECOMMENDED LIMIT 4.0 - 6.0 ADA THERAPEUTIC TARGET < 7.0 ACTION SUGGESTED > 7.0 Performed By: #### A 1C #### [facility] [address] [place] [address] Dr. Gallo Wade Glucose [Mass/Vol] 134 mg/dL Normal [facility] Comment on above: Performed By: #### A 1C #### [facility] [address] [address] [address] Gallo Wade HbA1c (Bld) [Mass fraction] 6.3 % Critically high 4.5-6.2 [facility] Comment on above: Performed By: #### A 1C #### [facility] [address] [address] [address] Gallo Wade LIPID PROFILEon 05-14-2022 CHOL-HDL RATIO NORM SEE BELOW Normal [facility] Comment on above: Result Comment: 3.3 - 4.4 LOW RISK 4.4 - 7.1 AVERAGE RISK 7.1 - 11.0 MODERATE RISK >11.0 HIGH RISK Performed By: #### L IPID #### [facility] [address] [place] [address] Dr. Gallo Wade Cholesterol [Mass/Vol] 129 mg/dL Normal <=200 [facility] Comment on above: Performed By: #### L IPID #### [facility] [address] [address] [address] Gallo Wade Cholesterol in HDL [Mass/Vol] 36 mg/dL Critically low 40-60 [facility] Comment on above: Performed By: #### L IPID #### [facility] [address] [address] [address] Gallo Wade Cholesterol in LDL [Mass/Vol] 46.6 mg/dL Normal [facility] Comment on above: Performed By: #### L IPID #### [facility] [address] [address] [address] Gallo Wade Cholesterol.total/Ch olesterol in HDL [Mass ratio] 3.6 {ratio} Normal [facility] Comment on above: Performed By: #### L IPID #### [facility] [address] [address] [address] Gallo Wade HDL NORMAL > or = 60 mg/dl - LO W CARDIOVASCULAR RISK <40 mg/dl - HIGH CARDIOVASCULAR RISK Normal [facility] Comment on above: Performed By: #### L IPID #### [facility] [address] [address] [address] Gallo Wade LDL CALC NORMAL SEE BELOW Normal [facility] Comment on above: Result Comment: <100 mg/dl OPTIMAL 100 - 129 mg/dl NEAR OR ABOVE OPTIMAL 130 - 159 mg/dl BORDERLINE HIGH 160 - 189 mg/dl HIGH >190 mg/dl VERY HIGH Performed By: #### L IPID #### [facility] [address] [address] [address] Gallo Wade Triglyceride [Mass/Vol] 232 mg/dL Critically high <=150 [facility] Comment on above: Performed By: #### L IPID #### [facility] [address] [address] [address] Gallo Wade VLDL CALC 46.4 mg/dL Normal [facility] Comment on above: Performed By: #### L IPID #### [facility] [address] [address] [address] Gallo Wade POINT OF CARE GLUCOSEon 03-25 Glucose [Mass/Vol] 172 mg/dL Critically high 74-106 [facility] [place] Comment on above: Performed By: #### P OCGLUC #### [facility] [address] [place], [place] [address] Dr. Gallo Wade Office Visit (Cardiology)on 04-14-2022 [...] ONCE A WEEK Vitamin D3 1.25 MG (72111 UT) Oral CapsuleTAKE 1 CAPSULE Daily Allergies [...] Recorded: 14Apr2022 03:51PM Heart Rate80, R Radial Askrkuhc519, RUE, Sitting Mceetpgmy62, RUE, Sitting Height5 ft 10 in Jsksxo253 lb BMI Jgkeasuhbd55.28 kg/m2 BSA Calculated2.14 Tobacco Useb) No PHQ-2 #1. Over the last 2 weeks have you felt down, depressed or hopeless? (If yes, answer PHQ-9 below)No PHQ-2 #2. Over the last 2 weeks have (more content not included)... Normal [employer] Tobacco Screening.on 022 Adult depression screening assessment No [facility]-[place] y 250 DO Work Phone: Fall risk assessment a) No falls within the last year [facility] y 250 DO Work Phone: Tobacco use status CP b) No [facility] DO Work Phone: Tobacco Screening.on 022 Adult depression screening assessment No [facility] y 250 DO Work Phone: Fall risk assessment a) No falls within the last year [facility] y 250 DO Work Phone: Tobacco use status CP b) No [facility] y 250 DO Work Phone: SURGICAL PATHOLOGYon 021 SURGICAL PATHOLOGY Specimen #: [id number] Submitting Physician: VIJI FALCON M.D. FINAL DIAGNOSIS [facility], [place], [place]; [id number] (09/25/2021) Esophagus, biopsy (A1-1, A1-2) - Inflamed [...] to contact the GI consultation Service at [phone] with questions or if additional follow up information becomes available. This case was reviewed in conjunction with the GI pathology fellow, Tonya Fernández M.D. AEB/SSE 10/07/2021 Leela Parsons M.D. (Electronic Signature) SPECIMEN SUBMITTED A: 2 SLIDES [id number] CLINICAL DATA Dyspepsia, GERD. Date of Report: 10/07/2021 Date of Procedure: 10/06/2021 Date of Receipt: 10/06/2021 Submitted by: VIJI FALCON M.D. Location: Diagnostic interpretation performed at [facility], [address] [place] [id number]. CLIA Number: [id number] Normal [facility] Comment on above: Performed By: #### S #### See report for performing lab information. Factor V Activityon 04-29-20 17 Factor V Activity 106 % Normal 50-150 [facility] Comment on above: Result Comment: [facility] [address] [place] [address] Performed By: #### H OCYS, FA5, LUPPRO, PROCAC, PROSAC ####[facility] [address] [place] [address] Lupus Anticoagulanton 2016 Dilute Blake Viper Negative Normal [facility] Comment on above: Result Comment: [facility] [address] [place] [address] Performed By: #### H OCYS, FA5, LUPPRO, PROCAC, PROSAC ####[facility] [address] [place] [address] Protein C Activityon 017 Protein C Activity 130 % Normal >80 [facility] Comment on above: Result Comment: Tammy ents on oral 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s will have decreased functional protein C/S values. Oral 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 therapy should be discontinued for two weeks for accurate measurement of functional protein C/S levels.Artifactually elevated levels of functional protein C/S may be seen in patients receiving heparin, while decreased functionality may be seen in patients with abnormally elevated levels of Factor VIII.[facility] [employer] [address] [place] [address] Performed By: #### H OCYS, FA5, LUPPRO, PROCAC, PROSAC ####[facility] [address] [place] [address] Protein S Activityon 017 Protein S Activity 120 % High 77-116 [facility] Comment on above: Result Comment: Tammy ents on oral 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s will have decreased functional protein C/S values. Oral 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 therapy should be discontinued for two weeks for accurate measurement of functional protein C/S levels.Artifactually elevated levels of functional protein C/S may be seen in patients receiving heparin, while decreased functionality may be seen in patients with abnormally elevated levels of Factor VIII.[facility] [employer] [address] [place] [address] Performed By: #### H OCYS, FA5, LUPPRO, PROCAC, PROSAC ####[facility] [address] [place] [address] Lupus Anticoagulanton 2016 Antiphospholipid IgA 4.0 APU Normal <12 [facility] Comment on above: Result Comment: Refe rence Range:12 - 15 Equivocal>15 Positive Performed By: #### H OCYS, FA5, LUPPRO, PROCAC, PROSAC ####[address] [address] Antiphospholipid IgG 5.3 GPU Normal <20 [facility] Comment on above: Result Comment: Refe rence Range:20.0 - 29.9 Low Fehwyyuo75.0 - 79.9 Moderate Positive >79.9 High Positive Performed By: #### H OCYS, FA5, LUPPRO, PROCAC, PROSAC ####[address] [address] Antiphospholipid IgM 4.8 MPU Normal <20 [facility] Comment on above: Result Comment: Refe rence Range:20.0 - 29.9 Low Epxylhev61.0 - 79.9 Moderate Positive >79.9 High Positive Performed By: #### H OCYS, FA5, LUPPRO, PROCAC, PROSAC ####[address] [address] Cult,Urineon 04-27-2017 Cult,Urine Specimen Description .URINE Special Requests NOT REPORTED Culture NO GROWTH Report Status FINAL 04/27/2017 Normal [facility] Comment on above: Performed By: #### U RC ####[address] [address] CBCon 04-26-2017 Erythrocyte distribution width Auto Ratio (RBC) 13.6 % Normal 12.5-15.4 [facility] Comment on above: Performed By: #### C BC, LIPR ####[address] [address] Erythrocytes (RBC) 4.13 10*6/uL Low 4.5-5.9 [facility] Comment on above: Performed By: #### C BC, LIPR ####[facility] [place] [address] Hematocrit (HCT) 37.7 % Low 41-53 [facility] Comment on above: Performed By: #### C BC, LIPR ####[address] [address] Hemoglobin mass conc (Bld) 13.4 g/dL Low 13.5-17.5 [facility] Comment on above: Performed By: #### C BC, LIPR ####[address] [address] MCH 32.4 pg Normal 26-34 [facility] Comment on above: Performed By: #### C BC, LIPR ####[address] [address] MCHC mass conc (RBC) 35.5 g/dL Normal 31-37 [facility] Comment on above: Performed By: #### C BC, LIPR ####[address] [address] MCV 91.2 fL Normal 80-100 [facility] Comment on above: Performed By: #### C BC, LIPR ####[address] [address] Platelet mean volume (PMV) 8.6 fL Normal 6.0-12.0 [facility] Comment on above: Result Comment: [facility] [address] [place] [address] Performed By: #### C BC, LIPR ####[facility] [place] [address] Platelets 161 10*3/uL Normal 140-450 [facility] Comment on above: Performed By: #### C BC, LIPR ####[facility] [address] [place] [address] WBC (Leukocytes) 5.0 10*3/uL Normal 3.5-11.0 [facility] Comment on above: Performed By: #### C BC, LIPR [address] [place] [address] Discharge Summaryon 04-26-20 17 HIM IP Note OR Barge Engineer Normal [facility] ED Noteon 04-26-2017 HIM IP Note OR Barge Engineer Normal [facility] Hemoglobin A1Con 04-26-2017 Glucose mass conc 131 mg/dL Normal [facility] Comment on above: Result Comment: The ADA and AACC recommend providing the estimated average glucose result to permit better patient understanding of their HBA1c result.[facility] [address] [place] [address] Performed By: #### T JUSTYNA RODRÍGUEZ, GLYHGB ####[address] [place] [address] Hemoglobin A1c/Hemoglobin.total mass fraction (Bld) 6.2 % High 4.0-6.0 [facility] Comment on above: Performed By: #### T JUSTYNA RODRÍGUEZ, GLYHGB ####[address] [address] History and Physicalon 04-26 HIM IP Note OR Barge Engineer Normal [facility] Homocysteineon 04-26-2017 Homocysteine 9.5 umol/L Normal <15.0 [facility] Comment on above: Result Comment: [facility] [address] [place] [address] Performed By: #### H OCYS, FA5, LUPPRO, PROCAC, PROSAC ####[address] [place] [address] Lipid Profileon 04-26-2017 Cholesterol 123 mg/dL Normal <200 [facility] Comment on above: Result Comment: Chol esterol Guidelines: <200 Desirable 200-240 Borderline >240 Undesirable Performed By: #### C BC, LIPR ####[facility] [address] [place] [address] Cholesterol to HDL Ratio 2.5 {ratio} Normal <5 [facility] Comment on above: Performed By: #### C BC, LIPR ####[facility] [address] [place] [address] HDL Cholesterol 49 mg/dL Normal >40 [facility] Comment on above: Result Comment: HDL Guidelines: <40 Undesirable 40-59 Borderline >59 Desirable Performed By: #### C BC, LIPR ####[facility] [address] [place] [address] LDL Cholesterol 45 mg/dL Normal 0-130 [facility] Comment on above: Result Comment: LDL Guidelines: <100 Desirable 100-129 Near to/above Desirable 130-159 Borderline >159 UndesirableDirect (measured) LDL and calculated LDL are not interchangeable tests. Performed By: #### C BC, LIPR ####[facility] [address] [place] [address] Triglyceride 143 mg/dL Normal <150 [facility] Comment on above: Result Comment: Trig lyceride Guidelines: <150 Desirable 150- 199 Borderline 200-499 High >499 Very high Based on AHA Guidelines for fasting triglyceride, July 2012.[employer] [address] [place] [address] Performed By: #### C BC, LIPR ####[facility] [address] [place] [address] Cholesterol in VLDL mass conc NOT REPORTED Normal -30 [facility] Comment on above: Performed By: #### C BC, LIPR ####[facility] [address] [place] [address] Lupus Anticoagulanton 2016 aPTT 22.5 s Normal 21.3-31.3 [facility] Comment on above: Performed By: #### H OCYS, FA5, LUPPRO, PROCAC, PROSAC ####[facility] [address] [place] [address] INR Coag RelTime (PPP) 1.0 {INR} Normal [facility] Comment on above: Result Comment: Ther apeutic Range: Moderate Anticoagulant Intensity: INR = 2.0-3.0 High Anticoagulant Intensity: INR = 2.5-3.5 Performed By: #### H OCYS, FA5, LUPPRO, PROCAC, PROSAC ####[facility] [address] [place] [address] Prothrombin time (PT) Coag time (PPP) 10.8 s Normal 9.4-12.6 [facility] Comment on above: Performed By: #### H OCYS, FA5, LUPPRO, PROCAC, PROSAC ####[facility] [address] [place] [address] Lupus Anticoagulant NOT REPORTED Normal [facility] Comment on above: Performed By: #### H OCYS, FA5, LUPPRO, PROCAC, PROSAC ####[address] [id number] MRA HEAD WO CONTRASTon 04-26 MRA HEAD WO CONTRAST EXAMINATION:MRA OF THE HEAD WITHOUT CONTRAST 04/25/2017 10:18 pmTECHNIQUE:MRA of the head was performed utilizing umcj-su-tugzhy imaging with [employer]. No intravenous contrast was [...] by:DELTA Hodgesigned by:Saran Mccauley MD04/25/17Final result Normal [facility] MRI BRAIN WO CONTRASTon 07-0 MRI BRAIN WO CONTRAST EXAMINATION:MRI OF THE [...] appearance.IMPRESSION: No acute infarctInterpreted by:DELTA Hodgesigned by:Saran Mcaculey MD04/25/17Final result Normal [facility] MRI CERVICAL SPINE WO CONTRA STon [...] by:DELTA Hodgesigned by:Saran Mccauley MD04/25/17Final result Normal [facility] Sedimentation Rateon 017 Sedimentation Rate 10 mm Normal 0-10 [facility] Comment on above: Result Comment: [employer] [address] [place] [address] Performed By: #### S ED ####[address] [address] TSH w/reflex to FT4on 2016 Thyroid stimulating hormone (TSH) 0.77 m[IU]/L Normal 0.30-5.00 [facility] Comment on above: Result Comment: [employer] [address] [place] [address] Performed By: #### T ROPI, TSHX, GLYHGB ####[address] [address] Troponinon 04-26-2017 Troponin I.cardiac mass conc Normal [facility] Comment on above: Result Comment: Refe rence Range: <0.03 Within reference range. 0.03-0.09 Possible myocardial damage.Repeat at appropriate intervals to rule out chronic elevation. >= 0.10 Indicative of myocardial damage.[employer] [address] [place] [address] Performed By: #### T ROPI ####[address] [address] Troponin T.cardiac mass conc ug/L Normal <0.03 [facility] Comment on above: Result Comment: Trop onin T results cannot be compared to Troponin-I results. Performed By: #### T ANNE ####[facility] SouthBluePearl Veterinary PartnersGhxvxfvzqazi[address] [place] [address] Troponin I.cardiac mass conc Normal [facility] Comment on above: Result Comment: Refe rence Range: <0.03 Within reference range. 0.03-0.09 Possible myocardial damage.Repeat at appropriate intervals to rule out chronic elevation. >= 0.10 Indicative of myocardial damage.[employer] [address] [place] [address] Performed By: #### T JUSTYNA RODRÍGUEZ GLYPURVIB ####[facility] [address] [place] [address] Troponin T.cardiac mass conc ug/L Normal <0.03 [facility] Comment on above: Result Comment: Trop onin T results cannot be compared to Troponin-I results. Performed By: #### JUSTYNA RODRIGUEZ, GLYHGB ####[facility] SouthBluePearl Veterinary PartnersZvqgwvjzcxus[address] [place] [address] Urinalysis, Routineon 2016 Acetaminophen mass conc Negative Normal NEG [facility] Comment on above: Performed By: #### U A ####[address] [address] Bilirubin (direct) Negative Normal NEG [facility] Comment on above: Performed By: #### U A ####[facility] [address] [place] [address] Comment Microscopic exam not performed based on chemical results unless requested in Normal [facility] Comment on above: Result Comment: orig inal order.[facility] [address] [address] Performed By: #### U A ####[facility] [address] [place] [address] Hemoglobin mass conc (Bld) Negative Normal NEG [facility] Comment on above: Performed By: #### U A ####[address] [address] Nitrite,Ur Negative Normal NEG [facility] Comment on above: Performed By: #### U A ####[address] [address] Turbidity CLEAR Normal CLEAR [facility] Comment on above: Performed By: #### U A ####[address] [address] Urine, color YELLOW Normal YEL [facility] Comment on above: Performed By: #### U A ####[address] [address] Urine, glucose presence TRACE Abnormal NEG [facility] Comment on above: Performed By: #### U A ####[address] [address] Urine, leukocyte esterase presence Negative Normal NEG [facility] Comment on above: Performed By: #### U A ####[address] [address] Urine, pH 5.5 [pH] Normal 5.0-8.0 [facility] Comment on above: Performed By: #### U A ####[address] [address] Urine, protein presence Negative Normal NEG [facility] Comment on above: Performed By: #### U A ####[address] [address] Urine, specific gravity 1.034 High 1.005-1.030 [facility] Comment on above: Performed By: #### U A ####[address] [address] Urobilinogen,Ur Normal Normal NORM [facility] Comment on above: Performed By: #### U A ####[address] [address] APTTon 04-25-2017 aPTT 22.2 s Normal 21.3-31.3 [facility] Comment on above: Result Comment: [address] [address] Performed By: #### C DP, PT, PTT, BMP ####[address] [address] Basic Metabolic Profon 04-25 (cont.) Normal [facility] Comment on above: Result Comment: Aver age GFR for 60-69 years old: 85 mL/min/1.73sq mChronic Kidney Disease: <60 mL/min/1.73sq mKidney failure: <15 mL/min/1.73sq meGFR calculated using average adult body mass. Additional eGFR calculator available at:[email or web address] Be [email or web address]_[email or web address] Ville [address] [place] [address] Performed By: #### C DP, PT, PTT, BMP ####[address] [address] Anion gap 16 mmol/L Normal 9-17 [facility] Comment on above: Performed By: #### C DP, PT, PTT, BMP ####[address] [address] Calcium 9.6 mg/dL Normal 8.6-10.4 [facility] Comment on above: Performed By: #### C DP, PT, PTT, BMP ####[address] [address] Chloride 103 mmol/L Normal 98-107 [facility] Comment on above: Performed By: #### C DP, PT, PTT, BMP ####[address] [address] CO2 19 mmol/L Low 20-31 [facility] Comment on above: Performed By: #### C DP, PT, PTT, BMP ####[address] [address] Creatinine 0.77 mg/dL Normal 0.70-1.20 [facility] Comment on above: Performed By: #### C DP, PT, PTT, BMP ####[address] [address] eGFR (non-black) mL/min/{1.73_m2} Normal >60 [facility] Comment on above: Performed By: #### C DP, PT, PTT, BMP ####[address] [address] Glucose mass conc 129 mg/dL High 70-99 [facility] Comment on above: Performed By: #### C DP, PT, PTT, BMP ####[address] [address] Potassium molar conc 3.8 mmol/L Normal 3.7-5.3 [facility] Comment on above: Performed By: #### C DP, PT, PTT, BMP ####[address] [address] Sodium 138 mmol/L Normal 135-144 [facility] Comment on above: Performed By: #### C DP, PT, PTT, BMP ####[address] [address] Urea nitrogen 14 mg/dL Normal 8-23 [facility] Comment on above: Performed By: #### C DP, PT, PTT, BMP ####[facility] [address] [place] [address] BUN/CRE Ratio NOT REPORTED Normal - [facility] Comment on above: Performed By: #### C DP, PT, PTT, BMP ####[address] [address] Staging: NOT REPORTED Normal [facility] Comment on above: Performed By: #### C DP, PT, PTT, BMP ####[place] [address] CBC with Diffon 04-25-2017 Abs. Basophil 0.00 k/uL Normal 0.0-0.2 [facility] Comment on above: Result Comment: [address] [address] Performed By: #### C DP, PT, PTT, BMP ####[place] [address] Abs.Neutrophil (Seg) 3.60 k/uL Normal 1.8-7.7 [facility] Comment on above: Performed By: #### C DP, PT, PTT, BMP ####[address] [address] Basophils/100 WBC Auto (Bld) 1 % Normal [facility] Comment on above: Performed By: #### C DP, PT, PTT, BMP ####[address] [address] Eosinophils 0.10 10*3/uL Normal 0.0-0.4 [facility] Comment on above: Performed By: #### C DP, PT, PTT, BMP ####[address] [address] Eosinophils/100 leukocytes 3 % Normal [facility] Comment on above: Performed By: #### C DP, PT, PTT, BMP ####[address] [address] Erythrocyte distribution width Auto Ratio (RBC) 13.5 % Normal 12.5-15.4 [facility] Comment on above: Performed By: #### C DP, PT, PTT, BMP ####[address] [address] Erythrocytes (RBC) 4.47 10*6/uL Low 4.5-5.9 [facility] Comment on above: Performed By: #### C DP, PT, PTT, BMP ####[address] [address] Hematocrit (HCT) 40.6 % Low 41-53 [facility] Comment on above: Performed By: #### C DP, PT, PTT, BMP ####[address] [address] Hemoglobin mass conc (Bld) 14.2 g/dL Normal 13.5-17.5 [facility] Comment on above: Performed By: #### C DP, PT, PTT, BMP ####[address] [address] Lymphocytes 1.50 10*3/uL Normal 1.0-4.8 [facility] Comment on above: Performed By: #### C DP, PT, PTT, BMP ####[address] [address] Lymphocytes/100 leukocytes 26 % Normal [facility] Comment on above: Performed By: #### C DP, PT, PTT, BMP ####[address] [address] MCH 31.8 pg Normal 26-34 [facility] Comment on above: Performed By: #### C DP, PT, PTT, BMP ####[address] [address] MCHC mass conc (RBC) 35.0 g/dL Normal 31-37 [facility] Comment on above: Performed By: #### C DP, PT, PTT, BMP ####[address] [address] MCV 90.9 fL Normal 80-100 [facility] Comment on above: Performed By: #### C DP, PT, PTT, BMP ####[address] [address] Monocytes 0.50 10*3/uL Normal 0.1-1.2 [facility] Comment on above: Performed By: #### C DP, PT, PTT, BMP ####[address] [address] Monocytes/100 leukocytes 8 % Normal [facility] Comment on above: Performed By: #### C DP, PT, PTT, BMP ####[address] [address] Neutrophil (Seg) 62 % Normal [facility] Comment on above: Performed By: #### C DP, PT, PTT, BMP ####[address] [address] Platelet mean volume (PMV) 8.8 fL Normal 6.0-12.0 [facility] Comment on above: Performed By: #### C DP, PT, PTT, BMP ####[address] [address] Platelets 194 10*3/uL Normal 140-450 [facility] Comment on above: Performed By: #### C DP, PT, PTT, BMP ####[address] [address] WBC (Leukocytes) 5.7 10*3/uL Normal 3.5-11.0 [facility] Comment on above: Performed By: #### C DP, PT, PTT, BMP ####[address] [place] [address] Auto Diff Performed NOT REPORTED Normal [facility] Comment on above: Performed By: #### C DP, PT, PTT, BMP ####[address] [place] [address] Erythrocyte morphology NOT REPORTED Normal [facility] Comment on above: Performed By: #### C DP, PT, PTT, BMP ####[address] [place] [address] Platelets NOT REPORTED Normal [facility] Comment on above: Performed By: #### C DP, PT, PTT, BMP ####[address] [place] [address] WBC Morphology NOT REPORTED Normal [facility] Comment on above: Performed By: #### C DP, PT, PTT, BMP ####[facility] South[facility] [address] [place] [address] HEAD WO CONTRASTon 2016 CT HEAD [...] by:DELTA Hodgesigned by:Saran Mccauley MD04/25/17Final result Normal [facility] ED Noteon 04-25-2017 HIM IP Note OR Barge Engineer Normal [facility] HIM IP Note OR Barge Engineer Normal [facility] HIM IP Note OR Barge Engineer Normal [facility] HIM IP Note OR Barge Engineer Normal [facility] ED Provider Noteon 7 HIM IP Note OR Barge Engineer Normal [facility] PTon 04-25-2017 INR Coag RelTime (PPP) 1.0 {INR} Normal [facility] Comment on above: Result Comment: Ther apeutic Range: Moderate Anticoagulant Intensity: INR = 2.0-3.0 High Anticoagulant Intensity: INR = 2.5-3.5[facility] [employer] [address] [place] [address] Performed By: #### C DP, PT, PTT, BMP ####[facility] [address] [place] [address] Prothrombin time (PT) Coag time (PPP) 10.6 s Normal 9.4-12.6 [facility] Comment on above: Performed By: #### C DP, PT, PTT, BMP ####[facility] [address] [place] [address] XR CHEST PORTABLEon 04-25-20 17 XR CHEST PORTABLE EXAMINATION:SINGLE V IEW OF THE CHEST04/25/2017 8:36 pmCOMPARISON:None.HISTO RY:ORDERING SYSTEM PROVIDED HISTORY: stroke-alterted mental statusTECHNOLOGIST PROVIDED HISTORY:Reason for exam:->stroke-alterted mental statusFINDINGS:The lungs are without acute focal process. There is no effusion orpneumothorax. The cardiomediastinal silhouette is without acute process. Theosseous structures are without acute process.IMPRESSION: No acute process.Interpreted by:DELTA Grubbsigned by:Ashvin Hanson MD04/25/17Final result Normal [facility] Vital Signs Date Time Vital Sign Value Performing Clinician Facility 09-28-2023 14:26-0500 Body height 177.8 cm Ana Ramos CNC TECHNICIAN-PHYSICIAN EXECUTIVE Work Phone: [facility] 09-28-2023 14:26-0500 Body mass index (BMI) [Ratio] 28.73 kg/m2 Ana Ramos CNC TECHNICIAN-PHYSICIAN EXECUTIVE Work Phone: [facility] 09-28-2023 14:26-0500 Body weight 90.81 kg Ana Ramos CNC TECHNICIAN-PHYSICIAN EXECUTIVE Work Phone: [facility] 09-28-2023 14:26-0500 Diastolic blood pressure 64 mm[Hg] Ana Ramos CNC TECHNICIAN-PHYSICIAN EXECUTIVE Work Phone: [facility] 09-28-2023 14:26-0500 Heart rate 78 /min Ana Ramos CNC TECHNICIAN-PHYSICIAN EXECUTIVE Work Phone: [facility] 09-28-2023 14:26-0500 Systolic blood pressure 128 mm[Hg] Ana Ramos CNC TECHNICIAN-PHYSICIAN EXECUTIVE Work Phone: [facility] 02-16-2023 14:00-0400 Body height 179.07 cm Vazquez Shaw Other [employer] Other 02-16-2023 14:00-0400 Body mass index (BMI) [Ratio] 29.14 kg/m2 Vazquez Shaw Other [employer] Other 02-16-2023 14:00-0400 Body weight 93.44 kg Vazquez Shaw Other [employer] Other 02-16-2023 14:00-0400 Diastolic blood pressure 64 mm[Hg] Vazquez Shaw Other [employer] Other 02-16-2023 14:00-0400 Systolic blood pressure 120 mm[Hg] Vazquez Shaw Other [employer] Other 12-29-2022 13:35-0500 Body height 177.8 cm Shaikh Jefferyd Work Phone: [facility] 250 DO Work Phone: 12-29-2022 13:35-0500 Body mass index (BMI) [Ratio] 30.28 kg/m2 Shaikh Jefferyd Work Phone: [facility] [employer] [facility] 250 DO Work Phone: 12-29-2022 13:35-0500 Body surface area Derived from formula 2.14 m2 Shaikh Jefferyd Work Phone: [facility] [employer] [facility] 250 DO Work Phone: 12-29-2022 13:35-0500 Body weight 95.71 kg Shaikh Jefferyd Work Phone: [facility] 250 DO Work Phone: 12-29-2022 13:35-0500 Diastolic blood pressure 70 mm[Hg] Shaikh Michaelwad Work Phone: [facility] 250 DO Work Phone: 12-29-2022 13:35-0500 Heart rate 74 /min Shaikh Jefferyd Work Phone: [facility] 250 DO Work Phone: 12-29-2022 13:35-0500 Systolic blood pressure 128 mm[Hg] Shaikh Michaelwad Work Phone: [facility] 250 DO Work Phone: 11-11-2022 16:30-0500 Body height 179.07 cm Alcides Nowak Other [employer] Other 11-11-2022 16:30-0500 Body mass index (BMI) [Ratio] 28.29 kg/m2 Alcides Christay Other [employer] Other 11-11-2022 16:30-0500 Body weight 90.72 kg Alcides Ditty Other [employer] Other 11-11-2022 16:30-0500 Diastolic blood pressure 68 mm[Hg] Alcides Ditty Other [employer] Other 11-11-2022 16:30-0500 Systolic blood pressure 117 mm[Hg] Alcides Ditty Other [employer] Other 05-12-2022 16:45-0400 Body height 179.07 cm Alcides Ditty Other [employer] Other 05-12-2022 16:45-0400 Body mass index (BMI) [Ratio] 30.41 kg/m2 Alcides Ditty Other [employer] Other 05-12-2022 16:45-0400 Body weight 97.52 kg Alcides Kayleightty Other [employer] Other 05-12-2022 16:45-0400 Diastolic blood pressure 80 mm[Hg] Alcides Ditty Other [employer] Other 05-12-2022 16:45-0400 Systolic blood pressure 149 mm[Hg] Alcides Ditty Other [employer] Other 04-14-2022 15:51-0400 Body height 177.8 cm Lala Fawwad Work Phone: [facility] 250 DO Work Phone: 04-14-2022 15:51-0400 Body mass index (BMI) [Ratio] 30.28 kg/m2 Shaikh Michaelwad Work Phone: [facility] 250 DO Work Phone: 04-14-2022 15:51-0400 Body surface area Derived from formula 2.14 m2 Shaikh Jefferyd Work Phone: [facility] 250 DO Work Phone: 04-14-2022 15:51-0400 Body weight 95.71 kg Shaikh Jefferyd Work Phone: [facility] 250 DO Work Phone: 04-14-2022 15:51-0400 Diastolic blood pressure 68 mm[Hg] Shaikh Michaelwad Work Phone: [facility] 250 DO Work Phone: 04-14-2022 15:51-0400 Heart rate 80 /min Shaikh Michaelwad Work Phone: [facility] 250 DO Work Phone: 04-14-2022 15:51-0400 Systolic blood pressure 118 mm[Hg] Shaikh Michaelwad Work Phone: [facility] 250 DO Work Phone: 12-04-2021 14:45-0500 Diastolic blood pressure 60 mm[Hg] Lala Fawwad Work Phone: [facility] 250 DO Work Phone: 12-04-2021 14:45-0500 Systolic blood pressure 111 mm[Hg] Lala Fawwad Work Phone: [facility] 250 DO Work Phone: 12-04-2021 14:38-0500 Body height 177.8 cm Shaikh Michaelwad Work Phone: [facility] 250 DO Work Phone: 12-04-2021 14:38-0500 Body mass index (BMI) [Ratio] 29.99 kg/m2 Shaikh Michaelwad Work Phone: [facility] 250 DO Work Phone: 12-04-2021 14:38-0500 Body surface area Derived from formula 2.13 m2 Shaikh Michaelwad Work Phone: [facility] 250 DO Work Phone: 12-04-2021 14:38-0500 Body weight 94.8 kg Shaikh Michaelwad Work Phone: [facility] 250 DO Work Phone: 12-04-2021 14:38-0500 Diastolic blood pressure 67 mm[Hg] Shaikh Michaelwad Work Phone: [facility] 250 DO Work Phone: 12-04-2021 14:38-0500 Heart rate 79 /min Shaikh Michaelwad Work Phone: [facility] 250 DO Work Phone: 12-04-2021 14:38-0500 Systolic blood pressure 120 mm[Hg] Shaikh Annitawwad Work Phone: [facility] 250 DO Work Phone: 11-23-2021 14:00-0500 Body weight 93.9 kg Alcides Nowak Other [employer] Other Encounters Encounter Date Encounter Type Care Provider Facility Start: 08-06-2024 End: 08-06-2024 Refill Keely Pineda PHOTOGRAPHER'S MODEL Work Phone: [facility] Comment on above: Type 2 diabetes alexandre itus without complications ([facility]) Start: 07-30-2024 End: 07-30-2024 Refill Keely Pineda PHOTOGRAPHER'S MODEL Work Phone: [facility] Comment on above: Benign prostatic hyp erplasia without lower urinary tract symptoms Start: 07-09-2024 End: 07-09-2024 ambulatory DAWNA JUICE Not Available Start: 06-21-2024 End: 06-21-2024 ambulatory CRISTHIAN A BROWN Not Available Start: 06-07-2024 End: 06-07-2024 ambulatory CRISTHIAN A BROWN Not Available Start: 05-22-2024 End: 05-22-2024 ambulatory LALA FAWWAD Not Available Start: 05-15-2024 End: 05-15-2024 ambulatory DAWNA JUICE Not Available Start: 02-29-2024 End: 02-29-2024 ambulatory ROSAURA MALIHA Not Available Start: 02-16-2024 End: 02-16-2024 ambulatory LALA FAWWAD Not Available Start: 01-25-2024 End: 01-25-2024 ambulatory ROSAURA MALIHA Not Available Start: 11-30-2023 Orders Only Shaikh Mary CURRAN Work Phone: [facility] Comment on above: Type 2 diabetes alexandre itus with diabetic polyneuropathy, without long-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 of insulin ([facility]) (Primary Dx) Type 2 diabetes alexandre itus with diabetic polyneuropathy, without long-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 of insulin ([facility]) Start: 11-28-2023 Chart abstracting Josr gonzales MD Work Phone: [facility] Start: 11-28-2023 End: 11-28-2023 ambulatory JOSR ANTOINE Not Available Start: 11-14-2023 End: 11-14-2023 ambulatory SHAIKH MARY Not Available Start: 11-09-2023 End: 11-09-2023 ambulatory JOSR ANTOINE Not Available Start: 11-07-2023 End: 11-07-2023 ambulatory ROSAURA JETT Not Available Start: 10-10-2023 End: 10-10-2023 ambulatory SHAIKH MARY Not Available Start: 10-10-2023 Patient encounter procedure Josr Antoine MD Work Phone: [facility] Start: 09-28-2023 End: 09-28-2023 ambulatory ANA Aragon [facility] Ambulatory Start: 09-28-2023 End: 09-28-2023 Office outpatient visit 15 minutes [facility] CNC TECHNICIAN-PHYSICIAN EXECUTIVE Work Phone: [facility] Comment on above: 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 Start: 07-22-2023 End: 07-22-2023 ambulatory MD Shaikh Hernandez Work Phone: [facility] Work Phone: Start: 07-22-2023 End: 07-22-2023 Patient encounter procedure MD Shaikh Hernandez Work Phone: [facility] [place] Work Phone: Start: 07-12-2023 End: 07-12-2023 ambulatory Vazquez Shaw Other [facility] [employer] Other Start: 07-12-2023 Telephone encounter Vazquez Fuentes [facility] Start: 02-17-2023 End: 02-18-2023 ambulatory SHAIKH Charlie HERNANDEZ Facility: Start: 02-16-2023 End: 02-16-2023 ambulatory Vazquez Shaw Other [employer] Other Start: 02-16-2023 Office outpatient visit 15 minutes Vazquez Shaw [facility] Start: 12-29-2022 Office outpatient visit 25 minutes Shaikh Mary Work Phone: [facility] 250 DO Work Phone: Start: 12-29-[address] Keyon Vázquez II Facility: Start: 11-23-2022 End: 11-23-2022 ambulatory Alcides Nowak Other [employer] Other Start: 11-23-2022 Telephone encounter Alcides REBOLLEDO [facility] Start: 11-15-2022 End: 11-16-2022 ambulatory SHAIKH Charlie HERNANDEZ Facility:[facility] Start: 11-11-2022 End: 11-11-2022 ambulatory Alcides Nowak Other [employer] Other Start: 11-11-2022 Patient encounter procedure Alcides [facility]GUETA [facility] Start: 05-20-2022 End: 05-21-[address] RAYMUNDO ANDERSON . Facility:[facility] Start: 05-17-2022 End: 05-17-2022 ambulatory Alcides Nowak Other [employer] Other Start: 05-17-2022 Telephone encounter Alcides REBOLLEDO [facility] Start: 05-14-2022 End: 05-15-2022 ambulatory SHAIKH Charlie HERNANDEZ Facility:[facility] Start: 05-13-2022 End: 05-13-2022 ambulatory Alcides Nowak Other [employer] Other Start: 05-13-2022 Telephone encounter Alcides REBOLLEDO [facility] Start: 05-12-2022 End: 05-12-2022 ambulatory Alcides Nowak Other [employer] Other Start: 05-12-2022 Patient encounter procedure Alcides Kayleighsav[place] [facility] Start: 04-20-2022 End: 04-20-[address] RAYMUNDO ANDERSON . Facility: Start: 04-14-2022 Office outpatient visit 25 minutes Lala Fawwad Work Phone: [facility] 250 DO Work Phone: Start: 04-14-[address] [facility] Start: 12-04-2021 Office outpatient ne w 45 minutes Lala Fawwad Work Phone: [facility] 250 DO Work Phone: Start: 12-04-2021 Patient encounter procedure Lala Fawwad Work Phone: [facility] 250 DO Work Phone: Start: 11-23-2021 End: 11-23-2021 ambulatory Alcides Nowak Other [place] [employer] Other Start: 11-23-2021 Patient encounter procedure Alcides Victorberenicedarryn [facility] Start: 04-25-2017 End: 04-26-2017 Evaluation and management of inpatient CELINE BYRNE [facility] Procedures Date Procedure Procedure Detail Performing [...] BYRNE Start: 04-26-2017 FACTOR 5 ASSAY CELINE MONTERORICKY Start: 04-26-2017 HOMOCYSTEINE, SERUM GERMÁN BYRNE Start: 04-26-2017 LUPUS ANTICOAGULANT GERMÁN ERICA BYRNE Start: 04-26-2017 PROTEIN C FUNCTIONAL MARTHA BYRNE Start: 04-26-2017 PROTEIN S FUNCTIONAL MARTHA BYRNE Start: 04-26-2017 Urinalysis CELINE ANN RICKY Start: 04-26-2017 URINE CULTURE MARTHADIGNARae AGUILAR NORM Start: 04-26-2017 POC GLUCOSE FINGERSTICK CELINE BYRNE Start: 04-26-2017 DIET CARDIAC CELINE KINGSLEYN Start: 04-26-2017 POCT GLUCOSE CELINE KINGSLEYN Start: 04-26-2017 OXYGEN THERAPY CELINE Aragon LUIS Start: 04-26-2017 PULSE OXIMETRY, CONTINUOUS CELINE BYRNE Start: 04-26-2017 CBC CELINE KINGSLEYN Start: 04-26-2017 Lipid panel CELINE ANN RICKY Start: 04-26-2017 PULSE OXIMETRY, CONTINUOUS CELINE BYRNE Start: 04-26-2017 TROPONIN CELINE GARCÍA Start: 04-26-2017 DAILY WEIGHTS CELINE ZHENG Start: 04-26-2017 HEMOGLOBIN A1C CELINE Aragon LUIS Start: 04-26-2017 TROPONIN CELINE GARCÍA Start: 04-26-2017 TSH WITH REFLEX CELINE BYRNE Start: 04-26-2017 POC GLUCOSE FINGERSTICK CELINE BYRNE Start: 04-26-2017 Echo tthrc r-t 2d w/ wom-mode compl spec&colr d CELINE BYRNE Start: 04-26-2017 INTAKE AND OUTPUT HUAN BYRNE Start: 04-26-2017 OXYGEN THERAPY MARTHAGREG Margo LUIS Start: 04-26-2017 PULSE OXIMETRY, CONTINUOUS CELINE BYRNE Start: 04-26-2017 CARDIAC MONITORING BRAD BYRNE Start: 04-26-2017 Continuous pulse oximetry CELINE BYRNE Start: 04-26-2017 ELEVATE HOB CELINE GARCÍA Start: 04-26-2017 FULL CODE CELINE ANN RICKY Start: 04-26-2017 IP CONSULT TO NEUROLOGY CELINE [...] CELINE BYRNE Start: 04-25-2017 IP CONSULT TO GREEN CHAIN OFFBEARER AL MEDICINE CELINE BYRNE Start: 04-25-2017 Ct [...] Start: 04-25-2017 LACTIC ACID,POINT OF CARE CELINE JUSTINBRADY Start: 04-25-2017 POCT GLUCOSE CELINE GARCÍA Start: 04-25-2017 POTASSIUM (POC) CELINE BYRNE Start: 04-25-2017 SODIUM (POC) CELINE GARCÍA Start: 04-25-2017 VENOUS BLOOD GAS, PO INT OF CARE CELINE JUSTINBRADY Start: 04-25-2017 Continuous pulse oximetry MARTHADIGNARae JUSTINBRADY Start: 04-25-2017 NURSING COMMUNICATION T JER JUSTINBRADY Start: 04-25-2017 CARDIAC MONITORING MARTHAHERMILO ANDERSONBRADY Start: 04-25-2017 ELEVATE HOB CELINE ANN RICKY Start: 04-25-2017 OXYGEN THERAPY MARTHADIGNARae Aragon LUIS Start: 04-25-2017 POCT TROPONIN CELINE ZHENG Start: 04-25-2017 IP CONSULT TO STROKE TEAM CELINE BYRNE Cholecyst[facility] [employer] Work Phone: Colonoscopy [employer] Work Phone: Decompression of med saida nerve [employer] Work Phone: Lithotripsy [employer] Work Phone: Nasal septoplasty [employer] Work Phone: Procedure on back [employer] Work Phone: Procedure on neck [employer] Work Phone: Tonsillectomy and adenoidectomy [employer] Work Phone: Plan of Treatment Date Care Activity Detail Author Start: 08-24-2025 Glaucoma screening Diabetes: Retinopathy Screening [facility] Start: 05-24-2025 Urine screening for protein Diabetes: Urine Protein Screening [facility] Start: 11-23-2024 Hemoglobin A1c measurement Diabetes: Hemoglobin A1C [facility] Start: 10-29-2024 End: 10-29-2024 Patient encounter procedure 10/29/2024 2:20 PM EST Office Visit [facility] [address] [place] [address] Dawna Bose NP [address] [place] [address] Start: 10-10-2024 Medicare Annual Wellness (AWV) Medicare Annual Wellness (AWV) [facility] Start: 09-03-2024 End: 09-03-2024 Patient encounter procedure 09/03/2024 2:30 PM EST Office Visit [facility] [address] [place] [address] Keely Pineda NP [address] [place] [phone] [facility] Start: 08-23-2024 End: 08-23-2024 Patient encounter procedure 08/23/2024 1:00 PM EDT Office Visit [facility] [address] [place] [phone] Keely Pineda NP [address] [place] [phone] [facility] Start: 07-11-2024 End: 07-11-2024 Patient encounter procedure 07/11/2024 2:10 PM EDT Office Visit [facility] [address] [facility] [address] [place] [phone] Keyon Vázquez MD [address] [facility] [address] [place] [address] [facility] Start: 06-24-2024 Influenza vaccination Influenza Vaccine (#1) [facility] Start: 04-23-2024 Urine screening for protein Diabetes: Urine Protein Screening [facility] Start: 02-16-2024 End: 02-16-2024 Patient encounter procedure 02/16/2024 1:45 PM EDT Office Visit [facility] [address] [place] [address] Shaikh Hernandez MD [address] [place] [address] [facility] Start: 01-30-2024 Hemoglobin A1c measurement Diabetes: Hemoglobin A1C [facility] Start: 01-04-2024 End: 01-04-2024 Patient encounter procedure 01/04/2024 1:30 PM EDT Office Visit [facility] [address] [facility] [place] [address] [facility] Start: 11-28-2023 End: 11-28-2023 Patient encounter procedure 11/28/2023 1:30 PM EST Office Visit [facility] [address] [place] [address] Josr Antoine MD [address] [place], [place] [id number] [facility] Start: 10-16-2023 COVID-19 Vaccine (5 - Moderna series) COVID-19 Vaccine (5 - Moderna series) [facility] Start: 09-23-2023 FUV, Provider: Keyon Vázquez, Status: Pen, Time: 2:00 PM FUV, Provider: Keyon Vázquez, Status: Pen, Time: 2:00 PM [facility] 250 DO Work Phone: Start: 12-29-2022 FUV, Provider: Keyon Vázquez, Status: Pen, Time: 1:40 PM FUV, Provider: Keyon Vázquez, Status: Pen, Time: 1:40 PM [facility] DO Work Phone: Start: 04-14-2022 FUV, Provider: Keyon Vázquez, Status: Pen, Time: 3:40 PM FUV, Provider: Keyon Vázquez, Status: Pen, Time: 3:40 PM [facility] Work Phone: Start: 08-11-2015 Zoster Vaccines (2 of 3) Zoster Vaccines (2 of 3) [facility] Start: 1973 DTaP/Tdap/Td Vaccines (1 - Tdap) DTaP/Tdap/Td Vaccines (1 - Tdap) [facility] Start: 1970 Urine screening for protein Diabetes: Urine Protein Screening [facility] Start: 1969 Hepatitis C screening Hepatitis C Screening [facility] Start: 1961 Diabetic foot examination Diabetes: Foot Exam [facility] Start: 1961 Glaucoma screening Diabetes: Retinopathy Screening [facility] Start: 1951 Hemoglobin A1c measurement Diabetes: Hemoglobin A1C [facility] Start: 1951 Lipid panel Lipid Panel [facility] Start: 1950 Medicare Annual Wellness Visit Medicare Annual Wellness Visit (AWV) [facility] Start: 1950 Screening for malignant neoplasm of colon [facility] Immunizations Immunization Date Immunization Notes Care Provider [facility] 08-21-2023 Influenza, High-dose Seasonal, Quadrivalent, Preservative Free Josr Antoine MD Work Phone: [facility] 08-21-2023 influenza virus vaccine, unspecified formulation Keely Pineda NP Work Phone: [facility] 08-19-2022 Fluzone High-Dose Quadrivalent 0.7 ML Intramuscular Suspension Prefilled Syringe Shaikh Mary Work Phone: [facility] DO Work Phone: 08-19-2022 Prevnar 20 0.5 ML Intramuscular Suspension Prefilled Syringe [facility]ikh Mary [facility] DO Work Phone: 08-13-2022 Moderna COVID-19 Biv al Booster 50 MCG/0.5ML Intramuscular Suspension Shaikh Mary Work Phone: [facility] 250 DO Work Phone: 03-17-2022 pneumococcal conjuga te vaccine, 13 valent Keely Pineda PHOTOGRAPHER'S MODEL Work Phone: [facility] 02-20-2022 Moderna COVID-19 Vaccine 100 MCG/0.5ML Intramuscular Suspension Lala Fawwad Work Phone: [facility] 250 DO Work Phone: 08-17-2021 Moderna COVID-19 Vaccine 100 MCG/0.5ML Intramuscular Suspension Lala Fawwad Work Phone: [facility] Comment on above: Series: 07-06-2021 Fluzone High-Dose Quadrivalent 0.7 ML Intramuscular Suspension Prefilled Syringe Lala Fawwad Work Phone: [facility] 250 DO Work Phone: 01-31-2021 Moderna COVID-19 Vaccine 100 MCG/0.5ML Intramuscular Suspension Lala Fawwad Work Phone: [facility] Comment on above: Series: 12-31-2020 Moderna COVID-19 Vaccine 100 MCG/0.5ML Intramuscular Suspension Lala Fawwad Work Phone: [facility] Comment on above: Series: 08-12-2016 influenza, seasonal, injectable, preservative free Lala Fawwad Work Phone: [facility] 250 DO Work Phone: 06-16-2015 zoster vaccine, live Lala Fawwad Work Phone: [facility] 250 DO Work Phone: 09-05-2013 pneumococcal polysaccharide vaccine, 23 valent Lala Fawwad Work Phone: [facility] 250 DO Work Phone: Payers Date Payer Category Payer Self-pay [id number] 2021 Medicare [id number] 2021 Medicare (Managed Care) [employer] [id number] 2014 Medicare [id number] 1959 Medicare [id number] 1951 Unknown [id number] 2.16.840.1.249010.3.579. 2.356 1951 Unknown [id number] 2.16.840.1.274919.3.579. 2.356 1951 Unknown [id number] 2.16.840.1.018756.3.579. 2.593 1951 Unknown [id number] 2.16.840.1.546444.3.579. 2.593 1951 Unknown [id number] 2.16.840.1.975988.3.579. 2.593 1951 Unknown [id number] 2.16.840.1.042134.3.579. 2.593 1951 Unknown [id number] 2.16.840.1.166881.3.579. 2.593 1951 Unknown [id number] 2.16.840.1.567698.3.579. 2.1244 1951 Unknown [id number] 2.16.840.1.248888.3.579. 2.9 1951 Unknown [id number] 2.16.840.1.365229.3.579. 2.1259 1951 Unknown [id number] 2.16.840.1.045647.3.579. 2.1258 1951 Unknown [id number] 2.16.840.1.926610.3.579. 2.1258 1951 Unknown [id number] 2.16.840.1.868224.3.579. 2.1258 1951 Unknown [id number] 2.16.840.1.549923.3.579. 2.1258 1951 Unknown [id number] 2.16.840.1.919332.3.579. 2.1258 1951 Unknown [id number] 2.16.840.1.395868.3.579. 2.1258 1951 Unknown [id number] 2.16.840.1.013269.3.579. 2.1258 1951 Unknown [id number] 2.16.840.1.463357.3.579. 2.1258 1951 Unknown [id number] 2.16.840.1.513216.3.579. 2.1258 1951 Unknown [id number] 2.16.840.1.106443.3.579. 2.1258 1951 Unknown [id number] 2.16.840.1.580648.3.579. 2.1259 Unknown [employer] MEDICARE ADV Unknown [id number] 2.16.840.1.531191.3.579. 2.531 Social History Date Type Detail Facility Start: 09-28-2023 End: 10-10-2023 No alcohol use No alcohol use [employer] Other Start: 09-28-2023 End: 10-10-2023 Sex Assigned At [facility] [employer] Other Start: 09-25-2021 End: 04-14-2023 Tobacco smoking status NHIS Never smoked tobacco (finding) [facility] Start: 1950 Sex Assigned At Male F [facility] Start: 04-14-2023 End: 09-27-2023 Tobacco use and exposure Smokeless tobacco non-user [facility] Work Phone: Start: 09-28-2023 End: 07-09-2024 Alcohol intake Lifetime non-drinker (finding) [facility] Work Phone: Start: 1950 Sex Assigned At Not on file U [facility] Work Phone: Start: 09-18-2023 End: 09-28-2023 Exposure to SARS-CoV-2 (event) Not sure [facility] Within the last year , have you [...] Never true [facility] NEGATED: Highlighted rowStart: PAGEF History of tobacco use Passive smoker [facility] Clinical Notes 12-05-2014 to 08-06-2024 Telephone Encounter - Carolina Bermudez - 08/06/2024 5:09 PM EDTTelephone Encounter - Carolina Bermudez - 08/06/2024 5:09 PM Juan Antonio Hernandez MD - 11/30/2023 4:14 PM ESTPatient Instructions Note Date & Type Note Facility 08-06-2024 Telephone encounter Note Patient called and said he can't get comfortable and there is swelling and lots of pain in one side of his butt cheek [facility] 08-06-2024 Miscellaneous Notes Patient called and said he can't get comfortable and there is swelling and lots of pain in one side of his butt cheek documented in this encounter [facility] 11-30-2023 History of Presen t illness Narrative [...] healthy lifestyle choices on overall cardiovascular health. [facility] Work Phone: 09-28-2023 Evaluation + Plan note Associated Problem(s): Diabetes mellitus with no complication (CMS/HCC) Maintained on ARB/statin Reports most recent hemoglobin A1c good [facility] Work Phone: 09-28-2023 Evaluation + Plan note Associated Problem(s): [facility] current use of 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 therapy CHADS VASc 5 (prior TIA) anticoagulated full dose Eliquis with age 73, weight 200. Denies bleeding diatheses [facility] Work Phone: 09-28-2023 Miscellaneous Notes Associated Problem(s): BMI 28.0-28.9,adult Reviewed the merits of healthy lifestyle choices on overall cardiovascular health. 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 Follow-up testing included unremarkable stress test and echocardiogram. He has been maintained on anticoagulation and beta-stephanie since that time. documented in this encounter [facility] Work Phone: 09-28-2023 Evaluation + Plan note Associated Problem(s): Paroxysmal atrial fibrillation (CMS/HCC) Denies any recurrent palpitations No prior antiarrhythmic Ausculatory rate regular on exam [facility] Work Phone: 09-28-2023 Evaluation + Plan note Associated Problem(s): Hyperlipidemia Low intensity statin Reports annual wellness labs through PCP [facility] Work Phone: 09-28-2023 Evaluation + Plan note Associated Problem(s): Essential hypertension, benign Optimal in office [facility] Work Phone: 09-28-2023 Evaluation + Plan note Associated Problem(s): Cardiac and Vasculature November 2021 presented as a self-referral for new patient consult with Dr. Tinoco. Reports in 2019 at PCP office in [place] had initial onset of atrial fibrillation with spontaneous conversion to normal sinus rhythm. Follow-up testing included unremarkable stress test and echocardiogram. He has been maintained on anticoagulation and beta-stephanie since that time. [facility] Work Phone: 09-28-2023 History of [...] Reports in 2019 at PCP office in [place] had initial onset of atrial fibrillation with spontaneous conversion to normal sinus rhythm. Follow-up testing included unremarkable stress test and echocardiogram. He has been maintained on anticoagulation and beta-stephanie since that time. Essential hypertension, benign Optimal in office Hyperlipidemia Low intensity statin Reports annual wellness labs through PCP Paroxysmal atrial fibrillation (CMS/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 Denies bleeding diatheses Diabetes mellitus with no complication ([facility]) Maintained on ARB/statin Reports most recent hemoglobin [...] Dr. Vázquez 9 months Ana Ramos MSN, CNC TECHNICIAN-PHYSICIAN EXECUTIVE, PMHNP-[facility] Please excuse any errors in grammar or translation related to this dictation. Voice recognition software was utilized to prepare this document. documented in this encounter [facility] Work Phone: 09-28-2023 Instructions AVELINO Acosta [...] Vázquez 9 months documented in this encounter [facility] Work Phone: 02-16-2023 Evaluation note Encounter Date Diagnosis Assessment Notes Jan, Dyspepsia (ICD-10 - K30) Jan, GERD (gastroesoph ageal reflux disease) (ICD-10 - K21.9) Patient currently doing well on current esomeprazole regimen patient denies dyspeptic complaints and is doing well overall from a GI standpoint. Recommendation to continue esomeprazole and return to office in 1 year [employer] Other 01-19-2023 Evaluation note* Encounter Date Diagnosis Assessment Notes Treatment Notes Treatment Clinical Notes Oct, GERD (gastroesophageal reflux disease) (ICD-10 - K21.9) Continue Omeprazole without change Pt to call if symptoms worsen or return Follow up in 1 year [employer] Other 07-28-2022 NoteCONSULTATION CONSULTATION DATE: 05/20/2022 HISTORY [...] indicated. Patient is in agreement to this.[id number] Evaluation note* Encounter Date Diagnosis Assessment Notes Treatment Notes Treatment Clinical Notes Apr, GERD (gastroesophageal reflux disease) (ICD-10 - K21.9) Stop Omeprazole Start Esomeprazole 40mg bid [employer] Other 01-31-2022 Evaluation note* Encounter Date Diagnosis [...] this time. Oct, Dyspepsia (ICD-10 - K30) [employer] Other 02-14-2015 History of Present illness Narrative* [...] We did advocate diet and weight loss. [facility] [employer] DO Work Phone: [phone]) 349-223102-12-2015 History of Present illness Narrative* She has [...] We did advocate diet and weight loss. 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/HCC) Type II or unspecified type diabetes mellitus without mention of complication, not stated as uncontrolled BMI 28.0-28.9,adult documented in this encounter [facility] Work Phone: Evaluation note* Diagnosis Type 2 diabetes mellitus with diabetic polyneuropathy, without long-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 of insulin (CMS/HCC)- Primary documented in this encounter [facility]* Diagnosis Type 2 diabetes mellitus with diabetic polyneuropathy, without long-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 of insulin ([facility]) documented in this encounter [facility]* Diagnosis Benign prostatic hyperplasia without lower urinary tract symptoms documented in this encounter [facility]* Diagnosis Encounter for screening for malignant neoplasm of colon- Primary URTI (acute upper respiratory infection) Acute upper respiratory infections of unspecified site Type 2 diabetes mellitus with diabetic polyneuropathy, without long-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 of insulin (CMS/HCC) Type 2 diabetes mellitus with diabetic polyneuropathy, with long-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 of insulin (CMS/HCC) Essential hypertension, benign (CMS/HCC) Essential hypertension, benign Encounter for Medicare annual wellness exam 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 (CMS/HCC) Essential hypertension, benign (CMS/HCC)- Primary Essential hypertension, benign Primary hypertension (CMS/HCC) Unspecified essential hypertension Left hand pain- Primary Pain in soft tissues of limb Benign prostatic hyperplasia without lower urinary tract symptoms Type 2 diabetes mellitus with diabetic polyneuropathy, without long-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 of insulin (CMS/HCC)- Primary Parkinson's disease without dyskinesia, unspecified whether manifestations fluctuate (CMS/HCC) Paroxysmal atrial fibrillation (CMS/HCC) Atrial fibrillation Essential hypertension, benign (CMS/HCC) Essential hypertension, benign Benign prostatic hyperplasia without lower urinary tract symptoms Hyperlipidemia, unspecified hyperlipidemia type (CMS/HCC) Right foot pain Pain in soft tissues of limb Type 2 diabetes mellitus without complications (CMS/HCC) documented in this encounter [facility] Healthcare[facility] general Narrative - Reported* Type Description Date Surgical History gallbladder [employer] Other History general Narrative - Reported* Type Description Date Medical History parkinsons disease Medical History TYPE 2 DIABETES Surgical History gallbladder Surgical History CARPAL TUNEL Surgical History NECK & BACK SURGERY Surgical History TONSILLECTOMY Hospitalization History NONE IN THE LAST YEAR [employer] Other History of Present illness NarrativePatient returns [...] some weight loss as well as modest exercise[facility] [employer] Work Phone: History of Present illness [...] diabetes was emphasized and he understands our recommendation.-[facility] [employer] DO Work Phone: Reason for referral (narrative)* Consultation (Routine) - Authorized Specialty Diagnoses / Procedures Referred By Augustina giordano Referred To Contact Cardiology Diagnoses Paroxysmal atrial fibrillation (CMS/HCC) Procedures Follow Up In Cardiology Ana Ramos APRN-CNP [address] [address] Keyon Vázquez MD 703 [facility] [address] [address] Referral ID Status Reason Start Date Expiration Date V isits Requested Visits Authorized [id number] Authorized 09/28/2023 09/27/2024 1 1 [facility] Work Phone: Summary Purpose Family History Unknown Family Member Name Dates Details No [...] Unknown family medical history Unknown Advance Directives Advance Directive Response Recorded Date/ Time Advance [...] section and content) DATE CREATED AUTHOR 04/19/2018 [facility] DATE CREATED AUTHOR AUTHOR'S ORGANIZ ATION 10/08/2021 [facility] DATE CREATED AUTHOR AUTHOR'S ORGANIZ ATION 12/31/2022 [facility] DATE CREATED AUTHOR AUTHOR'S ORGANIZ ATION 12/31/2022 [facility] DATE CREATED AUTHOR AUTHOR'S ORGANIZ ATION 02/20/2023 [facility] DATE CREATED AUTHOR AUTHOR'S ORGANIZ ATION 07/29/2023 [facility] DATE CREATED AUTHOR AUTHOR'S ORGANIZ ATION 01/20/2024 [facility] DATE CREATED AUTHOR AUTHOR'S ORGANIZ ATION 07/11/2024 [facility] dical Specialists EPIC REASON FOR VISIT (unrecogniz ed section and content) Reason Comments Follow-up 9 month Reason Onset Date Comments Med Refill 07/30/2024 Reason Onset Date Comments Med Refill 08/06/2024 Care Teams (unrecognized sec tion and content) Team Status: Active Member Role Status Dates Shaikh Mary MD Primary Care Provider Active Team Status: Inactive Member Role Status Dates JUAN M Gonzalez Attending Provider Active Shaikh Mary MD Primary Care Provider Active Mom[employer] Teacher Relationship Specialty Start Date End Date Shaikh Hernandez MD [address] [place] [address] PCP - General 10/24/19 Momd Teacher Relationship Specialty Start Date End Date Shaikh Hernandez MD PCP - General Internal Medicine 04/14/23 Momd Teacher Relationship Specialty Start Date End Date Shaikh Hernandez MD [address] [place] [phone] PCP - General Internal Medicine 11/28/23 Momd Teacher Relationship Specialty Start Date End Date Shaikh Hernandez MD [address] [place] [address] PCP - General Internal Medicine 11/28/23 Momd Teacher Relationship Specialty Start Date End Date Shaikh Hernandez MD [address] [place] [phone] PCP - General Internal Medicine 11/28/23 Goals [...] BE BASED ON THE PRIMARY CLINICAL RECORDS. [employer] [facility]. provides no warranty or guarantee of the accuracy or completeness of information in this document.
[2024-08-10] MEDS: KETOROLAC TROMETHAMINE 30 MG/ML VIAL IM (14:08)
[2024-08-10] MEDS: ACETAMINOPHEN 325 MG TABLET 650 MG PO (14:08)
--- NOTE | 2024-08-10 15:20 | ED.GENADUL1 ---
HPI HPI - General Adult General Chief complaint: Recheck/Abnormal Lab/Rx Stated complaint: RECHECK Time Seen by Provider: 08/10/24 13:41 Source: patient Mode of arrival: walk-in History of Present Illness HPI narrative: The patient is coming to us for a follow-up check on his perirectal abscess, the patient had the abscess drained almost 2 days ago in the ER and he is coming for the packing to be removed He is denying any fever chills or any increasing pain feeling better than the last time he was here but he still having some pain although he is not using anything including Tylenol Related Data Home Medications ?Medication ?Instructions ?Recorded ?Confirmed apixaban 5 mg tablet (Eliquis) 5 mg PO Q12H 02/09/24 08/10/24 atorvastatin 20 mg tablet 20 mg PO DAILY 02/09/24 08/10/24 carbidopa 25 mg-levodopa 100 mg 1 tab PO TID 02/09/24 08/10/24 tablet carvedilol 12.5 mg tablet 12.5 mg PO BID 02/09/24 08/10/24 esomeprazole magnesium 40 mg 40 mg PO Q24H 02/09/24 08/10/24 capsule,delayed release famotidine 40 mg tablet 40 mg PO BID 02/09/24 08/10/24 finasteride 5 mg tablet 5 mg PO DAILY 02/09/24 08/10/24 gabapentin 400 mg capsule 400 mg PO TID 02/09/24 08/10/24 meclizine 25 mg tablet 25 mg PO BID PRN dizziness 02/09/24 08/10/24 metformin 500 mg tablet 500 mg PO BID 02/09/24 08/10/24 primidone 50 mg tablet 50 mg PO BEDTIME 02/09/24 08/10/24 sitagliptin phosphate 100 mg 100 mg PO DAILY 02/09/24 08/10/24 tablet (Januvia) tamsulosin 0.4 mg capsule 0.4 mg PO Q24H 02/09/24 08/10/24 trazodone 50 mg tablet 50 mg PO BEDTIME PRN sleep 02/09/24 08/10/24 dulaglutide 1.5 mg/0.5 mL 1.5 mg subcut QWEEK 08/10/24 08/10/24 subcutaneous pen injector (Trulicity) Previous Rx's ?Medication ?Instructions ?Recorded acetaminophen 650 mg 650 mg PO Q8H PRN pain #20 tabs 08/10/24 tablet,extended release (Tylenol Arthritis Pain) cephalexin 500 mg capsule 500 mg PO Q8H 7 days #21 caps 08/10/24 Allergies Allergy/AdvReac Type Severity Reaction Status Date / Time Iodinated Contrast Media Allergy Severe Anaphylaxis Verified 08/08/24 19:17 latex Allergy Unknown Rash Verified 08/08/24 19:17 shellfish derived Allergy Unknown Anaphylaxis Verified 08/08/24 19:17 Opioid HPI Opioid Management Most Recent Opioid Data: Last Pain Scale 7 08/10/24 14:08 08/10/24 Last ED Pain Assessment 08/08/24 19:25 Last MAR Pain Assessment 08/10/24 14:08 Review of Systems ROS Status of ROS 10 or more systems reviewed and unremarkable except as noted in history and below [facility] Social History Little interest or pleasure in doing things: not at all Feeling down, depressed, or hopeless: not at all Exam Narrative Exam Narrative: Nurses notes and vital signs reviewed and patient is not hypoxic. Per rectal exam showed that the patient have right medial aspect of the buttock abscess that is not connected to the rectum but distal to it by almost 5 cm, the patient had the abscess already drained and healing and there is no discharge seen the packing was removed General: Well-appearing and in no apparent distress. Skin: Warm, dry, no pallor noted. No rash. Head: Normocephalic, atraumatic. Neck: Supple, non-tender. Cardiovascular: Regular Rate and Rhythm without murmur, gallop or rub. Respiratory: No accessory muscle use or respiratory distress. Lungs are clear to auscultation, no wheezing, rales or rhonchi Chest Wall: no tenderness Back: No midline thoracic or lumbar vertebral tenderness. No CVA tenderness Musculoskeletal: normal ROM, no calf or popliteal tenderness, no lower extremity edema/swelling GI: Abdomen is soft, non-distended. Normal bowel sounds. No masses appreciated. No tenderness to palpation. No rebound, guarding, or rigidity noted. Neurological: A&O x4. No cranial nerve dysfunction observed. No truncal ataxia. Moves all extremities. Sensation intact. Psychiatric: Cooperative and interactive. Normal mood and affect. Constitutional Vital Signs, click to edit/add: Last Vital Signs Temp 97.6 F 08/10/24 13:42 Pulse 81 08/10/24 13:42 Resp 18 08/10/24 13:42 BP 126/61 08/10/24 13:42 Pulse Ox 95 08/10/24 13:42 O2 Del Method Room Air 08/10/24 13:42 Course Vital Signs Vital signs: Vital Signs Temperature 97.6 F 08/10/24 13:42 Pulse Rate 81 08/10/24 13:42 Respiratory Rate 18 08/10/24 13:42 Blood Pressure 126/61 08/10/24 13:42 Pulse Oximetry 95 08/10/24 13:42 Oxygen Delivery Method Room Air 08/10/24 13:42 Temperature 97.6 F 08/10/24 13:42 Pulse Rate 81 08/10/24 13:42 Respiratory Rate 18 08/10/24 13:42 Blood Pressure 126/61 08/10/24 13:42 Pulse Oximetry 95 08/10/24 13:42 Oxygen Delivery Method Room Air 08/10/24 13:42 Medical Decision Making [facility] Narrative Medical decision making narrative: The patient abscess is adequately healing right now he had the packing removed I added Tylenol daily for pain management in addition to Keflex as a second antibiotic just to help healing The patient will be discharged with local care in addition to instruction to come back in case of any fever or increasing pain The patient was instructed about the daily sitz bath after which the patient will have drying up of the area and clean dressing applied The patient is to follow up with primary care physician in next 2-3 days or to return to the emergency department should any of the signs or symptoms worsen or new symptoms develop. The patient agrees with the following Diagnosis and Treatment plan and the patient will be discharged home. Discharge Plan Discharge Chief Complaint: Recheck/Abnormal Lab/Rx Clinical Impression: Visit for wound care, Abscess of anal and rectal regions Patient Disposition: Home, Self-Care Time of Disposition Decision: 14:20 Condition: Good Prescriptions / Home Meds: New cephalexin 500 mg capsule 500 mg PO Q8H 7 Days Qty: 21 0RF acetaminophen [Tylenol Arthritis Pain] 650 mg tablet extended release 650 mg PO Q8H PRN (Reason: pain) Qty: 20 0RF No Action Trulicity 1.5 mg/0.5 mL pen injector 1.5 mg SUBCUT QWEEK metformin 500 mg tablet 500 mg PO BID primidone 50 mg tablet 50 mg PO BEDTIME atorvastatin 20 mg tablet 20 mg PO DAILY carvedilol 12.5 mg tablet 12.5 mg PO BID trazodone 50 mg tablet 50 mg PO BEDTIME PRN (Reason: sleep) famotidine 40 mg tablet 40 mg PO BID gabapentin 400 mg capsule 400 mg PO TID tamsulosin 0.4 mg capsule 0.4 mg PO Q24H meclizine 25 mg tablet 25 mg PO BID PRN (Reason: dizziness) esomeprazole magnesium 40 mg capsule,delayed release(DR/EC) 40 mg PO Q24H carbidopa-levodopa 25-100 mg tablet 1 tab PO TID finasteride 5 mg tablet 5 mg PO DAILY Januvia 100 mg tablet 100 mg PO DAILY Eliquis 5 mg tablet 5 mg PO Q12H Print Language: Czech Instructions: Carie Mendoza (DC), Abscess Follow-up (ED) Referrals: Physician,Non-Staff, MD [Primary Care Provider] - 1 week Discharge Date/Time: 08/10/24 14:29
== END 2024-08-10 14:29 | disposition home or self-care (01) ==
PROVIDERS: Emergency Provider Emergency Medicine
DX: Z48.01 Encounter for change or removal of surgical wound dressing (principal); K61.2 Anorectal abscess
CPT/HCPCS: 96372; 99284; J1885

== ENCOUNTER 2024-09-07 11:35 | Outpatient (OUT) | payer MEDICARE, SELFPAY ==
[2024-09-07 12:55] LABS: Estimated Average Glucose 163 mg/dL; Glycohemoglobin A1C 7.3 % (4.5-6.2)
== END 2024-09-07 11:36 | disposition home or self-care (01) ==
LOC: LAB 11:36
DX: E11.42 Type 2 diabetes mellitus with diabetic polyneuropathy (principal)
CPT/HCPCS: 36415; 83036

== ENCOUNTER 2024-12-19 13:28 | Outpatient (OUT) | payer MEDICARE, SELFPAY ==
--- NOTE | 2024-12-19 14:00 | CA_ITS ---
Patient Name: JUSTIN AGUERO MR#: [id number] : 1950 Exam Date: 12/19/2024 Ordering Doctor: DR. SHILPA MARIN M.D. ECHOCARDIOGRAM REPORT PROCEDURE: CA ECHO DOPPLER COMPLETE INDICATIONS: Atrial firillation, hypertension, diabetes COMPARISON: None. DESCRIPTION: COMPLETE ECHOCARDIOGRAM Real-time transthoracic echocardiography with 2D, M-mode, spectral and color flow Doppler performed. QUALITY: Technical quality was good. LEFT VENTRICLE: Normal chamber size. Mild concentric left ventricular hypertrophy. Normal systolic function. LV EF: Normal left ventricular ejection fraction, (55-60%). DIASTOLIC: Grade II diastolic dysfunction. ATRIAL SEPTUM: LEFT ATRIUM: Moderate dilatation. RIGHT ATRIUM: Mild dilatation. RIGHT VENTRICLE: Mild dilatation. Normal right ventricular systolic function. TRICUSPID VALVE: Normal mobility and thickness. No stenosis with no regurgitation. Unable to assess right-sided pressures due to lack of measurable tricuspid regurgitation. MITRAL VALVE: Normal mobility and thickness. No evidence of mitral valve stenosis. Mild mitral annular calcification. Mild mitral regurgitation. AORTIC VALVE: Normal trileaflet appearance. Mildly calcified aortic valve. Normal leaflet mobility. No evidence of aortic valve stenosis. No aortic regurgitation. AORTIC ROOT: Normal diameter and appearance, measuring 3.7 cm. Ascending aorta is normal in size, measuring 2.9 cm. PULMONIC VALVE: Normal thickness and mobility. No stenosis. No regurgitation. PERICARDIUM: No evidence of pericardial effusion. IVC: Not well visualized. PLEURA: CONCLUSION: 1. Mild concentric left ventricular hypertrophy with normal systolic function. LVEF is estimated at 55-60%. 2. Mildly dilated right ventricle with normal systolic function. 3. Grade 2 diastolic dysfunction. 4. Mild mitral regurgitation. 5. Mild to moderate biatrial dilatation. 6. Unable to assess right-sided pressures due to lack of measurable tricuspid regurgitation. Adult Echocardiography Procedure Report Left Ventricle LVEDD (3.7 - 5.6 cm): 4.86 cm LVESD (2.2 - 4.0 cm): 3.08 cm LVIVS thickness (0.6 - 1.2 cm): 1.15 cm LVPW thickness (0.5 - 1.0 cm): 1.08 cm e': 0.07 m/s E - e': 13.51 LVOT Diameter 2.60 cm Left Atrium LA Volume Index (2D A2C): 42.38 ml/m2 Left Atrium Systolic Dimension: 4.55 cm Mitral Valve MV E to A Ratio: 1.10 Mitral Valve A-Wave Peak Velocity: 0.83 m/s Mitral Valve E-Wave Peak Velocity: 0.92 m/s Right Ventricle Aorta AO Root Diam: 3.73 cm Ascending Ao Diam: 2.92 cm Aortic Valve Tricuspid Valve Pulmonic Valve Mean Gradient: 1.05 mm[Hg] Mean Velocity: 0.48 m/s Peak Velocity: 0.73 m/s, 0.72 m/s Peak Gradient: 2.07 mm[Hg], 2.12 mm[Hg] Right Atrium Right Atrium Systolic Pressure: 43.61 ml, 43.61 ml Dictated by: Erick Zhu M.D. on 12/19/2024 at 17:18 Approved by: Erick Zhu M.D. on 12/19/2024 at 17:23
== END 2024-12-19 13:29 | disposition home or self-care (01) ==
LOC: CARD 13:28
PROVIDERS: PCP Internal Medicine; Visit Provider Internal Medicine Cardiovascular Disease
DX: I48.91 Unspecified atrial fibrillation (principal); I11.9 Hypertensive heart disease without heart failure; R94.31 Abnormal electrocardiogram [ECG] [EKG]
CPT/HCPCS: 93306

== ENCOUNTER 2025-01-02 13:54 | Outpatient (OUT) | payer MEDICARE, SELFPAY ==
[2025-01-02 14:21] LABS: Estimated Average Glucose 146 mg/dL; Glycohemoglobin A1C 6.7 % (4.5-6.2)
[2025-01-02 14:22] LABS: Alanine Aminotransferase <6 U/L (16-63); Aspartate Amino Transferase 12 U/L (15-37); Chol HDL Ratio 2.3; Cholesterol 149 mg/dL (<=200); HDL Cholesterol 64 mg/dL (40-60); Triglycerides 189 mg/dL (<=150); VLDL CHOLESTEROL 37.8 mg/dL
== END 2025-01-02 13:55 | disposition home or self-care (01) ==
LOC: LAB 13:55
PROVIDERS: PCP Internal Medicine; Visit Provider Internal Medicine Cardiovascular Disease
DX: E78.00 Pure hypercholesterolemia, unspecified (principal); E11.9 Type 2 diabetes mellitus without complications
CPT/HCPCS: 36415; 80061; 83036; 84450; 84460

== ENCOUNTER 2025-08-19 10:38 | Outpatient (OUT) | payer MEDICARE, SELFPAY ==
--- OUTSIDE RECORDS SUMMARY | 2024-10-15 11:45 | XMS_ITS ---
Author Organization [facility] vices Address [address] [place] [id number] Care Team Providers Care Podiatry Teacher Name Role Phone Mary Wright Primary Care Provider Briana Evangelista Unavailable [phone] REASON FOR VISIT (PHYSICAL THERAPY AID) Wellness Social History Sex Assigned At : Social History Observation Description Sex Assigned At Male Encounters Encounter Location Date Provider Diagnosis Main [address] [place] [id number] 10/15/2024 Briana Evangelista Plan Of Treatment Next Appt Details Provider Name:Mary Wright, 10/28/2025 02:00:00 PM, [address] [place], [id number], Provider Name:Mary Wright, 11/12/2025 02:30:00 PM, [address] [place], [id number], Progress Notes * STEPHEN JayDOB:1950 ( 75 yo M)Acc No.[id number]:10/15/2024 Progress Notes Patient: Jay JONES :?Briana EvangelistaDOB:1950???Age:74 Y???Sex: MaleDate:10/15/2024hone:[phone]:[address], [address], [place], [id number]:Mary Wright Subjective: * Chief Complaints: * 1 . (PHYSICAL THERAPY AID) Wellness. * Medical History: Objective: * Vitals: Assessment: Plan: * Treatment: Care Plan: * Problems: * Billing Information: * Visit Code: * Procedure Codes: * Electronic signature of ALEX Haynes on 08/19/2025 at 10:44 AM EDTSign off status: Pending * Provider: Tracy Evangelista Date: 1 12/16/2023 Generated for Printing/Faxing/eTransmitting on:?08/19/2025 10:44 AM EDT
--- OUTSIDE RECORDS SUMMARY | 2024-10-22 11:45 | XMS_ITS ---
Author Organization [facility] vices Address [address] [place] [id number] Care Team Providers Care Readers' Advisory Service Librarian Name Role Phone Mary Wright Primary Care Provider [phone] Briana Evangelista Unavailable [phone] REASON FOR VISIT ([place]) Wellness Social History Sex Assigned At : Social History Observation Description Sex Assigned At Male Encounters Encounter Location Date Provider Diagnosis Main [address] [place] [id number] 10/22/2024 Briana Evangelista Plan Of Treatment Next Appt Details Provider Name:Mary Wright, 10/28/2025 02:00:00 PM, [address] [place], [id number], Provider Name:Mary Wright, 11/12/2025 02:30:00 PM, [address] [place], [id number], Progress Notes * STEPHEN JayDOB:1950 ( 75 yo M)Acc No.[id number]:10/22/2024 Progress Notes Patient: Jay JONES :?Briana EvangelistaDOB:1950???Age:74 Y???Sex: MaleDate:10/22/2024hone:[phone]:[address], [address], [place], [id number]:Mary Wright Subjective: * Chief Complaints: * 1 . ([place]) Wellness. * Medical History: Objective: * Vitals: Assessment: Plan: * Treatment: Care Plan: * Problems: * Billing Information: * Visit Code: * Procedure Codes: * Electronic signature of ALEX Haynes on 08/19/2025 at 10:44 AM EDTSign off status: Pending * Provider: Tracy Evangelista Date: 1 Generated for Printing/Faxing/eTransmitting on:?08/19/2025 10:44 AM EDT
--- OUTSIDE RECORDS SUMMARY | 2025-08-19 10:44 | XMS_ITS | Clinical Summary ---
Author Organization [facility] Address [address] 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 Phone Shaikh BINA Hernandez Primary Care Provider [phone] Allergies Active AllergyReactionsCriticalityNoted DateCommentsAdhesive Tape-SiliconesRash Low09/28/2023Iodinated Contrast BteoyUoooexi76/05/2314YykrcNlcbcWgkn68/06/2023 Shellfish SlfzbhxAidwrzqumnkRswr97/06/2023 Medications MedicationSigDispense QuantityRefillsLast FilledStart DateEnd DateStatus aspirin 81 mg EC tablet Take 1 tablet (81 mg) by mouth 1 (one) time per week.12/04/2021ctive atorvastatin (Lipitor) 20 mg tablet Take 1 tablet (20 mg) by mouth once daily.12/01/2021ctive biotin 5 mg capsule Take 1 capsule (5 mg) by mouth once daily.Active carbidopa-levodopa (Sinemet) 25-100 mg tablet Take 1 tablet by mouth 3 times a day.Active cholecalciferol (Vitamin D-3) 50,000 unit capsule Take 1 capsule (50,000 Units) by mouth once daily.Active cetirizine (ZyrTEC) 10 mg tablet Take 1 tablet (10 mg) by mouth once daily as needed.Active dulaglutide (Trulicity) 0.75 mg/0.5 mL pen injector Inject under the skin.01/07/2022ctive gabapentin (Neurontin) 300 mg capsule Take 1 capsule (300 mg) by mouth 2 times a day.Active glimepiride (Amaryl) 4 mg tablet Take 0.5 tablets (2 mg) by mouth once daily in the morning. Take before meals. 12/01/2021ctive losartan (Cozaar) 50 mg tablet Take 1 tablet (50 mg) by mouth once daily.10/27/2021ctive magnesium oxide (Mag-Ox) 400 mg (241.3 mg magnesium) tablet Take 1 tablet (400 mg) by mouth once daily at bedtime.11/17/2021ctive meclizine (Antivert) 25 mg tablet Take 1 tablet (25 mg) by mouth 2 times a day as needed.11/17/2021ctive metFORMIN (Glucophage) 500 mg tablet Take 1 tablet (500 mg) by mouth every 12 hours.12/01/2021ctive sitaGLIPtin phosphate (Januvia) 100 mg tablet Take 1 tablet (100 mg) by mouth once daily.11/10/2021ctive tamsulosin (Flomax) 0.4 mg 24 hr capsule Take 1 capsule (0.4 mg) by mouth once daily.11/30/2021ctive primidone (Mysoline) 50 mg tablet Take 1 tablet (50 mg) by mouth once daily at bedtime.Active esomeprazole (NexIUM) [address] capsule Take 1 capsule (40 mg) by mouth once daily in the morning. Take before meals. Do not open capsule.Active traZODone (Desyrel) 50 mg tablet Take 1 tablet (50 mg) by mouth once daily at bedtime.Active finasteride (Proscar) 5 mg tablet Take 1 tablet (5 mg) by mouth once daily. Do not crush, chew, or split.Active carvedilol (Coreg) 12.5 mg tablet Indications:Essential hypertension, benignTake 1 tablet (12.5 mg) by mouth 2 times a day with meals. 60 tablet 11001/19/2024ctive apixaban (Eliquis) 5 mg tablet Indications:Paroxysmal atrial fibrillation (Multi)Take 1 tablet (5 mg) by mouth 2 times a day. 180 tablet ctive Active Problems ProblemNoted DateDiagnosed DateLong 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 of 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 therapy 09/28/2023 Assessment & Plan (09/28/2023 4:34 PM EST): CHADS VASc 5 (prior TIA) anticoagulated full dose Eliquis with age 73, weight 200. Denies bleeding diatheses BMI 28.0-28.9,adult09/28/2023 Assessment & Plan (09/28/2023 4:34 PM EST): Reviewed the merits of healthy lifestyle choices on overall cardiovascular health. Diabetes mellitus with no zpxhrzyvtakz73/05/2023 Assessment & Plan (09/28/2023 4:34 PM EST): Maintained on ARB/statin Reports most recent hemoglobin A1c good Essential hypertension, lzlxyl9509/27/2023 Assessment & Plan (09/28/2023 4:31 PM EST): Optimal in office Cyllzekpxakptg93/05/2023 Assessment & Plan (09/28/2023 4:31 PM EST): Low intensity statin Reports annual wellness labs through PCP Parkinsons kuxlfxu2009/27/2023aroxysmal atrial wjrnewotaozt50/05/2023 Assessment & Plan (09/28/2023 4:31 PM EST): Denies any recurrent palpitations No prior antiarrhythmic Ausculatory rate regular on exam Immunizations ImmunizationAdministration DatesNext DueFlu vaccine, quadrivalent, high-dose, preservative free, age 65y+ (FLUZONE)08/19/2022,07/06/2021Flu vaccine, trivalent, preservative free, age 6 months and greater (Fluarix/Fluzone/Flulaval)08/12/2016Moderna COVID-19 vaccine, bivalent, blue cap/norton label *Check age/dose*2Pneumococcal conjugate vaccine, 20- valent (PREVNAR 20)2Pneumococcal polysaccharide vaccine, 23-valent, age 2 years and older (PNEUMOVAX 23)09/05/2013Zoster, live06/16/2015 Family History Medical HistoryRelationNameCommentsNo Known ProblemsMotherRelationNameStatus CommentsMother Social History Tobacco UseTypesPacks/DayYears UsedDateSmoking Tobacco: NeverSmokeless Tobacco: Never Tobacco Cessation:Counseling Given: Not Answered Alcohol UseStandard Drinks/WeekCommentsNever0 (1 standard drink = 0.6 oz pure alcohol)Sex and Gender InformationValueDate RecordedSex Assigned at BirthNot on fileLegal XdlFwip82/26/2022 11:07 AM ESTGender IdentityNot on fileSexual OrientationNot on file Last Filed Vital Signs Vital SignReadingTime TakenCommentsBlood Vdrewydt709/6409/28/2023 2:26 PM EST Jkyud328809/28/2023 2:26 PM ESTTemperature--Respiratory Rate--Oxygen Saturation-- Inhaled Oxygen Concentration--Tyqybz20.8 kg (200 lb 3.2 oz)09/28/2023 2:26 PM AIIXkvtgp910.8 cm (5' 10 )09/28/2023 2:26 PM ESTBody Mass Index28.7309/28/2023 2:26 PM EST Plan of Treatment Health MaintenanceDue DateLast DoneCommentsCT Teunpzvpevpe1950olonoscopy 1950olorectal Cancer Ljzourktn1950iabetes: Hemoglobin A1C 1950iabetes: Urine Protein Odivvmugd1950FIT-DNA (Cologuard) 1950FIT1950ipid Panel1950Medicare Annual Wellness Visit (AWV) 1950 3001Fhxjulrobuwwt1951iabetes: Retinopathy Cmfhoicyk61/30/1961 Hepatitis C Ubpkaxdsp53/30/1969DTaP/Tdap/Td Vaccines (1 - Tdap)1973MMR Vaccines (1 of 1 - Standard series)07/14/2015Zoster Vaccines (2 of 3)08/11/2015 06/16/2015Influenza Vaccine (#1)51, 08/19/2022, 07/06/2021, Additional history existsCOVID-19 Vaccine ( season)2025 08/21/2023, 08/13/2022, 02/20/2022, Additional history existsRSV High Risk: (Elderly (60+) or Population) (1 - 1-dose 75+ series)2026 Pneumococcal ZmdjngjEejjhmyql11/27/2022, 03/17/2022, 09/05/2013HIB VaccinesAged OutNo longer eligible based on patient's age to complete this topicHPV Vaccines Aged OutNo longer eligible based on patient's age to complete this topic Hepatitis A VaccinesAged OutNo longer eligible based on patient's age to complete this topicHepatitis B VaccinesAged OutNo longer eligible based on patient's age to complete this topicIPV VaccinesAged OutNo longer eligible based on patient's age to complete this topicMeningococcal VaccineAged OutNo longer eligible based on patient's age to complete this topicRotavirus VaccinesAged Out No longer eligible based on patient's age to complete this topic Insurance [address] [place] [id number] [address] [place] [address] Care Teams Team MemberRelationshipSpecialtyStart DateEnd Date Shaikh Hernandez MD PCP - General10/24/19
--- OUTSIDE RECORDS SUMMARY | 2025-08-19 10:44 | XMS_ITS | Clinical Summary ---
Author Organization [facility] Healthcare Address [address] [place] [address] Care Team Providers Care Car Hop Name Role Phone Mary Wright MD Primary Care Provider [phone] Adam Brown DO Unavailable [phone] Tonya Schultz NP Unavailable Unavailable Allergies Active AllergyReactionsCriticalityNoted DateCommentsGadolinium Derivatives 07/09/20241925BzptwjYckmtzmgvutEoku32/01/0210SbaeaCbteWynldy41/01/2017 Other reaction(s): Pruritus Shellfish Protein-Containing Drug DujeuoctRgswRcb51/22/2023Wound Dressing BanhxmqqLajqNhl85/12/2016 Medications MedicationSigDispense QuantityRefillsLast FilledStart DateEnd DateStatus esomeprazole (NexIUM) [address] capsule Take 40 mg by mouth Daily03/15/2023ctive biotin 29953 MCG tablet Take 1 tablet by mouth DailyActive loratadine (Allergy Relief) 10 MG tablet Take 10 mg by mouth DailyActive Cyanocobalamin (VITAMIN B12 PO) Take 2 tablets by mouth DailyActive aspirin 81 MG EC tablet Take 1 tablet by mouth DailyActive Eliquis 5 MG tablet Take 5 mg by mouth in the morning and 5 mg before bedtime.03/19/2024ctive famotidine (Pepcid) 40 MG tablet Take 40 mg by mouth in the morning and 40 mg before bedtime. PRN.Active carvedilol (Coreg) 12.5 MG tablet Indications:Essential hypertension, benignTake 1 tablet (12.5 mg) by mouth in the morning and 1 tablet (12.5 mg) in the evening. Take with meals. 180 tablet ctive finasteride (Proscar) 5 MG tablet Indications:Benign prostatic hyperplasia without lower urinary tract symptoms Take 1 tablet (5 mg) by mouth Daily 30 tablet ctive metFORMIN (Glucophage) 500 MG tablet Indications:Type 2 diabetes mellitus without complications (HCC)Take 1 tablet (500 mg) by mouth every 12 (twelve) hours 180 tablet ctive Additional Information Patient not taking.Reported on 02/28/2025 traZODone (Desyrel) 50 MG tablet Indications:Insomnia, unspecifiedTAKE 1 TABLET BY MOUTH DAILY NEEDED for sleep 90 tablet ctive Continuous Glucose Sensor (Dexcom G7 Sensor) misc Indications:Type 2 diabetes mellitus with diabetic polyneuropathy, without long- 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 of insulin (HCC)1 each continuously 1 each ctive meclizine (Antivert) 25 MG tablet Indications:Dizziness and giddinessTake 1 tablet (25 mg) by mouth 2 (two) times a day as needed for dizziness 180 tablet ctive Continuous Glucose Entry Level Finance (Dexcom G7 Entry Level Finance) device Indications:Type 2 diabetes mellitus with diabetic polyneuropathy, without long- 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 of insulin (HCC)1 each continuously 1 each ctive atorvastatin (Lipitor) 20 MG tablet Indications:Hyperlipidemia, unspecified hyperlipidemia typeTake 1 tablet (20 mg) by mouth in the morning. 100 tablet ctive SITagliptin (Januvia) 100 MG tablet Indications:Type 2 diabetes mellitus without complications (HCC)Take 1 tablet (100 mg) by mouth in the morning. 90 tablet 5Active Dulaglutide (Trulicity) 1.5 MG/0.5ML solution auto-injector Indications:Type 2 diabetes mellitus with diabetic polyneuropathy, without long- 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 of insulin (HCC)Inject 1.5 mg under the skin 1 (one) time per week 0.5 mL 5Active gabapentin (Neurontin) 400 MG capsule Indications:Polyneuropathy, unspecifiedTAKE 1 CAPSULE BY MOUTH THREE TIMES DAILY (IN THE MORNING, IN THE EVENING and BEFORE bedtime) 270 capsule 5Active primidone (Mysoline) 50 MG tablet Take 50 mg by mouth at bedtimeActive carbidopa-levodopa (Sinemet) 25-100 MG tablet Indications:Parkinson's disease without dyskinesia, unspecified whether manifestations fluctuate (HCC)Take 1.5 (one and a half) tablets by mouth four times per day (at 9:00 am, 1:00 pm, 5:00 pm, and 9:00 pm). 180 tablet 5Active Additional Information Patient not taking.Reported on 02/28/2025 dapagliflozin (Farxiga) 10 MG Take by mouthActive Active Problems ProblemNoted DateDiagnosed DateGrade I lesyphnzcfn75/08/2025olon cancer screening kppxffso94/11/5777Cexbvxrjqoe61/16/2024 Overview (07/09/2024): It is my impression that the patient has ongoing paresthesias of the BLE, most prominent in the feet. He has a longstanding history of diabetes, and certainly this could represent polyneuropathy. However, I cannot rule out other etiologies at this time. PLAN: - Consider EMG of the BLE. This was discussed with patient today but deferred per his request. - He is taking Gabapentin (prescribed by PCP) which is helpful - Follow closely with primary care provider for adequate blood glucose control to prevent further nerve damage Essential giexfe0807/09/2024 Overview (07/09/2024): The patient previously presented with jaw tremor and action tremor of the bilateral upper extremities when drinking from a glass. As such, a superimposed essential tremor was suspected. He notes substantial improvement with primidone. . PLAN: - Continue primidone 50 mg PO once a day at bedtime. Side effects reviewed. The patient verbalizes understanding and wishes to continue. Right foot pain05/22/2024 Assessment & Plan (05/22/2024 2:50 PM EDT): Right foot pain, localized. Its very painful for him to walk. Point tenderness at the head of fifthmetatarsal and possibly bony spur. Order XR, refer to podiatry Arthritis of right hip02/16/2024DD (degenerative disc disease), lumbar 02/16/2024GERD (gastroesophageal reflux disease)02/16/2024Left hand pain 02/16/2024 Assessment & Plan (02/16/2024 2:16 PM EDT): Left hand pain - after fall, associated hand swelling. XR in ED - no fracture. Will repeat to make sure there is no fx. Benign prostatic hyperplasia without lower urinary tract aoobtedu29/25/2024 Assessment & Plan (05/22/2024 2:49 PM EDT): Symptoms improved once Flomax was increased to q12 dosing. Assessment & Plan (02/16/2024 2:15 PM EDT): Poorly controlled symptoms. Reports polyuria, nocturia and urgency. FSBS at goal. He is on flomax and it helped his symptoms when it was started Increased to q12 dosing and assess response to treatment Essential khilrmihxzno84/19/2023aroxysmal atrial qrrdubnqqnby06/18/2023 Assessment & Plan (05/22/2024 2:48 PM EDT): Paorxysomal Afib, On Eliquis for stroke px. Type 2 diabetes mellitus with diabetic polyneuropathy, without long-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 of zhgycgk4610/10/2023 Assessment & Plan (09/03/2024 2:51 PM EST): Currently taking Metformin Star Martinez Most recent labs: hemoglobin A1C 7.1% Average FSBS range from BGs range between 120 and 140 Checks BG levels using: [employer] Jocelyne; Reports senor needle consistently bends and hurts arm. Would like to try new style of senor. Will give Dexcom Sample. No episode of hypoglycemia No medication adverse effects reported by the patient. Patient educated on lifestyle modifications, dietary restrictions, signs and symptoms of hypoglycemia/hyperglycemia and importance of eating regular consistent meals. Stressed upon importance of checking blood glucose at home and bring blood glucose log to appointments. All questions, concerns answered and addressed. Encouraged to call office if persistent hypoglycemia/hyperglycemia on home glucose monitoring noted. DM Eye Exam: 06/2024 Assessment & Plan (05/22/2024 2:47 PM EDT): No recent A1C. FSBS typically at goal. No medication adverse effects reported by the patient. C/w metformin, kellyity and Januvia. Assessment & Plan (10/11/2023 12:37 AM EST): Most recent labs: hemoglobin A1C 07/04/23 --> 6.1 Average FSBS range from patient does not check sugars No episode of hypoglycemia No medication adverse effects reported by the patient. Patient educated on lifestyle modifications, dietary restrictions, signs and symptoms of hypoglycemia/hyperglycemia and importance of eating regular consistent meals. Stressed upon importance of checking blood glucose at home and bring blood glucose log to appointments. All questions, concerns answered and addressed. Encouraged to call office if persistent hypoglycemia/hyperglycemia on home glucose monitoring noted. Last appt his glimepiride was discontinued. Order A1C to follow up on glycemic control Encounter for Medicare annual wellness exam10/10/2023 Assessment & Plan (10/11/2023 12:41 AM EST): Patient here for medicare wellness exam. Refereed to GI for screening colonoscopy. Prior hx of colonic polyps that were removed. He is unsure of when he had his last colonoscopy. Order A1C for T2 DM follow up. Reviewed patients medical, surgical and social hx. Performed screening for depression, fall risk, cognitive impairment. URTI (acute upper respiratory infection)10/10/2023 Assessment & Plan (10/11/2023 12:40 AM EST): Reports cough, that is productive, worse at night, but no associated SOB, fever,chills. Symptoms present x 2 weeks. Exam c/w pharyngitis - will order Azithromycin/benzonatate for the patient. 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 Denies bleeding diatheses Essential hypertension, xpfglf0209/27/2023 Overview (10/10/2023): Last Assessment & Plan: Optimal in office Assessment & Plan (09/03/2024 2:52 PM EST): Currently taking Carvedilol 12.5mg Does not check BP at home; Denies orthostatic changes, dizziness, cough, shortness of breath, swelling in extremities. Continue current regimen. Given hx of T2DM and Parkinson disease, at high risk of autonomic dysfunction resulting in orthostatic hypotension Given BP log, advised pt to record BP and bring log back with them to next visit. Assessment & Plan (05/22/2024 2:48 PM EDT): BP at goal now. On average less than 110/70. Given hx of T2DM and Parkinson disease, at high risk of autonomic dysfunction resulting in orthostatic hypotension. Patient encouraged to continue with home BP monitoring and call office if he experiences orthostatic symptoms or persistently elevated BP. On coreg 12.5 mg q12. Assessment & Plan (11/14/2023 2:42 PM EST): Last appointment, his Losartan was discontinued. BP too tightly controlled. Reports feeling tired, intermittent orthostasis but improved from before. On average less than 110/70. Given hx of T2DM and Parkinson disease, at high risk of autonomic dysfunction resulting in orthostatic hypotension. Patient encouraged to continue with home BP monitoring and call office if he experiences orthostatic symptoms or persistently elevated BP. Decrease Coreg to 12.5 mg q12. Follow up with home BP readings to ensure BP is at goal and medications do not need to be adjusted. Assessment & Plan (10/11/2023 12:39 AM EST): BP too tightly controlled. Reports feeling tired, intermittent orthostasis. On average less than 110/70. Given hx of T2DM and Parkinson disease, at high risk of autonomic dysfunction resulting in orthostatic hypotension. discontinue Losartan. Patient encouraged to continue with home BP monitoring and call office if he experiences orthostatic symptoms or persistently elevated BP. Follow up in one month for BP check Dxbxuyjdrzqzrw45/05/2023 Overview (10/10/2023): Last Assessment & Plan: Low intensity statin Reports annual wellness labs through PCP Assessment & Plan (09/03/2024 2:52 PM EST): Currently taking Atorvastatin 20mg Denies any myalgias. Continue current regimen. Assessment & Plan (05/22/2024 2:49 PM EDT): Check lipid panel. C/w lipitor. Parkinsons tlwifrv6509/27/2023 Overview (07/09/2024): The patient has major criteria for Parkinson's disease evident on clinical exam including bilateralbradykinesia, tremor, and rigidity with activation. The patient has had a beneficial response to dopaminergic therapy with Sinemet, though more recently feels his chin and jaw tremor have worsened sowe did discuss timing of medications. He does feel this is improved with more regularly taking the midday dose. PLAN: - Continue Sinemet 25-100 mg 1 tablet PO TID (9am, 1pm, and 6pm). - Consider PT in the future. This was declined by the patient today - Could consider the addition of melatonin for ongoing complaints of difficulty falling asleep (he is also on trazadone) Assessment & Plan (05/22/2024 2:47 PM EDT): Following Neurology. Recent work up for possible seizure like activity - unremarkable MRI, EEG withlow suspicious of seizure disorder and hence not started on AED by neurology. His Cinemet was increased to qid dosing recently by neurology. Assessment & Plan (10/11/2023 12:42 AM EST): Following Neurology. Recent work up for possible seizure like activity - unremarkable MRI, EEG withlow suspicious of seizure disorder and hence not started on AED by neurology. Immunizations ImmunizationAdministration DatesNext DueInfluenza, High-dose Seasonal, Quadrivalent, Preservative Free08/21/2023,08/19/2022,07/06/2021Influenza, seasonal, injectable, preservative free08/12/2016Pneumococcal Conjugate PCV 13 2Pneumococcal Conjugate PCV 2Pneumococcal Polysaccharide ZJWH606011/05/2012Zoster, live06/16/2015 Family History Medical HistoryRelationNameCommentsParkinsonismMotherBreast cancerNeg HxColon cancerNeg HxOvarian cancerNeg HxPancreatic cancerNeg HxRelationNameStatus CommentsBrother6 brothersFatherDeceasedMotherDeceasedSister1 sister Social History Tobacco UseTypesPacks/DayYears UsedDateSmoking Tobacco: NeverPassive Smoke Exposure: NeverSmokeless Tobacco: Never Tobacco Cessation:Counseling Given: Not Answered Alcohol UseStandard Drinks/WeekCommentsNever0 (1 standard drink = 0.6 oz pure alcohol)Humiliation, Afraid, Rape, and Kick questionnaireAnswerDate Recorded Within the last year, have you been afraid of your partner or ex-partner?No 10/10/2023Within the last year, have you been humiliated or emotionally abused in other ways by your partner or ex-partner?No10/10/2023Within the last year, have you been kicked, hit, slapped, or otherwise physically hurt by your partner or ex-partner?No10/10/2023Within the last year, have you been raped or forced to have any kind of sexual activity by your partner or ex-partner?No10/10/2023 Social Connection and Isolation PanelAnswerDate RecordedIn a typical week, how many times do you talk on the phone with family, friends, or neighbors?Once a week10/10/2023How often do you get together with friends or relatives?Once a week10/10/2023How often do you attend scientology or druze services?Never 3Do you belong to any clubs or organizations such as scientology groups, unions, fraternal or athletic groups, or school groups?No10/10/2023How often do you attend meetings of the clubs or organizations you belong to?Never10/10/2023 Are you , , , , never , or living with a partner?Gsjykni7910/10/2023UDIT-CAnswerDate RecordedFrequency of Alcohol ConsumptionNot on file10/10/2023Q2: How many drinks containing alcohol do you have on a typical day when you are drinking?Patient does not drink10/10/2023Q3: How often do you have six or more drinks on one occasion?Never10/10/2023Overall Financial Resource Strain (CARDIA)AnswerDate RecordedHow hard is it for you to pay for the very basics like food, housing, medical care, and heating?Not hard at all10/10/2023HQ-2AnswerDate RecordedPatient Health Questionnaire-2 Score0 05/22/2024[facility] [place] [facility] - Occupational Stress QuestionnaireAnswerDate RecordedDo you feel stress - tense, restless, nervous, or anxious, or unable to sleep at night because yourmind is troubled all the time - these days?Not at all10/10/2023Exercise Vital SignAnswerDate RecordedOn average, how many days per week do you engage in moderate to strenuous exercise (like a brisk walk)?0 days10/10/2023On average, how many minutes do you engage in exercise at this level?0 min10/10/2023Hunger Vital SignAnswerDate Recorded Within the past 12 months, you worried that your food would run out before you got the money to buymore.Never true10/10/2023Within the past 12 months, the food you bought just didn't last and you didn't have money to get more.Never true 10/10/2023RAPARE - TransportationAnswerDate RecordedIn the past 12 months, has lack of transportation kept you from medical appointments or from getting medications?No10/10/2023In the past 12 months, has lack of transportation kept you from meetings, work, or from getting things needed for daily living?No 10/10/2023Housing Stability Vital SignAnswerDate RecordedIn the last 12 months, was there a time when you were not able to pay the mortgage or rent on time?No 10/10/2023In the last 12 months, how many places have you lived?In the last 12 months, was there a time when you did not have a steady place to sleep or slept in ashelter (including now)?No10/10/2023Sex and Gender InformationValueDate RecordedSex Assigned at BirthNot on fileLegal SexMale 01/05/2023 11:21 PM EDTGender IdentityNot on fileSexual OrientationNot on file Last Filed Vital Signs Vital SignReadingTime TakenCommentsBlood Tsbnfoiz634/5704 2:55 PM EDT Zxfbu7558 2:55 PM VVKFvulqvpeaxu66.4 ??C (97.6 ??F)09/03/2024 1:51 PM ESTRespiratory Byqn927411/03/2023 1:51 PM ESTOxygen Vsxjasyygr88%09/03/2024 1:51 PM ESTInhaled Oxygen Concentration--Csjkht45.3 kg (188 lb)02/28/2025 1:31 PM EDT Nrfhuf307.3 cm (5' 11 )02/28/2025 1:31 PM EDTBody Mass Index26.22002/28/2025 1:31 PM EDT Plan of Treatment Health MaintenanceDue DateLast DoneCommentsCT Yptxslahzguu1951FIT-DNA 1950FIT1950FOBT1950 0668Nvgdjltwapxel1951Influenza Vaccine (#1), 08/21/2023, 08/19/2022, Additional history exists Gvingfekcfr99/09/203504/olorectal Cancer Ogzambxfw30/09/2035Pneumococcal Vaccine: 65+ GkdyeCbbkyeipk98/27/2022, 03/17/2022, 09/05/2013 Insurance Care Teams Team MemberRelationshipSpecialtyStart DateEnd Date Mary Wright MD [address] [place] [address] [place] [id number] PCP - GeneralInternal Medicine11/29/24 Adam Brown DO [address] [address] Referring PhysicianNeurolog11/29/24 Tonya Schultz NP [address] [place] [id number] Nurse PractitionerNeurology2
--- OUTSIDE RECORDS SUMMARY | 2025-08-19 10:44 | XMS_ITS | Clinical Summary ---
Author Organization [facility] Address [address] [place] [address] Care Team Providers Care Casey Saw Operator Name Role Phone Mary Wright MD Primary Care Provider [phone] Allergies Active AllergyReactionsCriticalityNoted DateCommentsAdhesive Tape-SiliconesRash Low09/28/2023Iodinated Contrast BfxfyRzuwadg62/05/2023IodineAnaphylaxisHigh 05/24/2017LatexHives,VmqeChgm32/01/2017 Other reaction(s): Pruritus Shellfish CjydfkgOsfmvzcwpfqVhth37/06/2023 Medications MedicationSigDispense QuantityRefillsLast FilledStart DateEnd DateStatus aspirin 81 mg EC tablet Take 1 tablet by mouth in the morning.12/04/2021ctive atorvastatin (Lipitor) 20 mg tablet Take 20 mg by mouth at bedtime.12/01/2021ctive carvedilol (Coreg) 12.5 mg tablet Take 12.5 mg by mouth with breakfast and with evening meal.Active gabapentin (Neurontin) 400 mg capsule Take 400 mg by mouth three times daily.11/15/2024tive Januvia 100 mg tablet Take 100 mg by mouth in the morning.Active meclizine (Antivert) 25 mg tablet Take 25 mg by mouth if needed in the morning and at bedtime.11/17/2021ctive esomeprazole (NexIUM) [address] capsule Take 40 mg by mouth before breakfast.Active metFORMIN (Glucophage) 500 mg tablet Take 500 mg by mouth every 12 (twelve) hours.Active carbidopa-levodopa (Sinemet) 25-100 mg tablet Take 1 tablet by mouth four times daily.Active primidone (Mysoline) 50 mg tablet Take 50 mg by mouth.10/22/2024ctive loratadine (Claritin) 10 mg tablet Take 10 mg by mouth in the morning.Active traZODone (Desyrel) 50 mg tablet TAKE 1 TABLET BY MOUTH DAILY NEEDED for sleep08/21/2024ctive finasteride (Proscar) 5 mg tablet Take 5 mg by mouth in the morning.Active famotidine (Pepcid) 40 mg tablet Take 40 mg by mouth if needed in the morning and at bedtime.Active Trulicity 1.5 mg/0.5 mL pen injector INJECT 1.5 mg SUBCUTANEOUSLY (UNDER THE SKIN) ONCE A WEEKActive cholecalciferol (Vitamin D-3) 1,250 mcg (50,000 unit) capsule Take 50,000 Units by mouth in the morning.Active magnesium oxide (Mag-Ox) 400 mg (241.3 mg magnesium) tablet Take 400 mg by mouth.11/17/2021ctive apixaban (Eliquis) 5 mg tablet Indications:Paroxysmal atrial fibrillation (CMS/HCC)Take 1 tablet (5 mg) by mouth two times daily. 180 tablet ctive SITagliptin phosphate (Januvia) 100 mg tablet Take 100 mg by mouth in the morning.Active dapagliflozin propanediol (Farxiga) 10 mg Take by mouth in the morning.Active tamsulosin (Flomax) 0.4 mg 24 hr capsule Take 1 capsule by mouth in the morning.5Active Active Problems ProblemNoted DateDiagnosed DateLeft ventricular diastolic kipbpziootc75/30/2025 Grade I vbhqufbbnlr86/08/2025Abnormal EKG011/30/2024enign hypertensive heart disease without congestive heart temrzuj7611/30/20241772Saefomnahw58/07/2025olon cancer screening nkgleidf55/11/2024Essential qbimxq6207/09/2024 Overview (11/30/2024): The patient previously presented with jaw tremor and action tremor of the bilateral upper extremities when drinking from a glass. As such, a superimposed essential tremor was suspected. He notes substantial improvement with primidone. . PLAN: - Continue primidone 50 mg PO once a day at bedtime. Side effects reviewed. The patient verbalizes understanding and wishes to continue. Lyclapjgvij41/16/2024 Overview (11/30/2024): It is my impression that the patient [...] glucose control to prevent further nerve damage Right foot pain05/22/2024rthritis of right hip02/16/2024enign prostatic hyperplasia without lower urinary tract juyzvxgj05/25/2024DD (degenerative disc disease), eyique1502/16/2024GERD (gastroesophageal reflux disease)02/16/2024Left hand pain02/16/2024Encounter for Medicare annual wellness exam10/10/2023Type 2 diabetes mellitus with diabetic polyneuropathy, without long-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 of jiobxna7710/10/2023URTI (acute upper respiratory infection)10/10/2023MI 28.0-28.9,adult09/28/2023Long 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 of 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 therapy 09/28/2023 Overview (11/30/2024): Last Assessment & Plan: CHADS VASc 5 (prior TIA) anticoagulated full dose Eliquis with age 73, weight 200. Denies bleeding diatheses Diabetes mellitus type II, non insulin gawsjuzhy27/05/2023Hyperlipidemia 09/27/2023 Overview (11/30/2024): Last Assessment & Plan: Low intensity statin Reports annual wellness labs through PCP Parkinsons poadwun9809/27/2023 Overview (11/30/2024): The patient has major criteria for Parkinson's [...] falling asleep (he is also on trazadone) Atrial iqfvbvpczlgk00/05/2023 Resolved Problems ProblemNoted DateDiagnosed DateResolved DateEssential hypertension, benign Overview (11/30/2024): Last Assessment & Plan: Optimal in office Encounters DateTypeDepartmentCare RwcaAxpedoexppm90/30/2025 1:00 PM EDTOffice Visit [facility] [place] [address] [place] [address] Erica Hammond MD Paroxysmal atrial fibrillation (CMS/HCC) (Primary Dx); Left ventricular diastolic dysfunction; Benign hypertensive heart disease without congestive heart failure; Pure hypercholesterolemia; BMI 28.0-28.9,adult; Diabetes mellitus type II, non insulin dependent (CMS/HCC)from Last 3 Months Family History RelationNameStatusCommentsFatherDeceasedMotherDeceased Social History Tobacco UseTypesPacks/DayYears UsedDateSmoking Tobacco: NeverSmokeless Tobacco: Never Tobacco Cessation:Counseling Given: Not Answered Alcohol UseStandard Drinks/WeekCommentsYes0 (1 standard drink = 0.6 oz pure alcohol)occasionalSex and Gender InformationValueDate RecordedSex Assigned at FujdcWzxc57/30/2025 9:23 AM EDTLegal JlvVgjy6504/21/2022 9:51 PM EDTGender VkuvsndgTdff85/30/2025 9:23 AM EDTSexual OrientationHeterosexual or Straight 05/22/2025 9:23 AM EDT Last Filed Vital Signs Vital SignReadingTime TakenCommentsBlood Kvolmihs70/4907 12:56 PM EDT Nhlin638005/22/2025 12:56 PM EDTTemperature--Respiratory Rate--Oxygen Saturation 94%05/22/2025 12:56 PM EDTInhaled Oxygen Concentration--Ejuihz07.5 kg (184 lb) 05/22/2025 12:56 PM QRTRvazmb543.8 cm (5' 10 )05/22/2025 12:56 PM EDTBody Mass Index26. 12:56 PM EDT Plan of Treatment Health MaintenanceDue DateLast DoneCommentsCT Nfabyorswdfk1951olonoscopy 1950olorectal Cancer Ronqwgezm1951iabetes: Hemoglobin A1C 1951FIT-DNA1951FIT1951FOBT1951Medicare Annual Wellness (AWV)1950 4444Wpuspfrvyynmt1951iabetes: Retinopathy Dijjfyhcd24/30/1961 Depression Ljyvydzlk46/30/1963Diabetes: Urine Protein Amoutliwc10/30/1970Adult Cfkpijz9504/22/1973Zoster Vaccines (1 of 2)Fall Risk Screening 2016COVID-19 Vaccine ( season), 08/21/2023, 08/13/2022, Additional history existsInfluenza Vaccine (#1), 08/21/2023, 08/19/2022, Additional history existsPneumococcal Vaccine: 50+ Years Seztvxtgn61/27/2022, 03/17/2022, 09/05/2013HIB VaccinesAged OutNo longer eligible based on patient's age to complete this topicHPV VaccinesAged OutNo longer eligible based on patient's age to complete this topicIPV VaccinesAged OutNo longer eligible based on patient's age to complete this topicMeningococcal B VaccineAged OutNo longer eligible based on patient's age to complete this topicMeningococcal VaccineAged OutNo longer eligible based on patient's age to complete this topicRotavirus VaccinesAged OutNo longer eligible based on patient's age to complete this topic Insurance Care Teams Team MemberRelationshipSpecialtyStart DateEnd Date Mary Wright MD [address] [place] [address] PCP - GeneralInternal Medicine11/30/24
--- OUTSIDE RECORDS SUMMARY | 2025-08-19 10:44 | XMS_ITS | Clinical Summary ---
Author Organization [facility] Address [id number] [place] [address] Care Team Providers Care Arboriculturist Name Role Phone Amol Carmen DO Primary Care Provider [phone] Allergies Active AllergyReactionsCriticalityNoted DateCommentsAdhesive Tape-SiliconesRash Low02/03/2016Food Allergy TiiokjlQrdnkdosnlsCzicYeuespAngjvfjtcyhPcow46/01/2017 FkjdxUdgkgs21/01/2017 Other reaction(s): Pruritus Latex07/08/2020Shellfish Containing FehpdmvqBexmfixjcuvZqps74/01/2017Shellfish Pwkrjkw6407/08/2020 Medications MedicationSigDispense QuantityRefillsLast FilledStart DateEnd DateStatus glimepiride (AMARYL) 4 mg tablet Take 2 mg by mouth daily.Active metFORMIN (GLUCOPHAGE) 1000 mg tablet Take by mouth 2 (two) times a day with meals.02/13/2016Active atorvastatin (LIPITOR) 20 mg tablet Take by mouth daily.Active aspirin 81 mg Take 325 mg by mouth daily.Active losartan (COZAAR) 25 mg tablet Take by mouth.Active ftswpyahij-pwxryojhgbefi-lcoi (FIORICET, ESGIC) 50-325-40 mg per tablet Indications:Atypical migraineTake 1 tablet once daily as needed for headache 30 tablet 08/09/2017Active Additional Information Patient not taking.Reported on 10/20/2017 omeprazole (PriLOSEC) 20 mg capsule Take 20 mg by mouth daily.Active meclizine (ANTIVERT) 25 mg tablet Indications:DizzinessTake 1 tablet twice a day as needed for dizziness 30 tablet 07/06/2018Active gabapentin (NEURONTIN) 300 mg capsule Indications:Left leg painTAKE 1 CAPSULE 3 TIMES A DAY 270 capsule 01/08/2019Active meclizine (ANTIVERT) 25 mg tablet Indications:DizzinessTAKE 1 TABLET TWICE A DAY NEEDED FOR DIZZINESS 180 tablet Active meclizine (ANTIVERT) 25 mg tablet Chew 25 mg and swallow 2 (two) times a day.Active metFORMIN (GLUCOPHAGE) 1000 mg tablet Take 1,000 mg by mouth 2 (two) times a day with meals.Active glimepiride (AMARYL) 4 mg tablet Take 2 mg by mouth every morning before breakfast. Active gabapentin (NEURONTIN) 300 mg capsule Take 300 mg by mouth daily.Active losartan (COZAAR) 50 mg tablet Take 50 mg by mouth daily.Active omeprazole (PriLOSEC) 20 mg capsule Take 20 mg by mouth daily.Active Family History Medical HistoryRelationNameCommentsParkinsonismMotherRelationNameStatusComments Mother Social History Tobacco UseTypesPacks/DayYears UsedDateSmoking Tobacco: NeverSmokeless Tobacco: NeverAlcohol UseStandard Drinks/WeekCommentsYes0 (1 standard drink = 0.6 oz pure alcohol)RAREChildcareAnswerDate WflrrrphLhvmaxotwMetklbw65/12/2019Employment AnswerDate HokvfwnwFmpwnlrepcYvsgpcm45/12/2019Purpose - LifeAnswerDate Recorded Purpose and direction in ugoqLxsrzta58/11/2021Sex and Gender InformationValue Date RecordedSex Assigned at BirthNot on fileLegal UpaKfpy4405/29/2015 11:32 AM EDTGender IdentityNot on fileSexual OrientationNot on file Last Filed Vital Signs Vital SignReadingTime TakenCommentsBlood Tjxknozp231/3709 4:12 PM EDT Facbb0083 4:17 PM UTWIrnxxuhoabh71.7 ??C (98 ??F)07/08/2020 3:44 PM EDT Respiratory Bbje261407/08/2020 5:20 PM EDTOxygen Koqtgnqsdl43%07/08/2020 4:17 PM EDTInhaled Oxygen Concentration--Mfjzhq24.7 kg (200 lb)07/08/2020 3:44 PM EDT Mzjgmc304.7 cm (5' 8 )07/08/2020 3:44 PM EDTBody Mass Index30.41007/08/2020 3:44 PM EDT Plan of Treatment Health MaintenanceDue DateLast DoneCommentsDepression Rcfaqmxea72/30/1963Tobacco Efnlirkva51/30/1963Adult BMI Oxmrrmuxu49/30/1969DTaP,Tdap and Td Vaccines (1 - Tdap)1970Zoster (Shingles) Vaccine (1 of 2)2001Fall Risk Screening 2016Influenza Vlopyhy9906/24/2025 Medical Devices Not on file Insurance Care Teams Team MemberRelationshipSpecialtyStart DateEnd Date Amol Carmen DO PCP - GeneralFamily Medicine07/08/20
--- OUTSIDE RECORDS SUMMARY | 2025-08-19 10:45 | XMS_ITS | Patient Health Record ---
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 Name Role Phone Mary Wright Primary Care Provider [phone] Briana Evangelista Unavailable [phone] Allergies Allergen (clinical drug ingredient) Drug/Non Drug Allergy documented on EMR Reaction Allergy Type Onset Date Status Latex Latex Unknown Allergy ActiveShellfish (FN)Shellfish-derived ProductsUnknownDrug AllergyActive Results Component Value Reference Range Notes POCT A1C Reviewed date:07/24/2025 09:16:37 AM Interpretation: Performing Lab: Notes/Report: COMPREHENSIVE METABOLIC PANE L WITH GFR Reviewed date:07/16/2025 01:35:40 PM Interpretation: Performing Lab: Notes/Report: GLUCOSE 178 70-100 mg/dL ZDT438-15 mg/dLCALCIUM8.88.6-10.5 mg/dLCREATININE, BLOOD0.820.67-1.30 mg/dLeGFR (2020 CKD-EPI)92>59 mL/min/1.16e7DDCZXT803691-956 mmol/LPOTASSIUM4.23.5-5.4 mmol/AGEHUKPGR48526-629 mmol/KLR42987-12 mmol/LANION HIF386-40 mmol/LT. BILIRUBIN1.1<1.3 mg/dLALK NILJ8690-935 U/MCBG-QYIT40-38 U/VXTJ-XDMF349-89 U/LT. PROTEIN6.76.0-8.3 g/dLALBUMIN4.23.5-5.2 g/dL UNLESS OTHERWISE INDICATED, ALL TESTING PERFORMED AT: [facility] [employer] [facility]. [address] [place] [address] AUTO ENGINE MECHANIC: KENNEY BERNARD M.D. CLIA NUMBER [id number] CAP ACCREDITATION AUID [id number] LIPID PANEL WITH REFLEX TO DIRECT LDL Reviewed date:07/16/2025 01:35:46 PM Interpretation: Performing Lab: Notes/Report:VKXFHOMVFZR141021-248 mg/eXWKUXLOIZBUAIY46286-015 mg/dLVLDL-CHOL, TQFAWDYNUD75<30 mg/dLHDL-CHOL54>=40 mg/dLLDL-CHOL, FARDAYAUAS39<130 mg/dL ADULT LDL CHOLESTEROL CLASSIFICATION <100mg/dL Optimal 100-129mg/dL Near/Above Optimal 130-159mg/dL Borderline High >160mg/dL High Risk Desirable range <100 mg/dL for patients with CHD or diabetes and <70 mg/dL for diabetic patients with known heart disease. Direct LDL is recommended for patients with triglycerides >400. LDL/HDL1.2<5.0 LDL/HDL RATIO MALE FEMALE below average risk <2.3 <2.3 average risk <5.0 <4.1 moderate risk <7.1 <5.6 high risk >7.1 >5.6 CHOL/HDL3.12.0-4.5UDS Colonoscopy Reviewed date:04/18/2025 08:22:01 AM Interpretation: Performing Lab: Notes/Report: POCT A1C Reviewed date:04/17/2025 01:57:31 PM Interpretation: Performing Lab: Notes/Report:BARBITURATES,QUANTITATIVE,URINE Reviewed date:01/30/2025 11:31:27 AM Interpretation: Performing Lab: Notes/Report:AffagetbomdSdutrepx958 ng/qXUnexgigwlrRbtdkfiv608 ng/mL Azqndjcftmfzd152.4100 ng/oIBertlzhcqbjyAsmczfle397 ng/mL Testing Performed By: [facility] CLIA: [id number], [address] [place] [address] EDGARD RANGEL, Ph.D. - AUTO ENGINE MECHANIC CAP: [id number] AUI-ID: [id number] THC CONF Reviewed date:01/30/2025 11:31:21 AM Interpretation: Performing Lab: Notes/Report:THC36.710 ng/mL EDGARD RANGEL, Ph.D. - AUTO ENGINE MECHANIC CAP: [id number] AUI-ID: [id number] Testing Performed By: [facility] CLIA: [id number], [address] [place] [address] POCT A1C Reviewed date:01/17/2025 02:34:45 PM Interpretation: Performing Lab: Notes/Report:GABAPENTIN URINE Reviewed date:01/30/2025 11:31:32 AM Interpretation: Performing Lab: Notes/Report:GABAPENTIN, URINE>500.0 INTERPRETIVE INFORMATION: Gabapentin, Urine Positive cutoff: 5.0 ug/mL For medical purposes only; not valid for forensic use. The absence of expected drug(s) and/or drug metabolite(s) may indicate non-compliance, inappropriate timing of specimen collection relative to drug administration, poor drug absorption, diluted/adulterated urine, or limitations of testing. The concentration value must be greater than or equal to the cutoff to be reported as a quantitative result. Interpretive questions should be directed to the laboratory. This test was developed and its performance characteristics determined by [facility]. It has not been cleared or approved by the US Food and Drug Administration. This test was performed in a CLIA certified laboratory and is intended for clinical purposes. Performed By: [facility] [address] [place] [address] School Bus Driver: Tha Atkins MD, PhD CLIA Number: [id number] DRUGS OF ABUSE 7 PANEL URINE - SCREEN REFLEX TO CONFIRMATION Reviewed date:01/30/2025 11:31:16 AM Interpretation: Performing Lab: Notes/Report: CUTOFFS FOR DRUG SCREEN TESTING: Amphetamines 300 ng/mL Barbiturates 200 ng/mL Benzodiazepines 100 ng/mL Cocaine 150 ng/mL THC(Marijuana) 20 ng/mL Opiates 300 ng/mL Oxycodone 100 ng/mL Oxidant <=200 mg/L Creatinine,Urinary >=20 mg/dL Phencyclidine 25 ng/mLAMPHETAMINESNEGATIVEBARBITURATESSee NoteConfirmation to follow.BENZODIAZEPINENEGATIVECOCAINENEGATIVETHC (CANNABIS)See NoteConfirmation to follow.OPIATESNEGATIVEPHENCYCLIDINENEGATIVEOXYCODONENEGATIVE CREATININE,LQYJKDV054.2BLTTVTJ09VATNMIUOQYTR RANDOM SPEC Reviewed date:01/30/2025 11:31:40 AM Interpretation: Performing Lab: Notes/Report: INTERPRETATIVE GUIDE NORMAL........................ 0-29 MODERATELY INCREASED.......... 30-300 SEVERELY INCREASED............ >300 UNLESS OTHERWISE INDICATED, ALL TESTING PERFORMED AT: [facility] [address] [place] [address] AUTO ENGINE MECHANIC: KENNEY BERNARD M.D. CLIA NUMBER [id number] CAP ACCREDITATION AUID [id number],UR189.4NOT ESTAB mg/dL Reference interval for random urine samples has not been established. MICROALBUMIN7.2 Note: Test name is changed to Urine Albumin from Microalbumin in accordance with ADA and NFK Guidelines, and Albumin/Creatinine ratio reference interval reflects those Guidelines. Analytic methodology is unchanged. No reference interval for Random Urine Albumin is available. MICROALB/CREAT RATIO4<30 mG/GCA echo doppler complete Reviewed date:12/20/2024 08:10:21 AM Interpretation: Performing Lab: Notes/Report: Source Facility: [place] [address] Cardiology Report Signed Patient: JUSTIN AGUERO MR#: [id number] : 1950 Acct:[id number] Age/Sex: 74 / M ADM Date: 12/19/24 Loc: CARD Attending Dr: Shilpa Hammond M.D. Ordering Physician: Shilpa Hammond M.D. Date of Service: 12/19/24 Procedure(s): CA echo doppler complete Accession Number(s): [id number] cc: Mary Wright M.D.; Shilpa Hammond M.D. Patient Name: JUSTIN AGUERO MR#: [id number] : 1950 Exam Date: 12/19/2024 Ordering Doctor: DR. SHILPA HAMMOND M.D. ECHOCARDIOGRAM REPORT PROCEDURE: CA ECHO DOPPLER COMPLETE INDICATIONS: Atrial firillation, hypertension, diabetes COMPARISON: None. DESCRIPTION: COMPLETE ECHOCARDIOGRAM Real-time transthoracic echocardiography with 2D, M-mode, spectral and color flow Doppler performed. QUALITY: Technical quality was good. LEFT VENTRICLE: Normal chamber size. Mild concentric left ventricular hypertrophy. Normal systolic function. LV EF: Normal left ventricular ejection fraction, (55-60%). DIASTOLIC: Grade II diastolic dysfunction. ATRIAL SEPTUM: LEFT ATRIUM: Moderate dilatation. RIGHT ATRIUM: Mild dilatation. RIGHT VENTRICLE: Mild dilatation. Normal right ventricular systolic function. TRICUSPID VALVE: Normal mobility and thickness. No stenosis with no regurgitation. Unable to assess right-sided pressures due to lack of measurable tricuspid regurgitation. MITRAL VALVE: Normal mobility and thickness. No evidence of mitral valve stenosis. Mild mitral annular calcification. Mild mitral regurgitation. AORTIC VALVE: Normal trileaflet appearance. Mildly calcified aortic valve. Normal leaflet mobility. No evidence of aortic valve stenosis. No aortic regurgitation. AORTIC ROOT: Normal diameter and appearance, measuring 3.7 cm. Ascending aorta is normal in size, measuring 2.9 cm. PULMONIC VALVE: Normal thickness and mobility. No stenosis. No regurgitation. PERICARDIUM: No evidence of pericardial effusion. IVC: Not well visualized. PLEURA: CONCLUSION: 1. Mild concentric left ventricular hypertrophy with normal systolic function. LVEF is estimated at 55-60%. 2. Mildly dilated right ventricle with normal systolic function. 3. Grade 2 diastolic dysfunction. 4. Mild mitral regurgitation. 5. Mild to moderate biatrial dilatation. 6. Unable to assess right-sided pressures due to lack of measurable tricuspid regurgitation. Adult Echocardiography Procedure Report Left Ventricle LVEDD (3.7 - 5.6 cm): 4.86 cm LVESD (2.2 - 4.0 cm): 3.08 cm LVIVS thickness (0.6 - 1.2 cm): 1.15 cm LVPW thickness (0.5 - 1.0 cm): 1.08 cm e': 0.07 m/s E - e': 13.51 LVOT Diameter 2.60 cm Left Atrium LA Volume Index (2D A2C): 42.38 ml/m2 Left Atrium Systolic Dimension: 4.55 cm Mitral Valve MV E to A Ratio: 1.10 Mitral Valve A-Wave Peak Velocity: 0.83 m/s Mitral Valve E-Wave Peak Velocity: 0.92 m/s Right Ventricle Aorta AO Root Diam: 3.73 cm Ascending Ao Diam: 2.92 cm Aortic Valve Tricuspid Valve Pulmonic Valve Mean Gradient: 1.05 mm[Hg] Mean Velocity: 0.48 m/s Peak Velocity: 0.73 m/s, 0.72 m/s Peak Gradient: 2.07 mm[Hg], 2.12 mm[Hg] Right Atrium Right Atrium Systolic Pressure: 43.61 ml, 43.61 ml Dictated by: Angel Washington M.D. on 12/19/2024 at 17:18 Approved by: Angel Washington M.D. on 12/19/2024 at 17:23 Dictated By: ANGEL WASHINGTON Signed By: 12/19/241723 DD/ 22 TD/TT: Hassock Maker: Reason For Referral Reason eval and manage, pt preference Diagnosis 1 Allergies (T78.40XA) Referral Organization Main Referring Provider First Name Mary Referring Provider Last Name Kyle Referring Provider Speciality Internal M edicine Referred Provider Allergy Clinic [facility] Referred Provider Specialty Allergy/Immu nology General Notes Rajesh Rodriguez 05/01 10:06:52 AM >referral fax sent, Rajesh Rodriguez 05/03/2025 08:21:44 AM >pt has appt 08/01 @ 215 Referral Priority Routine Referral Appointment Date 08/01/2025 Medications Medication SIG (Take, Route, Frequency, Duration) Notes Start Date End Date Status Carbidopa-Levodopa 25-100 MG 1 1/2 tablet Orally 4 times per day ActiveGabapentin 400 MG1 capsule Orally 3 times a day; Duration: 90 daysActive Biotin 5000 MCG1 tablet Orally Once a dayActivetraZODone HCl 50 MG1 tablet at bedtime as needed Orally Once a day; Duration: 90 daysActiveAspirin 81 81 MG1 tablet Orally Once a dayActiveMeclizine HCl 25 MG1 tablet as needed Orally every 12 hrs; Duration: 30 days5ActiveVitamin D3 582492 UNIT/GMas directed ActiveJanuvia 100 MG1 tablet Orally Once a day; Duration: 90 daysActiveTrulicity 3 MG/0.5ML3 mg Subcutaneous once a week; Duration: 90 daysActiveEsomeprazole Magnesium 40 MG1 capsule 1/2 to 1 hour before morning meal Orally Once a day ActiveEquateallergy releifActiveFinasteride 5 MGTAKE 1 TABLET BY MOUTH DAILY Oral Once a day; Duration: 90 daysActivePrimidone 50 MG1 tablet Orally Once a dayActiveDexcom G7 Sensor -as directed once every 10 days; Duration: 90 days ActiveTamsulosin HCl 0.4 MG1 capsule Oral Once a day; Duration: 90 daysActive Magnesium 400 MGas directed OrallyActiveCarvedilol 6.25 MG1 tablet with food Orally Twice a day; Duration: 90 daysActiveFamotidine 40 MGTAKE 1 TABLET BY MOUTH TWICE DAILY NEEDED Oral; Duration: 30 DaysActiveFarxiga 10 MG1 tablet Orally Once a day; Duration: 90 days5ActiveEliquis 5 MG5 mg Orally twice daily; Duration: 30 daysA fibActiveAtorvastatin Calcium 20 MGTake 1 tablet (20 mg) by mouth in the morning. Oral; Duration: 100 DaysActive Immunizations Vaccine Route Administration Date Status Comme nts COVID-19, mRNA, LNP-S, PF, 5 0 mcg/0.5 mL Unknown 08/08/2024 Administered Influenza, high dose rsuhjsrgEwrciim26/16/2024Administered Social History Tobacco Use: Social History Observation Description Date Details (start date - stop date) Never Smoker NA - NA Sex Assigned At : Social History Observation Description Sex Assigned At Male Tobacco Use/Smoking Question Answer Notes Tobacco use: nonsmoker patient enter ed data CAGE-AID Questionnaire (2018 Edition) Question Answer Notes Have you ever felt that you ought to cut down on your drinking or drug use? No patient entered data Have people annoyed you by c riticizing your drinking or drug use? No patient entered data Have you ever felt bad or gu ilty about your drinking or drug use? No patient entered data Have you ever had a drink or used drugs first thing in the morning to steady your nerves or to get rid of a hangover? No patient entered data CAGE-AID Score 0 InterpretationNegativePRAPARE Question Answer Notes Date Completed/Updated: 01/17/2025 kristie nt entered data What is your current housing situation? I have housing patient entered data Are you worried about losing your housing? No patient entered data What is the highest level of school that you have finished? More than high school patient entered data What is your current work situation? Otherwise unemployed but not seeking work (ex. 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 No How often do you see or talk to people that you care about and feel close to? (For example: talkingto friends on the phone, visiting friends or family, going to advent or club meetings)1 or 2 times a weekpatient entered dataHow stressed are you? Stress is when someone feels tense, nervous, anxious, or can't sleep at nightbecause their mind is troubledNot at allpatient entered dataIn the past year have you spent more than 2 nights in a row in a chcf, snf, shelter center, orjuvenile correctional facility?Nopatient entered dataAre you a refugee?Nopatient entered dataWhat country are you from?[place] patient entered dataDo you feel physically and emotionally safe where you currently live?Yespatient entered dataIn the past year, have you been afraid of your partner or ex-partner?Nopatient entered dataPRAPARE Score:4 Problems Problem Type SNOMED Code ICD Code Onset Dates Problem Status W/U Status Risk Notes Problem Overweight (917811077) Overweight (E66.3) ActiveconfirmedProblemEssential hypertension (16544390)Essential hypertension (I10)ActiveconfirmedProblemOverweight (704188313)Overweight (BMI 25.0-29.9) (E66.3)ActiveconfirmedProblemDiabetic peripheral neuropathy associated with type 2 diabetes mellitus (6799084695767)Controlled type 2 diabetes mellitus with diabetic neuropathy, without long-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 of insulin (E11.40)Active confirmed Vital Signs Heart Rate 77 /min 07/23/2025 Farrukh Allen 07/23/2025 03:42:13 PM EDT > Temperature 98.0 degrees Fahrenheit 07/23/2025 Javier Pineda 07/23/2025 03:42:13 PM EDT > Respiratory Rate 18 /min 07/23/2025 Allen, Javier 07/23/2025 03:42:13 PM EDT > Height-cm 175.26 cm 07/23/2025 Allen, Ser vando 07/23/2025 03:42:13 PM EDT > Oximetry 95 % 07/23/2025 Allen, Ser vando 07/23/2025 03:42:13 PM EDT > Blood pressure diastolic 71 mm Hg 07/23/2025 Shweta dovinos, Javier 07/23/2025 03:42:13 PM EDT > Weight-kg 84.82 kg 07/23/2025 Allen, Ser vando 07/23/2025 03:42:13 PM EDT > Height 69 in 07/23/2025 Allen, Ser vando 07/23/2025 03:42:13 PM EDT > Blood pressure systolic 131 mm Hg 07/23/2025 Vald ovinos, Javier 07/23/2025 03:42:13 PM EDT > Weight 187 lbs 07/23/2025 Allen, Ser vando 07/23/2025 03:42:13 PM EDT > BMI 27.61 kg/m2 07/23/2025 Allen, Ser vando 07/23/2025 03:42:13 PM EDT > Encounters Encounter Location Date Provider Diagnosis Main [address] [place] , [place] [id number] 10/18/2024 Mary Kyle Encounter for wellne ss examination Z00.00 ; Screening for colon cancer Z12.11 ; Dietary counseling Z71.3 ; Exercise counseling Z71.82 and Overweight (BMI 25.0-29.9) E66.3 Main [address] [place], [place] [id number] 01/17/2025 Mary Kyle Controlled type 2 di abetes mellitus with diabetic neuropathy, without long-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 of insulin E11.40 ; Controlled substance agreement signed Z79.899 ; Overweight E66.3 ; Body mass index [BMI] 27.0-27.9, adult Z68.27 ; Dietary counseling Z71.3 and Exercise counseling Z71.82 Main [address] [place] , [place] [id number] 04/17/2025 Mary Kyle Controlled type 2 di abetes mellitus with diabetic neuropathy, without long-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 of insulin E11.40 and Allergies T78.40XA Main [address] [place], [place] [id number] 07/23/2025 Mary Kyle Controlled type 2 di abetes mellitus with diabetic neuropathy, without long-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 of insulin E11.40 and Essential hypertension I10 Main [address] [place], [place] [id number] 10/19/2024 Mary Kyle [address] [place], [place] [id number] YqpqiKwls[address] [place], [place] [id number] OrbbaLduf[address] [place], [place] [address]/23/2025Ramsha TjfnmKjmg[address] [place], [place] [id number] 11/15/2024Ramsha SmjcrWeea[address] [place], [place] [address]12/2024Ramsha Q[address]hzHhlu[address] [place], [place] [id number] Mul[address]Lgsc[address] [place], [place] [id number] UfygsDvft[address] [place], [place] [id number] MhksaKplr[address] [place], [place] [id number] 03/04/2025Ramsha [address]idEqst[address] [place], [place] [id number] YzowiYaof[address] [place], [place] [id number] MxbniSfsx[address] [place], [place] [address]/04/2025Ramsha LtaabOb[address] [place], [place] [id number] CkfwvLwnm[address] [place], [place] [id number] 05/03/2025Ramsha BnkmiMfpe[address] [place], [place] [id number]Ramsha Iz[address]Rttq[address] [place], [place] [address]/Ramsha CsvkvSaqy[address] [place], [place] [address]/01/2025Ramsha Wam[address]Vkol[address] [place], [place] [address]/08/2025Ramsha PwlwsMrwm[address] [place], [place] [id number] 06/11/2025Ramsha QavoxHodi[address] [place], [place] [id number]/Ramsha Q[address]xJavf[address] [place], [place] [id number]/Ramsha AqeelControlled type 2 diabetes mellitus with diabetic neuropathy, without long-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 of insulin E11.83Odut[address] [place], [place] [id number]/Ramsha Kyle Assessments Encounter Date Diagnosis (ICD Code) Assessment Notes Treatment Notes Treatment Clinical Notes Section Notes 10/18/2024 Encounter for wellness examinati on (ICD-10 - Z00.00) Pt is here for wellness today. Overall health is okay. Pt had blood work done at other facility advised to bring the records. I advised regular exercise and eating a balanced diet with focus on eating less fried and fatty foods and eating more fresh fruits and vegetable in an attempt to achieve and maintain a healthy BMI and PVU PT is uptodate with all vaccinations 01/17/2025ontrolled type 2 diabetes mellitus with diabetic neuropathy, without long-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 of insulin (ICD-10 - E11.40) A1c stable 6.9. Patient has controlled diabetes The patient is currently on Metformin, Januvia and Trulicity Given diarrhea concerns I will stop metformin and start Farxiga 10 mg daily I will continue the same regimen I recommend home blood sugar readings to be monitored frequently (daily fasting along with random (2 hours after meals). Pt was advised to log the reading with timings and to bring it on the next visit so we can adjust the dose of medications as needed. Pt was advised to inspect the feet daily. Patient was reminded to have yearly eye exam to look for diabetic retinopathy and yearly podiatristvisit and PVU Neuropathy stable on Gabapentin 400 mg TID. Has enough refills Blood work done at [facility] last week will get records. Pt will f/up with repeat labs in 3 months. 5Allergies (ICD-10 - T78.40XA)PT has hx of allergies and today reports he is having worsening allergy symptom for last 2-3 months. He has been using otc meds but not helping and would prefer training development specialist referral.04/17/2025 Controlled type 2 diabetes mellitus with diabetic neuropathy, without long-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 of insulin (ICD-10 - E11.40)A1c 7.0 stable. Pt has controlled DM. Pt noted to be on Trulicity and Januvia both which has no added benefit. I will stop Januvia. Advise to continue Trulicity and Farxiga. Continue to montior fasting glucose daily. f/u in 3 months. If note sugars more than 200 every day then let us know sooner.07/08/2025ontrolled type 2 diabetes mellitus with diabetic neuropathy, without long-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 of insulin (ICD-10 - E11.40) 07/23/2025Essential hypertension (ICD-10 - I10)Bp well controlled. Continue current trllfmdyzrz84/30/2025ontrolled type 2 diabetes mellitus with diabetic neuropathy, without long-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 of insulin (ICD-10 - E11.40) A1c worse 7.5 after stopping Januvia. I will increase Trulicity to 3 mg weekly given sugars mostly in 200s. Continue Farxiga. I recommend home blood sugar readings to be monitored frequently (daily fasting along with random (2 hours after meals). Pt was advised to log the reading with timings and to bring it on the next visit so we can adjust the dose of medications as needed. Pt was advised to inspect the feet daily. Patient was reminded to have yearly eye exam to look for diabetic retinopathy and yearly podiatristvisit and PVU Pt will f/up in 3 months. 01/17/2025ontrolled substance agreement signed (ICD-10 - Z79.899) I will start controlled substance protocol today. The pain contract will be reassessed every 3 months and renewed every 6 months as per [facility] policy. OAR[place] was reviewed and no suspicious activity related to controlled substances was noted today. I will be ordering urine tox F/up in 3months 10/18/2024Screening for colon cancer (ICD-10 - Z12.11)Declined by pt.01/17/2025 Overweight (ICD-10 - E66.3)01/17/2025ody mass index [BMI] 27.0-27.9, adult (ICD-10 - Z68.27)01/17/2025Dietary counseling (ICD-10 - Z71.3)01/17/2025Exercise counseling (ICD-10 - Z71.82)10/18/2024ietary counseling (ICD-10 - Z71.3) 10/18/2024Exercise counseling (ICD-10 - Z71.82)10/18/2024Overweight (BMI 25.0- 29.9) (ICD-10 - E66.3)04/17/2025Other Student Attestation Verbal Consent: Patient gives consent to be seen by a medical student. Student Name: Yenifer Luong, MS3. Attestation: As the teaching provider, I have personally performed or re-performed the history of presenting illness, physical exam and medical decision-making activities of the encounter and verified the Medical/FILTERING MACHINE TENDER/PA student's documentation. I have made pertinent changes as necessary to ensure accurate documentation. Plan Of Treatment Next Appt Details Provider Name:Mary Kyle, 10/28/2025 02:00:00 PM, [address], [place], [id number], Provider Name:Mary Kyle, 11/12/2025 02:30:00 PM, [address] [place], [place], [id number], Insurance Providers Payer Name Payer Address Payer Phone Subscriber Number Group Number Insured Name Patient Relationship to Insured Coverage Start Date Coverage End Date [employer] [address] [place] [address] [id number] [facility] Justin Aguero Self - patient is the insured Medical (General) History Medical History History ICD Code DM HTNA fibPeripheral neuropathyVertigoParkinson disease
--- OUTSIDE RECORDS SUMMARY | 2025-08-19 10:49 | XMS_ITS | CCD ---
Author Organization [facility] CliniSytn Care Team Providers Care Senior Business Broker Name Role Phone CELINE BYRNE Unavailable Unavaila ble CHODISETTY, SUBRAHMANYAM Unavailable Unavail able VIRGINIA, ANGUS Unavailable Unavailable VIRGINIA, ANGUS Unavailable Unavailable VIRGINIA, ANGUS Unavailable Unavailable Fawwad, Chavez Unavailable Unavailable Unavailable Alcides Nowak Unavailable Kathie CRAWFORD, Dr. Keyon Bennett Referring Unavailable Lynnetteuinn II, Dr. Keyon Bennett Attending Unavailable McGuinn II, Dr. Keyon Bennett Attending Unavailable McGuinn II, Dr. Keyon Bennett Referring Unavailable Vazquez Shaw Unavailable FAWWAD, CAHVEZ H Admitting Unavailable FAWWAD, CHAVEZ H Attending Unavailable FAWWAD, CHAVEZ H Consulting Unavailable FAWWAD, CHAVEZ H Primary Care Unavailable JUSTIN ., DR RAYMUNDO Chavez Consulting Unavailable ANDERSON ., DR RAYMUNDO Chavez Admitting Unavailable FAWWAD, CHAVEZ H Primary Care Unavailable JUSTIN ., DR RAYMUNDO Chavez Attending Unavailable CUMMINGS, CECILE Consulting Unavailable ANDERSON ., DR RAYMUNDO Chavez Admitting Unavailable FREDERICK DIAZ Consulting Unavailable FAWWAD, CHAVEZ H Primary Care Unavailable JUSTIN ., DR RAYMUNDO Chavez Attending Unavailable FAWWAD, CHAVEZ H Admitting Unavailable FAWWAD, CHAVEZ H Attending Unavailable FAWWAD, CHAVEZ H Consulting Unavailable FAWWAD, CHAVEZ H Primary Care Unavailable FAWWAD, CHAVEZ H Admitting Unavailable FAWWAD, CHAVEZ H Attending Unavailable FAWWAD, CHAVEZ H Consulting Unavailable FAWWAD, CHAVEZ H Primary Care Unavailable JUAN M Schultz Attending Provider MD [facility] Primary Care Provider Mary CURRAN, [facility] Primary Care Provider Mary CURRAN, [facility] Primary Care Provider Mary CURRAN, [facility] Primary Care Provider ANA RAMOS Attending Unavailable MARY CHAVEZ Primary Care Unavailable Mary CURRAN, [facility] Primary Care Provider Edwin MOTEL MAID, Alena Unavailable Unallocatjerardo MD, [place] Provider Primary Care Provi bee Gautam CURRAN, Ludwig Primary Care Provider Kyle CURRAN, [facility] Primary Care Provider [phone] Adam Brown DO Unavailable Antoine MOTEL MAID, Tonya Unavailable Amol Carmen DO Primary Care Provider Alcides Nowak MD Attending Provider NON STAFF Primary Care Provider UnavailAlcides Ralph Attending Unavailable Alcides Nowak Admitting Unavailable NON STAFF Primary Care Unavailable DAWNA BOSE Attending Unavailable TONYA SCHULTZ Attending Unavailable DAWNA BOSE Attending Unavailable SHAIKH HERNANDEZ Attending Unavailable RUEL MATTHEWS Attending Unavailable SHAIKH HERNANDEZ Referring Unavailable OLEGARIO TOMLINSON Attending Unavailable ALCIDES NOWAK Referring Unavailable RUEL MATTHEWS Attending Unavailable DAWNA BOSE Attending Unavailable ALENA PINEDA Attending UnavailDAWNA Willis Attending Unavailable SHILPA HAMMOND Attending Unavailable SHILPA HAMMOND Attending Unavailable Antoine SANCHEZ-DIRECTOR AGRICULTURAL SERVICES-C, Tonya Villanueva Attending Provider Kyle CURRAN, Mary Primary Care Provider Allergies Allergy ClassificationReported Allergen(s)Allergy TypeDate of OnsetReaction(s) Facility (13 sources)Iodinated Contrast Media; Translations: [Iodinated Contrast Media] Allergy to drug (finding)12-94-1570WnegmspBrecksville VA / Crille HospitalComment on above:radiation dye (1 source)house dust allergenic extractDrug AllergyThe [facility]ository (9 sources)Latex; Translations: [LATEX]Drug allergy (disorder)03-26-4910Ueovdpc ReactionThe [facility]ository (1 source)ShellfishDrug allergy (disorder)[facility] (3 sources)LatexPropensity to adverse ynyyqhhvg31-39-8087RayetMawyedrndxBrecksville VA / Crille Hospital Work Phone: (9 sources)Shellfish; Translations: [SHELLFISH DERIVED]Propensity to adverse qmkdbuxwm87-55-9374HhybfmkhlcrSbrqwhhbdsParkview Health [facility] Work Phone: (4 sources)Adhesive Tape-Silicones; Translations: [ADHESIVE TAPE-SILICONES] Propensity to adverse dxqcxqqia51-80-0914FavdZcpfgektiwCoshocton [facility] (1 source)Iodinated Contrast MediaDrug Txvvazl51-64-1074EnyjiksFkeytgppuaMemorial Hospital (20 sources)Iodine; Translations: [IODINE]Drug Lmdzlee85-67-6188NdieghbyhlsMZID Healthcare Work Phone: (20 sources)LatexPropensity to adverse mrtmbvvgy35-26-8196DevhMPMM Healthcare (20 sources)Shellfish-Derived ProductsDrug Tjwbdwl60-44-8332GdoxIAOA Healthcare (20 sources)Wound Dressing AdhesiveDrug Siwtihihaop08-02-0431JckcIJKD Healthcare (20 sources)Gadolinium DerivativesPropensity to adverse -55-9452YDLU Healthcare (1 source)ShellfishPropensity to adverse reactions to cery99-25-4524Kpxcmoylbcr [facility] (1 source)Food Allergy FormulaPropensity to adverse reactions to drugPhoenix Memorial Hospitalphylaxis [facility] (1 source)LatexDrug allergy (disorder)88-05-4910EhmzfjeokUniversity Hospitals [facility] Repository (1 source)Iodinated Contrast MediaDrug allergy (disorder)08-20-1821WbodqfumfUniversity Hospitals [facility]wood [facility] Repository Medications Current Medications MedicationDrug Class(es)DatesSig (Normalized)Sig (Original)acetaminophen 325 mg / butalbital 50 mg / caffeine 40 mg oral tablet (1 source)Barbiturate, Central Nervous System Stimulant, MethylxanthineStart: 60-40-4267obdzwujfzo-acetaminophen-caff (FIORICET, ESGIC) 50-325-40 mg per tablet Indications: Atypical migraine Take 1 tablet once daily as needed for headache 30 tablet 08/09/2017 Activeapixaban 5 mg oral tablet (20 sources)Factor Xa InhibitorStart: 89-96-3148hwbb 1 tablet by mouth twice dailyApixaban (Eliquis) 5 mg tablet Active 5 MG PO Twice daily January 18, 2024 12:00am Complies with drug therapyStart: 37-35-6376bvbw 1 tablet by mouth twice dailyapixaban (Eliquis) 5 mg tablet Take 1 tablet (5 mg) by mouth 2 times a day. 0 12/04/2021 Activeaspirin 81 mg delayed release oral tablet (20 sources)Platelet Aggregation Inhibitor, Nonsteroidal Anti-inflammatory Drug Start: 30-23-9725Qfpebqe (Adult Low Dose Aspirin) 81 mg tablet,delayed release (DR/EC) Active 81 MG PO .tuesday 12:00am Complies with drug therapyStart: 83-61-9451cahx 1 tablet by mouth every weekaspirin 81 mg EC tablet Take 1 tablet (81 mg) by mouth 1 (one) time per week. 0 12/04/2021 Activetake 325 mg by mouth once dailyaspirin 81 mg Take 325 mg by mouth daily. Active atorvastatin 20 mg oral tablet (20 sources)HMG-CoA Reductase InhibitorStart: 16-66-5127vvhi 1 tablet by mouth once dailyAtorvastatin 20 mg tablet Active 20 MG PO Daily June 13, 2025 12:00am Complies with drug therapyStart: 04-10-2024 End: 22-77-0412lvie 1 tablet by mouth in the morningatorvastatin (Lipitor) 20 MG tablet Indications: Hyperlipidemia, unspecified hyperlipidemia type (CMS/HCC) Take 1 tablet (20 mg) by mouth in the morning. 100 tablet 1 10/08/2024 04/26/2025 ActiveStart: 12-01-2021 End: 50-49-0434bhko 1 tablet by mouth in the morningatorvastatin (Lipitor) 20 MG tablet Indications: Hyperlipidemia, unspecified hyperlipidemia type (CMS/HCC) Take 1 tablet (20 mg) by mouth in the morning. 90 tablet 1 10/11/2023 04/08/2024 ActiveStart: 09-25-2021 End: 90-47-7963wdza 2 tablets by mouth once dailyAtorvastatin 10 mg tablet Discontinued 20 MG PO Daily September 25, 2021 1:00am June 13, 2025 2:58pm Start: 47-05-0499vdib 1 tablet by mouth once dailyAtorvastatin 10 mg tablet Active 10 MG PO Daily September 25, 2021 1:00ambiotin 5 mg chewable tablet (20 sources)Start: 56-35-7690gais 1 tablet by mouth once dailyBiotin 5,000 mcg tablet,chewable Active 5000 MCG PO Daily January 18, 2024 12:00am Complies with drug therapyStart: 56-57-9063faje 1 tablet by mouth once dailyBiotin 5,000 mcg tablet,chewable Active 5000 MCG PO Daily January 18, 2024 12:00amStart: 18-92-7185Tiwqtj 5,000 mcg tablet,chewable Active MCG PO January 18, 2024 12:00amStart: 71-37-8947Qyixsm Active MCG PO January 18, 2024 12:00amtake 1 tablet by mouth once dailybiotin 68580 MCG tablet Take 1 tablet by mouth Daily Activetake 1 capsule by mouth once dailybiotin 5 mg capsule Take 1 capsule (5 mg) by mouth once daily. 0 ActiveBiotin CAPS TAKE 1 CAPSULE Daily Quantity: 0 Refills: 0 Ordered: 14-Apr-2022 DO Activecarbidopa 25 mg / levodopa 100 mg oral tablet (20 sources)Aromatic Amino Acid Decarboxylation Inhibitor, Aromatic Amino Acid Start: 01-28-2025 End: 78-67-8251uzxnrejap-levodopa (Sinemet) 25-100 MG tablet Indications: Parkinson's disease without dyskinesia, unspecified whether manifestations fluctuate (CMS/HCC) Take 1.5 (one and a half) tablets by mouth four times per day (at 9:00 am, 1:00 pm, 5:00 pm, and 9:00 pm). 180 tablet 3 02/19/2025 Active Start: 28-39-0786geuw 1.5 tablets by mouth in the morning, then take 1.5 tablets by mouth in the evening, then take 1 tablet by mouth in the evening, then take 1 tablet by mouth in the eveningcarbidopa-levodopa (Sinemet) 25-100 MG tablet Indications: Parkinson's disease without dyskinesia, unspecified whether manifestations fluctuate (CMS/HCC) Take 1.5 tablets by mouth at 9 am, 1.5 tablets at 1 pm, 1 tablet at 5 pm and 1 tablet at 9 pm). 150 tablet 2 01/21/2025 ActiveStart: 10-29-2024 End: 55-96-6621mewu 1.5 tablets by mouth in the morning, then take 1.5 tablets by mouth in the evening, then take 1 tablet by mouth in the evening, then take 1 tablet by mouth in the eveningcarbidopa-levodopa (Sinemet) 25-100 MG tablet Indications: Parkinson's disease without dyskinesia, unspecified whether manifestations fluctuate (CMS/HCC) Take 1.5 tablets by mouth at 9 am, 1.5 tablets at 1 pm, 1 tablet at 5 pm and 1 tablet at 9 pm). 150 tablet 2 10/29/2024 01/21/2025 Discontinued (Reorder)Start: 01-18-2024 End: 61-36-7603vbnl 1.5 tablets by mouth four times dailyCarbidopa-Levodopa 25- 100 mg tablet Discontinued 1.5 TAB PO Four times daily January 18, 2024 12:00am June 13, 2025 2:28pmStart: 50-52-8309jhpw 1 tablet by mouth three times dailyCarbidopa-Levodopa 25-100 mg tablet Active 1 TAB PO Three times daily January 18, 2024 12:00am FreeTextSig: TAKE 1 TABLET BY MOUTH THREE TIMES DAILY Oral; Note: Source Status: Taking; Refills: 0; Qty: 90 Each; Provider: Kristian Hornrt: 76-14-9311uljd 1 tablet by mouth in the morning, then take 1 tablet by mouth in the evening, then take 1 tablet by mouth at bedtimecarbidopa- levodopa (Sinemet) 25-100 MG tablet Take 1 tablet by mouth in the morning and 1 tablet inthe evening and 1 tablet before bedtime. 0 03/15/2023 Activetake 1 tablet by mouth three times dailycarbidopa-levodopa (Sinemet) 25-100 mg tablet Take 1 tablet by mouth 3 times a day. 0 Activetake 1 tablet by mouth three times dailyCarbidopa-Levodopa 25-100 MG TAKE 1 TABLET BY MOUTH THREE TIMES DAILY Oral for 30 Days Activecarvedilol 6.25 mg oral tablet (20 sources)alpha-Adrenergic Stephanie, beta-Adrenergic BlockerStart: 06-13-2025 take 1 tablet by mouth twice daily at mealtimeCarvedilol 6.25 mg tablet Active 6.25 MG PO Twice daily June 13, 2025 12:00am must administer with a meal/food Complies with drug therapyStart: 01-16-2024 End: 83-90-7583hwkx 1 tablet by mouth in the morningcarvedilol (Coreg) 12.5 MG tablet Indications: Essential hypertension, benign (CMS/HCC) Take 1 tablet (12.5 mg) by mouth in the morning and 1 tablet (12.5 mg) in the evening. Take with meals. 180 tablet 1 07/16/2024 ActiveStart: 11-14-2023 End: 21-06-5552cjbb 0.5 tablet by mouth in the morningcarvedilol (Coreg) 25 MG tablet Indications: Primary hypertension (CMS/HCC) Take 0.5 tablets (12.5 mg) by mouth in the morning and 0.5 tablets (12.5 mg) before bedtime. 90 tablet 1 11/14/2023 05/12/2024 ActiveStart: 09-25-2021 End: 66-90-9464Bncbkvwnhf 25 mg tablet Discontinued 12.5 MG PO Twice daily September 25, 2021 1:00am June 13, 2025 2:28pmStart: 07-99-7340wetz 1 tablet by mouth once dailyCarvedilol 25 mg tablet Active 25 MG PO Daily September 25, 2021 1:00amStart: 03-24-2472qtwy 1 tablet by mouth twice dailycarvedilol (Coreg) 25 mg tablet Take 1 tablet (25 mg) by mouth 2 times a day. 0 09/02/2021 Active Carvedilol Activecetirizine hydrochloride 10 mg oral tablet (8 sources)Histamine-1 Receptor AntagonistStart: 00-97-0248etap 1 tablet by mouth once daily as neededCetirizine (Allergy Relief (Cetirizine)) 10 mg tablet Active 10 MG PO Daily as needed for allergy symptoms January 18, 2024 12:00am Complies with drug therapytake 1 tablet by mouth every twenty-four hours as neededcetirizine (ZyrTEC) 10 mg tablet Take 1 tablet (10 mg) by mouth once daily as needed. 0 Activecholecalciferol 0.125 mg oral tablet (6 sources)Vitamin DStart: 33-25-7498htvn 1 tablet by mouth once daily Cholecalciferol (Vitamin D3) (Vitamin D3) 125 mcg (5,000 unit) tablet Active 5000 UNIT PO daily January 30, 2025 12:00am Complies with drug therapytake 1 capsule by mouth once dailycholecalciferol (Vitamin D-3) 50,000 unit capsule Take 1 capsule (50,000 Units) by mouth once daily. 0 ActiveContinuous Glucose Coagulant Dipper (Dexcom G7 Coagulant Dipper) device (19 sources)Start: 49-10-0804Lvlyonmatg Glucose Coagulant Dipper (Dexcom G7 Coagulant Dipper) device Indications: Type 2 diabetes mellitus with diabetic polyneuropathy, without long-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 of insulin ([facility]) 1 each continuously 1 each 3 09/03/2024 ActiveContinuous Glucose Sensor (Dexcom G7 Sensor) misc (19 sources)Start: 24-07-2579Mbghyqrkqq Glucose Sensor (Dexcom G7 Sensor) misc Indications: Type 2 diabetes mellitus with diabetic polyneuropathy, without long-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 of insulin ([facility]) 1 each continuously 1 each 3 Activedapagliflozin 10 mg oral tablet (4 sources)Sodium-Glucose Cotransporter 2 InhibitorStart: 05-65-6596zqfd 1 tablet by mouth once dailyDapagliflozin Propanediol (Farxiga) 10 mg tablet Active 10 MG PO Daily January 30, 2025 12:00am Complies with drug therapy0.5 ml dulaglutide 3 mg/ml auto-injector (20 sources)GLP-1 Receptor AgonistStart: 05-22-2024 End: 15-17-6487Zrboqumkkct (Trulicity) 1.5 mg/0.5 mL pen injector Active 1.5 MG SUBCUT every week January 30, 2025 12:00am Complies with drug therapyStart: 11-30-2023 End: 01-14-6351pingfp 0.75 mg by subcutaneous injection every weekdulaglutide (Trulicity) 0.75 MG/0.5ML solution pen-injector Indications: Type 2 diabetes mellitus with diabetic polyneuropathy, without long-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 of insulin ([facility]) Inject 0.75 mg underthe skin 1 (one) time per week 4 each 0 11/30/2023 12/30/2023 ActiveStart: 02-15-2023 End: 19-21-0710iiyufg 1.5 mg by subcutaneous injection every weekTrulicity 1.5 MG/0.5ML solution pen-injector Inject 1.5 mg under the skin 1 (one) time per week. 0 02/15/2023 11/30/2023 Discontinued (Dose adjustment)Start: 01-07-2022 dulaglutide (Trulicity) 0.75 mg/0.5 mL pen injector Inject under the skin. 0 01/07/2022 ActiveTrulicity Not-TakingTrulicity Activefamotidine 40 mg oral tablet (20 sources)Histamine-2 Receptor AntagonistStart: 01-18-2024 End: 00-03-1691njsw 1 tablet by mouth twice daily as needed for gastroesophageal reflux diseaseFamotidine (Pepcid) 40 mg tablet Active 40 MG PO Twice daily 180 90 April 12, 2025 7:47am As needed for GERD symptoms Complies with drug therapy finasteride 5 mg oral tablet (20 sources)5-alpha Reductase InhibitorStart: 01-18-2024 End: 01-33-8316fsot 1 tablet by mouth once dailyFinasteride 5 mg tablet Active 5 MG PO Daily January 18, 2024 12:00am Complies with drug therapyStart: 42-17-8900epmg 1 tablet by mouth in the morningfinasteride (Proscar) 5 MG tablet Take 1 tablet by mouth in the morning. 0 07/18/2023 Activegabapentin 400 mg oral capsule (20 sources)Anti-epileptic AgentStart: 77-55-3575bnuw 1 capsule by mouth three times dailyGabapentin 400 mg capsule Active 400 MG PO Three times daily June 13, 2025 12:00am Complies with drug therapyStart: 05-30-2024 End: 51-39-8444umxa 1 capsule by mouth three times daily at bedtimegabapentin (Neurontin) 400 MG capsule Indications: Polyneuropathy, unspecified TAKE 1 CAPSULE BY MOUTH THREE TIMES DAILY (IN THE MORNING, IN THE EVENING and BEFORE bedtime) 270 capsule 1 11/15/2024 ActiveStart: 11-21-2023 End: 33-77-8611pnys 1 capsule by mouth in the morning, then take 1 capsule by mouth in the evening, then take 1 capsule by mouth at bedtimegabapentin (Neurontin) 400 MG capsule Indications: Polyneuropathy, unspecified Take 1 capsule (400 mg) by mouth in the morning and 1 capsule (400 mg) in the evening and 1 capsule (400 mg) before bedtime. 270 capsule 1 11/21/2023 05/19/2024 ActiveStart: 91-36-4653spkz 1 capsule by mouth once dailyGabapentin 300 mg capsule Active 300 MG PO Daily September 25, 2021 1:00amStart: 01-08-2019 End: 05-68-7083ydcn 1 capsule by mouth three times dailyGabapentin 300 mg capsule Discontinued 300 MG PO Three times daily September 25, 2021 1:00am 2024 2:30pmtake 1 capsule by mouth twice dailygabapentin (Neurontin) 300 mg capsule Take 1 capsule (300 mg) by mouth 2 times a day. 0 Active Gabapentin Activeglimepiride 4 mg oral tablet (16 sources)SulfonylureaStart: 42-83-2426cwfe 0.5 tablet by mouth once daily before mealtimeglimepiride (Amaryl) 4 mg tablet Take 0.5 tablets (2 mg) by mouth once daily in the morning. Take before meals. 0 12/01/2021 ActiveStart: 03-39-3737ffci 1 tablet by mouth once daily 30 minutes before mealtime Glimepiride 4 MG Oral Tablet TAKE 1 TABLET BY MOUTH DAILY 30 MINUTES before a meal Quantity: 30 Refills: 0 Ordered: 01-Dec-2021 DO Start : 01-Dec-2021 Active take 2 mg by mouth once dailyglimepiride (AMARYL) 4 mg tablet Take 2 mg by mouth daily. Activetake 1 tablet by mouth every twenty-four hoursGlimepiride 2 MG 1 tab(s) Orally Once a day Activeloratadine 10 mg oral tablet (20 sources)take 1 tablet by mouth once dailyloratadine (Allergy Relief) 10 MG tablet Take 10 mg by mouth Daily Activemagnesium oxide 400 mg oral tablet (6 sources)Start: 43-12-1695urte 1 tablet by mouth once daily at bedtime Magnesium Oxide 400 mg magnesium tablet Active 400 MG PO Daily at bedtime January 30, 2025 12:00am Complies with drug therapyStart: 31-27-5968vjqi 1 tablet by mouth once daily at bedtimemagnesium oxide (Mag-Ox) 400 mg (241.3 mg magnesium) tablet Take 1 tablet (400 mg) by mouth once daily at bedtime. 0 11/17/2021 ActiveStart: 75-98-5874sgxb 1 tablet by mouth at bedtimeMagnesium Oxide 400 (240 Mg) MG Oral Tablet TAKE 1 TABLET BY MOUTH AT BEDTIME Quantity: 30 Refills:0 Ordered: 17-Nov-2021 DO Start : 17-Nov-2021 Activemeclizine hydrochloride 25 mg oral tablet (20 sources)AntiemeticStart: 93-82-5849sabc 1 tablet by mouth once daily as needed for dizzinessMeclizine 25 mg tablet Active 25 MG PO Daily as needed for dizziness September 25, 2021 1:00am Complies with drug therapyStart: 07-06-2018 End: 25-62-2361gvpv 1 tablet by mouth twice daily as needed for dizziness meclizine (Antivert) 25 MG tablet Indications: Dizziness and giddiness Take 1 tablet (25 mg) by mouth 2 (two) times a day as needed for dizziness 180 tablet 1 09/03/2024 Activemeclizine (ANTIVERT) 25 mg tablet Chew 25 mg and swallow 2 (two) times a day. ActivemetFORMIN hydrochloride 500 mg oral tablet (20 sources)BiguanideStart: 87-34-0986wsrr 1 tablet by mouth oncemetFORMIN (Glucophage) 500 MG tablet Indications: Type 2 diabetes mellitus without complications Take 1 tablet (500 mg) by mouth every 12 (twelve) hours 180 tablet 1 08/06/2024 ActiveStart: 02-07-2024 End: 98-04-5693fnwf 1 tablet by mouth every twelve hoursmetFORMIN (Glucophage) 500 MG tablet Indications: Type 2 diabetes mellitus without complications (CM S/HCC) TAKE 1 TABLET BY MOUTH EVERY 12 HOURS 180 tablet 1 02/07/2024 08/06/2024 Discontinued (Reorder)Start: 01-18-2024 End: 51-46-8606sdaj 1 tablet by mouth twice dailyMetformin 500 mg tablet Discontinued 500 MG PO Twice daily January 18, 2024 12:00am January 22, 2025 2:45pmStart: 78-20-5384tksq 1 tablet by mouth every twelve hoursmetFORMIN (Glucophage) 500 MG tablet Take 1 tablet by mouth every 12 (twelve) hours 0 08/10/2023 ActiveStart: 59-50-5200gofs 1 tablet by mouth every twelve hours metFORMIN (Glucophage) 500 mg tablet Take 1 tablet (500 mg) by mouth every 12 hours. 0 12/01/2021 ActiveStart: 32-27-2071vnyDCWRLI (GLUCOPHAGE) 1000 mg tablet Take by mouth 2 (two) times a day with meals. 02/13/2016 Activeprimidone 50 mg oral tablet (20 sources)Anti-epileptic AgentStart: 85-87-9145hwfe 1 tablet by mouth once daily at bedtimePrimidone 50 mg tablet Active 50 MG PO Daily at bedtime June 13, 2025 12:00am Complies with drug therapyStart: 09-05-2023 End: 85-88-3604fzrt 1 tablet by mouth once daily at bedtimePrimidone 50 mg tablet Discontinued 50 MG PO Daily at bedtime January 18, 2024 12:00am January 22, 2025 2:45pmSITagliptin 100 mg oral tablet (20 sources)Dipeptidyl Peptidase 4 InhibitorStart: 09-25-2021 End: 12-86-6905mzcq 1 tablet by mouth once dailySitagliptin Phosphate (Januvia) 100 mg tablet Active 100 MG PO Daily September 25, 2021 1:00am Complies with drug therapyJanuvia Activetamsulosin hydrochloride 0.4 mg oral capsule (20 sources)alpha-Adrenergic BlockerStart: 02-16-2024 End: 26-29-6483shgm 1 capsule by mouth every hourtamsulosin (Flomax) 0.4 MG 24 hr capsule Indications: Benign prostatic hyperplasia without lower urinary tract symptoms Take 1 capsule (0.4 mg) by mouth every 12 (twelve) hours 180 capsule 1 02/16/2024 08/14/2024 ActiveStart: 10-24-2023 End: 33-79-6398uwdi 1 capsule by mouth every twenty-four hours in the morning tamsulosin (Flomax) 0.4 MG 24 hr capsule Indications: Benign prostatic hyperplasia without lower urinary tract symptoms Take 1 capsule (0.4 mg) by mouth in the morning. 90 capsule 1 10/24/2023 04/21/2024 ActiveStart: 09-25-2021 End: 00-00-4594ijxv 1 capsule by mouth once dailyTamsulosin 0.4 mg capsule Active 0.4 MG PO Daily September 25, 2021 1:00am Complies with drug therapy traZODone hydrochloride 50 mg oral tablet (20 sources)Serotonin Reuptake InhibitorStart: 01-18-2024 End: 31-17-1601wgvb 1 tablet by mouth once daily at bedtime as neededTrazodone 50 mg tablet Active 50 MG PO Daily at bedtime as needed for insomnia January 18, 2024 12:00am Complies with drug therapyStart: 73-76-3467fcdn 1 tablet by mouth at bedtime for sleeptraZODone (Desyrel) 50 MG tablet Take 1 tablet by mouth at bedtime For sleep 0 07/13/2023 Activevitamin B12 (20 sources)Vitamin A96uuwf 2 tablets by mouth once dailyCyanocobalamin (VITAMIN B12 PO) Take 2 tablets by mouth Daily Activetake 2 tablets by mouth in the morningCyanocobalamin (VITAMIN B12 PO) Take 2 tablets by mouth in the morning. Activetake 2 tablets by mouth in the morningCyanocobalamin (VITAMIN B12 PO) Take 2 tablets by mouth in the morning. 0 Active Completed/Discontinued Medications MedicationDrug Class(es)DatesSig (Normalized)Sig (Original)baclofen 10 mg oral tablet (9 sources)gamma-Aminobutyric Acid-ergic AgonistStart: 74-91-4205mliz 1 tablet by mouth at bedtimeBaclofen 10 MG Oral Tablet TAKE 1 TABLET BY MOUTH AT BEDTIME Quantity: 30 Refills: 0 Ordered: 17-Nov-2021 DO Start : 17-Nov-2021 Active Continuous Blood Gluc Sensor (FreeStyle Jocelyne 2 Sensor) misc (16 sources)Start: 07-07-2023 End: 94-98-3389Ojkxeuowqv Blood Gluc Sensor (FreeStyle Jocelyne 2 Sensor) misc 1 Device by Other route in the morningand 1 Device at noon and 1 Device in the evening and 1 Device before bedtime. 07/07/2023 09/03/2024iscontinued (Ineffective)Start: 05-27-5779Ysphvvqlcb Blood Gluc Sensor (FreeStyle Jocelyne 2 Sensor) misc 1 Device by Other route in the morningand 1 Device at noon and 1 Device in the evening and 1 Device before bedtime. 07/07/2023 ActiveStart: 24-43-1639Tpwmobkitv Blood Gluc Sensor (FreeStyle Jocelyne 2 Sensor) misc 1 Device by Other route in the morningand 1 Device at noon and 1 Device in the evening and 1 Device before bedtime. 0 07/07/2023 Activedexlansoprazole 30 mg delayed release oral capsule (20 sources)Proton Pump InhibitorStart: 11-23-2021 End: 35-74-7218xbkw 1 capsule by mouth twice dailydexlansoprazole (Dexilant) [address] capsule Take 1 capsule (30 mg) by mouth 2 times a day. 0 11/23/2021 09/28/2023 Discontinued (Therapy completed)esomeprazole 40 mg delayed release oral capsule (20 sources)Proton Pump InhibitorStart: 01-12-2023 End: 43-72-7524ytqd 1 capsule by mouth once dailyEsomeprazole Magnesium 40 mg capsule,delayed release(DR/EC) Discontinued 40 MG PO Daily December 12:00am August 07, 2024 2:23pm FreeTextSi capsule Orally Once a day; Note: Source Status: Refill; Refills: 11; Provider: Colin Shukla MStart: 15-37-2338tzox 1 capsule by mouth twice dailyEsomeprazole Magnesium 40 MG 1 capsule Orally twice daily for 90 days Apr, Activelansoprazole 30 mg delayed release oral capsule (4 sources)Proton Pump InhibitorStart: 90-41-0966selk 1 capsule by mouth every twelve hoursLansoprazole 30 MG 1 capsule before a meal Orally twice a day for 90 days Apr, Not-Takinglosartan potassium 50 mg oral tablet (20 sources)Angiotensin 2 Receptor BlockerStart: 09-25-2021 End: 24-26-1361tpnn 1 tablet by mouth once dailyLosartan 50 mg tablet Discontinued 50 MG PO Daily September 25, 2021 1:00am January 18, 2024 2:14pm losartan (COZAAR) 25 mg tablet Take by mouth. ActiveMulti Vitamin Daily Oral Tablet (2 sources)take 1 tablet by mouth once dailyMulti Vitamin Daily Oral Tablet TAKE 1 TABLET DAILY. Quantity: 0 Refills: 0 Ordered: 14-Apr-2022 DOActive multivitamin (Daily Multi-Vitamin) tablet (1 source) End: 83-48-0669qejz 1 tablet by mouth once dailymultivitamin (Daily Multi- Vitamin) tablet Take 1 tablet by mouth once daily. 0 09/28/2023 Discontinued (Therapy completed)omeprazole 40 mg delayed release oral capsule (20 sources)Proton Pump InhibitorStart: 12-11-2021 End: 73-83-2934zoarltaxbz (PriLOSEC) [address] capsule Take by mouth. 0 12/11/2021 09/28/2023 Discontinued (Therapycompleted)Start: 09-25-2021 End: 36-57-6594nnoe 1 capsule by mouth once dailyOmeprazole 20 mg capsule,delayed release(DR/EC) Discontinued 20 MG PO Daily September 25, 2021 1:00am September 25, 2021 10:34amStart: 09-25-2021 End: 27-66-8429gwzm 1 capsule by mouth once dailyOmeprazole 40 mg capsule,delayed release(DR/EC) Discontinued 40 MG PO Daily 84 84 September 25, 2021 1:00am January 18, 2024 2:15pmProstate Control Oral Capsule (2 sources)take 1 capsule by mouth once dailyProstate Control Oral Capsule TAKE 1 CAPSULE Daily Quantity: 0 Refills: 0 Ordered: 14-Apr-2022 DO Active pbf-Yc-aph-tthtn-zara-ji-Zn-Cu (Prostate Control) 49-57-68-100 mg capsule (1 source) End: 28-68-3095gsgx 1 capsule by mouth once ccpfjqyc-Yk-pov-ewvij-xksr-xk-Zn-Cu (Prostate Control) 42-93-59-100 mg capsule Take 1 capsule by mouth once daily. 0 09/28/2023 Discontinued (Therapy completed)Sod Picosulf-Mag Ox-Citric Ac (4 sources)Start: 01-02-2025 End: 88-94-4783Hvn Picosulf-Mag Ox-Citric Ac (Clenpiq) 10 mg-3.5 gram- 12 gram/175 mL solution Discontinued 175 MLPO .COMPLEX 350 1 January 02, 2025 12:00am June 13, 2025 2:31pm Follow instructions given by officeStart: 59-19-2430Qjd Picosulf-Mag Ox-Citric Ac (Clenpiq) 10 mg-3.5 gram- 12 gram/175 mL solution Active 175 ML PO .COMPLEX 350 January 02, 2025 12:00am Follow instructions given by office Problems Active Problems Problem ClassificationProblemDateDocumented DateEpisodic/ChronicAbdominal pain (4 sources)Epigastric pain; Translations: [Dyspepsia and other specified disorders of function of stomach]58-78-4466SqxlpymzUcpjsjmfr and vision defects (8 sources)Diplopia; Translations: [Diplopia]50-79-5824EqtgnqpxJrbiudh dysrhythmias (20 sources)Paroxysmal atrial fibrillation; Translations: [Atrial fibrillation] Onset: 911335-18-6570MhxdxdtGkrnhphjwu associated with dizziness or vertigo (2 sources)Dizziness and giddiness; Translations: [Dizziness and giddiness] 16-10-0485FjtibghxTuanhvyk mellitus with complications (20 sources)Type 2 diabetes mellitus; Translations: [Type 2 diabetes mellitus with diabetic polyneuropathy]Onset: 497111-65-1197NllauafPvxhhuwt mellitus without complication (18 sources)Diabetes mellitus without complication; Translations: [Diabetes mellitus without mention of complication, type II or unspecified type, not stated as uncontrolled]Onset: 61-28-1386TecdnpwSpoizovgm of lipid metabolism (20 sources)Hyperlipidemia; Translations: [Other and unspecified hyperlipidemia] Onset: 388659-80-4205AwcnbloCjxxnpvesa disorders (20 sources)Gastroesophageal reflux disease; Translations: [Gastro-esophageal reflux disease without esophagitis]Onset: 11-23-2021 Resolved: 82-35-3943QawpvwmOnyeykfyq hypertension (20 sources)Benign essential hypertension; Translations: [Benign essential hypertension]Onset: 90-03-409902524348-16-6358WkthlykTbjvgbypbua (9 sources)Hemorrhoids; Translations: [Unspecified hemorrhoids]Onset: 02-28-2025 02-97-7383UazpgmemSjcaabtkifw of prostate (20 sources)Benign prostatic hyperplasia; Translations: [Benign prostatic hyperplasia without lower urinary tract symptoms]Onset: ChronicHypertension with complications and secondary hypertension (2 sources)Hypertensive heart disease without heart failure; Translations: [Hypertensive heart disease withoutheart failure]Onset: 61-40-7800Bieetxf Osteoarthritis (20 sources)Arthritis of right hip; Translations: [Unilateral primary osteoarthritis, right hip]Onset: 839919-32-0214HsyjstxOnqpf disorders of stomach and duodenum (13 sources)Indigestion; Translations: [Functional dyspepsia]50-57-3931Kbzlutti Other disorders of stomach and duodenum (2 sources)Functional dyspepsiaOnset: 11-23-2021 Resolved: 97-82-9176JqelanesGnxjt gastrointestinal disorders (5 sources)Dysphagia; Translations: [Dysphagia, unspecified]31-34-4395Nypqzthz Other gastrointestinal disorders (4 sources)Dysphagia, unspecified; Translations: [Dysphagia, unspecified] 75-58-5553JcgocufeVzxsp hereditary and degenerative nervous system conditions (20 sources)Essential tremor; Translations: [Essential tremor]Onset: 07-09-2024 57-01-7364OyzokgmWmpok nervous system disorders (1 source)Other chronic pain; Translations: [OTHER CHRONIC PAIN]Onset: 41-60-9754GdbdyxcQrfsa nervous system disorders (1 source)Polyneuropathy; Translations: [Polyneuropathy, unspecified]11-15-2024 ChronicOther nervous system disorders (20 sources)Paresthesia; Translations: [Paresthesia of skin]Onset: 07-09-2024 22-19-4313FoosmesmJfjmu nutritional; endocrine; and metabolic disorders (2 sources)Obesity; Translations: [Obesity, unspecified]ChronicOther nutritional; endocrine; and metabolic disorders (5 sources)Overweight in adulthood with body mass index of 25 or more but less than 30; Translations: [Overweight]Onset: 089432-06-3714ZeaadzpaXsgau screening for suspected conditions (not mental disorders or infectious disease) (10 sources)Patient encounter status; Translations: [Encounter for screening for malignant neoplasm of colon]Onset: 588139-15-6071IzrtipnbFrqhjhwxd`s disease (20 sources)Parkinson's disease; Translations: [Paralysis agitans]Onset: 985695-51-2685RzntbnpYixrxdcfk`s disease (2 sources)Parkinson`s disease; Translations: [Parkinson's disease without dyskinesia, without mention of fluctuations]Onset: 68-86-5260Ucuosxif codes; unclassified (1 source)Insomnia; Translations: [Insomnia, unspecified]79-48-6918Dwzfaaob Spondylosis; intervertebral disc disorders; other back problems (20 sources)Spondylosis without myelopathy or radiculopathy, lumbar region; Translations: [Other intervertebraldisc degeneration, lumbar region]Onset: 44-69-6880MuxygqkQgbtwjhvkmqr (1 source)LOW BACK PAIN, UNSPECIFIED; Translations: [LOW BACK PAIN, UNSPECIFIED] Onset: 05-26-2022 Past or Other Problems Problem ClassificationProblemDateDocumented DateEpisodic/ChronicOther aftercare (20 sources)Long-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 of 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; Translations: [[facility] (current) use of 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s]Onset: 051053-13-6465XrlqdihuNxieh aftercare (2 sources)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; Translations: [[facility] (current) use of 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s]Onset: 55-13-6405VwhluegjEhyby connective tissue disease (2 sources)Unspecified symptoms and signs involving the nervous system; Translations: [Pain in unspecified limb]Onset: 18-17-0614QqfrogveFevfl connective tissue disease (20 sources)Pain of left hand; Translations: [Pain in left hand]Onset: 081945-16-1157HydmfbswDrkoo connective tissue disease (20 sources)Pain in right foot; Translations: [Pain in right foot]Onset: 164953-72-9307UsvtcsljLwesb nervous system disorders (1 source)Paresthesia of skin; Translations: [Paresthesia of skin]Onset: 59-47-8438GcrngkosEzsap nutritional; endocrine; and metabolic disorders (2 sources)Body mass index (BMI) 28.0-28.9, adult; Translations: [Body mass index (BMI) 28.0-28.9, adult]Onset: 36-28-6558AkrakvbrNcrtr upper respiratory infections (20 sources)Acute upper respiratory infection; Translations: [Acute upper respiratory infection, unspecified]Onset: 067556-89-0899QwfnpdkjWigxmndj codes; unclassified (20 sources)Colon cancer screening declined; Translations: [Procedure and treatment not carried out because of patient's decision for unspecified reasons] Onset: 008928-15-3093QrxujppsFbbhhkiivfzw (5 sources)Never smoked tobacco; Translations: [Never a smoker]Unclassified (1 source)Onset: Viral infection (2 sources)Verruca plantaris; Translations: [Plantar wart]61-40-6450Trqcctft Results Test NameValueInterpretationReference RangeFacilityOffice Visiton 05-22-2025 Follow-up [id number] Jay Aguero 1950 M Date Provider Department Center 05/22/2025 [id number]-JUYRALSHIPLA MEREDITH Family History Family history unknown: Yes Family Status - Relation Status Age at Mother Father Level of Service:[address]21 [place] OFFICE/OUTPATIENT ESTABLISHED MOD MDM 30 MIN Reason for Visit and Comments: Hypertension [805537] Atrial Fibrillation [80] Hyperlipidemia [182] Congestive Heart Failure [127] 6 month follow up [Other][facility] ([facility]ldC[facility] [Mass/Vol]Ordered By: Alcides Nowak on 16-70-7094Pojyqew [Mass/Vol]Capillary blood glucose measurement by glucometer (mass/volume) [facility] Medical CenterComment on above:Random Glucose Reference Range is dependent on time and content of last meal. Glucose of more than 200 mg/dL in a nonstressed, ambulatory subject supports the diagnosis of Diabetes Mellitus.Glucose Poct Glucometerson 27-21-0859Suketnh7Xdt3: Cleaned MeterNormal The First[facility] Physician GroupComment on above:Result Comment: PERFORMED BY: [facility] [address] [place] [address] PATHOLOGIST TILER'S ASSISTANT ALEKSANDAR RUBIO M.D.Performed By: #### GLULS #### Point of Care testing ,Glucose [Mass/Vol]90 mg/dLNormalThPortneuf Medical Center Physician GroupComment on above: Result Comment: Random Glucose Reference Range is dependent on time and content of last meal. Glucose of more than 200 mg/dL in a nonstressed, ambulatory subject supports the diagnosis of Diabetes Mellitus.Performed By: #### GLULS #### Point of Care testing ,No Panel InformationOrdered By: Alcides Nowak on 43-86-3552Nfstlmd Glucose CommentGlu2: cleaned [facility] TrumbullOrders Onlyon 90-78-2538Kxdkkz [id number] Jay Aguero E 1950 M Date Provider Department Center 01/14/2025 MARY SPARKS DANIEL Crowder Family History Family history unknown: YesNormalUniversCleveland Clinic [facility] HospitalOffice Visit on 46-37-9046Rewdqd-up [id number] Jay Aguero 1950 M Date Provider Department Center 11/30/2024 52574-AYOWYJSHILPA ASCENCIO DANIEL Crowder Family History Family history unknown: Yes Level of Service:77696 [place] OFFICE/OUTPATIENT NEW MODERATE MDM 45 MINUTES Reason for Visit and Comments: Atrial Fibrillation [80] - On Eliquis. Denies chest pain, SOB, and palpitations. Hyperlipidemia [182] - Had lipid panel in May 2024. Hypertension [966497]NormalUnProMedica Bay Park HospitalMLR HEMOGLOBIN A1C on 09-02-0504Mqvyovx [Mass/Vol]163 mg/dLNOMS MbrdvqobtkTjZ1v (Bld) [Mass fraction]7.3 %High4.5 - 6.2 %NOMS HealthcareComment on above:ADA RECOMMENDED LIMIT 4.0 - 6.0 ADA THERAPEUTIC TARGET < 7.0 ACTION SUGGESTED > 7.0 Interpretation and review of laboratory resultsAbnormalNOMS HealthcareCLINISYNC NOMS HealthcareGLYCOHEMOGLOBIN A1Con 38-28-6618ZIV RECOMMENDATIONSEE BELOWNormal The [facility] Healthcare SystemComment on above:Result Comment: ADA RECOMMENDED LIMIT 4.0 - 6.0 ADA THERAPEUTIC TARGET < 7.0 ACTION SUGGESTED > 7.0Performed By: #### A1C #### [facility] [address] [address] [address] Gallo WadeGlucose [Mass/Vol]128 mg/dLNormalThe [facility] Healthcare SystemComment on above:Performed By: #### A1C #### [facility] [address] [place], [place] [address] Dr. Gallo WadeHbA1c (Bld) [Mass fraction]6.1 %Normal4.5-6.2The [facility] Healthcare SystemComment on above:Performed By: #### A1C #### [facility] [address] [address] [address] Gallo WadeOffice Visit (Cardiology)on 76-18-2339Wcnukw-up visit Diagnoses/Problems Assessed Class 1 obesity with [...] is not on antiarrhythmics but he is ant icoagulated and hence the risk of stroke appears [...] CAPSULE BY MOUTH TWICE DAILY (30 MINUTES beforemorning meal AND 30 MINUTES before evening meal) Primidone 50 MG Oral TabletTAKE 1 TABLET AT BEDTIME. Prostate Control Oral CapsuleTAKE 1 CAPSULE Daily Tamsulosin HCl - 0.4 MG Oral CapsuleTAKE 1 CAPSULE BY MOUTH ONCE DAILY Trulicity 0.75 MG/0.5ML Subcutaneous Solution Pen-injectorINJECT 1 pen NEEDED SUBCUTANEOUSLY ONCE A WEEK Vitamin D3 1.25 MG (15165 UT) Oral CapsuleTAKE 1 CAPSULE Daily Allergies [...] Recorded: 29Dec2022 01:35PM Heart Rate74, R Radial Qqaisdgc497, LUE, Sitting Mfrehwfpt92, LUE, Sitting Height5 ft 10 in Blkcln628 lb BMI Cgtouosszb06.28 (more content not included)...NormalUH TouchworksTobacco Screening.on 77-00-7381Wasqs depression screening assessmentOur Lady of Fatima Hospital [employer] 250 DO Work Phone: Fall risk assessmenta) No falls within the last year [facility] [employer] 250 DO Work Phone: Tobacco use status CPHSb) [facility] [employer] NetworksPeacehealthy 250 DO Work Phone: CB AUTO DIFFon 25-31-5115BPAL #0.0 103/ulNormal 0.0-0.1The [facility] Healthcare SystemComment on above:Performed By: #### CBC #### [facility] [address] [address] [address] Gallo aWdeBasophils/100 WBC (Bld)0.5 %Normal0.2-2.0The [facility] Comment on above:Performed By: #### CBC #### [facility] [address] [place] [address] Dr. Gallo Fajardo #0.2 103/ulNormal0.0-0.7The [facility] Healthcare SystemComment on above: Performed By: #### CBC #### [facility] [address] [place] [address] Dr. Gallo Palaciososinophils/100 WBC (Bld)2.7 %Normal0.9-7.0[facility] Comment on above:Performed By: #### CBC #### [facility] [address] [place] [address] Dr. Gallo Palaciosrythrocyte distribution width (RBC) [Ratio]13.0 %Threfo09.0-15.0 [facility]len[facility] HospitalComment on above:Performed By: #### CBC #### [facility] [address] [place] [address] Dr. Gallo WadeHematocrit (Bld) [Volume fraction]37.6 %Critically low42.0-54.0 [facility] HospitalComment on above:Performed By: #### CBC #### [facility] [address] [place] [address] Dr. Gallo WadeHemoglobin (Bld) [Mass/Vol]13.7 g/dLCritically low14.0-18.0[facility] HospitalComment on above:Performed By: #### CBC #### [facility] [address] [place] [address] Dr. Gallo Hart #0.08 10e3/ulCritically high0.00-0.03The [facility] Comment on above:Performed By: #### CBC #### [facility] [address] [place] [address] Dr. Gallo Hart %1.1 %Critically high0.0-0.5The [facility] Healthcare SystemComment on above:Performed By: #### CBC #### [facility] [address] [place] [address] Dr. Gallo Baker #1.6 103/ulNormal1.2-3.8The [facility] Healthcare SystemComment on above:Performed By: #### CBC #### [facility] [address] [place] [address] Dr. Gallo Yeagermphocytes/100 WBC (Bld)21.7 %Zujtzx26.5-60.0The [facility] Healthcare SystemComment on above:Performed By: #### CBC #### [facility] [address] [place] [address] Dr. Gallo Medina DIFF REQNONormalThe [facility] Healthcare SystemComment on above: Performed By: #### CBC #### [facility] [address] [place] [address] Dr. Gallo Campuzano (RBC) [Entitic mass]32.2 rfSsczcn64.9-34.0The [facility] Healthcare SystemComment on above:Performed By: #### CBC #### [facility] [address] [place] [address] Dr. Gallo Campuzano (RBC) [Mass/Vol]36.4 g/dLCritically high29.9-35.2The [facility] SystemComment on above:Performed By: #### CBC #### [facility] [address] [place] [address] Dr. Gallo Andrew (RBC) [Entitic vol]88.5 uJBrghfz94.0-94.0The [facility] Healthcare SystemComment on above:Performed By: #### CBC #### [facility] [address] [place] [address] Dr. Gallo Batista #0.5 103/ulNormal0.3-0.8The [facility] Healthcare SystemComment on above:Performed By: #### CBC #### [facility] [address] [place] [address] Dr. Gallo Flynnocytes/100 WBC (Bld)6.4 %Normal1.7-12.0[facility] Comment on above:Performed By: #### CBC #### [facility] [address] [place] [address] Dr. Gallo De Luna #5.0 103/ulNormal1.4-6.5The [facility] Healthcare SystemComment on above:Performed By: #### CBC #### [facility] [address] [place] [address] Dr. Gallo WadeNeutrophils/100 WBC (Bld)67.6 %Onxmis00.0-75.0[facility] HospitalComment on above:Performed By: #### CBC #### [facility] [address] [place] [address] Dr. Gallo WadePlatelet mean volume (Bld) [Entitic vol]9.9 fLNormal9.5-13.5The [facility] Healthcare SystemComment on above:Performed By: #### CBC #### [facility] [address] [place] [address] Dr. Gallo WadePLT174 103/zzSjzftz815-860NgzOhiohealth O'Bleness HospitalCommarshfield medical center on above: Performed By: #### CBC #### [facility] [address] [place] [address] Dr. Gallo WadeRBC4.25 106/ulCritically low4.70-6.10The [facility] SystemComment on above:Performed By: #### CBC #### [facility] [address] [place] [address] Dr. Gallo WadeWBC7.4 103/ulNormal4.0-11.0[facility] HospitalCommarshfield medical center on above: Performed By: #### CBC #### [facility] [address] [place] [address] Dr. Gallo WadeGLYCOHEMOGLOBIN A1Con 71-08-9080SZU RECOMMENDATIONSEE BELOWNormal The [facility] SystemCommarshfield medical center on above:Result Comment: ADA RECOMMENDED LIMIT 4.0 - 6.0 ADA THERAPEUTIC TARGET < 7.0 ACTION SUGGESTED > 7.0Performed By: #### A1C #### [facility] [address] [place] [address] Dr. Gallo WadeGlucose [Mass/Vol]169 mg/dLNormalThMercy Health St. Elizabeth Boardman HospitalComment on above:Performed By: #### A1C #### [facility] [address] [address] [address] Gallo WadeHbA1c (Bld) [Mass fraction]7.5 %Critically high4.5-6.2The [facility] Healthcare SystemComment on above:Performed By: #### A1C #### [facility] [address] [place] [address] Dr. Gallo KaurID PROFILEon 61-44-4960VKWN-HDL RATIO NORMSEE BELOWNoBrecksville VA / Crille HospitalComment on above:Result Comment: 3.3 - 4.4 LOW RISK 4.4 - 7.1 AVERAGE RISK 7.1 - 11.0 MODERATE RISK >11.0 HIGH RISKPerformed By: #### LIPID, CMP #### [facility] [address] [place] [address] Dr. Gallo Fuentesesterol [Mass/Vol]150 mg/dLNormal<=200The [facility] Comment on above:Performed By: #### LIPID, CMP #### [facility] [address] [place] [address] Dr. Gallo Fuentesesterol in HDL [Mass/Vol]45 mg/kTMekdut69-83Qbw [facility] SystemComment on above:Performed By: #### LIPID, CMP #### [facility] [address] [place] [address] Dr. Gallo Fuentesesterol in LDL [Mass/Vol]53.6 mg/dLGalion Community HospitalComment on above:Performed By: #### LIPID, CMP #### [facility] [address] [place] [address] Dr. Gallo Almanza.total/Cholesterol in HDL [Mass ratio]3.3 {ratio} NormalThe [facility] Healthcare SystemComment on above:Performed By: #### LIPID, CMP #### [facility] [address] [place] [address] Dr. Gallo Vizcaino NORMAL> or = 60 mg/dl - LOW CARDIOVASCULAR RISK <40 mg/dl - HIGH CARDIOVASCULAR RISKGalion Community HospitalComment on above:Performed By: #### LIPID, CMP #### [facility] [address] [place] [address] Dr. Gallo To CALC NORMALSEE BELOWNoBrecksville VA / Crille HospitalComment on above:Result Comment: <100 mg/dl OPTIMAL 100 - 129 mg/dl NEAR OR ABOVE OPTIMAL 130 - 159 mg/dl BORDERLINE HIGH 160 - 189 mg/dl HIGH >190 mg/dl VERY HIGH Performed By: #### LIPID, CMP #### [facility] [address] [address] [address] Gallo WadeTriglyceride [Mass/Vol]257 mg/dLCritically high<=150The [facility] SystemComment on above:Performed By: #### LIPID, CMP #### [facility] [address] [place] [address] Dr. Gallo WadeVLDL CALC51.4 mg/dLNoBrecksville VA / Crille HospitalComment on above: Performed By: #### LIPID, CMP #### [facility] [address] [place] [address] Dr. Gallo WadePROF 14(COMP METB)on 62-85-2687Cyzpnrb [Mass/Vol]3.7 g/dLNormal 3.4-5.0The [facility] SystemComment on above:Performed By: #### LIPID, CMP #### [facility] [address] [place] [address] Dr. Gallo WadeAlbumin/Globulin [Mass ratio]1.1 {ratio}NormalThe [facility] SystemComment on above:Performed By: #### LIPID, CMP #### [facility] [address] [place] [address] Dr. Gallo Mi [Catalytic activity/Vol]77 U/WCzmjxj33-557Aww [facility] SystemComment on above:Performed By: #### LIPID, CMP #### [facility] [address] [place] [address] Dr. Gallo Mcguire [Catalytic activity/Vol]24 U/JXfdfof51-99Jkx [facility] SystemComment on above:Performed By: #### LIPID, CMP #### [facility] [address] [place] [address] Dr. Gallo Hall gap [Moles/Vol]13.2 mmol/LNormalThe [facility] Comment on above:Performed By: #### LIPID, CMP #### [facility] [address] [address] [address] Gallo WadeAST [Catalytic activity/Vol]15 U/ERyatic02-52Upc [facility] SystemComment on above:Performed By: #### LIPID, CMP #### [facility] [address] [address] [address] Gallo WadeBilirubin [Mass/Vol]0.9 mg/dLNormal0.2-1.0[facility] Comment on above:Performed By: #### LIPID, CMP #### [facility] [address] [address] [address] Gallo WadeCalcium [Mass/Vol]9.1 mg/dLNormal8.5-10.1[facility] Comment on above:Performed By: #### LIPID, CMP #### [facility] [address] [place] [address] Dr. Gallo WadeChloride [Moles/Vol]102 mmol/CCjuwhi98-576WqxOhiohealth O'Bleness Hospital Comment on above:Performed By: #### LIPID, CMP #### [facility] [address] [place] [address] Dr. Gallo WadeCO2 [Moles/Vol]27.9 mmol/UEutmut87.0-32.0[facility] Comment on above:Performed By: #### LIPID, CMP #### [facility] [address] [place] [address] Dr. Gallo WadeCreatinine [Mass/Vol]0.82 mg/dLNormal0.70-1.30The [facility] SystemComment on above:Performed By: #### LIPID, CMP #### [facility] [address] [place] [address] Dr. Gallo PalaciosGFR-AF BRUNEIAN>60Normal>=60The [facility] SystemComment on above:Performed By: #### LIPID, CMP #### [facility] [address] [place] [address] Dr. Gallo PalaciosGFR-NON AF BRUNEIAN>60Normal>=60The [facility] SystemComment on above:Performed By: #### LIPID, CMP #### [facility] [address] [place] [address] Dr[address] Gallo WadeGlobulin (S) [Mass/Vol]3.5 g/dLNormACMC Healthcare SystemComment on above:Performed By: #### LIPID, CMP #### [facility] [address] [address] [address] Gallo WadeGlucose [Mass/Vol]161 mg/dLCritically hiyl71-108Tnz [facility] SystemComment on above:Performed By: #### LIPID, CMP #### [facility] [address] [place] [address] Dr. Gallo WadePotassium [Moles/Vol]4.1 mmol/LNormal3.5-5.1The [facility] Comment on above:Performed By: #### LIPID, CMP #### [facility] [address] [place] [address] Dr. Gallo WadeProtein [Mass/Vol]7.2 g/dLNormal6.4-8.2The [facility] Comment on above:Performed By: #### LIPID, CMP #### [facility] [address] [place] [address] Dr. Gallo WadeSodium [Moles/Vol]139 mmol/NTngdha894-719NsqOhiohealth O'Bleness [facility] Comment on above:Performed By: #### LIPID, CMP #### [facility] [address] [place] [address] Dr. Gallo WadeUrea nitrogen [Mass/Vol]14.0 mg/dLNormal7.0-18.0The [facility]c Healthcare SystemComment on above:Performed By: #### LIPID, CMP #### [facility] [address] [place] [address] Dr. Gallo Waldrop nitrogen/Creatinine [Mass ratio]17.1 mg/mgNormACMC Healthcare SystemComment on above:Performed By: #### LIPID, CMP #### [facility] [address] [place] [address] Dr. Gallo WadeGLYCOHEMOGLOBIN A1Con 93-69-0787IHD RECOMMENDATIONSEE BELOWDanville The Acmc Healthcare SystemComment on above:Result Comment: ADA RECOMMENDED LIMIT 4.0 - 6.0 ADA THERAPEUTIC TARGET < 7.0 ACTION SUGGESTED > 7.0Performed By: #### A1C #### [facility] [address] [place] [address] Dr. Gallo WadeGlucose [Mass/Vol]134 mg/dLNoBrecksville VA / Crille HospitalComment on above:Performed By: #### A1C #### [facility] [address] [place] [address] Dr. Gallo WadeHbA1c (Bld) [Mass fraction]6.3 %Critically high4.5-6.2[facility]'Bleness HospitalComment on above:Performed By: #### A1C #### [facility] [address] [place] [address] Dr. Gallo KaurID PROFILEon 82-00-9554XKOH-HDL RATIO NORMSEE BELOWGalion Community HospitalComment on above:Result Comment: 3.3 - 4.4 LOW RISK 4.4 - 7.1 AVERAGE RISK 7.1 - 11.0 MODERATE RISK >11.0 HIGH RISKPerformed By: #### LIPID #### [facility] [address] [place] [address] Dr. Gallo Fuentesesterol [Mass/Vol]129 mg/dLNormal<=200The [facility] Comment on above:Performed By: #### LIPID #### [facility] [address] [place] [address] Dr. Gallo Fuentesesterol in HDL [Mass/Vol]36 mg/dLCritically etg17-18Gyd [facility] SystemComment on above:Performed By: #### LIPID #### [facility] [address] [place] [address] Dr. Gallo Fuentesesterol in LDL [Mass/Vol]46.6 mg/dLNoBrecksville VA / Crille HospitalComment on above:Performed By: #### LIPID #### [facility] [address] [place] [address] Dr. Yilan ChangCholesterol.total/Cholesterol in HDL [Mass ratio]3.6 {ratio} NormalSt. John of God Hospitalment on above:Performed By: #### LIPID #### [facility] [address] [address] [address] Gallo Vizcaino NORMAL> or = 60 mg/dl - LOW CARDIOVASCULAR RISK <40 mg/dl - HIGH CARDIOVASCULAR RISKGalion Community HospitalComment on above:Performed By: #### LIPID #### [facility] [address] [address] [address] Gallo WadeLDL CALC NORMALSEE BELOWGalion Community HospitalComment on above:Result Comment: <100 mg/dl OPTIMAL 100 - 129 mg/dl NEAR OR ABOVE OPTIMAL 130 - 159 mg/dl BORDERLINE HIGH 160 - 189 mg/dl HIGH >190 mg/dl VERY HIGH Performed By: #### LIPID #### [facility] [address] [address] [address] Gallo WadeTriglyceride [Mass/Vol]232 mg/dLCritically high<=150The [facility] SystemCommarshfield medical center on above:Performed By: #### LIPID #### [facility] [address] [address] [address] Gallo WadeVLDL CALC46.4 mg/dLNoBrecksville VA / Crille HospitalComment on above: Performed By: #### LIPID #### [facility] [address] [place], [place] [address] Dr. Gallo WadePOINT OF CARE GLUCOSEon 01-04-2700Jlhrtvy [Mass/Vol]172 mg/dL Critically ylao90-914Nhm [facility] SystemCommarshfield medical center on above:Performed By: #### POCGLUC #### [facility] [address] [address] [address] Gallo Bustamanteice Visit (Cardiology)on 81-04-7243Ybbter-up visit Diagnoses/Problems Assessed Paroxysmal atrial fibrillation (427.31) [...] my direction and personally dictated by me. Ihave reviewed the chart and agree that the [...] CAPSULE BY MOUTH TWICE DAILY (30 MINUTES beforemorning meal AND 30 MINUTES before evening meal) Prostate Control Oral CapsuleTAKE 1 CAPSULE Daily Tamsulosin HCl - 0.4 MG Oral CapsuleTAKE 1 CAPSULE BY MOUTH ONCE DAILY Trulicity 0.75 MG/0.5ML Subcutaneous Solution Pen-injectorINJECT 1 pen NEEDED SUBCUTANEOUSLY ONCE A WEEK Vitamin D3 1.25 MG (55920 UT) Oral CapsuleTAKE 1 CAPSULE Daily Allergies [...] Recorded: 14Apr2022 03:51PM Heart Rate80, R Radial Oqntuabf926, RUE, Sitting Rettdmtfn51, RUE, Sitting Height5 ft 10 in Pxxogk623 lb BMI Jhlghjxtfm88.28 kg/m2 BSA Calculated2.14 Tobacco Useb) No PHQ-2 #1. Over the last 2 weeks have you felt down, depressed or hopeless? (If yes, answer PHQ-9 below)No PHQ-2 #2. Over the last 2 weeks have (more content not included)...NormalUH TouchworksTobacco Screening.on 42-27-2070Joonk depression screening assessmentNo [place] [address] DO Work Phone: fall risk assessmenta) No falls within the last year [place] [address] DO Work Phone: Tobacco use status CPHSb) [place] [address] DO Work Phone: Tobacco Screening.on 95-48-2799Ofnvq depression screening assessmentNoEm[place] [address] DO Work Phone: fall risk assessmenta) No falls within the last year [place] [address] DO Work Phone: Tobacco use status CPHSb) [place] [address] DO Work Phone: SURGICAL PATHOLOGYon 11-03-8920NMVDSACF PATHOLOGY Specimen #: [id number] Submitting Physician: VIJI FALCON M.D. FINAL DIAGNOSIS [facility], [place], [place]; [id number] (09/25/2021) Esophagus, biopsy (A1-1, A1-2) - Inflamed [...] to contact the GI consultation Service at [phone] with questions or if additional follow up information becomes available. This case was reviewed in conjunction with the GI pathology fellow, Tonya Fernández M.D. AEB/SSE 10/07/2021 Nova Parsons M.D. (Electronic Signature) SPECIMEN SUBMITTED A: 2 SLIDES [id number] CLINICAL DATA Dyspepsia, GERD. Date of Report: 10/07/2021 Date of Procedure: 10/06/2021 Date of Receipt: 10/06/2021 Submitted by: VIJI FALCON M.D. Location: Diagnostic interpretation performed at [facility], [address] [place] [address]. CLIA Number: [id number] [facility] Comment on above:Performed By: #### S #### See report for performing lab information.Factor V Activityon 00-99-7009Nmaerq V Nvmvlgly680 %Kpvzef83-372JlcsvGerman HospitalComment on above: Result Comment: [facility] [place] [address] ([phone] By: #### HOCYS, FA5, LUPPRO, PROCAC, PROSAC ####[employer] [address] [place] [address] Lupus Anticoagulanton 24-37-9955Haagti Blake ViperNegativeNormalNLUPGerman Hospital Comment on above:Result Comment: [facility] [address] [place] [address] ([phone] By: #### HOCYS, FA5, LUPPRO, PROCAC, PROSAC ####[employer] [address] [place] [address] Protein C Activityon 83-95-6045Ksvnzkp C Uahzovee723 %Normal>80[facility] Valley HospitalComment on above:Result Comment: Patients on oral 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s will have decreased functional protein C/S values. Oral 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 therapy should be discontinued for two weeks for accurate measurement of functional protein C/S levels.Artifactually elevated levels of functional protein C/S may be seen in patients receiving heparin, while decreased functionality may be seen in patients with abnormally elevated levels of Factor VIII.[facility] [address] [place] [address] [phone] By: #### HOCYS, FA5, LUPPRO, PROCAC, PROSAC ####[address] [phone] S Activityon 07-74-7250Drmzqdj S Rvieofti861 %High 77-116German HospitalComment on above:Result Comment: Patients on oral 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s will have decreased functional protein C/S values. Oral 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 therapy should be discontinued for two weeks for accurate measurement of functional protein C/S levels.Artifactually elevated levels of functional protein C/S may be seen in patients receiving heparin, while decreased functionality may be seen in patients with abnormally elevated levels of Factor VIII.[facility] [address] [place] [address] Performed By: #### FREDY, FA5, LUPPRO, PROCAC, PROSAC ####[facility] [address] [place] [address] [phone] Anticoagulanton 04-28-2017 Antiphospholipid IgA4.0 APUNormal<12[facility] Valley HospitalComment on above:Result Comment: Reference Range:12 - 15 Equivocal>15 PositivePerformed By: #### HOCYS, FA5, LUPPRO, PROCAC, PROSAC ####[facility] [address] [place], [place] [phone] IgG5.3 GPUNormal<20[facility] HospitalComment on above:Result Comment: Reference Range:20.0 - 29.9 Low Liskxodc80.0 - 79.9 Moderate Positive >79.9 HighPositivePerformed By: #### HOCYS, FA5, LUPPRO, PROCAC, PROSAC ####[address] [place] [address] Antiphospholipid IgM4.8 MPUNormal<20German HospitalComment on above:Result Comment: Reference Range:20.0 - 29.9 Low Yearvqwt88.0 - 79.9 Moderate Positive >79.9 HighPositivePerformed By: #### HOCYS, FA5, LUPPRO, PROCAC, PROSAC ####[address] [place] [address] Cult,Urineon 25-23-4400Gcyy,UrineSpecimen Description .URINE Special Requests NOT REPORTED Culture NO GROWTH Report Status FINAL 04/27/2017NormalGerman HospitalComment on above:Performed By: #### URC ####[facility] [address] [place] [address] [phone] 69-68-0066Pieddjrarzf distribution width Auto Ratio (RBC)13.6 %Kbhfla61.5-15.4German HospitalComment on above: Performed By: #### CBC, LIPR ####[address] [address] Erythrocytes (RBC)4.13 10*6/uLLow4.5-5.9German HospitalComment on above:Performed By: #### CBC, LIPR ####[facility] [address] [place] [address] Hematocrit (HCT)37.7 % Zud62-51LmclnGerman HospitalComment on above:Performed By: #### CBC, LIPR ####[facility] [address] [place] [address] Hemoglobin mass conc (Bld)13.4 g/dLLow13.5-17.5[facility] Comment on above:Performed By: #### CBC, LIPR ####[address] [phone] yxCcvwmn49-12OiweyGerman HospitalComment on above:Performed By: #### CBC, LIPR ####[address] [address] MCHC mass conc (RBC)35.5 g/lZUysphz92-98 German HospitalComment on above:Performed By: #### CBC, LIPR ####[address] [phone] fL Jwjqvz11-990MwiemGerman HospitalComment on above:Performed By: #### CBC, LIPR ####[address] [address] Platelet mean volume (PMV)8.6 fLNormal6.0-12.0[facility] Comment on above:Result Comment: [address] [address] Performed By: #### CBC, LIPR ####[address] [phone] 10*3/dCLvbimf959-908XgirgGerman HospitalComment on above:Performed By: #### CBC, LIPR ####[address] [address] WBC (Leukocytes)5.0 10*3/uLNormal3.5-11.0German HospitalComment on above:Performed By: #### CBC, LIPR ####[address] [phone] Summaryon 18-52-0899CLN IP Note OR Vacuum Tester Cans NormalMercy Health – The Jewish Hospital Noteon 85-03-7022LNE IP Note OR TranscriptionNormalGerman HospitalHemoglobin A1Con 04-26-2017 Glucose mass hajw134 mg/dLNormalGerman HospitalComment on above:Result Comment: The ADA and AACC recommend providing the estimated average glucose result to permitbetter patient understanding of their HBA1c result.[facility] [address] [place] [address] Performed By: #### TROPI, TSHX, GLYHGB ####[facility] [address] [place] [address] Hemoglobin A1c/Hemoglobin.total mass fraction (Bld)6.2 %High4.0-6.0German HospitalComment on above:Performed By: #### TROPI, TSHX, GLYHGB ####[facility] [address] [place], [place] [phone] and Physicalon 05-62-6437TAL IP Note OR Vacuum Tester Cans NormalGerman HospitalHomocysteineon 40-48-8031Ebokgzyopryp6.5 umol/LNormal<15.0German HospitalComment on above:Result Comment: [facility] [place] [address] Performed By: #### HOCYS, FA5, LUPPRO, PROCAC, PROSAC ####[facility] [address] [place] [address] Lipid Profileon 14-52-2387Jejfhmupalt854 mg/dLNormal<200German HospitalComment on above:Result Comment: Cholesterol Guidelines: <200 Desirable 200-240 Borderline >240 Undesirable Performed By: #### CBC, LIPR ####[facility] [address] [place] [address] Cholesterol to HDL Ratio2.5 {ratio}Normal<5MerKaiser HaywardComment on above:Performed By: #### CBC, LIPR ####Radha [address] [place] [address] HDL Jmifwutwpoi71 mg/dL Normal>40German HospitalComment on above:Result Comment: HDL Guidelines: <40 Undesirable 40-59 Borderline >59 DesirablePerformed By: #### CBC, LIPR ####[place] [address] [place] [address] LDL Awsfihustcy43 mg/dLNormal0-130German HospitalComment on above: Result Comment: LDL Guidelines: <100 Desirable 100-129 Near to/above Desirable 130-159 Borderline >159 UndesirableDirect (measured) LDL and calculated LDL are not interchangeable tests.Performed By: #### CBC, LIPR ####[address] [address] Dquxyqhwtsco204 mg/dL Normal<150German HospitalComment on above:Result Comment: Triglyceride Guidelines: <150 Desirable 150-199 Borderline 200-499 High >499 V jluis high Based on AHA Guidelines for fasting triglyceride, July 2012.[facility] [place] [address] Performed By: #### CBC, LIPR ####[address] [address] Cholesterol in VLDL mass concNOT REPORTEDNormal1-30German HospitalComment on above:Performed By: #### CBC, LIPR ####[facility] [address] [place] [address] Lupus Anticoagulanton 45-07-4627xRJE24.5 zVsnmzi47.3-31.3[facility] Valley HospitalComment on above:Performed By: #### HOCYS, FA5, LUPPRO, PROCAC, PROSAC ####[facility] [place] [address] INR Coag RelTime (PPP)1.0 {INR}NormalGerman HospitalComment on above:Result Comment: Therapeutic Range: Moderate Anticoagulant Intensity: INR = 2.0-3.0 High Anticoagulant Intensity: INR = 2.5-3.5Performed By: #### HOCYS, FA5, LUPPRO, PROCAC, PROSAC ####[facility] [address] [place] [address] Prothrombin time (PT) Coag time (PPP)10.8 sNormal9.4-12.6[facility] Valley HospitalComment on above:Performed By: #### HOCYS, FA5, LUPPRO, PROCAC, PROSAC ####[facility] [address] [place] [address] Lupus AnticoagulantNOT REPORTEDNoOhioHealth Nelsonville Health CenterComment on above:Performed By: #### HOCYS, FA5, LUPPRO, PROCAC, PROSAC ####[facility] [address] [place] [address] MRA HEAD WO CONTRASTon 84-09-6772XYT HEAD WO CONTRASTEXAMINATION:MRA OF THE HEAD WITHOUT CONTRAST 04/25/2017 10:18 pmTECHNIQUE:MRA of the head was performed utilizing whpf-vp-mzugbk imaging with MIP[employer]. No intravenous contrast was administered.COMPARISON:CT headHISTORY:ORDERING SYSTEM PROVIDED HISTORY: strokeFINDINGS:ANTERIOR CIRCULATION: The internal carotid arteries are normal in course andcaliber without focal stenosis. The anterior cerebral and middle cerebralarteries demonstrate no focal stenosis.POSTERIOR CIRCULATION: The posterior cerebral arteries demonstrate no focalstenosis. The vertebral and basilar arteries appear unremarkable.ANEURYSM: No intracranial aneurysm is seen.IMPRESSION: No large vessel occlusion or large aneurysmInterpreted by:DELTA Hodgesigned by:Saran Mccauley MD04/25/17Final [facility] centerNoOhioHealth Nelsonville [facility] MRI BRAIN WO CONTRASTon 01-49-0407OPH BRAIN WO CONTRASTEXAMINATION:MRI OF THE BRAIN WITHOUT CONTRAST 04/25/2017 10:20 pmTECHNIQUE:Multiplanar multisequence MRI of the brain was performed without theadministration of intravenous contrast.COMPARISON:MRA headfrom today and CT headHISTORY:ORDERING SYSTEM PROVIDED HISTORY: strokeFINDINGS:INTRACRANIAL STRUCTURES/VENTRICLES: There is no acute infarct. No mass effector midline shift. No abnormal extra-axial fluid collection. The ventriclesand sulci are normal in size and configuration. The sellar/suprasellarregions appear unremarkable. The normal signal voids within [...] acute infarctInterpreted by:DELTA Hodgesigned by:Saran Mccauley MD04/25/17Final resultNormalMercy Queen Of The Valley HospitalMRI CERVICAL SPINE WO CONTRASTon 41-58-3121ZJN CERVICAL SPINE WO CONTRASTEXAMINATION:MRI OF THE CERVICAL SPINE WITHOUT CONTRAST 04/25/2017 10:20 pmTECHNIQUE:Multiplanar multisequence MRI of the cervical spine was performed without theadministration of intravenous contrast.CO MPARISON:None.HISTORY:ORDERING SYSTEM PROVIDED HISTORY: strokeFINDINGS:BONES/ALIGNMENT: There is normal alignment of the spine. The vertebral bodyheights are maintained. The bone marrow signal appears unremarkable.SPINAL CORD: No abnormal cord signal is seen.SOFT TISSUES: No paraspinal mass identified.C2-C3: There is no significant disc protrusion, spinal canal stenosis orneural foraminal narrowing.C3-C4: There is moderate narrowing of the neural foramina due to uncinatespondylosis bilaterally.The central canal is patent.C4-C5: There is moderate narrowing of the neural foramina due to uncinatespondylosis bilaterally. The central canal is patent.C5- C6: There is bony ankylosis of the vertebral [...] as above.Interpreted by:DELTA Hodgesigned by:Saran Mccauley MD04/25/17Final resultNormalLakeHealth Beachwood Medical Centeredimentation Rateon 68-94-7460Auwnlbeqrotxy Rate10 mmNormal0-10[facility] Comment on above:Result Comment: [address] [address] Performed By: #### SED ####[address] [address] TSH w/reflex to FT4on 70-07-4665Hifuabq stimulating hormone (TSH)0.77 m[IU]/LNormal0.30-5.00German HospitalComment on above:Result Comment: [address] [address] Performed By: #### TROPI, TSHX, GLYHGB ####[address] [address] Troponinon 04-26-2017 Troponin I.cardiac mass concNormalGerman HospitalComment on above:Result Comment: Reference Range: <0.03 Within reference range. 0.03-0.09 Possible myocardial damage.Repeat at appropriate intervals to rule out chronic elevation. >= 0.10 Indicative of myocardial damage.[address] [address] Performed By: #### TROPI ####[address] [address] Troponin T.cardiac mass concug/LNormal<0.03German HospitalComment on above:Result Comment: Troponin T results cannot be compared to Troponin-I results.Performed By: #### TROPI ####[address] [address] Troponin I.cardiac mass concNormalGerman HospitalComment on above:Result Comment: Reference Range: <0.03 Within reference range. 0.03-0.09 Possible myocardial damage.Repeat at appropriate intervals to rule out chronic elevation. >= 0.10 Indicative of myocardial damage.[facility] [address] [place] [address] Performed By: #### TROPI, TSHX, GLYHGB ####[facility] [address] [place] [phone] T.cardiac mass concug/LNormal<0.03German HospitalComment on above:Result Comment: Troponin T results cannot be compared to Troponin-I results.Performed By: #### TROPI, TSHX, GLYHGB ####[facility] [address] [place] [address] Urinalysis, Routineon 07-32-6795Mrvuzwnuvtvhd mass concNegativeNormalNEGGerman HospitalComment on above:Performed By: #### UA ####[facility] [address] [place] [address] Bilirubin (direct)NegativeNoatrium health kings mountainNEGGerman HospitalComment on above:Performed By: #### UA ####[address] [address] CommentMicroscopic exam not performed based on chemical results unless requested inNormalMerKaiser HaywardComment on above:Result Comment: original order.[facility] [address] [place] [address] Performed By: #### UA ####[address] [phone] mass conc (Bld)NegativeNoalNEGGerman HospitalComment on above:Performed By: #### UA ####[facility] [phone],UrNegativeNormalNEGGerman Hospital Comment on above:Performed By: #### UA ####[facility] [address] [place] [address] TurbidityCLEARNormalCLEARGerman HospitalComment on above:Performed By: #### UA ####[facility] [address] [place] [address] Urine, colorYELLOWNormalYELMerKaiser HaywardComment on above:Performed By: #### UA ####[address] [address] Urine, glucose presence TRACEAbnoalNEGGerman HospitalComment on above:Performed By: #### UA ####[address] [address] Urine, leukocyte esterase presenceNegativeDanvilleNEGGerman Hospital Comment on above:Performed By: #### UA ####[address] [address] Urine, pH5.5 [pH]Normal5.0-8.0German HospitalComment on above:Performed By: #### UA ####[address] [address] Urine, protein presenceNegativeNormalNEG German HospitalComment on above:Performed By: #### UA ####[facility] [address] [place] [address] Urine, specific gravity 1.130Pkqc5.005-1.030MerKaiser HaywardComment on above:Performed By: #### UA ####[address] [address] Urobilinogen,UrNormalNormalNORMGerman HospitalComment on above: Performed By: #### UA ####[facility] [address] [phone] 00-21-7439eLGT48.2 wKjuceb75.3-31.3MSequoia HospitalComment on above:Result Comment: [address] [address] [phone] By: #### CDP, PT, PTT, BMP ####[address] [phone] Metabolic Profon 04-25-2017(cont.)NormalGerman HospitalComment on above:Result Comment: Average GFR for 60-69 years old: 85 mL/min/1.73sq mChronic Kidney Disease: <60 mL/min/1.73sq mKidney failure: <15 mL/min/1.73sq meGFR calculated using average adult body mass. Additional eGFR calculator available at:http://www.[employer] [place].[employer]etronix/multiple_crcl_2012.htm[address] [address] 419251.5702Performed By: #### CDP, PT, PTT, BMP ####[facility] [address] [address] Anion gap16 mmol/LNormal9-17German HospitalComment on above:Performed By: #### CDP, PT, PTT, BMP ####[facility] [address]xv[address] [place] [address] Gbrrtnr2.6 mg/dLNormal8.6-10.4[facility] Comment on above:Performed By: #### CDP, PT, PTT, BMP ####[facility] [address] [place] [address] [phone] mmol/CChhjkm32-542XnlwgGerman HospitalComment on above:Performed By: #### CDP, PT, PTT, BMP ####Radha [address]km[address] [place] [address] CL922 mmol/L Caw62-24GlrmmGerman HospitalComment on above:Performed By: #### CDP, PT, PTT, BMP ####Radha [address] [place] [address] Creatinine0.77 mg/dLNormal0.70-1.20German HospitalComment on above:Performed By: #### CDP, PT, PTT, BMP ####Radha [address] [place] [address] eGFR (non-black)mL/min/{1.73_m2}Normal>60German HospitalComment on above:Performed By: #### CDP, PT, PTT, BMP ####Radha [address] [place] [address] Glucose mass oxjs794 mg/wRGskn22-75PztuuSequoia HospitalComment on above:Performed By: #### CDP, PT, PTT, BMP ####[facility] Chroma LLCXgccwqywtdrh[address] [place] [address] Potassium molar conc3.8 mmol/LNormal3.7-5.3MSequoia HospitalComment on above:Performed By: #### CDP, PT, PTT, BMP ####Radha [address] [place] [address] Qiikub276 mmol/LNormal 135-144German HospitalComment on above:Performed By: #### CDP, PT, PTT, BMP ####Radha [address] [place] [address] Urea ebvzzxtu90 mg/dLNormal8-23German HospitalComment on above: Performed By: #### CDP, PT, PTT, BMP ####[facility] [address] [place] [address] BUN/CRE RatioNOT REPORTEDNormal9-20German HospitalComment on above:Performed By: #### CDP, PT, PTT, BMP ####[place] [address] Staging:NOT REPORTEDNormalGerman HospitalComment on above:Performed By: #### CDP, PT, PTT, BMP ####[facility] [place], [place] [phone] with Diffon [id number]. Basophil0.00 k/uLNormal0.0-0.2 German HospitalComment on above:Result Comment: [place] [address] [phone] By: #### CDP, PT, PTT, BMP ####[place], [place] [phone].Neutrophil (Seg)3.60 k/uLNormal1.8-7.7German HospitalComment on above:Performed By: #### CDP, PT, PTT, BMP ####[place] [address] Basophils/100 WBC Auto (Bld)1 %NormalGerman HospitalComment on above:Performed By: #### CDP, PT, PTT, BMP ####[place] [phone] 10*3/uLNormal0.0-0.4German HospitalComment on above:Performed By: #### CDP, PT, PTT, BMP ####[place] [address] Eosinophils/100 leukocytes3 %NormalGerman HospitalComment on above:Performed By: #### CDP, PT, PTT, BMP ####[address] [address] Erythrocyte distribution width Auto Ratio (RBC)13.5 %Normal 12.5-15.4German HospitalComment on above:Performed By: #### CDP, PT, PTT, BMP ####[address] [address] Erythrocytes (RBC)4.47 10*6/uLLow4.5-5.9German HospitalComment on above:Performed By: #### CDP, PT, PTT, BMP ####[address] [address] Hematocrit (HCT)40.6 % Sca88-52MwsjuGerman HospitalComment on above:Performed By: #### CDP, PT, PTT, BMP ####[address] [address] Hemoglobin mass conc (Bld)14.2 g/gNZduqba54.5-17.5German HospitalComment on above:Performed By: #### CDP, PT, PTT, BMP ####[address] [address] Dpugbzbtbto3.50 10*3/uL Normal1.0-4.8German HospitalComment on above:Performed By: #### CDP, PT, PTT, BMP ####[address] [address] Lymphocytes/100 %NormalGerman HospitalComment on above:Performed By: #### CDP, PT, PTT, BMP ####[address] [address] OXJ92.8 vbQlhquo93-46 German HospitalComment on above:Performed By: #### CDP, PT, PTT, BMP ####Radha Calderon[address] [place] [address] MCHC mass conc (RBC)35.0 g/eKAdcmvl23-33ZqkupGerman HospitalComment on above:Performed By: #### CDP, PT, PTT, BMP ####Radha Calderon[address] [place] [address] RVV61.9 lLSdtocx12-034GlvvoGerman HospitalComment on above:Performed By: #### CDP, PT, PTT, BMP ####Wendy[address] [address] Uibkghwbi0.50 10*3/uL Normal0.1-1.2MSequoia HospitalComment on above:Performed By: #### CDP, PT, PTT, BMP ####Wendy [address] [place] [address] Monocytes/100 leukocytes8 %NormalGerman HospitalComment on above:Performed By: #### CDP, PT, PTT, BMP ####Wendy Er[address] [place] [address] Neutrophil (Seg)62 % NormalGerman HospitalComment on above:Performed By: #### CDP, PT, PTT, BMP ####Wendy [address] [place] [address] Platelet mean volume (PMV)8.8 fLNormal6.0-12.0[facility] Comment on above:Performed By: #### CDP, PT, PTT, BMP ####[address] [address] Ohwauzzoo810 10*3/oARfukum162-481NjeawGerman HospitalComment on above:Performed By: #### CDP, PT, PTT, BMP ####Radha H[address] [place] [address] WBC (Leukocytes)5.7 10*3/uLNormal3.5-11.0Mer[facility] The Valley HospitalComment on above:Performed By: #### CDP, PT, PTT, BMP ####[employer] [place] [address] Auto Diff PerformedNOT REPORTEDHolzer Health SystemComment on above:Performed By: #### CDP, PT, PTT, BMP ####[employer] [address] [place] [address] Erythrocyte morphologyNOT REPORTEDHolzer Health SystemComment on above: Performed By: #### CDP, PT, PTT, BMP ####[address] [place] [address] PlateletsNOT [facility] Oregon Psychiatric CenterComment on above:Performed By: #### CDP, PT, PTT, BMP ####[address] [place] [address] WBC MorphologyNOT REPORTEDHolzer Health SystemComment on above:Performed By: #### CDP, PT, PTT, BMP ####[address] [place] [phone] HEAD WO CONTRASTon [id number] HEAD WO CONTRAST EXAMINATION:CT OF THE HEAD WITHOUT CONTRAST 04/25/2017 8:13 pmTECHNIQUE:CT of the head was performed without the administration of intravenouscontrast. Dose modulation, iterative reconstruction, and/orweight basedadjustment of the mA/kV was utilized to reduce the radiation dose to as lowas reasonably achievable.COMPARISON:None.HISTORY:ORDERING SYSTEM PROVIDED HISTORY: strokeFINDINGS:BRAIN/VENTRICLES: There is no acute intracranial hemorrhage, mass effect ormidline shift. No abnormal extra-axial fluid collection. The norton- whitedifferentiation is maintained without evidence of an acute [...] 8:20 p.m..Interpreted by:DELTA Hodgesigned by:Saran Mccauley MD04/25/17Final resultNormalCleveland Clinic Avon Hospital CenterED Noteon [id number] IP Note OR Vacuum Tester Cans NormalSt. Rita's Hospital IP Note OR TranscriptionNormOhioHealth Dublin Methodist HospitalHI IP Note OR TranscriptionPremier Health Atrium Medical Center IP Note OR TranscriptionHolzer Health System ED Provider Noteon [id number] IP Note OR TranscriptionHolzer Health SystemPTon [id number] Coag RelTime (PPP)1.0 {INR}NormalGerman HospitalComment on above:Result Comment: Therapeutic Range: Moderate Anticoagulant Intensity: INR = 2.0-3.0 High Anticoagulant Intensity: INR = 2.5-3.5[facility] [address] [place] [address] Performed By: #### CDP, PT, PTT, BMP ####[employer] LLCAbljhmfelfvw[address] [place] [address] Prothrombin time (PT) Coag time (PPP)10.6 s Normal9.4-12.6Mer[facility] Of The Valley HospitalComment on above:Performed By: #### CDP, PT, PTT, BMP ####[employer] [address] [place] [address] XR CHEST PORTABLEon [id number] CHEST PORTABLE EXAMINATION:SINGLE VIEW OF THE CHEST04/25/2017 8:36 pmCOMPARISON:None.HISTORY:ORDERING SYSTEM PROVIDED HISTORY: stroke-alterted mental statusTECHNOLOGIST PROVIDED HISTORY:Reason for exam:->stroke-alterted mental statusFINDINGS:The lungs are without acute focal process. There is no effusion orpneumothorax. The cardiomediastinal silhouette is without acute process. Theosseous structures are without acute process.IMPRESSION: No acute process.Interpreted by:DELTA Grubbsigned by:Ashvin Hanson MD04/25/17Final resultNormalMercy Queen Of The Valley Hospital Vital Signs Date TimeVital SignValuePerforming YgqtsvjutPumwfpec92-09-7030 14:23-0400Body jtvnot895.8 Tim Wright MD Work Phone: [phone]08-21-2025 14:23-0400 Body mass index (BMI) [Ratio]26.6 kg/y5FtvybuMary Wright MD Work Phone: [phone])[address] [place], [place] 3800408-21-2025 14:23-0400 Body oseysu93.36 kgMary Wright MD Work Phone: 1(027)[address] [place], [place] 3800408-21-2025 14:23-0400 Diastolic blood khmuvaob97 mm[Hg]Mary Wright MD Work Phone: [phone])[address]08-21-2025 14:23-0400 Heart rate76 /minMary Wright MD Work Phone: 1(851)[address] [place], [place] 3800408-21-2025 14:23-0400 SaO2% (BldA) [Mass fraction]99 %Mary Wright MD Work Phone: [phone])[address] [place], [place] 3800408-21-2025 14:23-0400 Systolic blood kresdmhg581 mm[Hg]Mary Wright MD Work Phone: [phone])[address]05-08-2025 13:31-0400 Body gfqcaz569.3 cmFredric TienzOPEN Sports Networknoemy DO Work Phone: [facility] HealthcareLznmuffipu91-03-4600 13:31-0400Body mass index (BMI) [Ratio]26.22 kg/s5Ixjspbj Itzkoиван DO Work Phone: [facility] HealthcareJcmrmcbfps10-13-9933 13:31-0400Body wxkcsu23.28 kgFredric Catrachito DO Work Phone: [facility] HealthcareWimwdtuwef02-13-1334 14:55-0400Body .8 cmScorinna Schultz [employer]EL [employer] Work Phone: noMer[facility] St. John'sSqpdvlvjmn56-52-0866 14:55-0400Body mass index (BMI) [Ratio]27.69 kg/i9EltgiTonya Schultz [employer] Work Phone: [facility] HealthcareKxseghvibd40-09-6430 14:55-0400Body anrojc97.54 kgTonya Schultz [employer] Work Phone: noDE HealthcareComment on above:pt ekrbnyqh71-40-1087 14:55-0400Diastolic blood ltdeacdl96 mm[Hg]Tonya Schultz [employer] Work Phone: [facility] HealthcareVdyhkgprdq27-53-0334 14:55-0400Heart rate75 /min Tonya Schultz [employer] Work Phone: [facility] HealthcareYdepgwpmif95-47-6647 14:55-0400Systolic blood iuzbgtrz557 mm[Hg]Tonya Schultz [employer] Work Phone: [facility] HealthcareVyduwsrpwz65-12-8480 10:35-0400Diastolic blood rjacodvf74 mm[Hg]Alcides Nowak MD Work Phone: [facility]04-09-2025 10:35-0400 Heart rate76 /minAlcides Nowak MD Work Phone: [facility]04-09-2025 10:35-0400 Respiratory rate16 /minAlcides Nowak MD Work Phone: [facility]04-09-2025 10:35-0400 SaO2% (BldA) [Mass fraction]96 %Alcides Nowak MD Work Phone: [facility]04-09-2025 10:35-0400 Systolic blood xaemcscs560 mm[Hg]Alcides Nowak MD Work Phone: [facility]04-09-2025 08:48-0400 Body rregvf272.8 Nani Nowak MD Work Phone: [facility]04-09-2025 08:48-0400 Body aynoki46.53 kgAlcides Nowak MD Work Phone: [facility]03-12-2025 13:05-0400 Body .8 cmUniversity [facility]03-12-2025 13:05-0400Body mass index (BMI) [Ratio]27.9 kg/r7XwzmtbssrUniversity Hospitals [facility] Center03-12-2025 13:05-0400Body mzmsoa39.45 kgUniversity Hospitals [facility]03-12-2025 13:05-0400Diastolic blood gbbgadof52 mm[Hg][facility] 01-02-2025 13:05-0400Heart rate73 /minUniversity Hospitals Beach[facility] 01-02-2025 13:05-0400Systolic blood stiwqrrs164 mm[Hg][facility]02-06-2025 15:16-0500Body mass index (BMI) [Ratio]27.69 kg/n9AsjzhiDawna Bose [employer] Work Phone: [facility] HealthcareDyxnfexjon29-85-8638 15:16-0500Body vzfijj21.54 kgDawna Bose [employer] Work Phone: [facility] HealthcareSltgujhtly66-14-9224 15:16-0500Diastolic blood gxlqxray55 mm[Hg]Dawna Bose [employer] Work Phone: [facility]OMercy [facility] St[facility] John'sNqmvrnwuqi40-79-9384 15:16-0500Heart rate69 /min Dawna Bose [employer] Work Phone: [facility]OMercy [facility] St[facility] John'sZhinfmtvmr97-25-8515 15:16-0500Systolic blood mm[Hg]Dawna Bose [employer] Work Phone: [facility]OMercy [facility] St. John'sJhyuwlhniw67-74-8037 14:16-0500Body mass index (BMI) [Ratio]26.4 kg/j6OmggwaDawna Bose [employer] Work Phone: [facility] HealthcareZzgfbciyms21-90-6351 14:16-0500Body ppaekq11.46 kgDawna Bose [employer] Work Phone: [facility] HealthcareClgysobmys69-04-2592 14:16-0500Diastolic blood rrtzluow58 mm[Hg]Dawna Bose [employer] Work Phone: [facility] HealthcareRuncncbixw75-30-1253 14:16-0500Heart rate76 /min Dawna Bose [employer] Work Phone: noMer[facility] St. John'sUmdkgndtov08-02-5330 14:16-0500Systolic blood dlldxlce637 mm[Hg]Dawna Bose [employer] Work Phone: [facility] HealthcareVdevrkfxis08-64-8130 13:51-0500Body jtgqiw701.8 cmMaycolmaylinbe SoaresPineda [employer] Work Phone: [facility] HealthcareXigbildmjt55-84-6672 13:51-0500Body mass index (BMI) [Ratio]28.04 kg/v7Cdsgkgbc Pineda [employer] Work Phone: [place] [address]Zefuzpfnjb25-25-0967 13:51-0500Body temperature 97.59 [degF]Alena Pineda [employer] Work Phone: [place] [address]Ulwfttbqqe54-25-6332 13:51-0500Body .63 kgBrcarolyn Pineda [employer] Work Phone: [facility] HealthcareZfcdwvgzem72-33-8666 13:51-0500Diastolic blood mm[Hg]Alena Pineda [employer] Work Phone: [place] [address]Rknzmxtckj40-78-5584 13:51-0500Heart rate75 /min Alena Pineda [employer] Work Phone: [place] [address]Aosrabijkc48-54-3271 13:51-0500Respiratory rate16 /minBrmaylinbe Pineda [employer] Work Phone: [place] [address]Jyungayjai68-45-3351 13:51-8421NzE3% (BldA) [Mass fraction]95 %Alena Pineda [employer] Work Phone: [place] [address]Relzgixbxt42-69-1000 13:51-0500Systolic blood vugdvaxy914 mm[Hg]Alena Soareszpatrick [employer] Work Phone: [facility] HealthcareVymkqinyme52-53-4364 15:03-0400Diastolic blood kgthwfeh38 mm[Hg]Dawna Bose [employer] Work Phone: [facility] HealthcareHkngwdupsd23-32-6059 15:03-0400Heart rate70 /min aDwna Bose [employer] Work Phone: [facility] HealthcareIuhabfzkyb39-33-9989 15:03-0400Systolic blood qztclibp530 mm[Hg]Dawna Bose [employer] Work Phone: [facility] HealthcarePecznivrpj21-05-5850 13:45-0400Body fgguaf630.8 cmRuel Matthews DPM Work Phone: [facility] HealthcareEofbozcdqv32-87-8133 13:45-0400Body mass index (BMI) [Ratio]27.98 kg/h5ZkcoaonwRuel Matthews DPM Work Phone: [facility] HealthcareUaaulixxld23-00-2994 13:45-0400Body cfepiz82.45 kgRuel Matthews DPM Work Phone: [facility] HealthcareZdrwiwqxnq09-01-1724 13:45-0400Diastolic blood xdzskxhi12 mm[Hg]Ruel Matthews DPM Work Phone: [facility] HealthcareWnhpbmvubq45-47-4961 13:45-0400Heart rate82 /min Ruel Matthews DPM Work Phone: [facility] HealthcareMqmftixqss45-10-1689 13:45-0400Systolic blood spkyikoz092 mm[Hg]Ruel Matthews DPM Work Phone: [facility] HealthcareRsporjgwsx95-88-2414 14:11-0400Body obsptv192.8 cmUniversity [facility]03-27-2024 14:11-0400Body mass index (BMI) [Ratio]29.5 kg/x5HadsegyyfUniversity Hospitals Beachwood Medical Center03-27-2024 14:11-0400Body yocnos70.44 kgUniversity Hospitals [facility]12-06-2023 14:26-0500Body height 177.8 cmAna Ramos WAREHOUSE CHECKER-MILLINERY DESIGNER Work Phone: [facility]12-06-2023 14:26-0500 Body mass index (BMI) [Ratio]28.73 kg/b1QnxvvAna Ramos WAREHOUSE CHECKER-MILLINERY DESIGNER Work Phone: [facility]12-06-2023 14:26-0500 Body .81 kgAna Ramos WAREHOUSE CHECKER-MILLINERY DESIGNER Work Phone: 1(585)161-[address] [place], [place] 2298912-06-2023 14:26-0500 Diastolic blood vaxstoko60 mm[Hg]Ana Ramos WAREHOUSE CHECKER-MILLINERY DESIGNER Work Phone: 9(265)658-[address] [place], [place] 2298912-06-2023 14:26-0500 Heart rate78 /minDkrishna Ramos WAREHOUSE CHECKER-MILLINERY DESIGNER Work Phone: 9(055)589-[address] [place], [place] 2298912-06-2023 14:26-0500 Systolic blood rmychlvi938 mm[Hg]Ana Ramos WAREHOUSE CHECKER-MILLINERY DESIGNER Work Phone: 2(014)377-[address] [place], [place] 2298904-26-2023 14:00-0400 Body gafsku236.07 Amanda Shaw Other [employer] Other 04-26-2023 14:00-0400Body mass index (BMI) [Ratio] 29.14 kg/m2Vazquez Scovanner Other [employer] Other 04-26-2023 14:00-0400Body zkvxig55.44 kgRyan Scovanner Other [employer] Other 04-26-2023 14:00-0400Diastolic blood mresxuju00 mm[Hg] Vazquez Scovanyumi Other [employer] Other 04-26-2023 14:00-0400Systolic blood ydrrepmt071 mm[Hg] Vazquez Scovanner Other [facility] [employer] Other 03-08-2023 13:35-0500Body spaksi588.8 cmSchivo Gild Work Phone: mp081-5934RR-Uxkuf [facility] 250 DO Work Phone: 1(366) 578-366803-08-2023 13:35-0500Body mass index (BMI) [Ratio] 30.28 kg/c9BesgdbShaikh Michaelwad Work Phone: mp220-4246OL-Eoami [facility] 250 DO Work Phone: 1(161) 488-273203-08-2023 13:35-0500Body surface area Derived from formula2.14 h0NrliefShaikh Michaelwad Work Phone: mp073-6297GV-Ygjmo [facility] 250 DO Work Phone: 1(242) 499-456903-08-2023 13:35-0500Body .71 kgShaikh Jefferyd Work Phone: mp914-6188FI-Aaxuh [facility] 250 DO Work Phone: 1(189) 378-508403-08-2023 13:35-0500Diastolic blood rsyyfkjt83 mm[Hg] Shaikh Michaelwad Work Phone: mp982-8907KS-Roeai [facility] 250 DO Work Phone: 1(266) 257-891903-08-2023 13:35-0500Heart rate74 /minSchivo Rodriguezwad Work Phone: mp996-0991FE-Gqvjc [facility] 250 DO Work Phone: 1(335) 964-638903-08-2023 13:35-0500Systolic blood pcajbarp430 mm[Hg] Shaikh Michaelwad Work Phone: mp019-2018SR-Fqosy [facility] 250 DO Work Phone: 1(640) 210-495801-19-2023 16:30-0500Body uarkik144.07 Nani Nowak Other [place] [employer] Other 01-19-2023 16:30-0500Body mass index (BMI) [Ratio] 28.29 kg/t0Gmgmirr Ditty Other [employer] Other 01-19-2023 16:30-0500Body nkbleb39.72 kgCameron Ditty Other [employer] Other 01-19-2023 16:30-0500Diastolic blood igfbfthd01 mm[Hg] Alcides Ditty Other [employer] Other 01-19-2023 16:30-0500Systolic blood biseochi584 mm[Hg] Alcides Ditty Other [employer] Other 07-20-2022 16:45-0400Body hbibbs366.07 cmCameron Ditty Other [employer] Other 07-20-2022 16:45-0400Body mass index (BMI) [Ratio] 30.41 kg/s5Gsklcbx Ditty Other [employer] Other 07-20-2022 16:45-0400Body vcwbni25.52 kgCameron Ditty Other [employer] Other 07-20-2022 16:45-0400Diastolic blood kxfcemin55 mm[Hg] Alcides Ditty Other [employer] Other 07-20-2022 16:45-0400Systolic blood endelxdk950 mm[Hg] Alcides Ditty Other [employer] Other 06-22-2022 15:51-0400Body .8 cmSchivo Gild Work Phone: mp068-7931DK-Jzrxe [facility] [address] DO Work Phone: 1(277) 814-875506-22-2022 15:51-0400Body mass index (BMI) [Ratio] 30.28 kg/t3KqocjsShaikh Jefferyd Work Phone: mp988-9725ZV-MpiodMel[facility] Work Phone: 1(865) 209-665006-22-2022 15:51-0400Body surface area Derived from formula2.14 m2YnecgwShaikh Jefferyd Work Phone: mp175-1591RC-EdkqxMelrose [facility] [place] 250 DO Work Phone: 1(239) 485-617806-22-2022 15:51-0400Body spjkyl31.71 kgShaikh Jefferyd Work Phone: mp238-9821LU-BphseMelrose [facility] Hospital-[place] 250 DO Work Phone: 1(407) 253-410206-22-2022 15:51-0400Diastolic blood qmbzudoh82 mm[Hg] Shaikh Michaelwad Work Phone: mp221-4139ZD-CvvvqMelrose Area Hospital-[facility] 250 DO Work Phone: 1(585) 847-191906-22-2022 15:51-0400Heart rate80 /Debbi Gild Work Phone: mp407-8151ZG-Rweru [facility] 250 DO Work Phone: 1(938) 462-902506-22-2022 15:51-0400Systolic blood endfjdqm518 mm[Hg] Shaikh Michaelwad Work Phone: mp443-5116FA-Guzzh [facility] 250 DO Work Phone: 1(281) 822-615402-11-2022 14:45-0500Diastolic blood dwwvefib54 mm[Hg] Chavez Fawwad Work Phone: mp803-8700VY-Ltsqz [facility] 250 DO Work Phone: 1(745) 576-210102-11-2022 14:45-0500Systolic blood fvawfbzy545 mm[Hg] Shaikh Michaelwad Work Phone: mp102-4381HY-Situv [facility] 250 DO Work Phone: 1(677) 643-402802-11-2022 14:38-0500Body qmezxa852.8 cmSchivo Rodriguezwad Work Phone: mp930-0489TY-Zukhw [facility] 250 DO Work Phone: 1(340) 330-447002-11-2022 14:38-0500Body mass index (BMI) [Ratio] 29.99 kg/m4ZxsnkvShaikh Jefferyd Work Phone: mp103-4420CD-Yfbat [facility] 250 DO Work Phone: 1(764) 159-429402-11-2022 14:38-0500Body surface area Derived from formula2.13 r4RraotoShaikh Jefferyd Work Phone: mp956-3852KK-Wkfuh [facility] 250 DO Work Phone: 1(764) 456-911502-11-2022 14:38-0500Body gqmulz12.8 kgShaikh Jeffeyrd Work Phone: mp401-9432SN-NxeezMelrose Area Hospital-[place] 250 DO Work Phone: 1(259) 286-764202-11-2022 14:38-0500Diastolic blood wcxsvyhz99 mm[Hg] Shaikh Michaelwad Work Phone: mp193-1026BJ-Nazdm [facility] 250 DO Work Phone: 1(126) 172-819402-11-2022 14:38-0500Heart rate79 /minSchivo Rodriguezwad Work Phone: mp429-2688GQ-Dzpns [facility] 250 DO Work Phone: 1(704) 489-933802-11-2022 14:38-0500Systolic blood nbpyccfk862 mm[Hg] Chavez Fawwad Work Phone: mp737-8309YC-Yfpee [facility] 250 DO Work Phone: 1(351) 964-254701-31-2022 14:00-0500Body owdxqu78.9 kgAlcides Nowak Other [employer] Other Encounters Encounter DateEncounter TypeCare ProviderFacilityStart: 06-13-2025 End: 00-09-1698uniqdubdujUgzglg Aqeel MD Work Phone: [facility] Work Phone: Start: 06-13-2025 End: 52-17-4344Bpbcbnq encounter procedureScorinna Schultz AJDB-WCM-O-[facility] [place] Work Phone: Start: 05-22-2025 End: 21-46-0091bnyjrwueoqZDTWLTrumbull Regional Medical Centertart: 02-28-2025 End: 36-63-8424Wysbek outpatient new 45 minutesFredric H Itzkoиван DO Work Phone: [address] [facility] GENSComment on above:Grade I hemorrhoidsStart: 02-28-2025 End: 26-30-5758izmcfitmfrZUPXIRM H ITZKOWITZNot AvailableStart: 02-19-2025 End: 59-28-1670Oidqrk outpatient visit 15 minutesTonya Schultz [employer] Work Phone: aNA BELLEVUEComment on above:Parkinson's disease without dyskinesia, unspecified whether manifestations fluctuate (CMS/HCC) (Prim jahaira Dx); Paresthesia; DiplopiaStart: 02-19-2025 End: 21-40-8148yryxxwrfnlLGRFC CARROLLNot AvailableStart: 02-19-2025 End: 65-02-5095Kxuysk Jennifer Schultz [employer] Work Phone: aNA BELLEVUEStart: 02-19-2025 End: 41-14-2582Pmlxnxdiana Schultz [employer] Work Phone: aNA BELLEVUEStart: 68-23-3538ywmpvdrtqiCUWGreene Memorial Hospital Work Phone: Start: 57-05-7761Szk-patient / Non-visitAlcides Nowak MD Work Phone: [facility] Work Phone: Start: 68-12-0846Zca-patient / Non-visitAlcides Nowak MD Work Phone: [facility] Work Phone: Start: 01-30-2025 End: 38-48-0255Tavoolfjd to same day surgery centerAlcides Nowak MD Work Phone: [facility] Work Phone: Start: 01-30-2025 End: 59-72-2160qjemvfxwagMCFOhioHealth [facility] Work Phone: Start: 01-21-2025 End: 98-11-9513LdzqdxKflmf Galkay REVA BELLEVUEComment on above:Essential tremor; Parkinson's disease without dyskinesia, unspecified whether manifestations fluctuate (CMS/HCC)Start: 01-02-2025 End: 17-14-7010zmtlheamzkTbxgikgxbLakeHealth [facility] Work Phone: Start: 01-02-2025 End: 75-38-4151Hitkubq encounter procedureFirsthealth Physician [facility] Work Phone: Start: 11-30-2024 End: 07-16-0190dmtjatvyaySNWZVMansfield Hospitaltart: 11-29-2024 End: 50-32-5121Skgvqd outpatient visit 15 minutesDawna Bose NP Work Phone: ana BELLEVUEComment on above:Parkinson's disease without dyskinesia, unspecified whether manifestations fluctuate (CMS/HCC) (Prim jahaira Dx); Paresthesia; DiplopiaStart: 11-29-2024 End: 46-77-0356kysdvqhprsBGYUCG MORRISNot AvailableStart: 11-29-2024 End: 01-89-0440Jpkjpy matteoRaffaeledarryn Joshua [employer] Work Phone: aNA BELLEVUEStart: 11-29-2024 End: 14-00-8425Quvelz Billy Joshua [employer] Work Phone: aNA BELLEVUEStart: 11-15-2024 End: 50-21-4803NyfubsSdhqyqoc Fitzpatrick [employer] Work Phone: [facility] CWM FMComment on above:Polyneuropathy, unspecifiedStart: 11-13-2024 End: 46-60-2950ZnzdukPfcj Chacho SPRINGER CWM FMComment on above:Type 2 diabetes mellitus with diabetic polyneuropathy, without long-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 of insulin (CMS/[facility])Start: 11-05-2024 End: 56-08-0036GyidobDrbbvnyi Fitzpatrick [employer] Work Phone: NOGM CWM FMComment on above:Type 2 diabetes mellitus without complications (CMS/HCC)Start: 10-29-2024 End: 80-64-3293Gmtsjj outpatient visit 25 minutesDawna Joshua [employer] Work Phone: [facility]AND[facility] STATE ROUTEComment on above:Parkinson's disease without dyskinesia, unspecified whether manifestations fluctuate (CMS/[facility]) (Primary Dx); Essential tremorStart: 10-29-2024 End: 09-76-1288qjytgahgyfMTYKJF MORRISNot AvailableStart: 10-29-2024 End: 79-34-7640Pmopys matteoJose Bose [employer] Work Phone: [facility] ROUTEStart: 10-29-2024 End: 22-43-9615Rqtjph matteoJose Bose [employer] Work Phone: [facility] ROUTEStart: 10-19-2024 End: 08-46-5792Wnvrrprvk encounterHichris Gustafson MD Work Phone: [facility] CI ENTStart: 10-08-2024 End: 52-71-1021BeddweAskiiwzp Fitzpatrick [employer] Work Phone: [facility] CWM FMComment on above:Benign prostatic hyperplasia without lower urinary tract symptoms; Hyperlipidemia, unspecified hyperlipidemia type (CMS/HCC)Start: 09-10-2024 End: 21-24-1377Ezvkzxeir encounterAvani Tee [facility] SERVICESPro[facility] - Family MedicineStart: 09-07-2024 End: 78-79-3946Gmbydwrhd Result EncounterBrcarolyn Pineda [employer] Work Phone: n[facility] External Department UnsolicitedStart: 09-07-2024 End: 67-42-0920Nfevfjehx Result EncounterBrmaylinany Pineda [employer] Work Phone: n[facility] External Department UnsolicitedStart: 09-03-2024 End: 10-58-4554Lnjslw outpatient visit 15 minutesBrcarolyn Pineda [employer] Work Phone: [facility] CWM FMComment on above:Type 2 diabetes mellitus with diabetic polyneuropathy, without long-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 of insulin (CMS/HCC) (Primary Dx); Essential hypertension, benign (CMS/HCC); Dizziness and giddiness; Colon cancer screening declined; Hyperlipidemia, unspecified hyperlipidemia type (CMS/HCC)Start: 09-03-2024 End: 56-01-0503Otdabl flowsheetBrittany Pineda MOTEL MAID Work Phone: noms CWM FMStart: 09-03-2024 End: 21-82-2192Myfypw flowsheetBrittany Pineda MOTEL MAID Work Phone: noms CWM FMStart: 09-03-2024 End: 58-24-4466wmmpzwhgpbPNYHIEFW FITZPATRICKNot AvailableStart: 08-21-2024 End: 48-18-6388PlocxgVklkzlox Pineda MOTEL MAID Work Phone: noms CWM FMComment on above:Insomnia, unspecified Start: 08-06-2024 End: 03-98-9413JvjcoiXokpbhae Pineda MOTEL MAID Work Phone: NOMS CWM FMComment on above:Type 2 diabetes mellitus without complications ([facility]/HCC)Start: 07-30-2024 End: 85-89-9931PolockVjuidkprKeagan Pineda MOTEL MAID Work Phone: NOAP CWM FMComment on above:Benign prostatic hyperplasia without lower urinary tract symptomsStart: 07-16-2024 End: 35-61-4240TnpkmcNtfyudirKeagan Pineda MOTEL MAID Work Phone: NOQJ CWM FMComment on above:Essential hypertension, benign (CMS/HCC)Start: 07-09-2024 End: 67-54-5173Gwwilz outpatient visit 15 minutesDawna Bose NP Work Phone: NOMS BAND[address] STATE ROUTEComment on above:Parkinson's disease without dyskinesia, unspecified whether manifestations fluctuate ([facility]) (Primary Dx); Paresthesia; Diplopia; Essential tremorStart: 07-09-2024 End: 79-79-5370kwxdekgikoWGSXQP MORRISNot AvailableStart: 07-09-2024 End: 58-55-9209Bckmwq Billy Bose MOTEL MAID Work Phone: NOMS BAND[address] STATE ROUTEStart: 07-09-2024 End: 31-76-5105Xkmyna Billy Bose MOTEL MAID Work Phone: NOMS [address] STATE ROUTEStart: 06-21-2024 End: 68-51-3417Eplymk flowsBrittney Matthews DPM Work Phone: NOMS CI PODIATRYStart: 06-21-2024 End: 92-26-5869Kaerlx flowsheetRuel Matthews DPM Work Phone: NOMS CI PODIATRYStart: 06-21-2024 End: 78-48-0722Vhrpepg encounter procedureRuel Matthews DPM Work Phone: NOMS CI PODIATRYComment on above:Verruca plantaris (Primary Dx); Foot pain, right; Diabetes mellitus due to underlying condition with diabetic polyneuropathy, with long-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 of insulin (CMS/HCC)Start: 06-21-2024 End: 12-22-0744ztzthhbzyiOBDGRDYO A BROWNNot AvailableStart: 06-07-2024 End: 47-11-3484hpxsqjhtiqUUTMXUYD A BROWNNot AvailableStart: 05-22-2024 End: 91-23-7884gixuvvovgfKWWGSS FAWWADNot AvailableStart: 05-15-2024 End: 96-23-4488bdyxrrbrcdBWJTQE MORRISNot AvailableStart: 01-18-2024 End: 92-27-3479rijbttxwtvPtdpjeaitSelect Medical [facility] Work Phone: Start: 01-18-2024 End: 54-78-1038Mutzzce encounter procedureFirsthealth Physician GroupNYU [facility] Gastro[facility] Work Phone: Start: 44-12-6549GdzprrYaa Hernandez MD Work Phone: noms [facility] IMComment on above:Type 2 diabetes mellitus with diabetic polyneuropathy, without long-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 of insulin (CMS/HCC) (Primary Dx)Type 2 diabetes mellitus with diabetic polyneuropathy, without long-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 of insulin (CMS/HCC)Start: 39-15-8751Xbcfv abstracting Brandy Gustafson MD Work Phone: noms [facility]NT [facility] HOSPITALKStart: 95-57-3514Jsmhqft encounter procedureBrandy Gustafson MD Work Phone: noms HealthcareStart: 09-28-2023 End: 28-61-2000tkeybqshgxVOMFB [facility] AmbulatoryStart: 09-28-2023 End: 97-43-2066Qfmrkv outpatient visit 15 [facility] hospitalAna Aragon Paxton 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 Work Phone: Start: 07-22-2023 End: 87-01-9123Zzklsqj encounter procedureMD Shaikh Hernandez Work Phone: [facility] [place] Work Phone: Start: 07-12-2023 End: 75-50-8248rntdahbaxsOise Scovanner Other [employer] Other Start: 01-04-2039Gxobklery encounterRydavonte Howard GastroenterologyStart: 02-17-2023 End: 42-10-8044sqkzukbphsWNSIPT H FAWWADFacility:R5Sarzb: 02-16-2023 End: 63-09-6518qdtasheyldEsay Scovanner Other [employer] Other Start: 04-32-4101Vyjnir outpatient visit 15 minutes Vazquez Howard GastroenterologyStart: 52-47-3558Cyagrj outpatient visit 25 minutesShaikh Mary Work Phone: [phone]-Wnvkp [facility] 250 DO Work Phone: Start: 81-80-2589ujietxymkaLhRaphael Vázquez IIFacility:28[address]Awbim: 11-23-2022 End: 81-81-3197jyhjqkgkhcYcgtgia Ditty Other [employer] Other Start: 12-46-3289Zawijwzti encounterCamerosally Al GastroenterologyStart: 11-15-2022 End: 29-77-4810zjtoafdqxyYZTAAV H FAWWADFacility:W9Juigc: 11-11-2022 End: 74-70-9259jccdettqltYgrnqqd Ditty Other [employer] Other Start: 82-02-7820Foausno encounter procedureCameron DittyFPG GastroenterologyStart: 05-20-2022 End: 20-60-6693qqgbifurbcBD RAYMUNDO S JUSTIN .Facility:F1Kpuwc: 05-17-2022 End: 19-47-8629rrvnkbwnyzBozkkjd Ditty Other [employer] Other Start: 84-85-0664Piivoubiw encounterCameron DittyFPG GastroenterologyStart: 05-14-2022 End: 58-66-7295vsczwyengxRYQEOB H FAWWADFacility:N7Hcuyz: 05-13-2022 End: 28-64-9117oiymedjctlPmfnfae Ditty Other [facility] Other Start: 82-19-8822Lsgchnvxr encounterCameron DittyFPG GastroenterologyStart: 05-12-2022 End: 16-71-4196ntfzfggchpVqntyos Ditty Other [employer] Other Start: 01-58-3709Imbodzh encounter procedureCameron DittyFPG GastroenterologyStart: 04-20-2022 End: 98-42-4466ulsvfhnuxdTO RAYMUNDO S JUSTIN .Facility:N4Lqmeq: 29-17-4275Dtzjxo outpatient visit 25 minutesShaikh Fawwad Work Phone: [phone]-QtxgbTyler Hospital 250 DO Work Phone: Start: 73-89-5412wnhkudttfhQv. Keyon Vázquez IIFacility:51138Dcetu: 14-16-8230Syvzsc outpatient new 45 minutesShaikh Fawwad Work Phone: [phone]-XxpqgTyler Hospital 250 DO Work Phone: Start: 36-10-2897Wikhkhl encounter procedureSchivo Hernandez Work Phone: [phone]-Nztgv [facility] 250 DO Work Phone: Start: 11-23-2021 End: 15-57-4040jloizifdznKunajrq Ditty Other [place] [employer] Other Start: 44-24-5737Dipyiim encounter procedureCammelva LyG GastroenterologyStart: 04-25-2017 End: 65-74-4033Jlmmjsdqvq and management of inpatientTHURAI KAREN BYRNEGerman Hospital Procedures DateProcedureProcedure DetailPerforming ClinicianStart: 01-30-2025 End: 37-59-9241PgegtqompsuJgvaobx Ditty MD Work Phone: Start: 97-08-2397ISK HEMOGLOBIN D0GKszdowpube Pineda MOTEL MAID Work Phone: Start: 70-48-6945MAC of headMD Shaikh Michaeldiamonddebbie Work Phone: Start: 24-96-3542BWLBS OXIMETRY, CONTINUOUSTHURAI KUMARANStart: 01-44-4400DVSZPSHBU PATIENTTHURAI KUMARANStart: 03-10-7738RRSMFCOX SPECIMENTHURAI KUMARANStart: 45-06-8444EROWSWNQXRTCO RATETHURAI KUMARANStart: 98-08-8590BEZ GLUCOSE FINGERSTICKTHURAI KUMARANStart: 36-25-2546ACDS GLUCOSE THURAI KUMARANStart: 12-12-3472UXVDJ OXIMETRY, CONTINUOUSTHURAI KUMARANStart: 10-24-6406CCXIUIZKL MONITORINGTHURAI KUMARANStart: 84-96-3211MDCCRN 5 ASSAY THURAI KUMARANStart: 81-21-8640FCSQIYQSDNKC, SERUMTHURAI KUMARANStart: 89-55-8404LNSWN ANTICOAGULANTTHURAI KUMARANStart: 98-90-8967VBGDIHM C FUNCTIONAL THURAI KUMARANStart: 93-92-3472VLXQEYE S FUNCTIONALTHGREG ANDERSONANStart: 10-75-6031AkwizzttitBSUREX KUMARANStart: 50-42-4532UIIIX CULTURECELINE BYRNE Start: 21-57-7336RLJ GLUCOSE FINGERSTICKTHURAI JUSTINANStart: 94-08-1108VOQU CARDIACTHURAI JUSTINANStart: 68-79-3091MXYN GLUCOSECELINE ANDERSONANStart: 05-15-8216NVMHVJ THERAPYCELINE ANDERSONANStart: 20-23-4114WZFIV OXIMETRY, CONTINUOUSHUANI JUSTINANStart: 00-54-0020DFLJHLQRS JUSTINANStart: 13-54-4298Ndvww panelTHGREG ANDERSONANStart: 81-95-7422PXZHL OXIMETRY, CONTINUOUSCELINE BYRNE Start: 96-21-0471NHTETCXIUTQCQU KUMARANStart: 19-27-2986MABTX WEIGHTSCELINE ANDERSONANStart: 55-07-0532ITZNMESYTT Q1VQJDTIFCELINE CALDERAtart: 76-29-3889EVHGSPYP CELINE CALDERAtart: 14-64-4194JGG WITH REFLEXCELINE CALDERAtart: 01-32-5473JCA GLUCOSE FINGERSTICKTHURARae ANDERSONANStart: 55-16-2007Gzlp tthrc r-t 2d w/wom-mode compl spec&colr dTJER CALDERAtart: 29-62-1418BZJWLT AND OUTPUTCELINE BYRNE Start: 82-06-0952MSQPRW THERAPYCELINE ANDERSONANStart: 80-60-7187RGEGT OXIMETRY, CONTINUOUSCELINE CALDERAtart: 25-35-8944JPMZGYK MONITORINGCELINE CALDERAtart: 01-33-4511Blvjtelrye pulse oximetryCELINE CALDERAtart: 12-67-3175NHUAZJA HOB CELINE CALDERAtart: 95-37-2870MEKY CODECELINE CALDERAtart: 83-78-6504OK CONSULT TO NEUROLOGYTHGREG CALDERAtart: 91-05-8111ZU CONSULT TO SOCIAL WORK CELINE CALDERAtart: 69-88-1232PPWDE CHECKSTHGREG CALDERAtart: 62-57-0962IWJNDG PHYSICIAN (SPECIFY)CELINE CALDERAtart: 92-77-9302VTZTAHX SWALLOW ASSESSMENT CELINE CALDERAtart: 82-88-8018US EVAL AND TREATCELINE CALDERAtart: 04-26-2017 PROVIDE PATIENT EDUCATION MATERIALSTHGREG CALDERAtart: 14-06-9293AP EVAL AND TREATMARTHAURAI WERNERtart: 29-68-5115FFBSXQ FOR NO MECHANICAL VTE PROPHYLAXIS THGREG CALDERAtart: 39-22-8012SBMNHXL CESSATION EDUCATIONCELINE CALDERAtart: 97-33-0587CYDGN SIGNSCELINE CALDERAtart: 17-75-8394NURJV SIGNS - NOTIFY MD CELINE CALDERAtart: 20-20-0543QITI TROPONINCELINE CALDERAtart: 05-34-3364Inn spinal canal cervical w/o contrast matrlTHURARae CALDERAtart: 87-83-1486Ukz brain brain stem w/o contrast materialCELINE CALDERAtart: 89-46-2129Mwa head w/o contrst materialCELINE CALDERAtart: 26-78-3069AVMTBRW STATUS (FROM ED OR OR/PROCEDURAL)CELINE CALDERAtart: 56-89-2888Ketsr x-ray 1 view frontalTHGREG CALDERAtart: 24-73-0473AA CONSULT TO INTERNAL MEDICINECELINE CALDERAtart: 63-81-7257Ca head/brain w/o contrast materialCELINE ANDERSONANStart: 35-95-1414FEOA CELINE ANDERSONANStart: 69-16-2175KCPYF METABOLIC PANELCELINE CALDERAtart: 25-54-2514RXH WITH AUTO DIFFERENTIALCELINE ANDERSONANStart: 75-64-2033BCAYDUO-INR CELINE ANDERSONANStart: 65-32-0531AGL 12-LEADTHGREG ANDERSONANStart: 04-25-2017 Creatinine other sourceCELINE CALDERAtart: 55-03-9297XRRWR GAP (CALC) POCMARTHAURARae ANDERSONANStart: 84-03-9396CCDOLWK, IONIC (POC)CELINE ANDERSONANStart: 04-25-2017 CHLORIDE (POC)CELINE ANDERSONANStart: 71-70-2715ZMCXJFBQXE W/GFR POINT OF CARE CELINE ANDERSONANStart: 63-23-7603AZG/HCTCELINE CALDERAtart: 50-85-9948XLYABY ACID,POINT OF CARECELINE CALDERAtart: 24-53-5858OPQQ GLUCOSECELINE BYRNE Start: 66-20-2922ZASWECREL (POC)CELINE CALDERAtart: 80-06-9338OKVECC (POC) CELINE CALDERAtart: 25-88-5753TPAQWR BLOOD GAS, POINT OF CARECELINE BYRNE Start: 84-59-6048Nymklihsvs pulse oximetryHUANRae ANDERSONLAILAtart: 28-19-9592WMBDKDJ COMMUNICATIONTHDIGNARae WERNERtart: 81-06-8850TYOAOSB MONITORINGCELINE BYRNE Start: 59-52-7204XNFFCWF HOBCELINE CALDERAtart: 14-55-2505QKCTUI THERAPYTHGREG CALDERAtart: 58-33-0311PKSM TROPONINCELINE CALDERAtart: 88-58-2986UW CONSULT TO STROKE TEAMGREG ANDERSONANCholecystectomyEvangelical Community Hospital [place]ambala Work Phone: ColonoscopyEvangelical Community Hospital [place] Work Phone: Decompression of median nerveSsaint vincent hospital FaSupercell Work Phone: LithotripsyEvangelical Community Hospital [place] Work Phone: Nasal septoplastyEvangelical Community Hospital [place] Work Phone: Procedure on backEvangelical Community Hospital FaAvenida Work Phone: Procedure on neckEvangelical Community Hospital [place] Work Phone: Tonsillectomy and adenoidectomyEvangelical Community Hospital [place] Work Phone: Plan of Treatment DateCare ActivityDetailAuthorStart: 86-73-1551Doxuwrzsl for malignant neoplasm of colonNOMS HealthcareStart: 05-97-7361Fllnhfuyo for malignant neoplasm of colonColorectal Cancer ScreeningNOMS HealthcareComment on above:Postponed from 1950 (Patient Refused)Start: 68-09-9639Shnavrhv screeningDiabetes: Retinopathy ScreeningNODE HealthcareStart: 06-13-2025 End: 09-37-6020Njbnrzt encounter chyzvsuyx27/21/2025 2:20 PM EDT Office Visit NOVA PORTILLO [address] [place] [address] Tonya Schultz NP [address] [place] [address] NOVA MAStart: 00-12-3561Ureal screening for proteinDiabetes: Urine Protein ScreeningNODE HealthcareStart: 02-28-2025 End: 18-93-6116Ivwftjs encounter mumqbvgcm82/08/2025 2:30 PM EDT Consult [facility] [address] [place] [address] Olegario Tomlinson DO [address] [place] [address] GENSStart: 02-19-2025 End: 10-90-4434Cgbzbvh encounter procedureANA ROMMELComment on above:Arrived Start: 94-42-6826Cjbeqho referralSelect Medical [facility] Hospital Work Phone: Start: 06-04-6820TispymceyUniversity Hospitals Beachwood [facility] Start: 12-04-2024 End: 91-33-0856Kkbzaiy encounter mcomfmrbw69/11/2025 2:30 PM EST Office Visit NOMS SHAZ[place] [address] [place] [address] Alena Pineda NP [address] [place] [address] JUNIOR MCCRAY FMStart: 11-29-2024 End: 71-91-1840Kfikaak encounter procedureNOMS BANDAR GARCIA [facility] MEDICAL CENTERComment on above:ArrivedStart: 36-48-2752Icaqdvtyer A1c measurementDiabetes: Hemoglobin A1C NOM HealthcareStart: 10-29-2024 End: 22-65-5129Brewkbv encounter procedureNOGALION COMMUNITY HOSPITAL ROUTEComment on above:ArrivedStart: 12-18-2024Medicare Annual Wellness (AWV)Medicare Annual Wellness (AWV)NOMS HealthcareStart: 09-03-2024 End: 33-90-9386Nqhjjyd encounter cducapmeo00/11/2024 2:30 PM EST Office Visit NOMS CWM FM [address] [place] [address] Alena Pineda NP [address] [place] [address] NOMS CW FMStart: 09-03-2024 End: 61-02-0430Klrubouzkq A1c/Hemoglobin.total in BloodHemoglobin A1c Lab Routine Type 2 diabetes mellitus with diabetic polyneuropathy, without long-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 of insulin ([facility]) Expected: 09/03/2024 (Approximate), Expires: 09/03/2025NODE [facility] Work Phone: Comment on above:Expected: 09/03/2024 (Approximate), Expires: 09/03/2025Start: 08-23-2024 End: 04-63-6447Txguoge encounter hymxwghju81/31/2024 1:00 PM EDT Office Visit NOMS CWM FM [address] [place] [address] Alena Pineda NP [address] [place] [address] NOMS CW FMStart: 07-11-2024 End: 11-22-2697Rywqawh encounter uyudcwnbz21/18/2024 2:10 PM EDT Office Visit [address] [place] [address] Keyon Vázquez MD [address] [facility] [place] [address] [facility] AlabamaStart: 07-09-2024 End: 04-85-7958Fhbsjmv encounter procedureNOGALION COMMUNITY HOSPITAL ROUTEComment on above:ArrivedStart: 43-23-2244Iyxkshkvb vaccinationNODE HealthcareStart: 06-21-2024 End: 19-21-1116Qtsvzme encounter /29/2024 1:50 PM EDT Office Visit [facility] CI PODIATRY [address] [facility] [address] [place] [address] Ruel Matthews, MILLICENT [address] [facility] [address] [place] [address] Verruca plantaris (Primary Dx); Foot pain, right; Diabetes mellitus due to underlying condition with diabetic polyneuropathy, with long-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 of insulin ([facility])NOMS CI PODIATRYComment on above: Verruca plantaris (Primary Dx); Foot pain, right; Diabetes mellitus due to underlying condition with diabetic polyneuropathy, with long-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 of insulin (CMS/HCC)Start: 72-63-8767Djqio screening for proteinDiabetes: Urine Protein ScreeningOREM COMMUNITY [facility] HealthcareStart: 02-16-2024 End: 57-20-3181Ufydpcq encounter ejfukpykg86/25/2024 1:45 PM EDT Office [facility] [address] [place] [address] Shaikh Hernandez MD [address] [place] [address] NOMS SHAZIA IMStart: 84-28-4258Zlasyegsbn A1c measurement Diabetes: Hemoglobin Q1BKNSV HealthcareStart: 01-04-2024 End: 22-27-4144Arscoiz encounter /13/2024 1:30 PM EDT Office Visit NOMS PARRISH [address] [facility] [place] [address] SMQX SH AUDStart: 11-28-2023 End: 08-81-9898Mbunjbb encounter awnvjpdpv61/05/2024 1:30 PM EST Office Visit [facility] CI ENT [address] [facility] [address] [place] [address] Brandy Gustafson MD [address] [facility] [address] [place] [address] NOMS CI ENTStart: 73-12-9352SCRKH-19 Vaccine (5 - Moderna series)COVID-19 Vaccine (5 - Moderna series)[facility]: 42-27-2656HDY, Provider: Keyon Vázquez, Status: Pen, Time: 2:00 PMFUV, Provider: Keyon Vázquez, Status: Pen, Time: 2:00 PMMP-[facility] 250 DO Work Phone: Start: 18-92-8785STV, Provider: Keyon Vázquez, Status: Pen, Time: 1:40 PMFUV, Provider: Keyon Vázquez, Status: Pen, Time: 1:40 PMMP-[facility] 250 DO Work Phone: Start: 12-85-8909EZK, Provider: Keyon Vázquez, Status: Pen, Time: 3:40 PMFUV, Provider: Keyon Vázquez, Status: Pen, Time: 3:40 PMMP-[facility] 250 DO Work Phone: Start: 46-37-7867Tjhb Risk ScreeningFall Risk ScreeningProCullman Regional Medical Center Health SystemStart: 30-23-6776Nwehmc Vaccines (2 of 3)Zoster Vaccines (2 of 3)[facility]: 2001 Administration of varicella zoster vaccineZoster (Shingles) Vaccine (1 of 2) [facility] SystemStart: 35-81-4107DVcT/Tdap/Td Vaccines (1 - Tdap) DTaP/Tdap/Td Vaccines (1 - Tdap)[facility]: 00-23-6957RBgY,Tdap and Td Vaccines (1 - Tdap)DTaP,Tdap and Td Vaccines (1 - Tdap)[facility] SystemStart: 98-71-1630Ssswe screening for protein Diabetes: Urine Protein ScreeningOhio State [facility] Hospital: 63-56-5265Yjadd BMI ScreeningAdult BMI ScreeningECU Health Chowan Hospitaltart: 43-61-0470Nybusfoaj C screeningHepatitis C ScreeningUnVeterans Health Administration: 68-08-2295Qitiwxjios ScreeningDepression ScreeningProMetroHealth Main Campus Medical Centertart: 67-59-5332Bsymeqa ScreeningTobacco ScreeningProMetroHealth Main Campus Medical Centertart: 46-45-0754Frudcynl foot examinationDiabetes: Foot ExamUnVeterans Health Administration: 37-36-5114Wifkewwq screeningDiabetes: Retinopathy ScreeningOhio State [facility] Hospital: 98-67-8723Qgcsdpnvqc A1c measurementDiabetes: Hemoglobin C8NGiclnbqfylOhio State East Hospital: 16-41-2872Bwqkb panelLipid PanelOhio State East Hospital: 1951Medicare Annual Wellness VisitMedicare Annual Wellness Visit (AWV) [facility]: 69-44-6688Nuzdwosgl for malignant neoplasm of colonUnSumma HealthPatient EducationHemorrhoids Know your [facility] Work Phone: Patient referralSelect Medical [facility]health Rehabilitation Hospital Work Phone: Immunizations Immunization DateImmunizationNotesCare XegdsybtEtktbjhe08-97-1508Xpjmfkrot, High-dose Seasonal, Quadrivalent, Preservative Mayo Gustafson MD Work Phone: NOMercy Hospital St. John'sUfansvqvar89-74-7148xwytnvuii virus vaccine, unspecified formulationRuel Matthews DPM Work Phone: NOMercy Hospital St. John'sFuehkobosf00-97-0551Ralxnck High-Dose Quadrivalent 0.7 ML Intramuscular Suspension Prefilled SyringeShaikh Annitawwad Work Phone: [phone]-RkpasTyler Hospital 473 DO Work Phone: [phone]s 20 0.5 ML Intramuscular Suspension Prefilled SyringeShaikh Fawwad Work Phone: [phone]-JcjvqCannon Falls [facility] 250 DO Work Phone: [phone] COVID-19 Bival Booster 50 MCG/0.5ML Intramuscular SuspensionSHighland Springs Surgical Centerd Work Phone: [phone]-VynmyCannon Falls Hospital [facility] 250 DO Work Phone: [phone]hw conjugate vaccine, 13 valent Dawna Bose MOTEL MAID Work Phone: [place] [address]Jnfetwqmyv33-68-8720Woskdlw COVID-19 Vaccine 100 MCG/0.5ML Intramuscular SuspensionSHighland Springs Surgical Centerd Work Phone: [phone]-HlpqcCannon Falls Hospital [facility] 250 DO Work Phone: [phone]e COVID-19 Vaccine 100 MCG/0.5ML Intramuscular SuspensionSOrange Coast Memorial Medical Center Work Phone: [facility] Medical CenterComment on above: Series:06-73-1845Fnhwcjd High-Dose Quadrivalent 0.7 ML Intramuscular Suspension Prefilled SyringeUniversity Of California, Irvine [facility] Center Work Phone: [phone]-LbdalCannon Falls Hospital [facility] 250 DO Work Phone: [phone] COVID-19 Vaccine 100 MCG/0.5ML Intramuscular SuspensionSHighland Springs Surgical Centerd Work Phone: [facility] Medical CenterComment on above: Series:99-92-5208Syrrcmb COVID-19 Vaccine 100 MCG/0.5ML Intramuscular Suspension [facility] Work Phone: [facility] Medical CenterComment on above: Series:98-95-0957gflngaopy, seasonal, injectable, preservative freeUniversity Of California, Irvine Medical Center Work Phone: [phone]-YfbgjCannon Falls Hospital [facility] 250 DO Work Phone: [phone] vaccine, liveSOrange Coast Memorial Medical Center Work Phone: [phone]-PeaufCannon Falls Hospital [facility] 250 DO Work Phone: [phone]zrbshyrb polysaccharide vaccine, 23 valentShaikh Annitawwad Work Phone: [phone]-BttlmLakewood Health [facility] 250 DO Work Phone: Payers DatePayer CategoryPayerPolicy ID2025MedicaidANTHEM BCBS MEDICAID [place] [id number]-qbh [id number] [id number] 2024 [id number] 2021Medicare [id number] 2021Medicare (Managed Care)[employer]VANTAGE [id number] 2020Medicare HMOANTHEM MEDICARE Member Subscriber Plan / Payer (Effective 2020-Present) Name: Jay Aguero Relation to Subscriber: Self Name: Jay Aguero Payer ID: [id number] ([facility]) Group ID: [id number] Type: Not on file Address: [address] [id number] 2015Medicare [id number] [id number] [id number] [id number] 2.16840.1.371170.3.57[id number] 2.160.1.460775.3.579.2.76879-34-2896Igqtyqm6681122 2.16840.1.909114.3.579.2.03150-32-1473Wtoatmi5242577 2.160.1.767193.3.579.2.68156-12-7094Hgcfkvq5175480 2.16840.1.012997.3.579.2.[id number] 2.16840.1.116324.3.579.2.545297-31-6746Frccswt2293689 2.16840.1.305001.3.579.2.767047-58-7686Wngjxcv1556383 2.16840.1.648360.3.579.2.435064-06-5924Vodxgth3855370 2.16.840.1.192232.3.579.2.730051-29-0711Wsnnypj8438158 2.16.840.1.309902.3.579.2.377845-94-1823Epyeipv3996525 2..840.1.225105.3.579.2.458799-59-8003Paubrez2913992 2.16.840.1.910261.3.579.2.201052-16-5058Kxoyynh9696998 2.16.840.1.251176.3.579.2.632241-62-6737Biyuriq0582925 2..840.1.822609.3.579.2.270042-65-5232Ennxjva5994729 2..840.1.812573.3.579.2.629112-37-0658Xsfizqe8514498 2.16.840.1.042394.3.579.2.1259UnknownANTHEM MEDICARE [id number] 2.16.840.1.039417.3.579.2.531 Social History DateTypeDetailFacilityStart: 09-28-2023 End: 24-01-6289Hm alcohol useNo [place] [facility] Other Start: 09-28-2023 End: 25-93-9190Urd Assigned At [facility] [employer] Other Start: 09-25-2021 End: 23-07-0207Wwfdhmp smoking status NHISNever smoked tobacco (finding) [id number]-2023 End: 91-36-5051Zmbwezj use and exposureSmokeless tobacco non-userUnSumma Health Work Phone: Start: 09-28-2023 End: 12-79-3665Xscnedj intakeLifetime non-drinker (finding)[facility] Work Phone: Start: 85-12-7439Jen Assigned At BirthNot on file [facility] Work Phone: Start: 09-18-2023 End: 48-93-6369Yrcoytom to SARS-CoV-2 (event)Not sureProMedica Memorial HospitalWithin the last year, have you been afraid of your partner or ex-partner?NoNOMS HealthcareAre you now , , , , never or living with a partner?MarriedNOMS HealthcareFrequency of Alcohol ConsumptionNot on fileNODE HealthcareHow often do you have 6 or more drinks on 1 occasion?NeverNOMS HealthcareDo you feel stress - tense, restless, nervous, or anxious, or unable to sleep at night because yourmind is troubled all the time - these days [OSQ]Not at allNOMS Healthcare(I/We) worried whether (my/our) food would run out before (I/we) got money to buy more.Never trueNODE HealthcareStart: [id number] beverage intakeCurrent drinker of alcohol (finding)[facility] CytoSolv SystemStart: [id number] CommentRAREPKettering Health Greene Memorial SystemStart: 05-29-2015 End: [id number] (finding)[facility] CytoSolv SystemNEGATED: Highlighted row Start: NINFHistory of tobacco usePassive smokerNODE Healthcare Goals DatePatient GoalDesired Activity/State Clinical Notes 12-05-2014 to 05-22-2025 Note Date & [id number] [facility] Reason for cardiology visit: Low up paroxysmal A-fib, hypertension, and hyperlipidemia Chief Complaint: No complaint HPI: 04/25/2025 Patient is here today for follow-up visit. He states that he has been doing well. He denies any chest pain or shortness of breath at rest or with exertion. Denies orthopnea or paroxysmal nocturnal dyspnea or dizziness or palpitations or legs edema. His blood pressure is low today in the office. He states that he has not been checking his blood pressure at home. He reports that he has been feeling the last few days little tired but no dizziness. He reports that his glucose has been under better control 11/30/2024 Jay Aguero is a 75 y.o. male with history of paroxysmal atrial fibrillation, TIA, hyperlipidemia, hypertension, type 2 diabetes mellitus, Parkinson disease, orthostatic dizziness utilizing compression stockings. He used to follow with Dr. Tinoco He reports that he has been doing well. He tries to continue to be active. He is limited by tremors from Parkinson's. His Parkinson medication wear recently adjusted. He denies any chest pain or shortness of breath at rest or with exertion. Denies orthopnea or paroxysmal nocturnal dyspnea. He reports occasional positional dizziness when he stands up and particularly when he turns around but no falling or syncope. He denies palpitations. He denies legs edema or leg discomfort on exertion He never been a smoker. Denies alcohol or illicit drugs. Review of systems All systems were reviewed and they were negative except for the positive findings noted above in the history Past Medical History He has a past medical history of Abnormal ECG, Arrhythmia, Atrial fibrillation (CMS/HCC), Diabetes mellitus (CMS/HCC), Hyperlipidemia, Hypertension, and Parkinson's disease (CMS/HCC). Surgical History He has no past surgical history on file. Social History He reports that he has never smoked. He has never used smokeless tobacco. He reports current alcohol use. He reports that he does not use drugs. Family History Family History Family history unknown: Yes Allergies Iodine, Latex, Shellfish derived, Iodinated contrast media, and Adhesive tape-silicones Medications Current Outpatient Medications: apixaban (Eliquis) 5 mg tablet, Take 1 tablet (5 mg) by mouth two times daily., Disp: 180 tablet, Rfl: 3 aspirin 81 mg EC tablet, Take 1 tablet by mouth in the morning., Disp: , Rfl: atorvastatin (Lipitor) 20 mg tablet, Take 20 mg by mouth at bedtime., Disp: , Rfl: carbidopa-levodopa (Sinemet) 25-100 mg tablet, Take 1 tablet by mouth four times daily., Disp: , Rfl: carvedilol (Coreg) 12.5 mg tablet, Take 12.5 mg by mouth with breakfast and with evening meal., Disp: , Rfl: cholecalciferol (Vitamin D-3) 1,250 mcg (50,000 unit) capsule, Take 50,000 Units by mouth in the morning., Disp: , Rfl: dapagliflozin propanediol (Farxiga) 10 mg, Take by mouth in the morning., Disp: , Rfl: esomeprazole (NexIUM) [address] capsule, Take 40 mg by mouth before breakfast., Disp: , Rfl: famotidine (Pepcid) 40 mg tablet, Take 40 mg by mouth if needed in the morning and at bedtime., Disp: , Rfl: finasteride (Proscar) 5 mg tablet, Take 5 mg by mouth in the morning., Disp: , Rfl: gabapentin (Neurontin) 400 mg capsule, Take 400 mg by mouth three times daily., Disp: , Rfl: Januvia 100 mg tablet, Take 100 mg by mouth in the morning., Disp: , Rfl: loratadine (Claritin) 10 mg tablet, Take 10 mg by mouth in the morning., Disp: , Rfl: magnesium oxide (Mag-Ox) 400 mg (241.3 mg magnesium) tablet, Take 400 mg by mouth., Disp: , Rfl: meclizine (Antivert) 25 mg tablet, Take 25 mg by mouth if needed in the morning and at bedtime., Disp: , Rfl: SITagliptin phosphate (Januvia) 100 mg tablet, Take 100 mg by mouth in the morning., Disp: , Rfl: tamsulosin (Flomax) 0.4 mg 24 hr capsule, Take 1 capsule by mouth in the morning., Disp: , Rfl: traZODone (Desyrel) 50 mg tablet, TAKE 1 TABLET BY MOUTH DAILY NEEDED for sleep, Disp: , Rfl: Trulicity 1.5 mg/0.5 mL pen injector, INJECT 1.5 mg SUBCUTANEOUSLY (UNDER THE SKIN) ONCE A WEEK, Disp: , Rfl: metFORMIN (Glucophage) 500 mg tablet, Take 500 mg by mouth every 12 (twelve) hours. (Patient not taking: Reported on 05/22/2025), Disp: , Rfl: primidone (Mysoline) 50 mg tablet, Take 50 mg by mouth. (Patient not taking: Reported on 05/22/2025), Disp: , Rfl: Last Recorded Vitals Visit Vitals BP (!) 86/49 (BP Location: Right arm, Patient Position: Sitting) Pulse 71 Ht 1.778 m (5' 10 ) Wt 83.5 kg (184 lb) SpO2 94% BMI 26.40 kg/m??? Smoking Status Never BSA 2.03 m??? Physical Examination: GENERAL: alert and oriented x3, well developed, in no acute distress. HEAD: atraumatic, normocephalic. EYES: GENARO, EOMI. NECK: trachea midline, no JVD present, no carotid bruits present. CARDIAC: S1, S2 present. RRR. No murmur, rubs, or little (more content not included)...[facility]04-29-2025 History of Present illness Narrative* Tonya Schultz, ANIKET - 02/19/2025 3:00 PM EDT Images from the original note were not included. Chief Complaint Patient presents with Parkinson's Disease Subjective Jay Aguero is a 74 y.o. male. History of Present Illness The patient presents today for follow-up. He states his symptoms have improved since the prior neurology appointment when his Sinemet dose was increased. He is taking Sinemet 1.5 tablets 4 times a day. He has tolerated the medication well and denies any apparent adverse effects. He takes his doses around 9:00 am, 1:00 pm, 5:00 pm, and 9:00 pm. He denies dyskinesias and denies worsening of Parkinson's symptoms between Sinemet doses during the day. He states his tremor is, a lot better than it was, and no longer interferes with his ability to perform any activities. The patient is right-hand dominant. He reports an intermittent tremor of the bilateral hands. This can occur at rest but is worse with activity. He admits it can be a little more prominent in the evenings when he is tired. The patient admits to shuffling gait but only very infrequently. He has difficulty standing up from chairs and his bed on occasion. When asked to elaborate on this, he states he has to take a few seconds to ensure he is steady/balanced after initially standing up. He does have chronic imbalance but denies any recent falls. He can become dizzy if he stands up too quickly, sohe tries to take things slowly. He believes he stays well hydrated and denies syncopal episodes. Lesvia sometimes drool in the evenings while asleep but denies swallowing difficulty or vocal changes.He also denies freezing episodes. The patient reports chronic numbness and tingling in the distal lower extremities. Symptoms involvethe right foot and ankle (worse in the lateral aspect) and the left foot. He reports a history of diabetic neuropathy. He also states there was a period of time when he needed a lumbar spine surgery years ago, but this was delayed by 6 months due to his health insurance, and he was told that he would likely have some long-term nerve injury from that. He denies any further new concerns. Review of Systems Constitutional: Negative for appetite change, chills, fatigue, fever and unexpected weight change. HENT: Negative for trouble swallowing and voice change. Eyes: Positive for double vision (chronic). Negative for visual change or loss of vision Respiratory: Negative for cough, shortness of breath and wheezing. Cardiovascular: Negative for chest pain and palpitations. Gastrointestinal: Negative for abdominal pain, blood in stool, nausea and vomiting. Musculoskeletal: Positive for gait problem. Negative for arthralgias and myalgias. Neurological: Positive for tremors and numbness. Negative for dizziness, seizures, syncope, facial asymmetry, speech difficulty, weakness, light- headedness and headaches. Positive for tingling Psychiatric/Behavioral: Negative for confusion, hallucinations and suicidal ideas. The patient is not nervous/anxious. Home Medication List Allergy Relief 10 MG tablet; Generic drug: loratadine aspirin 81 MG EC tablet atorvastatin 20 MG tablet; Commonly known as: Lipitor; Take 1 tablet (20 mg) by mouth in the morning. biotin 19768 MCG tablet carvedilol 12.5 MG tablet; Commonly known as: Coreg; Take 1 tablet (12.5 mg) by mouth in the morning and 1 tablet (12.5 mg) in the evening. Take with meals. carbidopa-levodopa 25-100 MG tablet; Commonly known as: Sinemet; Take 1.5 (one and a half) tablets by mouth four times per day (at 9:00 am, 1:00 pm, 5:00 pm, and 9:00 pm) Dexcom G7 Coagulant Dipper device; 1 each continuously Dexcom G7 Sensor misc; 1 each continuously Eliquis 5 MG tablet; Generic drug: apixaban esomeprazole [address] capsule; Commonly known as: NexIUM famotidine 40 MG tablet; Commonly known as: Pepcid finasteride 5 MG tablet; Commonly known as: Proscar; Take 1 tablet (5 mg) by mouth Daily gabapentin 400 MG capsule; Commonly known as: Neurontin; TAKE 1 CAPSULE BY MOUTH THREE TIMES DAILY (IN THE MORNING, IN THE EVENING and BEFORE bedtime) meclizine 25 MG tablet; Commonly known as: Antivert; Take 1 tablet (25 mg) by mouth 2 (two) times aday as needed for dizziness metFORMIN 500 MG tablet; Commonly known as: Glucophage; Take 1 tablet (500 mg) by mouth every 12 (twelve) hours primidone 50 MG tablet; Commonly known as: Mysoline SITagliptin 100 MG tablet; Commonly known as: Januvia; Take 1 tablet (100 mg) by mouth in the morning. tamsulosin 0.4 MG 24 hr capsule; Commonly known as: Flomax; Take 1 capsule (0.4 mg) by mouth Daily traZODone 50 MG tablet; Commonly known as: Desyrel; TAKE 1 TABLET BY MOUTH DAILY NEEDED for sleep Trulicity 1.5 MG/0.5ML solution auto-injector; Generic drug: Dulaglutide; Inject 1.5 mg under the skin 1 (one) time per week VITAMIN B12 PO Past Medical History: Diagnosis Date Arthritis Atrial fibrillation (CMS/HCC) BPH without obstruction/lower urinary tract symptoms Bunion, right Chronic back pain Diabetes (CMS/HCC) Dyspepsia and disorder of function of stomach Fatigue GERD (gastroesophageal reflux disease) Hyperlipidemia (CMS/HCC) Hypertension (CMS/HCC) Ingrown nail Insomnia, persistent Nail avulsion, toe, initial encounter OM (onychomycosis) Overweight (BMI 25.0-29.9) Parkinsonian features Peripheral neuropathy Primary parkinsonism (CMS/HCC) Rash Right hip pain Seizure-like activity (CMS/HCC) Skin cancer TIA (transient ischemic attack) Type 2 diabetes mellitus, without long-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 of insulin (CMS/HCC) Vertigo Past Surgical History: Procedure Laterality Date ADENOIDECTOMY BACK SURGERY lower CATARACT EXTRACTION CERVICAL SPINE SURGERY CHOLECYSTECTOMY GALLBLADDER SURGERY LUMBAR FUSION 1987 NASAL SEPTUM SURGERY NECK SURGERY TONSILLECTOMY Family History Problem Relation Name Age of Onset Parkinsonism Mother Social History Tobacco Use Smoking status: Never Passive exposure: Never Smokeless tobacco: Never Substance Use Topics Alcohol use: Never Allergies: Iodine, Latex, Gadolinium derivatives, Shellfish-derived products, and Wound dressing adhesive Vitals: 02/19/25 1455 BP: 103/57 Pulse: 75 Body mass index is 27.69 kg/m . Weight: 193 lb (pt reported) Neurologic exam: Mental status and general appearance: Awake and alert with unlabored respirations. Oriented to person, place, and time. Recent and remotememory are intact. Speech is clear and fluent without aphasia. Speech is non-dysarthric. Attention and concentration are normal. Fund of knowledge is appropriate for level of education. Pleasant. Hypomimia. Cranial nerves: CN II: Visual acuity is normal. Visual chamorro full to confrontation. CN III, IV, : Pupils are equal, round, and reactive to light. Extraocular movements intact. No ptosis present. CN V: Facial sensation is normal. CN VII: Full and symmetric facial movement. CN VIII: Hearing is reduced bilaterally. CN IX and X: Palate elevates symmetrically. CN XI: Shoulder shrug is normal bilaterally. CN XII: Tongue is midline without atrophy or fasciculation. Motor: RUE strength deltoid , biceps , triceps , wrist extensors , wrist flexor , and email marketing specialist strength 5/5. LUE strength deltoid , biceps , triceps , wrist extensors , wrist flexor , and email marketing specialist strength 5/5. RLE strength iliopsoas, quadriceps, tibialis anterior, and plantar flexion strength 5/5. LLE strength iliopsoas, quadriceps, tibialis anterior, and plantar flexion strength 5/5. Mild cogwheel rigidity (left more significant than right). No rest tremor observed today. Mild postural and intention tremor of the left upper extremity. Sensory: Sensation is intact to light touch throughout all four extremities. Vibratory sensation is reduced in the distal aspect of the bilateral lower extremities (right more significant than left). Reflexes: RUE biceps reflex 1+ , brachioradialis reflex 1+. LUE biceps reflex 1+ , brachioradialis reflex 1+. RLE knee reflex 0. LLE knee reflex 0. Coordination: Tebzli-cd-tyvp testing normal. Rapid alternating movements are normal. No significant bradykinesia. Gait: Fairly steady. Review and summary of old records: Labs on 08/30/23: AChR binding, blocking and modulating negative. MUSK negative. Routine EEG on 06/16/23: Normal. [place] [facility] [place] No acute intracranial pathology. Mild chronicmicrovascular ischemic changes. Assessment/Plan Diagnoses and all orders for this visit: Parkinson's disease without dyskinesia, unspecified whether manifestations fluctuate ([facility]) Mr. Aguero is a 74-year-old male with a history of Parkinson's disease. He has cardinal features ofthe disease including rest tremor, rigidity, reports bradykinesia, and postural instability. He reports significant improvement in symptoms with Sinemet and believes he is functioning well the on thecurrent dose. Motor symptoms are improved today when compared to documentation from the prior clinical exam. He does not wish to make any medication adjustments at this time due to stability. PLAN: - Continue Sinemet IR 25-100 MG tablet - take 1.5 tablets by mouth four times per day (at 9:00 am, 1:00 pm, 5:00 pm, and 9:00 pm) - I recommended referral to physical for evaluation and treatment to help improve gait, balance, stability, and to help reduce fall risk. The patient politely refused referral to PT - I encouraged regular physical activity as tolerated Essential tremor There is suspicion for superimposed essential tremor. This has improved with primidone. PLAN: - Continue primidone 50 mg by mouth once daily at bedtime Paresthesia The patient reports chronic numbness and paresthesias involving the distal lower extremities (rightankle/foot and left foot). He has depressed reflexes on clinical exam and reduced vibratory sensation in the distal lower extremities. Symptoms do not seem to follow any particular dermatomal distribution and, given his longstanding history of diabetes, do raise suspicion for possible polyneuropathy. However, the patient also mentions a history of lumbosacral radiculopathy with previous lumbar fusion. It is possible that that there is a superimposed radicular component. He denies weakness or any significant red flag symptoms to suggest cauda equina syndrome. PLAN: - I recommended EMG to help determine the most likely etiology of the patient's sensory disturbanceand help guide treatment. The patient declined this - I advised the patient to follow up closely with his primary care provider for optimal blood glucose control to help reduce the risk of further nerve damage - I encouraged checking the feet regularly for wounds - Fall prevention measures discussed - The patient has been advised to notify our office should he develop progressively worsening symptoms or any weakness or bowel or bladder dysfunction Diplopia The patient has a history of vertical, binocular diplopia with possible fatigability. This has beencorrected by prism lenses and may represent a primarily ocular issue. MRI of the brain on 07/22/2023 was unremarkable for definitive cause. AChR binding, blocking, and modulating labs were unremarkable, lowering suspicion for myasthenia gravis. PLAN: - Follow up with ophthalmology per their recommendations for management Diagnosis and treatment options discussed in detail. All questions answered. The patient verbalizesunderstanding and is agreeable to the plan. Discussion in layman's terms. Follow up in the office within 3 to 4 months; sooner if needed for new or worsening symptoms. Tonya Schultz NP [facility] documented in this encounterThree Rivers [id number] Hospital Discharge instructionsAmbulatory Orders* Referral to General Surgery Time Frame: 01/31/25, Location: [facility] Work Phone: [phone] 138-132704-09-2025 [place] [address] Gastroenterology H&P Signed Patient: Jay Aguero MR#: [id number] : 1950 Acct:[id number] Age/Sex: 74 / M Adm Date: 5 Loc: Room: Type: [facility] Attending Dr: Alcides Nowak MD Copies to: NON STAFF Alcides Nowak MD~ Date of Service: 01/30/2025 HISTORY & PHYSICAL: Patient's history with special attention to the cardiovascular, pulmonary systems and the current problem was reviewed with the patient immediately prior to the procedure. Present medications and doses reviewed in the EMR. Allergies and pertinent laboratory tests were also re viewedat this time in the EMR. The physical examination, as below, was then performed. Indication, assessment and HPI: This is a 74-year-old male who presents for screening colonoscopy. Has issues with hemorrhoids. Family history of GI malignancy? no PHYSICAL EXAMINATION Mouth and Pharynx : moist mucus membranes, normal dentition Eyes: EOM intact b/l, normal sclera Pulmonary: normal respiratory effort, able to speak in complete sentences Neurological: alert and oriented x3, moves all extremities Skin: non-jaundiced, warm and dry Abdomen: non-distended, normal to inspection Psych: Mental status and mood grossly normal REVIEW OF SYSTEMS Constitutional: Denies malaise, fevers Cardiovascular: Denies chest pain, palpitations Respiratory: Denies shortness of breath, wheezing Gastrointestinal: Per HPI Genitourinary: Denies dysuria, polyuria Musculoskeletal: Denies joint swelling, joint stiffness Neurological: Denies numbness, tingling Integumentary: Denies rashes, skin lesions Endocrine: Denies fatigue, weight loss Written informed consent obtained from the patient. Risks (including but not limited to perforation, infection, bloating, bleeding, need for emergent surgeryand loss of life), benefits and alternatives explained and questions answered. The patient verbalized understanding. Based on history patient is an appropriate candidate for the procedure. Alcides Nowak MD Documented By: Alcides Nowak MD 01/30/25948 Signed By: 01/30/25 0949 [facility]04-09-2025 [place] [address] Colonoscopy Procedure Report Signed Patient: Jay Aguero MR#: [id number] : 1950 Acct:[id number] Age/Sex: 74 / M Adm Date: Loc: Room: Type: [facility] Attending Dr: Alcides Nowak MD Copies to: NON STAFF Alcides Nowak MD~ Colonoscopy Date/Provider 01/30/2025 Alcides Nowak MD Narrative Procedure: Colonoscopy Indication: This is a 74-year-old male who presents for screening colonoscopy. Has issues with hemorrhoids. Pre-operative diagnosis: Screening Post-operative diagnosis: Large friable hemorrhoids Sedation: propofol per anesthesia dept O2 oximetry, hemodynamic monitoring was performed pre, during, and post procedure. Patient was identified, H&P completed, patient was given full explanation of the procedure as well as associatedrisks and written consent wasobtained prior to procedure. Patient expressed complete understanding of the procedure as well as alternatives to the procedure and to anesthesia and agreed to proceed with the procedure as indicated. Patient was immediately reassessed prior to IV sedation. Under IV sedation, patient was placed in the left lateral decubitus position. Digital rectal exam was performed and normal. Colonoscope was inserted and passed proximally to the cecum, which was identified by the ileocecal valve, appendiceal orifice and cecal floor. Colonoscope was slowly withdrawnwith the findings as below. Ripon bowel prep score was good. Findings: Cecum: Normal. Ascending colon: Normal. Hepatic flexure: Normal. Transverse colon: Ink spot tattoo identified from previous polypectomies, no polyp tissue. Normal transverse colon. Splenic flexure: Normal. Descending colon: Normal. Sigmoid colon: Normal. Rectum: Normal. Retroflexed views: Demonstrated large friable hemorrhoids with areas of spontaneous bleeding with insufflation. Biopsy taken: no Complications: None EBL: minimal Recommendations: -Recommend no further screening colonoscopies in this 74-year-old individual with advanced comorbidconditions. -His hemorrhoids are large and not amenable to endoscopic therapy, we will give him a referral to general surgery. -Follow-up with GI nurse practitioners in 6 months for his GERD. -Follow up pathology -Follow up with PCP Following a period of recovery, patient was seen and given full explanation of the procedure. Patient tolerated the procedure well and will be discharged in satisfactory, stable condition. Alcides Nowak MD Documented By: Alcides Nowak MD 01/30/25 0949 Signed By: 01/30/[address] [place], [place] [id number] Miscellaneous Notes* Telephone Encounter - Dawna Bose NP - 01/21/2025 1:03 PM EDT Call placed to the patient and discussion held regarding the interaction between Eliquis and Primidone. Instructions given for the patient to reduce this to every other day for a week and then discontinue. The patient verbalized understanding and is aware that we will plan to further evaluate symptoms at follow up. * Telephone Encounter - RADHAMES Wheat - 01/21/2025 12:04 PM EDT Patient left message requesting refill of primidone 50mg (30-day supply) and carbidopa-levodopa (90-day supply)... Patient did not confirm pharmacy. (Continue primidone 50 mg PO once a day at bedtime. Currently tolerating without side effects. ....Continue Sinemet 25-100 mg to 1.5 tablets at 9 am, 1.5 tablets at 1 pm, 1 tablet at 5 pm and 1 tablet at 9 pm). The patient hasn't been taking this way but will start now and we will re-evaluate at follow up. ... Per Dawna MAJOR on 11/29/24) documented in this encounterThree Rivers [id number] Telephone encounter Note* Telephone Encounter - Dawna Bose NP - 01/21/2025 1:03 PM EDT Call placed to the patient and discussion held regarding the interaction between Eliquis and Primidone. Instructions given for the patient to reduce this to every other day for a week and then discontinue. The patient verbalized understanding and is aware that we will plan to further evaluate symptoms at follow up. [facility] Rivers HealthcareAkxxqgdbvi09-48-2297 Telephone encounter Note* Telephone Encounter - RADHAMES Wheat - 01/21/2025 12:04 PM EDT Patient left message requesting refill of primidone 50mg (30-day supply) and carbidopa-levodopa (90-day supply)... Patient did not confirm pharmacy. (Continue primidone 50 mg PO once a day at bedtime. Currently tolerating without side effects. ....Continue Sinemet 25-100 mg to 1.5 tablets at 9 am, 1.5 tablets at 1 pm, 1 tablet at 5 pm and 1 tablet at 9 pm). The patient hasn't been taking this way but will start now and we will re-evaluate at follow up. ... Per Dawna MAJOR on 11/29/24) [place] [id number] Evaluation note* Diagnosis Onset Date Resolution Status Admit Date Dyspepsia acuteJanuary 02, 2025 12:58pmDysphagiaacuteJanuary 02, 2025 12:58pmGERD (gastroesophageal reflux disease)acuteJanuary 02, 2025 12:58pmHemorrhoidsacute January 02, 2025 12:58pmScreening for colon canceracuteJanuary 02, 2025 12:58pm [facility] Work Phone: [phone]) 898-586702-07-2025 [facility] Reason for cardiology consult: Paroxysmal A-fib, hypertension, and hyperlipidemia Chief Complaint: No complaint HPI: Jay Aguero is a 74 y.o. male with history of paroxysmal atrial fibrillation, TIA, hyperlipidemia, hypertension, type 2 diabetes mellitus, Parkinson disease, orthostatic dizziness utilizing compression stockings. He used to follow with Dr. Tinoco He reports that he has been doing well. He tries to continue to be active. He is limited by tremors from Parkinson's. His Parkinson medication wear recently adjusted. He denies any chest pain or shortness of breath at rest or with exertion. Denies orthopnea or paroxysmal nocturnal dyspnea. He reports occasional positional dizziness when he stands up and particularly when he turns around but no falling or syncope. He denies palpitations. He denies legs edema or leg discomfort on exertion He never been a smoker. Denies alcohol or illicit drugs. Cardiology ROS: GENERAL: Denies fever, chills, night sweats, weight loss. HEENT: Denies changes in vision, photophobia, changes in hearing, epistaxis, oral bleeding. CARDIOVASCULAR: Denies chest pain, exertional dyspnea, orthopnea/PND, lower extremity edema, palpitations, he reports occasional positional lightheadedness/dizziness without syncope or falls. RESPIRATORY: Denies SOB, coughing, wheezing GI: Denies abdominal pain, nausea/vomiting, heartburn, melena/hematochezia. RENAL: Denies dysuria, hematuria, flank pain. MSK: Denies muscle weakness/pain, arthralgias/joint pain. NEUROLOGIC: Denies LOC, weakness, numbness, headaches. SKIN: Denies abnormal rashes or bleeding. PSYCH: Denies significant anxiety, depression, sleep disturbances. Past Medical History He has a past medical history of Abnormal ECG, Arrhythmia, Atrial fibrillation (CMS/HCC), Diabetes mellitus (CMS/HCC), Hyperlipidemia, and Hypertension. Surgical History He has no past surgical history on file. Social History He has no history on file for tobacco use, alcohol use, and drug use. Family History No family history on file. Allergies Iodine, Latex, Shellfish derived, Iodinated contrast media, and Adhesive tape-silicones Medications No current outpatient medications on file. Last Recorded Vitals Visit Vitals Ht 1.778 m (5' 10 ) Physical Examination: GENERAL: alert and oriented x3, well developed, in no acute distress. HEAD: atraumatic, normocephalic. EYES: GENARO, EOMI. NECK: trachea midline, no JVD present, no carotid bruits present. CARDIAC: S1, S2 present. RRR. No murmur, rubs, or gallops. RESPIRATORY: CTAB, no increased effort of breathing, no rales, rhonchi, or wheezing. ABDOMEN: soft, nontender, nondistended. EXTREMITIES: no lower extremity edema. No rash/skin discoloration present. NEURO: strength/sensation equal and symmetric in bilateral upper and lower extremities. Tremors noted in the hands PSYCH: appropriate mood, affect, and judgement. Labs: 08/08/2024 White blood count 10.8, hemoglobin 12.6, hematocrit 36, platelets 161 Sodium 136, potassium 3.7, BUN 17, creatinine 1.1, GFR above 60, glucose 191, calcium 8.9 05/24/2024 HbA1c 7.1%, Total bilirubin 1.2, AST 16, ALT 19, alk phos 71, total protein 6.9, albumin 3.5 Triglyceride 224, cholesterol 156, LDL 55, HDL 57 Last Images: EKG today 11/30/2024 showed sinus rhythm with first-degree AV block and occasional PVCs, left axis deviation, no significant T or ST changes Holter monitor 07/23/2020 Assessment and Plan: Paroxysmal A-fib atrial fibrillation, unspecified type (CMS/HCC) He is on Coreg and Eliquis Essential hypertension, on Coreg, well-controlled Hyperlipidemia, on atorvastatin, LDL cholesterol is well-controlled however still has high triglyceride probably due to mildly uncontrolled diabetes mellitus Type 2 diabetes mellitus, last HbA1c 7.1% on 05/24/2024 Overweight, BMI 27.6 kg/m??? Parkinson disease Benign prostate hypertrophy Plan: Continue current management including Coreg, atorvastatin, and Eliquis Echocardiographic study to evaluate cardiac and valvular function Check lipids and AST ALT and HbA1c Patient was advised to try to continue with walking as much as possible and to drink enough fluids to avoid orthostatic hypotension Follow-up in 6 months Shilpa Hammond MD,FACCUniversity of [facility]01-21-2025 Telephone encounter Note* Telephone Encounter - Rosa Flor MA - 11/13/2024 9:14 AM EST ALEXA:09/03/2024 [id number] Miscellaneous Notes* Telephone Encounter - Rosa Flor MA - 11/13/2024 9:14 AM EST ALEXA:09/03/2024 documented in this [facility]12-27-2024 Miscellaneous Notes* Telephone Encounter - Tiffanie Gustafson - 10/19/2024 2:49 PM EST Called pt/left detailed message. * Telephone Encounter - Brandy Gustafson MD - 10/19/2024 1:54 PM EST I did not prescribe that. He will need to contact Dawna Joshua * Telephone Encounter - Tiffanie Gustafson - 10/19/2024 1:16 PM EST Pt called in, he needs a refill on primidone 50 mg tablet, qty 90. Pharmacy is [facility] in [place]. documented in this [facility]12-27-2024 Telephone encounter Note* Telephone Encounter - Tiffanie Gustafson - 10/19/2024 2:49 PM EST Called pt/left detailed message. [facility] [id number] Telephone encounter Note* Telephone Encounter - Brandy Gustafson MD - 10/19/2024 1:54 PM EST I did not prescribe that. He will need to contact Dawna Bose [facility] Work Phone: [phone]) 481-265212-27-2024 Telephone encounter Note* Telephone Encounter - Tiffanie Gustafson - 10/19/2024 1:16 PM EST Pt called in, he needs a refill on primidone 50 mg tablet, qty 90. Pharmacy is [facility] in [place]. [id number] Miscellaneous Notes* Telephone Encounter - Avani Oliveira CMA - 09/10/2024 1:46 PM EST Patient's called and was wondering if you would accept him also? * Telephone Encounter - Julien Amanda DO - 09/10/2024 1:46 PM EST Okay * Telephone Encounter - Avani Oliveira CMA - 09/10/2024 1:46 PM EST Lm to cb [facility] Tele[facility] encounter Note* Telephone Encounter - Avani Oliveira CMA - 09/10/2024 1:46 PM EST Patient's called and was wondering if you would accept him also? [facility]11-18-2024 Telephone encounter Note* Telephone Encounter - Julien Amanda DO - 09/10/2024 1:46 PM EST Okay [facility] Work Phone: [phone] Telephone encounter Note* Telephone Encounter - Avani Oliveira CMA - 09/10/2024 1:46 PM EST Lm to cb [facility]11-11-2024 History of Present illness Narrative* Alena Pineda NP - 09/03/2024 2:52 PM ESTAssociated Problem(s): Essential hypertension, benign (CMS/HCC) Currently taking Carvedilol 12.5mg Does not check BP at home; Denies orthostatic changes, dizziness, cough, shortness of breath, swelling in extremities. Continue current regimen. Given hx of T2DM and Parkinson disease, at high risk of autonomic dysfunction resulting in orthostatic hypotension Given BP log, advised pt to record BP and bring log back with them to next visit. * Alena Pineda NP - 09/03/2024 2:52 PM ESTAssociated Problem(s): Hyperlipidemia (CMS/HCC) Currently taking Atorvastatin 20mg Denies any myalgias. Continue current regimen. * Alena Pineda NP - 09/03/2024 2:51 PM ESTAssociated Problem(s): Type 2 diabetes mellitus with diabetic polyneuropathy, without long-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 of insulin ([facility]) Currently taking Metformin Star Martinez Most recent labs: hemoglobin A1C 7.1% Average FSBS range from BGs range between 120 and 140 Checks BG levels using: Tensilica Jocelyne; Reports senor needle consistently bends and [...] glucose monitoring noted. DM Eye Exam: 06/2024 * Alena Pineda NP - 09/03/2024 2:30 PM EST Images from the original note were not included. Subjective Patient ID: Jay Agureo is a 74 y.o. male who presents for Follow-up. HPI Specialists: Cardiology- [facility]- Dr. Brown GI- Dr. Nowak HTN: Currently taking Carvedilol 12.5mg Does not check BP at home; Denies orthostatic changes, dizziness, cough, shortness of breath, swelling in extremities. Continue current regimen. Given BP log, advised pt to record BP and bring log back with them to next visit. HLD: Currently taking Atorvastatin 20mg Denies any myalgias. Continue current regimen. Component Ref Range & Units 3 mo ago (05/24/24) 3 mo ago (05/24/24) 3 mo ago (05/24/24) 3 mo ago (05/24/24) TRIGLYCERIDES <=150 mg/dL 224 High 137 R 26.9 R 259.28 R CHOLESTEROL <=200 mg/dL 156 4.2 R 0.4 R HDL CHOLESTEROL 40 - 60 mg/dL 57 13.1 R 4.2 R Comment: > or =60 mg/dl - LOW CARDIOVASCULAR RISK <40 mg/dl - HIGH CARDIOVASCULAR RISK LDL CHOLESTEROL CALCULATED mg/dL 55.0 171 High R 1.9 R Comment: <100 mg/dl OPTIMAL 100-129 mg/dl NEAR OR ABOVE OPTIMAL 130-159 mg/dl BORDERLINE HIGH 160-189 mg/dl HIGH >190 mg/dl VERY HIGH VLDL CHOLESTEROL mg/dL 44.8 1.2 High R 0.5 R CHOL HDL RATIO 2.7 16 R 0.03 R Comment: 3.3 - 4.4 LOW RISK 4.4 - 7.1 AVERAGE RISK 7.1 - 11.0 MODERATE RISK >11.0 HIGH RISK ALANINE AMINOTRANSFERASE 19 R ALKALINE PHOSPHATASE 71 R TOTAL PROTEIN 6.9 R ALBUMIN LEVEL 3.5 R ALBUMIN GLOBULIN RATIO 1.[address] [facility] DMII: Currently taking Metformin Star Martinez Most recent labs: hemoglobin A1C 7.1% Average FSBS range from BGs range between 120 and 140 Checks BG levels using: Tensilica Jocelyne; Reports senor needle consistently bends and [...] glucose monitoring noted. DM Eye Exam: 06/2024 Education: Check blood sugars daily, notify if <70 or >200. Take medications (pills or insulin) as directed. Monitor for s/s of hypoglycemia (sweaty, dizziness, nausea, vomiting, or shakiness). Watch for increase in thirst, urination, or appetite. Inspect feet frequently monitoring for open wounds , andalso recommend yearly eye exam. Pt should attempt to remain as physically active as chronic conditions allow, as well as trying to follow a diet low in carbohydrates, and simple sugars. Review of Systems Constitutional: Negative for activity change, appetite change, chills, diaphoresis, fatigue, fever and unexpected weight change. HENT: Negative for congestion, ear pain, rhinorrhea, sinus pressure, sinus pain, sneezing, sore throat, trouble swallowing and voice change. Eyes: Negative for visual disturbance. Respiratory: Negative for cough, chest tightness, shortness of breath and wheezing. Cardiovascular: Negative for chest pain, palpitations and leg swelling. Gastrointestinal: Negative for abdominal distention, abdominal pain, blood in stool, constipation, diarrhea and vomiting. Genitourinary: Negative for decreased urine volume, dysuria, flank pain, frequency, hematuria and urgency. Musculoskeletal: Negative for arthralgias, gait problem, joint swelling and myalgias. Skin: Negative for rash. Neurological: Negative for dizziness, tremors, syncope, weakness, light- headedness and headaches. Psychiatric/Behavioral: Negative for decreased concentration and suicidal ideas. The patient is notnervous/anxious. Hematological: Does not bruise/bleed easily. Endocrine: Negative for cold intolerance, heat intolerance, polydipsia, polyphagia and polyuria. Objective Physical Exam Vitals reviewed. Constitutional: Appearance: Normal appearance. HENT: Head: Normocephalic and atraumatic. Right Ear: Tympanic membrane normal. Left Ear: Tympanic membrane normal. Nose: Nose normal. Mouth/Throat: Mouth: Mucous membranes are moist. Pharynx: Oropharynx is clear. Eyes: Pupils: Pupils are equal, round, and reactive to light. Cardiovascular: Rate and Rhythm: Normal rate and regular rhythm. Pulses: Normal pulses. Heart sounds: Normal heart sounds. Pulmonary: Effort: Pulmonary effort is normal. Breath sounds: Normal breath sounds. Abdominal: General: Abdomen is flat. Bowel sounds are normal. Palpations: Abdomen is soft. Musculoskeletal: General: Normal range of motion. Cervical back: Normal range of motion. Skin: General: Skin is warm and dry. Capillary Refill: Capillary refill takes less than 2 seconds. Neurological: General: No focal deficit present. Mental Status: He is alert and oriented to person, place, and time. Psychiatric: Mood and Affect: Mood normal. Behavior: Behavior normal. Assessment/Plan Problem List Items Addressed This Visit Essential hypertension, benign (CMS/HCC) Currently taking Carvedilol 12.5mg Does not check BP at home; Denies orthostatic changes, dizziness, cough, shortness of breath, swelling in extremities. Continue current regimen. Given hx of T2DM and Parkinson disease, at high risk of autonomic dysfunction resulting in orthostatic hypotension Given BP log, advised pt to record BP and bring log back with them to next visit. Hyperlipidemia (CMS/HCC) Currently taking Atorvastatin 20mg Denies any myalgias. Continue current regimen. Type 2 diabetes mellitus with diabetic polyneuropathy, without long-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 of insulin ([facility]) - Primary Currently taking Metformin Donisaíasfranklin Juan Most recent labs: hemoglobin A1C 7.1% Average FSBS range from BGs range between 120 and 140 Checks BG levels using: Sonicoe Jocelyne; Reports senor needle consistently bends and [...] glucose monitoring noted. DM Eye Exam: 06/2024 Relevant Medications Continuous Glucose Sensor (Dexcom G7 Sensor) misc Continuous Glucose Coagulant Dipper (Dexcom G7 Coagulant Dipper) device Other Relevant Orders Hemoglobin A1c Colon cancer screening declined Other Visit Diagnoses Dizziness and giddiness Relevant Medications meclizine (Antivert) 25 MG tablet documented in this [facility]11-11-2024 Instructions* Patient Instructions* Alena Pineda NP - 09/03/2024 2:30 PM EST Education: Check blood sugars daily, notify if <70 or >200. Take medications (pills or insulin) as directed. Monitor for s/s of hypoglycemia (sweaty, dizziness, nausea, vomiting, or shakiness). Watch for increase in thirst, urination, or appetite. Inspect feet frequently monitoring for open wounds , andalso recommend yearly eye exam. Pt should attempt to remain as physically active as chronic conditions allow, as well as trying to follow a diet low in carbohydrates, and simple sugars. documented in this [facility]10-14-2024 Telephone encounter Note* Telephone Encounter - Carolina Bermudez - 08/06/2024 5:09 PM EDT Patient called and said he can't get comfortable and there is swelling and lots of pain in one sideof his butt cheek [id number] Miscellaneous Notes* Telephone Encounter - Carolina Lara - 08/06/2024 5:09 PM EDT Patient called and said he can't get comfortable and there is swelling and lots of pain in one sideof his butt cheek documented in this encounterThree [facility] [id number] History of Present illness Narrative* Ruel Matthews, MILLICENT - 06/21/2024 1:50 PM EDT Patient: Jay Aguero : 1950 PCP: Shaikh Mary MD SUBJECTIVE Patient presents today for follow up of skin lesion/neoplasm of unknown origin to the right foot Pt states that previous treatment of acid tx with some improvement Pt rates pain the pain on a 1-10 scale an intensity of 5 Pt presents today for followup. Patient is DM2 Pt has hx of right hallux rigidus with toe pain in the past and seen one year ago for condition. Allergies: Allergies Allergen Reactions Iodine Anaphylaxis Latex Rash Other reaction(s): Pruritus Shellfish-Derived Products Rash Wound Dressing Adhesive Rash Past Medical History: Past Medical History: Diagnosis Date Arthritis Atrial fibrillation ([facility]) Reports hx of parox afib with TIA. His CHADCASV2 would be 4 based on limited information available and he does not appear to have a good reason for not being on AC for stroke px. Patient does not recall being on AC except for plavix. BPH without obstruction/lower urinary tract symptoms Using Flomax daily It helped his symptoms but still experiences hesitancy, urgency, weak stream Bunion, right Pain x 3-4 weeks. Persistent, localized to his medial border around first metatarsophalangeal joint. Exam c/w bunion - that is tender and painful Chronic back pain Diabetes (CMS/HCC) Dyspepsia and disorder of function of stomach Belching, dyspepsia and abdominal pain. Symptoms improved with Dexilant. EGD shows gastritis. Fatigue Reports being tired, and fatigued. Also has poor sleep GERD (gastroesophageal reflux disease) Hyperlipidemia ([facility]/HCC) LDL at goal on Lipitor 20 mg Hypertension ([facility]/HCC) Ingrown nail Insomnia, persistent Insomnia - chronic, Ongoing for a few months. Difficulty going to sleep and stays up until he is too tired Gets 4-5 hours of sleep daily and as result of that, feels tired and faitgued Nail avulsion, toe, initial encounter Patient reports he was trying to put on his shorts and his toe nail got stuck in his clothes and hepulled his great toe nail and now its barely attached to nail bed. No sig pain, no concern for infection OM (onychomycosis) Overweight (BMI 25.0-29.9) Parkinsonian features Very subtle parkinsonian features with significant fhx of parkinson-mother, few cousins from [facility] had it too Peripheral neuropathy Reports burning pain in hands and feet, worse at night. Likely due to DM On gabapentin once daily. Primary parkinsonism ([facility]/HCC) On medications. Has fine tremors at rest. No recent falls. Patient thinks medications are working for him. He saw Neurology a few weeks ago. Denies on/off phenomenon. Rash Erythematous rash over back, LE -flexural surfaces only - resolved now. Was prescribed Clotrimazole-betamethasone that helps but it comes back when he stops using Right hip pain Right hip pain, worse on extension. daily persistent. Acute on chronic worsening for past 3 weeks Seizure-like activity ([facility]) Reports earlier this morning - he felt hot and cold and then had shaking movement of her UE that hecould not control. He did not lose consciousness. He was aware of it while it was happening. This has not happened to him before. No new medications. FSBS above goal and he was not hypoglycemic Skin cancer TIA (transient ischemic attack) Type 2 diabetes mellitus, without long-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 of insulin ([facility]) Currently on Metformin 500 q12, Januvia 100, glimepiride 4 mg DAILY and Trulicty. Tolerating meds w/o adverse effects No hypoglycemia. Last A1C 6.1 Vertigo Medications: Current Outpatient Medications: aspirin 81 MG EC tablet, Take 1 tablet by mouth in the morning., Disp: , Rfl: atorvastatin (Lipitor) 20 MG tablet, Take 1 tablet (20 mg) by mouth in the morning., Disp: 100 tablet, Rfl: 1 biotin 72986 MCG tablet, Take 1 tablet by mouth in the morning., Disp: , Rfl: carbidopa-levodopa (Sinemet) 25-100 MG tablet, Take one tablet by mouth four times per day (9am, 1pm, 5pm, and 9pm), Disp: 120 tablet, Rfl: 3 carvedilol (Coreg) 12.5 MG tablet, Take 1 tablet (12.5 mg) by mouth in the morning and 1 tablet (12.5 mg) in the evening. Take with meals., Disp: 180 tablet, Rfl: 1 Continuous Blood Gluc Sensor (FreeStyle Jocelyne 2 Sensor) misc, 1 Device by Other route in the morning and 1 Device at noon and 1 Device in the evening and 1 Device before bedtime., Disp: , Rfl: Cyanocobalamin (VITAMIN B12 PO), Take 2 tablets by mouth in the morning., Disp: , Rfl: dexlansoprazole (Dexilant) [address] capsule, Take 1 capsule by mouth in the morning and 1 capsule before bedtime. Do not crush or chew.., Disp: , Rfl: dulaglutide (Trulicity) 1.5 MG/0.5ML solution pen-injector, Inject 1.5 mg under the skin 1 (one) time per week, Disp: 12 pen , Rfl: 1 Eliquis 5 MG tablet, Take 5 mg by mouth in the morning and 5 mg before bedtime., Disp: , Rfl: esomeprazole (NexIUM) [address] capsule, Take 40 mg by mouth in the morning., Disp: , Rfl: famotidine (Pepcid) 40 MG tablet, Take 40 mg by mouth in the morning and 40 mg before bedtime. PRN., Disp: , Rfl: finasteride (Proscar) 5 MG tablet, TAKE 1 TABLET BY MOUTH DAILY, Disp: 90 tablet, Rfl: 1 gabapentin (Neurontin) 400 MG capsule, TAKE 1 CAPSULE BY MOUTH THREE TIMES DAILY (IN THE MORNING, IN THE EVENING, and BEFORE bedtime), Disp: 270 capsule, Rfl: 1 Januvia 100 MG tablet, TAKE 1 TABLET BY MOUTH IN THE MORNING, Disp: 90 tablet, Rfl: 1 loratadine (Allergy Relief) 10 MG tablet, Take 10 mg by mouth in the morning., Disp: , Rfl: meclizine (Antivert) 25 MG tablet, Take 1 tablet (25 mg) by mouth 2 (two) times a day as needed fordizziness, Disp: 180 tablet, Rfl: 1 metFORMIN (Glucophage) 500 MG tablet, TAKE 1 TABLET BY MOUTH EVERY 12 HOURS, Disp: 180 tablet, Rfl:1 primidone (Mysoline) 50 MG tablet, Take 50 mg by mouth at bedtime, Disp: , Rfl: tamsulosin (Flomax) 0.4 MG 24 hr capsule, Take 1 capsule (0.4 mg) by mouth every 12 (twelve) hours,Disp: 180 capsule, Rfl: 1 traZODone (Desyrel) 50 MG tablet, TAKE 1 TABLET BY MOUTH DAILY NEEDED for sleep, Disp: 90 tablet, Rfl: 1 Social History: Social History Socioeconomic History Marital status: Spouse name: Not on file Number of children: Not on file Years of education: Not on file Highest education level: Not on file Occupational History Not on file Tobacco Use Smoking status: Never Passive exposure: Never Smokeless tobacco: Never Vaping Use Vaping status: Never Used Substance and Sexual Activity Alcohol use: Never Drug use: Never Sexual activity: Defer Partners: Decline to Answer Other Topics Concern Not on file Social History Narrative Not on file Social Determinants of Health Financial Resource Strain: Low Risk (10/10/2023) Overall Financial Resource Strain (CARDIA) Difficulty of Paying Living Expenses: Not hard at all Food Insecurity: No Food Insecurity (10/10/2023) Hunger Vital Sign Worried About Running Out of Food in the Last Year: Never true Ran Out of Food in the Last Year: Never true Transportation Needs: No Transportation Needs (10/10/2023) PRAPARE - Transportation Lack of Transportation (Medical): No Lack of Transportation (Non-Medical): No Physical Activity: Inactive (10/10/2023) Exercise Vital Sign Days of Exercise per Week: 0 days Minutes of Exercise per Session: 0 min Stress: No Stress Concern Present (10/10/2023) [place] [employer] - Occupational Stress Questionnaire Feeling of Stress : Not at all Social Connections: Socially Isolated (10/10/2023) Social Connection and Isolation Panel [NHANES] Frequency of Communication with Friends and Family: Once a week Frequency of Social Gatherings with Friends and Family: Once a week Attends Mosque Services: Never Active Member of Clubs or Organizations: No Attends Club or Organization Meetings: Never Marital Status: Intimate Partner Violence: Not At Risk (10/10/2023) Humiliation, Afraid, Rape, and Kick questionnaire Fear of Current or Ex-Partner: No Emotionally Abused: No Physically Abused: No Sexually Abused: No Housing Stability: Low Risk (10/10/2023) Housing Stability Vital Sign Unable to Pay for Housing in the Last Year: No Number of Places Lived in the Last Year: 1 Unstable Housing in the Last Year: No ROS: General: denies fever, chills, fatigue, malaise Cardiovascular: denies CP, palpitations, positive history of atrial fibrillation OBJECTIVE LE EXAM: DERM: Elongated thick yellow crumbly nails digits 1 through 10. Positive hair growth with thin shiny atrophic skin bilaterally Nummular lesion measuring at the right sub 5th metatarsal measuring 0. 0 5 cm x 0. 0 5 cm. VASC: positive DP and positive PT pedal pulses NEURO: 5.07 [place] Jr monofilament test intact to digits and forefoot bilaterally 125Hz tuning fork diminished to 1st MPJ bilaterally ORTHO: Positive pain on palpation to nails 1 through 10 Minimal pain palpation right foot lesion ASSESSMENT 1. Verruca plantaris 2. Foot pain, right 3. Diabetes mellitus due to underlying condition with diabetic polyneuropathy, with long-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 of insulin ([facility]) PLAN Application of salinocaine acid medication to lesion/lesions located at right foot Informed pt of risks and benefits of procedure including high reoccurence rate, infection, pain andconsent given. Application of DSD post procedure. Ruel Matthews DPM documented in this encounterThree Rivers [id number] History of Present illness Narrative* Shaikh Mary MD - 11/30/2023 4:14 PM EST Patient unable to get Trulicity refilled due to drug shortage. Pharmacy has 0.75 mg dose available - will call in new prescription for a month so that he can use trulicity and then he can go back to his usual dose of 1/5 mg/week documented in this encounterThree Rivers [id number] Evaluation + Plan note* Assessment & Plan Note - AVELINO Acosta - 09/28/2023 4:34 PM EST Associated Problem(s): BMI 28.0-28.9,adult Reviewed the merits of healthy lifestyle choices on overall cardiovascular health. 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 Denies bleeding diatheses [facility] Work Phone: [phone] 999-321812-06-2023 Miscellaneous Notes* Assessment & Plan Note - AVELINO Acosta - 09/28/2023 4:34 PM ESTAssociated Problem(s): BMI 28.0-28.9,adult Reviewed the merits of healthy lifestyle choices on overall cardiovascular health. * Assessment & Plan Note - AVELINO Acosta - 09/28/2023 4:34 PM EST Associated Problem(s): Diabetes mellitus with no complication (CMS/HCC) Maintained on ARB/statin Reports most recent hemoglobin A1c good * Assessment & Plan Note - AVELINO Acosta - 09/28/2023 4:34 PM EST Associated Problem(s): [facility] current use of 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 therapy CHADS VASc 5 (prior TIA) anticoagulated full dose Eliquis with age 73, weight 200. Denies bleeding diatheses * Assessment & Plan Note - AVELINO Acosta - 09/28/2023 4:31 PM EST Associated Problem(s): Paroxysmal atrial fibrillation (CMS/HCC) Denies any recurrent palpitations No prior antiarrhythmic Ausculatory rate regular on exam * Assessment & Plan Note - AVELINO Acosta - 09/28/2023 4:31 PM EST Associated Problem(s): Hyperlipidemia Low intensity statin Reports annual wellness labs through PCP * Assessment & Plan Note - AVELINO Acosta - 09/28/2023 4:31 PM EST Associated Problem(s): Essential hypertension, benign Optimal in office * Assessment & Plan Note - AVELINO Acosta - 09/28/2023 4:31 PM EST Associated Problem(s): Cardiac and Vasculature November 2021 presented as a self-referral for new patient consult with Dr. Tinoco. Reports in 2019 at PCP office in [place] had initial onset of atrial fibrillation with spontaneous conversion to normal sinus rhythm. Follow-up testing included unremarkable stress test and echocardiogram. He has been maintained on anticoagulation and beta-stephanie since that time. documented in [facility] encounterPro[facility] Work Phone: [phone] Evaluation + Plan note* Assessment & Plan Note - AVELINO Acosta - 09/28/2023 4:31 PM ESTAssociated Problem(s): Paroxysmal atrial fibrillation (CMS/HCC) Denies any recurrent palpitations No prior antiarrhythmic Ausculatory rate regular on exam [facility] Work Phone: [phone] 113-214912-06-2023 Evaluation + Plan note* Assessment & Plan Note - AVELINO Acosta - 09/28/2023 4:31 PM ESTAssociated Problem(s): Hyperlipidemia Low intensity statin Reports annual wellness labs through PCP [facility] Work Phone: [phone] Evaluation + Plan note* Assessment & Plan Note - AVELINO Acosta - 09/28/2023 4:31 PM ESTAssociated Problem(s): Essential hypertension, benign Optimal in office [facility] Work Phone: [phone]) 798-717912-06-2023 Evaluation + Plan note* Assessment & Plan Note - AVELINO Acosta - 09/28/2023 4:31 PM ESTAssociated Problem(s): Cardiac and Vasculature November 2021 presented as a self-referral for new patient consult with Dr. Tinoco. Reports in 2019 at PCP office in [place] had initial onset of atrial fibrillation with spontaneous conversion to normal sinus rhythm. Follow-up testing included unremarkable stress test and echocardiogram. He has been maintained on anticoagulation and beta-stephanie since that time. [facility] Work Phone: [phone]) 787-475412-06-2023 History of Present illness Narrative* AVELINO Acosta - 09/28/2023 2:30 PM EST Chief Complaint Not too bad Reason for [...] type of recurrent palpitations. Tolerating current medical regimenwithout side effects. 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 Denies bleeding diatheses Diabetes mellitus with no complication (CMS/HCC) Maintained on ARB/statin Reports most recent hemoglobin A1c good BMI 28.0-28.9,adult Reviewed the merits of healthy lifestyle choices on overall cardiovascular health. Plan: Through informed decision making process incorporating patients unique circumstances, the followingtreatment plan will be initiated: 1. Prescription drug management of cardiovascular medication for efficacy, adherence to treatment, side effect assessment and polypharmacy. Current treatment clinically warranted and to continue without modifications. 2. Return for follow-up; in the interim, contact the office if new symptoms arise. Dr. Vázquez 9 months Ana Ramos MSN, WAREHOUSE CHECKER-MILLINERY DESIGNER, PMHNP-BC [facility] Please excuse any errors in grammar or translation related to this dictation. Voice recognition software was utilized to prepare this document. documented in this encounterProMedica [facility] Hospital Work Phone: [phone] Instructions* Patient Instructions* AVELINO Acosta - 09/28/2023 2:30 PM EST [...] making process incorporating patients unique circumstances, the followingtreatment plan will be initiated: 1. Prescription drug management of cardiovascular medication for efficacy, adherence to treatment, side effect assessment and polypharmacy. Current treatment clinically warranted and to continue without modifications. 2. Return for follow-up; in the interim, contact the office if new symptoms arise. Dr. Vázquez 9 months documented in this encounterUnSumma Health Work Phone: [phone] Evaluation note* Encounter Date Diagnosis Assessment Notes Treatment Notes Treatment Clinical Notes Jan, Dyspepsia (ICD-10 - K30) Jan,ERD (gastroesophageal reflux disease) (ICD-10 - K21.9)Patient currently doing well on current esomeprazole regimen patient denies dyspeptic complaints and is doing well overall from a GI standpoint. Recommendation to continue esomeprazole and return to office in 1 year [facility] Other 01-19-2023 Evaluation note* Encounter Date Diagnosis Assessment Notes Treatment Notes Treatment Clinical Notes Oct, GERD (gastroesophageal reflux di sease) (ICD-10 - K21.9) Continue Omeprazole without change Pt to call if symptoms worsen or return Follow up in 1 year [facility] Other 07-28-2022 NoteCONSULTATION CONSULTATION DATE: 05/20/2022 HISTORY [...] indicated. Patient is in agreement to this.[facility] [id number] Evaluation note* Encounter Date Diagnosis Assessment Notes Treatment Notes Treatment Clinical Notes Apr, GERD (gastroesophageal reflux di sease) (ICD-10 - K21.9) Stop Omeprazole Start Esomeprazole 40mg bid [facility] Other 01-31-2022 Evaluation note* Encounter Date Diagnosis Assessment Notes Treatment Notes Treatment Clinical Notes Oct, Gastroesophageal ref lux disease, unspecified whether esophagitis present (ICD-10 - K21.9) Patient is taking the medication twice a day. Patient reassured that he needs to take this 30 mins prior to eating to ensure medication will get absorbed. will stop Omeprazole and start dexilant at this time. Oct,2Dyspepsia (ICD-10 - K30) [place] [facility] Other 02-14-2015 History of Present illness Narrative* [...] We did advocate diet and weight loss. -[facility] [employer] DO Work Phone: [phone] History of Present illness Narrative* She has [...] We did advocate diet and weight loss. 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 Paroxysmal atrial fibrillation (CMS/HCC) Atrial fibrillation Essential hypertension, benign Mixed hyperlipidemia Diabetes mellitus with no complication (CMS/HCC) Type II or unspecified type diabetes mellitus without mention of complication, not stated as uncontrolled BMI 28.0-28.9,adult documented in this encounter [facility] Work Phone: Evaluation note* Diagnosis Type 2 diabetes mellitus with diabetic polyneuropathy, without long-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 of insulin (CMS/HCC)- Primary documented in this encounter [facility] HealthcareEvaluation note* Diagnosis Type 2 diabetes mellitus with diabetic polyneuropathy, without long-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 of insulin (CMS/HCC) documented in this encounter [facility] HealthcareEvaluation note* Diagnosis Onset Date Resolution Status Dyspepsia acuteDysphagiaacuteGERD (gastroesophageal reflux disease)acute [facility] Work Phone: Evaluation note* Diagnosis Benign prostatic hyperplasia without lower urinary tract symptoms documented in this encounter [facility] HealthcareEvaluation note* Diagnosis Encounter for screening [...] without complications (CMS/HCC) documented in this encounter [facility] HealthcareEvaluation note* Diagnosis Encounter for screening [...] pain Pain in soft tissues of limb Insomnia, unspecified documented in this encounter [facility] HealthcareEvaluation note* Diagnosis Encounter for screening [...] tissues of limb Type 2 diabetes mellitus with diabetic polyneuropathy, without long-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 of insulin (CMS/HCC)- Primary Essential hypertension, benign (CMS/HCC) Essential hypertension, benign Dizziness and giddiness Colon cancer screening declined Hyperlipidemia, unspecified hyperlipidemia type (CMS/HCC) documented in this encounter [facility] HealthcareEvaluation note* Diagnosis Parkinson's disease without dyskinesia, unspecified whether manifestations fluctuate (CMS/HCC)- Primary Paresthesia Disturbance of skin sensation Diplopia Essential tremor documented in this encounter [facility] HealthcareEvaluation note* Diagnosis Encounter for screening for [...] tissues of limb Type 2 diabetes mellitus with diabetic polyneuropathy, without long-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 of insulin (CMS/HCC)- Primary Essential hypertension, benign (CMS/HCC) Essential hypertension, benign Dizziness and giddiness Colon cancer screening declined Hyperlipidemia, unspecified hyperlipidemia type (CMS/HCC) Benign prostatic hyperplasia without lower urinary tract symptoms Hyperlipidemia, unspecified hyperlipidemia type (CMS/HCC) documented in this encounter [facility] HealthcareEvaluation note* Diagnosis Verruca plantaris- Primary Plantar wart Foot pain, right Pain in soft tissues of limb Diabetes mellitus due to underlying condition with diabetic polyneuropathy, with long-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 of insulin (CMS/HCC) documented in this encounter [facility]Evaluation note* Diagnosis Essential hypertension, benign (CMS/HCC) Essential hypertension, benign documented in this encounter [facility] HealthcareEvaluation note* Diagnosis Encounter for screening for [...] tissues of limb Type 2 diabetes mellitus with diabetic polyneuropathy, without long-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 of insulin (CMS/HCC)- Primary Essential hypertension, benign (CMS/HCC) Essential hypertension, benign Dizziness and giddiness Colon cancer screening declined Hyperlipidemia, unspecified hyperlipidemia type (CMS/HCC) Parkinson's disease without dyskinesia, unspecified whether manifestations fluctuate (CMS/HCC)- Primary Essential tremor documented in this encounter [facility] HealthcareEvaluation note* Diagnosis Encounter for screening for [...] tissues of limb Type 2 diabetes mellitus with diabetic polyneuropathy, without long-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 of insulin (CMS/HCC)- Primary Essential hypertension, benign (CMS/HCC) Essential hypertension, benign Dizziness and giddiness Colon cancer screening declined Hyperlipidemia, unspecified hyperlipidemia type (CMS/HCC) Type 2 diabetes mellitus without complications (CMS/HCC) documented in this encounter [facility]Evaluation note* Diagnosis Encounter for screening [...] tissues of limb Type 2 diabetes mellitus with diabetic polyneuropathy, without long-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 of insulin (CMS/HCC)- Primary Essential hypertension, benign (CMS/HCC) Essential hypertension, benign Dizziness and giddiness Colon cancer screening declined Hyperlipidemia, unspecified hyperlipidemia type (CMS/HCC) Type 2 diabetes mellitus with diabetic polyneuropathy, without long-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 of insulin (CMS/HCC) documented in this encounter [facility] HealthcareEvaluation note* Diagnosis Encounter for screening for [...] tissues of limb Type 2 diabetes mellitus with diabetic polyneuropathy, without long-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 of insulin (CMS/HCC)- Primary Essential hypertension, benign (CMS/HCC) Essential hypertension, benign Dizziness and giddiness Colon cancer screening declined Hyperlipidemia, unspecified hyperlipidemia type (CMS/HCC) Polyneuropathy, unspecified documented in this encounter [facility] HealthcareEvaluation note* Diagnosis Encounter for screening for [...] tissues of limb Type 2 diabetes mellitus with diabetic polyneuropathy, without long-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 of insulin (CMS/HCC)- Primary Essential hypertension, benign (CMS/HCC) Essential hypertension, benign Dizziness and giddiness Colon cancer screening declined Hyperlipidemia, unspecified hyperlipidemia type (CMS/HCC) Parkinson's disease without dyskinesia, unspecified whether manifestations fluctuate (CMS/HCC)- Primary Paresthesia Disturbance of skin sensation Diplopia documented in this encounter [facility]* Diagnosis Onset Date Resolution Status Admit Date Dyspepsia acuteJanuary 02, 2025 12:58pmDysphagiaacuteJanuary 02, 2025 12:58pmGERD (gastroesophageal reflux disease)acuteJanuary 02, 2025 12:58pmHemorrhoidsacute January 02, 2025 12:58pmScreening for colon canceracuteJanuary 02, 2025 12:58pm [facility] Work Phone: Evaluation note* Diagnosis Encounter for screening for malignant [...] tissues of limb Type 2 diabetes mellitus with diabetic polyneuropathy, without long-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 of insulin (CMS/HCC)- Primary Essential hypertension, benign (CMS/HCC) Essential hypertension, benign Dizziness and giddiness Colon cancer screening declined Hyperlipidemia, unspecified hyperlipidemia type (CMS/HCC) Essential tremor Parkinson's disease without dyskinesia, unspecified whether manifestations fluctuate (CMS/HCC) documented in this encounter [facility] HealthcareEvaluation note* Diagnosis Encounter for screening [...] tissues of limb Type 2 diabetes mellitus with diabetic polyneuropathy, without long-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 of insulin (CMS/HCC)- Primary Essential hypertension, benign (CMS/HCC) Essential hypertension, benign Dizziness and giddiness Colon cancer screening declined Hyperlipidemia, unspecified hyperlipidemia type (CMS/HCC) Parkinson's disease without dyskinesia, unspecified whether manifestations fluctuate (CMS/HCC)- Primary Paresthesia Disturbance of skin sensation Diplopia documented in this encounter [facility] HealthcareEvaluation note* Diagnosis Encounter for screening for [...] tissues of limb Type 2 diabetes mellitus with diabetic polyneuropathy, without long-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 of insulin (CMS/HCC)- Primary Essential hypertension, benign (CMS/HCC) Essential hypertension, benign Dizziness and giddiness Colon cancer screening declined Hyperlipidemia, unspecified hyperlipidemia type (CMS/HCC) Grade I hemorrhoids documented in this encounter [facility] HealthcareEvaluation note* Diagnosis Onset Date Resolution Status Admit Date Essential tremor chronicAugust 2024 2:12pmParesthesiachronicAugust 2024 2:12pm Parkinson's disease without dyskinesiachronicAugust 2024 2:12pmVertical diplopiachronicAugust 2024 2:12pm [facility] Work Phone: History and physical note Author Alcides Nowak [facility] CenterNote Date/TimeApril 2024 10:36[place] [address] Gastroenterology H&P Signed Patient: Jay Aguero MR#: [id number] : 1950 Acct:[id number] Age/Sex: 74 / M Adm Date: 5 Loc: Room: Type: [facility] Attending Dr: Alcides Nowak MD Copies to: NON STAFF Alcides Nowak MD~ Date of Service: 01/30/2025 HISTORY & PHYSICAL: Patient's history with special attention to the cardiovascular, pulmonary systems and the current problem was reviewed with the patient immediately prior to the procedure. Present medications and doses reviewed in the EMR. Allergies and pertinent laboratory tests were also re viewedat this time in the EMR. The physical examination, as below, was then performed. Indication, assessment and HPI: This is a 74-year-old male who presents for screening colonoscopy. Has issues with hemorrhoids. Family history of GI malignancy? no PHYSICAL EXAMINATION Mouth and Pharynx : moist mucus membranes, normal dentition Eyes: EOM intact b/l, normal sclera Pulmonary: normal respiratory effort, able to speak in complete sentences Neurological: alert and oriented x3, moves all extremities Skin: non-jaundiced, warm and dry Abdomen: non-distended, normal to inspection Psych: Mental status and mood grossly normal REVIEW OF SYSTEMS Constitutional: Denies malaise, fevers Cardiovascular: Denies chest pain, palpitations Respiratory: Denies shortness of breath, wheezing Gastrointestinal: Per HPI Genitourinary: Denies dysuria, polyuria Musculoskeletal: Denies joint swelling, joint stiffness Neurological: Denies numbness, tingling Integumentary: Denies rashes, skin lesions Endocrine: Denies fatigue, weight loss Written informed consent obtained from the patient. Risks (including but not limited to perforation, infection, bloating, bleeding, need for emergent surgeryand loss of life), benefits and alternatives explained and questions answered. The patient verbalized understanding. Based on history patient is an appropriate candidate for the procedure. Alcides Nowak MD Documented By: Alcides Nowak MD 01/30/25948 Signed By: <Electronically signed by Alcides Nowak MD> 01/30/25948 [facility] Work Phone: History general Narrative - Reported* Type Description Date Surgical History gallbladder [facility] Other History general Narrative - Reported* Type Description Date Medical History parkinsons disease Medical HistoryTYPE 2 DIABETESSurgical HistorygallbladderSurgical HistoryCARPAL TUNELSurgical HistoryNECK & BACK SURGERYSurgical HistoryTONSILLECTOMY Hospitalization HistoryNONE IN THE LAST YEAR [facility] Other History of Present illness NarrativePatient returns [...] some weight loss as well as modest exercise.-[facility] [employer] DO Work Phone: History of Present illness [...] diabetes was emphasized and he understands our recommendation.-[facility] [employer] DO Work Phone: History of Present illness Narrative* Olegario Tomlinson, - 02/28/2025 2:30 PM EDT Images from the original note were not included. Jay Aguero 1950 Jay Aguero is a 74 y.o. male presents with chief complaint of Hemorrhoid consult HPI: HPI Jay states he has had hemorrhoids for the last several months. He states they swell and bleed and it becomes very painful. He states the blood is only on the toilet paper. He had a colonoscopy a fewweeks ago by GI and it was negative. SUBJECTIVE: MEDICATIONS: ALLERGIES Current Outpatient Medications Medication Instructions aspirin 81 MG EC tablet 1 tablet, Daily atorvastatin (LIPITOR) 20 mg, Oral, Every morning biotin 05828 MCG tablet 1 tablet, Daily carbidopa-levodopa (Sinemet) 25-100 MG tablet Take 1.5 (one and a half) tablets by mouth four timesper day (at 9:00 am, 1:00 pm, 5:00 pm, and 9:00 pm). carvedilol (COREG) 12.5 mg, Oral, 2 times daily with meals Continuous Glucose Coagulant Dipper (Dexcom G7 Coagulant Dipper) device 1 each, Does not apply, Continuous Continuous Glucose Sensor (Dexcom G7 Sensor) misc 1 each, Does not apply, Continuous Cyanocobalamin (VITAMIN B12 PO) 2 tablets, Daily dapagliflozin (Farxiga) 10 MG Take by mouth Eliquis 5 mg, 2 times daily esomeprazole (NEXIUM) 40 mg, Daily famotidine (PEPCID) 40 mg, 2 times daily finasteride (PROSCAR) 5 mg, Oral, Daily gabapentin (Neurontin) 400 MG capsule TAKE 1 CAPSULE BY MOUTH THREE TIMES DAILY (IN THE MORNING, INTHE EVENING and BEFORE bedtime) loratadine (ALLERGY RELIEF) 10 mg, Daily meclizine (ANTIVERT) 25 mg, Oral, 2 times daily PRN metFORMIN (GLUCOPHAGE) 500 mg, Oral, Every 12 hours primidone (MYSOLINE) 50 mg, Nightly SITagliptin (JANUVIA) 100 mg, Oral, Every morning tamsulosin (FLOMAX) 0.4 mg, Oral, Daily traZODone (Desyrel) 50 MG tablet TAKE 1 TABLET BY MOUTH DAILY NEEDED for sleep Trulicity 1.5 mg, Subcutaneous, Weekly Allergies Allergen Reactions Iodine Anaphylaxis Latex Rash Other reaction(s): Pruritus Gadolinium Derivatives Shellfish-Derived Products Rash Wound Dressing Adhesive Rash PAST MEDICAL HISTORY: SOCIAL HISTORY SURGICAL HISTORY: Past Medical History: Diagnosis Date Arthritis Atrial fibrillation (CMS/HCC) BPH without obstruction/lower urinary tract symptoms Bunion, right Chronic back pain Diabetes (CMS/HCC) Dyspepsia and disorder of function of stomach Fatigue GERD (gastroesophageal reflux disease) Hyperlipidemia (CMS/HCC) Hypertension (CMS/HCC) Ingrown nail Insomnia, persistent Nail avulsion, toe, initial encounter [facility] (onychomycosis) Overweight (BMI 25.0-29.9) Parkinsonian features Peripheral neuropathy Primary parkinsonism (CMS/HCC) Rash Right hip pain Seizure-like activity (CMS/HCC) Skin cancer TIA (transient ischemic attack) Type 2 diabetes mellitus, without long-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 of insulin (CMS/HCC) Vertigo Social History Tobacco Use Smoking status: Never Passive exposure: Never Smokeless tobacco: Never Vaping Use Vaping status: Never Used Substance Use Topics Alcohol use: Never Drug use: Never Past Surgical History: Procedure Laterality Date ADENOIDECTOMY BACK SURGERY lower CATARACT EXTRACTION CERVICAL SPINE SURGERY CHOLECYSTECTOMY GALLBLADDER SURGERY LUMBAR FUSION 1987 NASAL SEPTUM SURGERY NECK SURGERY TONSILLECTOMY FAMILY HISTORY Family History Problem Relation Name Age of Onset Parkinsonism Mother REVIEW OF SYMPTOMS: Review of Systems Constitutional: Negative for activity change. HENT: Negative for hearing loss and voice change. Respiratory: Negative for shortness of breath. Cardiovascular: Negative for chest pain. Gastrointestinal: Positive for anal bleeding and diarrhea. Negative for abdominal distention, nausea and vomiting. Musculoskeletal: Positive for arthralgias. Neurological: Negative for dizziness, seizures and headaches. Psychiatric/Behavioral: Negative. All other systems reviewed and are negative. OBJECTIVE: Visit Vitals Ht 5' 11 Wt 188 lb BMI 26.22 kg/m Smoking Status Never BSA 2.07 m Physical Exam Vitals reviewed. HENT: Head: Normocephalic. Eyes: Pupils: Pupils are equal, round, and reactive to light. Cardiovascular: Rate and Rhythm: Normal rate and regular rhythm. Pulmonary: Effort: Pulmonary effort is normal. Abdominal: General: Bowel sounds are normal. Palpations: Abdomen is soft. Genitourinary: Comments: External anal area showed mild skin irritation. Digital rectal exam was performed, decreased sphincter tone, no masses palpated, prostrate was smooth. A rigid sigmoidoscope was inserted andadvanced to 10 cm, no mucosal polyps or masses were identified. Some blood was noted on the stool surface, hemorrhoids were irritated but not actively bleeding. Musculoskeletal: General: Normal range of motion. Skin: General: Skin is warm. Neurological: General: No focal deficit present. Mental Status: He is alert. ASSESSMENT AND PLAN: Assessment/Plan Diagnoses and all orders for this visit: Grade I hemorrhoids - Ambulatory referral to General Surgery Jay has first degree hemorrhoids that bleed. He is on Eliquis for A. Fib and has a history of several TIA's. I explained that in my opinion I don't feel it is worth the risk of ah stroke to have surgery on the hemorrhoids. He would have to stop the Eliquis for several days before and after surgery, putting him at high risk for a CVA especially since he has had several TIA's. I suggested he use Calmoseptine and Calmol 4 to treat he area. I'l see him PRN. documented in this encounterMissouri [facility] Centerital Discharge instructions Additional Instructions DISCHARGE INSTRUCTIONS FOR COLONOSCOPY WHAT TO EXPECT: - You may feel full, gassy or cramping after your procedure. In some cases, this may be from a few hours to a day. Walking may help relieve the discomfort. - If you have polyp(s) removed you may note some minor bloody discharge after your first bowel movements. - You should begin to recover from anesthesia within 1 hour of the procedure, however may feel groggy for the next 24 hours. DO's AND DON'Ts: - Call your doctor right away if you have a hard abdomen, severe pain, are passing lots of bright red blood or clots. - Call your doctor if you develop any rashes, hives or difficulty breathing. - Let your doctor know if you have not had a bowel movement by 3 days after your procedure. - If you take 81 mg aspirin for your heart it is safe to resume this medication. - If you take other blood thinner medications your doctor will instruct you when these can safely be resumed. - Do NOT drive for 24 hours. - Do NOT operate machinery such as power tools, SnowGaten mowers, snow blowers, sewing machines, etc. for 24 hours. - Avoid alcoholic beverages and drugs for allergies, nerves, or sleep. - Do NOT stay alone. Do NOT leave your child unattended. - Do NOT make important personal or business decisions or sign any legal documents. - Eat solid foods and drink liquids in smaller amounts than usual until normal appetite returns. If you should experience an upset stomach, liquids high in sugar content (soda, Prasanth-Aid, non-acid juices) are recommended. - You can resume normal activities tomorrow. FOLLOW UP & RECOMMENDATIONS: -[ ]. -Notify the doctor if you have any problems. -[ ]. -Follow up with PCP. -Office number [phone].[facility] Work Phone: InstructionsNot on filedocumented in this encounter [facility] Medical CenterReason for referral (narrative)* Consultation (Routine) - AuthorizedSpecialtyDiagnoses / ProceduresReferred By ContactReferred To ContactCardiology Diagnoses Paroxysmal atrial fibrillation (CMS/HCC) Procedures Follow Up In Cardiology Ana Ramos APRN-MILLINERY DESIGNER [facility], [address] [address] Keyon Vázquez MD [facility], [address] [address] Referral IDStatusReasonStart DateExpiration DateVisits RequestedVisits [id number]/[id number]/ [facility] Work Phone: Reason for referral (narrative)No reason for referral information availableSelect Medical [facility] Work Phone: Summary Purpose Family History Unknown [...] Not Specified Unknown family medical history Unknown Relationship Condition Age at Onset Recorded Date/T oscar Not Specified Unknown family medical history Unknown fatherDeceasedUnknownNot SpecifiedDeceasedUnknownsisterDeceasedUnknown Relationship Condition Age at Onset Recorded Date/T oscar Not Specified Unknown family medical history Unknown fatherDeceasedUnknownmotherDeceasedUnknownsisterDeceasedUnknown Relationship Condition Age at Onset Recorded Date/T oscar father Unknown motherDeceasedUnknownsisterDeceasedUnknown Advance Directives Advance Directive Response Recorded Date/ Time Advance Directives No June 10:21am Chief Complaint JAY AGUERO is being seen for a 4 month follow-up of.JAY AGUERO is being seen for a 9 month follow-up of. Chief Complaint and Reason for Visit Chief Complaint r25.1 Chief Complaint 1 YEAR FOLLOW UP Reason for Visit Dyspepsia Dysphagia GERD (gastroesophageal reflux disease) Chief Complaint Admit Date 1 yr follow up January 02, 2025 12: 58pm Reason for Visit Admit Date Dyspepsia January 02, 2025 12: 58pm Dysphagia January 02, 2025 12: 58pm GERD (gastroesophageal reflux disease) M arch 2024 12:58pm Hemorrhoids January 02, 2025 12: 58pm Screening for colon cancer January 02, 2 025 12:58pm Chief Complaint Admit Date 1 yr follow up January 02, 2025 12: 58pm rectal bleeding January 30, 2025 8:18 am rectal bleeding January 30, 2025 9:49 am Chief Complaint Admit Date 1 yr follow up January 02, 2025 12: 58pm rectal bleeding January 30, 2025 8:18 am rectal bleeding January 30, 2025 9:49 am Referral Order January 31, 2025 2:0 1pm Chief Complaint Admit Date 4 month follow up June 13, 2025 2: 12pm Reason for Visit Admit Date Essential tremor June 13, 2025 2: 12pm Paresthesia June 13, 2025 2: 12pm Parkinson's disease without dyskinesia A ug2024 2:12pm Vertical diplopia June 13, 2025 2: 12pm Additional Source Comments (unrecognized sect ion and content) No Status Records FoundNo Status Records FoundNo Status Records FoundNo Status Records FoundNo Status Records FoundNo Status Records FoundNo Status Records FoundNo Status Records FoundNo Status Records Found INFORMATION SOURCE (unrecogn ized section and content) DATE CREATED AUTHOR 04/19/2018 [facility] DATE CREATED AUTHOR AUTHOR'S ORGANIZ ATION 10/08/2021 [facility] DATE CREATED AUTHOR AUTHOR'S ORGANIZ ATION 12/31/2022 [facility] DATE CREATED AUTHOR AUTHOR'S ORGANIZ ATION 12/31/2022 [facility] DATE CREATED AUTHOR AUTHOR'S ORGANIZ ATION 02/20/2023 [facility] DATE CREATED AUTHOR AUTHOR'S ORGANIZ ATION 01/20/2024 [facility] DATE CREATED AUTHOR AUTHOR'S ORGANIZ ATION 02/10/2025 [facility] DATE CREATED AUTHOR AUTHOR'S ORGANIZ ATION 03/02/2025 [facility] DATE CREATED AUTHOR AUTHOR'S ORGANIZ ATION 05/24/2025 [facility] REASON FOR VISIT (unrecogniz ed section and content) ReasonCommentsFollow-up9 monthReasonOnset DateCommentsMed Nomuvz654Reason Onset DateCommentsMed Mgvzwg364ReasonCommentsMed RefillReasonComments Follow-upReasonCommentsParkinson's DiseaseTremorsNumbnessReasonOnset Date CommentsMed Nhduvm804ReasonCommentsLesion RemovalF/U RT lesionReasonOnset DateCommentsMed Fvpfqz524ReasonCommentsParkinson's DiseaseTremorsNumbness DiplopiaReasonOnset DateCommentsMed Izeeka5611/05/2024ReasonOnset DateCommentsMed Wywmcv4011/13/2024ReasonCommentsParkinson's DiseaseTremorsNumbnessBLEDiplopia ReasonOnset DateCommentsMed Svptmc3301/21/2025ReasonCommentsParkinson's Disease ReasonCommentsHemorrhoid consultSpecialtyDiagnoses / ProceduresReferred By ContactReferred To ContactGeneral Surgery Diagnoses Unspecified hemorrhoids Procedures [place] OFFICE/OUTPATIENT [facility] 60 MINUTES Alcides Nowak MD [address] [address] Phone: tel: fax: [facility] [address] [facility] [address] [place] [address] Phone: tel: fax: Referral IDStatusReasonStart DateExpiration DateVisits RequestedVisits [id number] Review Specialty Services Required Care Teams (unrecognized sec tion and content) Team Status: Active Member Role Status Dates Shaikh Mary MD Primary Care Provider Active Team Status: Inactive Member Role Status Dates NATA Gonzalez-Jim Attending Provider Active Jamin Baez Care ProviderActiveTeam MemberRelationshipSpecialty Start DateEnd Date Shaikh Hernandez MD [facility] [address] [place] [phone] PCP - General10/24/19Team MemberRelationshipSpecialtyStart DateEnd Date Shaikh Hernandez MD PCP - GeneralInternal Medicine04/14/23Team MemberRelationshipSpecialtyStart Date End Date Shaikh Hernandez MD [address] [place] [address] PCP - GeneralInternal Medicine11/28/23 Team Status: Inactive Member Role Status Dates Shaikh Mary MD Primary Care Provider Active Start: January 18, 2024 End: January 17sydni Nowak MDAttlisa ProviderActiveStart: January 18, 2024 End: January 18, 2024Team MemberRelationshipSpecialtyStart DateEnd Date Shaikh Hernandez MD [address] [place] [address] PCP - GeneralInternal Medicine11/28/23Team MemberRelationshipSpecialtyStart Date End Date Shaikh Hernandez MD [address] [place] [address] PCP - GeneralInternal Medicine11/28/23Team MemberRelationshipSpecialtyStart Date End Date Unallocated, Junior Starr MD [address] [place] [address] PCP - GeneralFamily Vyoxhztb82/15/24 Alena Pineda, ANIKET [address] [place] [address] Nurse PractitionerMercyone Newton Medical Centerly Xfzhgwlm69/15/24Team MemberRelationshipSpecialtyStart DateEnd Date Ludwig Florez MD [address] [place] [address] PCP - GeneralFamily Obgrjjsx16/31/24 Alena Pineda, ANIKET [address] [place] [address] Nurse PractitionerMercyone Newton Medical Centerly Kswupbhl97/15/24Team MemberRelationshipSpecialtyStart DateEnd Date Ludwig Florez MD [address] [place] [address] PCP - GeneralFamily Kwmzuazn77/31/24 Alena Pineda, ANIKET [address] [place] [address] Nurse PractitionerMercyone Newton Medical Centerly Vkdwlhcf77/15/24Team MemberRelationshipSpecialtyStart DateEnd Date Shaikh Hernandez MD [address] [place] [address] PCP - GeneralInternal Medicine11/28/23Team MemberRelationshipSpecialtyStart Date End Date Shaikh Hernandez MD [address] [place] [address] PCP - GeneralInternal Medicine11/28/23Team MemberRelationshipSpecialtyStart Date End Date Ludwig Florez MD [address] [place] [address] PCP - Generalmily Izmqncnq00/31/24 Alena Pineda NP [address] [place] [address] Nurse PractitionerDorminy Medical Center08/07/24Team MemberRelationshipSpecialtyStart DateEnd Date Shaikh Hernandez MD [address] [place] [address] PCP - GeneralInternal Medicine11/28/23Team MemberRelationshipSpecialtyStart Date End Date Shaikh Hernandez MD [address] [place] [address] PCP - GeneralInternal Medicine11/28/23Team MemberRelationshipSpecialtyStart Date End Date Shaikh Hernandez MD [address] [place] [address] [facility] - [facility]11/28/23Team MemberRelationshipSpecialtyStart Date End Date Ludwig Florez MD [address] [place] [address] PCP - GeneralRobert [facility]ck [facility] Wepludao09/31/24 Alena Pineda NP [address] [place] [address] Nurse PractitionerDorminy Medical Center08/07/24Team MemberRelationshipSpecialtyStart DateEnd Date Ludwig Florez MD [address] [place] [address] PCP - GeneralDorminy Medical Center08/23/24 Alena iPneda NP [address] [place] [address] Nurse PractitionerDorminy Medical Center08/07/24Team MemberRelationshipSpecialtyStart DateEnd Date Ludwig Florez MD [address] [place] [address] PCP - GeneralDorminy Medical Center08/23/24 Alena Pineda NP [address] [place] [address] Nurse PractitionerDorminy Medical Center08/07/24Team MemberRelationshipSpecialtyStart DateEnd Date Ludwig Florez MD [address] [place] [address] PCP - GeneralFamily Ibhyhjjr99/31/24 Alena Pineda NP [address] [place] [address] Nurse PractitionerFamily Qkifrane71/15/24Team MemberRelationshipSpecialtyStart DateEnd Date Ludwig Florez MD [address] [place] [address] PCP - GeneralFamily Vrquptzy92/31/24 Alena Pineda, ANIKET [address] [place] [address] Nurse PractitionerFamily Tibmopxh51/15/24Team MemberRelationshipSpecialtyStart DateEnd Date Mary Wright MD [address] [place] [address] PCP - GeneralInternal Medicine11/29/24 Adam Brown DO [address] [place] [address] Referring PhysicianNeurolog11/29/24 Tonya Schultz NP [address] [place] [phone] Nurse PractitionerNeurology2Team MemberRelationshipSpecialtyStart DateEnd Date Amol Carmen DO PCP - GeneralFamily Medicine07/08/20 Team Status: Inactive Member Role Status Dates Shaikh Mary MD Primary Care Provider Active Start: January 02, 2025 End: January 02Rae Garcia ProviderActiveStart: January 02, 2025 End: January 02, 2025Team MemberRelationshipSpecialtyStart DateEnd Date Mary Wright MD [address] [place] [address] [facility]/24 Adam Brown DO [address] [place] [address] Referring PhysicianNeurolog11/29/24 Tonya Schultz NP [address] [place] [phone] Nurse PractitionerNeurology2 Team Status: Active Member Role Status Dates NON STAFF Primary Care Provider Active Team Status: Inactive Member Role Status Dates Alcides Nowak MD Attending Provider Active S tart: January 30, 2025 End: January 30, 2025NON STAFFPrimary Care ProviderActiveStart: January 30, 2025 End: January 30, 2025 Team Status: Active Member Role Status Dates Alcides Nowak MD Attending Provider, Other Provide r Active Start: January 30, 2025 NON STAFFPrimary Care ProviderActiveStart: January 30, 2025 Team Status: Active Member Role Status Dates NON STAFF Primary Care Provider Active Start: January 31, 2025 Rae Mason ProviderActiveStart: January 31, 2025 Team MemberRelationshipSpecialtyStart DateEnd Date Mary Wright MD [address] [place] [address] PCP - [facility] Medicine11/29/24 Adam Brown DO [address] [place] [id number] Referring PhysicianNeurolog11/29/24 Tonya Schultz NP [address] [place], [place] [phone] Nurse PractitionerNeurolog11/29/24Team MemberRelationshipSpecialtyStart DateEnd Date Mary Wright MD [address] [place] [address] PCP - GeneralInternal Medicine11/29/24 Adam Brown DO [address] [place] [address] Referring PhysicianNeurolog11/29/24 Tonya Schultz NP [address] [place] [phone] Nurse PractitionerNeurolog11/29/24Team MemberRelationshipSpecialtyStart DateEnd Date Mary Wright MD [address] [place] [address] PCP - GeneralInternal Medicine11/29/24 Adam Brown DO [address] [place] [address] Referring PhysicianNeurolog11/29/24 Tonya Schultz NP [address] [place] [phone] Nurse PractitionerNeurolog11/29/24 Team Status: Active Member Role Status Dates Mary Wright MD Primary Care Provider Active Team Status: Inactive Member Role Status Dates JUAN M Gonzalez Attending Provider Active Start: June 13, 2025 End: June 13, 2025Jamin Oneill Care ProviderActiveStart: June 13, 2025 End: June 13, 2025 Goals (unrecognized section and content) Goals may [...] BE BASED ON THE PRIMARY CLINICAL RECORDS. [employer] [facility]. provides no warranty or guarantee of the accuracy or completeness of information in this document.
[2025-08-19 11:38] LABS: Alanine Aminotransferase 16 U/L (16-63); Aspartate Amino Transferase 15 U/L (15-37); Cholesterol 152 mg/dL (<=200); HDL Cholesterol 47 mg/dL (40-60); Triglycerides 182 mg/dL (<=150); VLDL CHOLESTEROL 36.4 mg/dL
== END 2025-08-19 10:39 | disposition home or self-care (01) ==
LOC: LAB 10:40
PROVIDERS: PCP Internal Medicine; Visit Provider Internal Medicine Cardiovascular Disease
DX: E78.00 Pure hypercholesterolemia, unspecified (principal)
CPT/HCPCS: 36415; 80061; 84450; 84460